=== PATIENT | female | born 1955 | race Caucasian/White ===

== ENCOUNTER 2017-03-17 16:31 | Inpatient (IN) | payer BC, OTHER ==
[~2017-03-17] VITALS: Ht 157.5 cm; Wt 162.4 kg
[~2017-03-17 16:31] MED LIST: ALPR0.5T6 PO; ASPI-482 PO; ATOR40TA59 PO; BACI28.34 TP; BUDE10.22 IH; BUPR150T11 PO; CARV3.12 PO; CEPH-264 PO; CITA40TA12 PO; GABA600T2 PO; HYDR12.53 PO; LISI-334 PO; MUPI15CR TP; NYST60PO TP; OXYC-328; PANT40TA3 PO; POTA20TA12 PO; PRAS10TA9 PO; PRED20TA PO; PROAIR HFA8.5 GM INH; TEMA30CA PO
[2017-03-17 18:35] VITALS: BP 132/59
[2017-03-17] MEDS ORDERED: hydrALAZINE 20 MG/ML VIAL. IVP PRN (19:15)
[2017-03-17] MEDS ORDERED: ONDANSETRON PF 4 MG/2 ML VIAL. IV PRN (19:15)
[2017-03-17] MEDS ORDERED: VANCOMYCIN PER PHARMACY MC PRN ×2 (19:15)
[2017-03-17] MEDS ORDERED: ALBUTEROL SULFATE 2.5 MG/3 ML NEBU. NEB PRN (19:15)
[2017-03-17] MEDS ORDERED: ACETAMINOPHEN 325 MG TABLET. PO PRN (19:15)
--- NOTE | 2017-03-17 19:15 | PDOC1 ---
History and Physical Date of Admission Date of Admission 03/17/2017 Identification/Chief Complaint Chief Complaint Chief complaint multiple wounds Problems: History of Present Illness History of Present Illness This 61-year-old female with prior history of chronic lower extremity wounds directly admitted to the hospital for a recurrent nonhealing ulcers. Today received call from from her wound care physician at [facility]. Requested made with the hospital for IV antibiotics and wound care. Patient disabled recently received [employer] however today on examination she has reading ulcers both sides and lower extremities extending from the heel to mid ankle. Old culture showed positive for gram-negative MRSA and Proteus. Patient says her pain is intractable nature when they're trying to change the wounds requiring IV narcotics. Past Medical History Past Medical History MEDICATIONS: Multiple meds listed. SOCIAL HISTORY: Nonsmoker, nondrinker, not physically active, unemployed. FAMILY HISTORY: Hypertension Cardiovascular: CHF, Other Pulmonary: COPD, Other CENTRAL NERVOUS SYSTEM: Periperal neuropathy, Other GI: No pertinent hx Heme/Onc: Anemia NOS Hepatobiliary: No pertinent hx Psych: Anxiety, Depression Rheumatologic: No pertinent hx Infectious disease: Other Renal/: Chronic renal insuff Endocrine: Hypothyroidism Past Surgical History Past Surgical History: Cholecystectomy, Tubal Ligation, Other Family History Family History: Heart Disease Social History ALCOHOL: none Drugs: None Current Medications Current Medications Current Medications Medications (Trade) Dose Ordered Sig/Demarco Start Time Stop Time Status Last Admin Dose Admin Acetaminophen (Tylenol) 325 mg PRN Q6HRS PRN 03/17/17 19:15 UNV Albuterol Sulfate (Ventolin Neb Soln) 2.5 mg PRN Q4HRS PRN 03/17/17 19:15 UNV Hydralazine HCl (Apresoline) 10 mg PRN Q4HRS PRN 03/17/17 19:15 UNV Ondansetron HCl (Zofran) 4 mg PRN Q8HRS PRN 03/17/17 19:15 UNV Vancomycin HCl (Vanco Per Pharmacy) 1 each PRN DAILY PRN 03/17/17 19:15 UNV Allergies Allergies Allergies Coded Allergies Type Severity Reaction Last Updated Verified codeine Allergy Intermediate 12/31/15 Yes levofloxacin Allergy Intermediate 04/01/16 Yes piperacillin Allergy Intermediate hives, rash 04/06/16 Yes propoxyphene Allergy Intermediate 12/31/15 Yes sulfamethoxazole Allergy Intermediate 12/31/15 Yes tazobactam Allergy Intermediate hives, rash 04/06/16 Yes I S O L A T I O N *CONTACT* Allergy Unknown 04/04/16 Yes ROS Review of System CONSTITUTIONAL: No fever or chills EYES: No recent changes SKIN: No rash or itching CARDIOVASCULAR: No chest pain, syncope, palpitations, or edema RESPIRATORY: No SOB or cough GASTROINTESTINAL: No nausea, vomiting or abdominal pain NEUROLOGICAL: No headaches or weakness ENDOCRINE: No cold or heat intolerance GENITOURINARY: No urgency or frequency of urination MUSCULOSKELETAL: No back pain or joint pain LYMPHATICS: No enlarged lymph nodes PSYCHIATRIC: No anxiety or depression Physical Exam Physical Exam GEN.: No apparent distress. Alert and oriented obese HEENT: Head is normocephalic, atraumatic NECK: Supple. LUNGS: Clear to auscultation. HEART: RRR, S1, S2 present. Peripheral pulses intact ABDOMEN: Soft, nontender. Positive bowel sounds. EXTREMITIES: Without any cyanosis. NEUROLOGIC: Normal speech, normal tone PSYCHIATRIC: Normal affect, normal mood. SKIN: Weeping ulcers present in the bilateral lower extremities with serous sanguinous discharge VTE Prophylaxis Ordered VTE Prophylaxis Devices: Yes VTE Pharmacological Prophylaxi: Yes Assessment/Plan Assessment/Plan Assessment and plan #1 bilateral nonhealing ulcers #2 wound cultures positive for MRSA/Proteus/gram- negative rods #3 obesity #4 hypertension #5 anemia of chronic disease #6 coronary artery disease. She has been placed on IV vancomycin, renal dosing is needed according to renal functions, along with a specific time, I'll consult infectious disease for further recommendations, consult wound care team, pain control with IV morphine 2 mg every 2 hours as needed, labs CBC BMP ordered. DVT prophylaxis with Lovenox. Case is discussed with the [facility] physician. Long-term prognosis guarded. Old records reviewed. ROYCE MCNAIR MD Mar 17, 2017 19:15
[2017-03-17] MEDS ORDERED: VANCOMYCIN 2 GM in IV NORMAL SALINE 500ML BAG 500 ML IV ONE (19:30)
[2017-03-17 20:05] LABS: BASO % 0 % (0-3); EOS % 2 % (0-3); HEMATOCRIT 25.9 % (36.0-47.0); HEMOGLOBIN 8.5 g/dL (12.0-15.5); LYMPH # 0.7 x10^3/uL (1.0-4.8); LYMPH % 10 % (24-48); MEAN CORPUSCULAR HEMOGLOBIN 28 pg (25-35); MEAN CORPUSCULAR HGB CONC 33 g/dL (31-37); MEAN CORPUSCULAR VOLUME 86 fL (79-100); MONO % 5 % (0-9); NEUT % 83 % (31-73); PLATELET COUNT 244 x10^3/uL (140-400); RED CELL DISTRIBUTION WIDTH 17.2 % (11.5-14.5); WHITE BLOOD COUNT 7.7 x10^3/uL (4.0-11.0)
[2017-03-17] MEDS: MORPHINE SULFATE 2 MG/ML DISP.SYRIN. IV PRN ×3 (20:17→23:41)
[2017-03-17 20:22] LABS: CALCIUM 8.4 mg/dL (8.5-10.1); CREATININE 1.8 mg/dL (0.6-1.0); GFR 28.5; POTASSIUM 4.5 mmol/L (3.5-5.1)
[2017-03-17] MEDS ORDERED: LIDOCAINE 2% TOPICAL JELLY 5GM TUBE. TP ONE (20:30)
[2017-03-17 23:00] VITALS: BP 105/42
[2017-03-17] MEDS ORDERED: LIDOCAINE 2% TOPICAL JELLY 30GM TUBE. TP ONE (23:00)
[2017-03-18 03:00] VITALS: BP 145/56
[2017-03-18] MEDS: MORPHINE SULFATE 2 MG/ML DISP.SYRIN. IV PRN ×3 (03:19→12:40)
[2017-03-18 05:00] LABS: BASO % 0 % (0-3); EOS % 2 % (0-3); HEMATOCRIT 29.3 % (36.0-47.0); HEMOGLOBIN 9.4 g/dL (12.0-15.5); LYMPH % 7 % (24-48); MEAN CORPUSCULAR HEMOGLOBIN 28 pg (25-35); MEAN CORPUSCULAR HGB CONC 32 g/dL (31-37); MEAN CORPUSCULAR VOLUME 87 fL (79-100); MONO % 4 % (0-9); NEUT % 88 % (31-73); PLATELET COUNT 476 x10^3/uL (140-400); RED BLOOD COUNT 3.38 x10^6/uL (3.50-5.40); RED CELL DISTRIBUTION WIDTH 17.8 % (11.5-14.5); WHITE BLOOD COUNT 14.8 x10^3/uL (4.0-11.0)
[2017-03-18 05:19] LABS: CALCIUM 8.7 mg/dL (8.5-10.1); CREATININE 1.6 mg/dL (0.6-1.0); GFR 32.7; POTASSIUM 4.4 mmol/L (3.5-5.1)
[2017-03-18] MEDS: MEROPENEM 1 GM in IV NORMAL SALINE 100ML 100 ML IV SCH ×2 (06:42→20:53)
[2017-03-18 07:00] VITALS: BP 147/68
--- NOTE | 2017-03-18 09:02 | PDOC2 ---
IM Consult Referring physician Dr Mondragon for leg wounds with infection Date of Admission DATE: 03/18/17 TIME: 08:56 Chief Complaint Chief Complaint This 61-year-old female with prior history of chronic lower extremity wounds directly admitted to the hospital for a recurrent nonhealing ulcers. Today received call from from her wound care physician at [facility]. Requested made with the hospital for IV antibiotics and wound care. Patient disabled recently received [employer] however today on examination she has reading ulcers both sides and lower extremities extending from the heel to mid ankle. Old culture showed positive for gram-negative MRSA and Proteus. Patient says her pain is intractable nature when they're trying to change the wounds requiring IV narcotics. Problems: Past Medical History Cardiovascular: CHF, Other Pulmonary: COPD, Other CENTRAL NERVOUS SYSTEM: Periperal neuropathy, Other GI: No pertinent hx Heme/Onc: Anemia NOS Hepatobiliary: No pertinent hx Psych: Anxiety, Depression Musculoskeletal: Osteoarthritis, Other Rheumatologic: No pertinent hx Infectious disease: Other Renal/: Chronic renal insuff Endocrine: Hypothyroidism Dermatology: Other (peripheral vascular disease, obesity, venous insufficiency ulcerations) Past Surgical History Past Surgical History: Cholecystectomy, Tubal Ligation, Other Past Family History Family History: Heart Disease Past Social History PSH denies smoking, etoh, or drugs Review of Symptoms Review of Symptoms General ROS: positive for - Psychological ROS: negative Ophthalmic ROS: negative ENT ROS: negative Allergy and Immunology ROS: negative Hematology and Lymphatic: negative Endocrine ROS: negative Respiratory ROS: no cold, cough, dyspnea. Cardiovascular ROS: no chest pain or dyspnea on exertion Gastrointestinal ROS: no abdominal pain, change in bowel habits, or black or bloody stools Genito-Urinary ROS: no dysuria, trouble voiding, or hematuria Musculoskeletal ROS: no pain Neurological ROS: negative Dermatological ROS: no rash Medications Current Medications Acetaminophen (Tylenol) 325 mg PRN Q6HRS PRN PO MILD PAIN / TEMP; Start at 19:15 Albuterol Sulfate (Ventolin Neb Soln) 2.5 mg PRN Q4HRS PRN NEB SHORTNESS OF BREATH; Start 03/17/17 at 19:15 Hydralazine HCl (Apresoline) 10 mg PRN Q4HRS PRN IVP ELEVATED BP, SEE COMMENTS ; Start 03/17/17 at 19:15 Lidocaine HCl (Xylocaine 2% Topical 30gm Tube) 1 stewart 1X ONCE TP Last administered on 03/17/17 23:41; Start 03/17/17 at 23:00; Stop 03/17/17 at 23:01; Status DC Lidocaine HCl (Xylocaine 2% Topical 5gm Tube) 1 stewart 1X ONCE TP Last administered on 03/17/17 20:30; Start 03/17/17 at 20:30; Stop 03/17/17 at 20:31; Status DC Meropenem 1 gm/ Sodium Chloride 100 ml @ 200 mls/hr Q12HR IV Last administered on 03/18/17 06:42; Start 03/18/17 at 07:00 Morphine Sulfate 2 mg PRN Q2HR PRN IV PAIN Last administered on 03/18/17 08:10 ; Start 03/17/17 at 20:00 Ondansetron HCl (Zofran) 4 mg PRN Q8HRS PRN IV NAUSEA/VOMITING; Start 03/17/17 at 19:15 Vancomycin HCl 1 each 1X ONCE MC ; Start 03/19/17 at 20:30; Stop 03/19/17 at 20: 31 Vancomycin HCl (Vanco Per Pharmacy) 1 each PRN DAILY PRN MC SEE COMMENTS Last administered on 03/18/17 03:07; Start 03/17/17 at 19:15 Vancomycin HCl (Vanco Per Pharmacy) 1 each PRN DAILY PRN MC SEE COMMENTS; Start 03/17/17 at 19:15; Status UNV Vancomycin HCl 2 gm/Sodium Chloride 500 ml @ 250 mls/hr ONCE ONCE IV Last administered on 03/17/17 21:17; Start 03/17/17 at 19:30; Stop 03/17/17 at 21:29; Status DC Vancomycin HCl 2 gm/Sodium Chloride 500 ml @ 250 mls/hr Q24H IV ; Start at 21:00 Allergy Allergies Coded Allergies Type Severity Reaction Last Updated Verified codeine Allergy Intermediate 12/31/15 Yes levofloxacin Allergy Intermediate 04/01/16 Yes piperacillin Allergy Intermediate hives, rash 04/06/16 Yes propoxyphene Allergy Intermediate 12/31/15 Yes sulfamethoxazole Allergy Intermediate 12/31/15 Yes tazobactam Allergy Intermediate hives, rash 04/06/16 Yes I S O L A T I O N *CONTACT* Allergy Unknown 04/04/16 Yes Physical Exam Physical Exam General appearance - alert,well appearing, and in no distress and oriented to person, place, and time Mental Status - alert, oriented to person, place, and time, affect appropriate to mood Head - normal Chest - clear to auscultation, no wheezes, rales or rhonchi, symmetric air entry Heart - S1 and S2 normal Abdomen - soft, nontender, nondistended, no masses or organomegaly Neurological - alert and oriented Musculoskeletal - no muscular tenderness noted Extremities - no pedal edema Skin - warm and dry,,, tony lower ext ulcerations, superficial, mild surrounding erythema Labs Laboratory Tests Test 03/17/17 19:40 03/18/17 04:45 White Blood Count 7.7 x10^3/uL (4.0-11.0) 14.8 x10^3/uL (4.0-11.0) Red Blood Count 3.00 x10^6/uL (3.50-5.40) 3.38 x10^6/uL (3.50-5.40) Hemoglobin 8.5 g/dL (12.0-15.5) 9.4 g/dL (12.0-15.5) Hematocrit 25.9 % (36.0-47.0) 29.3 % (36.0-47.0) Mean Corpuscular Volume 86 fL (79-100) 87 fL (79-100) Mean Corpuscular Hemoglobin 28 pg (25-35) 28 pg (25-35) Mean Corpuscular Hemoglobin Concent 33 g/dL (31-37) 32 g/dL (31-37) Red Cell Distribution Width 17.2 % (11.5-14.5) 17.8 % (11.5-14.5) Platelet Count 244 x10^3/uL (140-400) 476 x10^3/uL (140-400) Neutrophils (%) (Auto) 83 % (31-73) 88 % (31-73) Lymphocytes (%) (Auto) 10 % (24-48) 7 % (24-48) Monocytes (%) (Auto) 5 % (0-9) 4 % (0-9) Eosinophils (%) (Auto) 2 % (0-3) 2 % (0-3) Basophils (%) (Auto) 0 % (0-3) 0 % (0-3) Neutrophils # (Auto) 6.4 x10^3uL (1.8-7.7) 12.9 x10^3uL (1.8-7.7) Lymphocytes # (Auto) 0.7 x10^3/uL (1.0-4.8) 1.0 x10^3/uL (1.0-4.8) Monocytes # (Auto) 0.4 x10^3/uL (0.0-1.1) 0.6 x10^3/uL (0.0-1.1) Eosinophils # (Auto) 0.2 x10^3/uL (0.0-0.7) 0.3 x10^3/uL (0.0-0.7) Basophils # (Auto) 0.0 x10^3/uL (0.0-0.2) 0.0 x10^3/uL (0.0-0.2) Sodium Level 138 mmol/L (136-145) 138 mmol/L (136-145) Potassium Level 4.5 mmol/L (3.5-5.1) 4.4 mmol/L (3.5-5.1) Chloride Level 100 mmol/L (98-107) 99 mmol/L (98-107) Carbon Dioxide Level 34 mmol/L (21-32) 28 mmol/L (21-32) Anion Gap 4 (6-14) 11 (6-14) Blood Urea Nitrogen 29 mg/dL (7-20) 27 mg/dL (7-20) Creatinine 1.8 mg/dL (0.6-1.0) 1.6 mg/dL (0.6-1.0) Estimated GFR (Cockcroft-Gault) 28.5 32.7 Glucose Level 143 mg/dL (70-99) 135 mg/dL (70-99) Calcium Level 8.4 mg/dL (8.5-10.1) 8.7 mg/dL (8.5-10.1) Laboratory Tests Test 03/17/17 19:40 03/18/17 04:45 White Blood Count 7.7 x10^3/uL (4.0-11.0) 14.8 x10^3/uL (4.0-11.0) Red Blood Count 3.00 x10^6/uL (3.50-5.40) 3.38 x10^6/uL (3.50-5.40) Hemoglobin 8.5 g/dL (12.0-15.5) 9.4 g/dL (12.0-15.5) Hematocrit 25.9 % (36.0-47.0) 29.3 % (36.0-47.0) Mean Corpuscular Volume 86 fL (79-100) 87 fL (79-100) Mean Corpuscular Hemoglobin 28 pg (25-35) 28 pg (25-35) Mean Corpuscular Hemoglobin Concent 33 g/dL (31-37) 32 g/dL (31-37) Red Cell Distribution Width 17.2 % (11.5-14.5) 17.8 % (11.5-14.5) Platelet Count 244 x10^3/uL (140-400) 476 x10^3/uL (140-400) Neutrophils (%) (Auto) 83 % (31-73) 88 % (31-73) Lymphocytes (%) (Auto) 10 % (24-48) 7 % (24-48) Monocytes (%) (Auto) 5 % (0-9) 4 % (0-9) Eosinophils (%) (Auto) 2 % (0-3) 2 % (0-3) Basophils (%) (Auto) 0 % (0-3) 0 % (0-3) Neutrophils # (Auto) 6.4 x10^3uL (1.8-7.7) 12.9 x10^3uL (1.8-7.7) Lymphocytes # (Auto) 0.7 x10^3/uL (1.0-4.8) 1.0 x10^3/uL (1.0-4.8) Monocytes # (Auto) 0.4 x10^3/uL (0.0-1.1) 0.6 x10^3/uL (0.0-1.1) Eosinophils # (Auto) 0.2 x10^3/uL (0.0-0.7) 0.3 x10^3/uL (0.0-0.7) Basophils # (Auto) 0.0 x10^3/uL (0.0-0.2) 0.0 x10^3/uL (0.0-0.2) Sodium Level 138 mmol/L (136-145) 138 mmol/L (136-145) Potassium Level 4.5 mmol/L (3.5-5.1) 4.4 mmol/L (3.5-5.1) Chloride Level 100 mmol/L (98-107) 99 mmol/L (98-107) Carbon Dioxide Level 34 mmol/L (21-32) 28 mmol/L (21-32) Anion Gap 4 (6-14) 11 (6-14) Blood Urea Nitrogen 29 mg/dL (7-20) 27 mg/dL (7-20) Creatinine 1.8 mg/dL (0.6-1.0) 1.6 mg/dL (0.6-1.0) Estimated GFR (Cockcroft-Gault) 28.5 32.7 Glucose Level 143 mg/dL (70-99) 135 mg/dL (70-99) Calcium Level 8.4 mg/dL (8.5-10.1) 8.7 mg/dL (8.5-10.1) Vitals Vital Signs Date Time Temp Pulse Resp B/P (MAP) Pulse Ox O2 Delivery O2 Flow Rate FiO2 03/18/17 08:10 Nasal Cannula 2.5 03/18/17 07:00 99.1 104 16 147/68 (94) 98 99.1 Assessment Assessment Tony lower ext cellulitis Tony lower ext superficial ulcerations Tony lower ext venous insufficiency Tony lower ext chronic stasis dermatitis Obesity CHF Plan Plan cont meropenem, change vanc to zyvox leg elevation local care soon to d/c iv antibiotics in few days ( 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
[2017-03-18 10:09] LABS: PLT ESTIMATE INCREASED (ADEQUATE)
[2017-03-18] MEDS: LINEZOLID 600 MG TABLET PO SCH ×2 (10:28→20:54)
[2017-03-18 10:58] VITALS: BP 152/72
--- NOTE | 2017-03-18 11:38 | PDOC ---
PROGRESS NOTES Chief Complaint Chief Complaint 1. Bilateral nonhealing ulcers on lower extremities 2. Wound cultures positive for MRSA/Proteus/gram-negative rods 3. Obesity 4. Hypertension 5. Anemia of chronic disease 6. Coronary artery disease. History of Present Illness History of Present Illness pt is doing well this morning, she is resting comfortably in bed, nurse in is the room helping her with wound care Vitals Vitals Vital Signs Date Time Temp Pulse Resp B/P (MAP) Pulse Ox O2 Delivery O2 Flow Rate FiO2 03/18/17 10:58 98.4 98 16 152/72 (98) 98 98.4 03/18/17 09:46 Nasal Cannula 2.5 Physical Exam General: Alert, Oriented X3, Cooperative, No acute distress Heart: Regular rate, No murmurs Lungs: Clear Abdomen: Normal bowel sounds, Soft, No tenderness Extremities: No clubbing, No cyanosis, Other (nonhealing ulcers in both lower extremities with minimal drainage) Skin: No rashes, No breakdown Labs LABS Laboratory Tests Test 03/17/17 19:40 03/18/17 04:45 White Blood Count 7.7 x10^3/uL (4.0-11.0) 14.8 x10^3/uL (4.0-11.0) Red Blood Count 3.00 x10^6/uL (3.50-5.40) 3.38 x10^6/uL (3.50-5.40) Hemoglobin 8.5 g/dL (12.0-15.5) 9.4 g/dL (12.0-15.5) Hematocrit 25.9 % (36.0-47.0) 29.3 % (36.0-47.0) Mean Corpuscular Volume 86 fL (79-100) 87 fL (79-100) Mean Corpuscular Hemoglobin 28 pg (25-35) 28 pg (25-35) Mean Corpuscular Hemoglobin Concent 33 g/dL (31-37) 32 g/dL (31-37) Red Cell Distribution Width 17.2 % (11.5-14.5) 17.8 % (11.5-14.5) Platelet Count 244 x10^3/uL (140-400) 476 x10^3/uL (140-400) Neutrophils (%) (Auto) 83 % (31-73) 88 % (31-73) Lymphocytes (%) (Auto) 10 % (24-48) 7 % (24-48) Monocytes (%) (Auto) 5 % (0-9) 4 % (0-9) Eosinophils (%) (Auto) 2 % (0-3) 2 % (0-3) Basophils (%) (Auto) 0 % (0-3) 0 % (0-3) Neutrophils # (Auto) 6.4 x10^3uL (1.8-7.7) 12.9 x10^3uL (1.8-7.7) Lymphocytes # (Auto) 0.7 x10^3/uL (1.0-4.8) 1.0 x10^3/uL (1.0-4.8) Monocytes # (Auto) 0.4 x10^3/uL (0.0-1.1) 0.6 x10^3/uL (0.0-1.1) Eosinophils # (Auto) 0.2 x10^3/uL (0.0-0.7) 0.3 x10^3/uL (0.0-0.7) Basophils # (Auto) 0.0 x10^3/uL (0.0-0.2) 0.0 x10^3/uL (0.0-0.2) Sodium Level 138 mmol/L (136-145) 138 mmol/L (136-145) Potassium Level 4.5 mmol/L (3.5-5.1) 4.4 mmol/L (3.5-5.1) Chloride Level 100 mmol/L (98-107) 99 mmol/L (98-107) Carbon Dioxide Level 34 mmol/L (21-32) 28 mmol/L (21-32) Anion Gap 4 (6-14) 11 (6-14) Blood Urea Nitrogen 29 mg/dL (7-20) 27 mg/dL (7-20) Creatinine 1.8 mg/dL (0.6-1.0) 1.6 mg/dL (0.6-1.0) Estimated GFR (Cockcroft-Gault) 28.5 32.7 Glucose Level 143 mg/dL (70-99) 135 mg/dL (70-99) Calcium Level 8.4 mg/dL (8.5-10.1) 8.7 mg/dL (8.5-10.1) Segmented Neutrophils % 83 % (35-66) Band Neutrophils % 5 % (0-9) Lymphocytes % 8 % (24-48) Monocytes % 4 % (0-10) Platelet Estimate Increased (ADEQUATE) Review of Systems Review of Systems denies nausea, vomiting or DUMONT Assessment and Plan Assessmemt and Plan Assessment 1. Bilateral nonhealing ulcers on lower extremities 2. Wound cultures positive for MRSA/Proteus/gram-negative rods 3. Obesity 4. Hypertension 5. Anemia of chronic disease 6. Coronary artery disease Plan 1. Abx regiment: Meropenem, linezolid 2. Lovenox for DVT prophylaxis 3. Wound local care with leg elevation 4. Appreciate ID subspecialty input 5. Continue home meds 6. Discussed plan of care with nursing 7. PT/OT 8. Recheck CBC and BMP tomorrow 9. Pain management with morphine 10. Zofran prn for nausea Problems: Comment Review of Relevant I have reviewed the following items doug (where applicable) has been applied. Labs Laboratory Tests Test 03/17/17 19:40 03/18/17 04:45 White Blood Count 7.7 x10^3/uL (4.0-11.0) 14.8 x10^3/uL (4.0-11.0) Red Blood Count 3.00 x10^6/uL (3.50-5.40) 3.38 x10^6/uL (3.50-5.40) Hemoglobin 8.5 g/dL (12.0-15.5) 9.4 g/dL (12.0-15.5) Hematocrit 25.9 % (36.0-47.0) 29.3 % (36.0-47.0) Mean Corpuscular Volume 86 fL (79-100) 87 fL (79-100) Mean Corpuscular Hemoglobin 28 pg (25-35) 28 pg (25-35) Mean Corpuscular Hemoglobin Concent 33 g/dL (31-37) 32 g/dL (31-37) Red Cell Distribution Width 17.2 % (11.5-14.5) 17.8 % (11.5-14.5) Platelet Count 244 x10^3/uL (140-400) 476 x10^3/uL (140-400) Neutrophils (%) (Auto) 83 % (31-73) 88 % (31-73) Lymphocytes (%) (Auto) 10 % (24-48) 7 % (24-48) Monocytes (%) (Auto) 5 % (0-9) 4 % (0-9) Eosinophils (%) (Auto) 2 % (0-3) 2 % (0-3) Basophils (%) (Auto) 0 % (0-3) 0 % (0-3) Neutrophils # (Auto) 6.4 x10^3uL (1.8-7.7) 12.9 x10^3uL (1.8-7.7) Lymphocytes # (Auto) 0.7 x10^3/uL (1.0-4.8) 1.0 x10^3/uL (1.0-4.8) Monocytes # (Auto) 0.4 x10^3/uL (0.0-1.1) 0.6 x10^3/uL (0.0-1.1) Eosinophils # (Auto) 0.2 x10^3/uL (0.0-0.7) 0.3 x10^3/uL (0.0-0.7) Basophils # (Auto) 0.0 x10^3/uL (0.0-0.2) 0.0 x10^3/uL (0.0-0.2) Sodium Level 138 mmol/L (136-145) 138 mmol/L (136-145) Potassium Level 4.5 mmol/L (3.5-5.1) 4.4 mmol/L (3.5-5.1) Chloride Level 100 mmol/L (98-107) 99 mmol/L (98-107) Carbon Dioxide Level 34 mmol/L (21-32) 28 mmol/L (21-32) Anion Gap 4 (6-14) 11 (6-14) Blood Urea Nitrogen 29 mg/dL (7-20) 27 mg/dL (7-20) Creatinine 1.8 mg/dL (0.6-1.0) 1.6 mg/dL (0.6-1.0) Estimated GFR (Cockcroft-Gault) 28.5 32.7 Glucose Level 143 mg/dL (70-99) 135 mg/dL (70-99) Calcium Level 8.4 mg/dL (8.5-10.1) 8.7 mg/dL (8.5-10.1) Segmented Neutrophils % 83 % (35-66) Band Neutrophils % 5 % (0-9) Lymphocytes % 8 % (24-48) Monocytes % 4 % (0-10) Platelet Estimate Increased (ADEQUATE) Laboratory Tests Test 03/17/17 19:40 03/18/17 04:45 White Blood Count 7.7 x10^3/uL (4.0-11.0) 14.8 x10^3/uL (4.0-11.0) Red Blood Count 3.00 x10^6/uL (3.50-5.40) 3.38 x10^6/uL (3.50-5.40) Hemoglobin 8.5 g/dL (12.0-15.5) 9.4 g/dL (12.0-15.5) Hematocrit 25.9 % (36.0-47.0) 29.3 % (36.0-47.0) Mean Corpuscular Volume 86 fL (79-100) 87 fL (79-100) Mean Corpuscular Hemoglobin 28 pg (25-35) 28 pg (25-35) Mean Corpuscular Hemoglobin Concent 33 g/dL (31-37) 32 g/dL (31-37) Red Cell Distribution Width 17.2 % (11.5-14.5) 17.8 % (11.5-14.5) Platelet Count 244 x10^3/uL (140-400) 476 x10^3/uL (140-400) Neutrophils (%) (Auto) 83 % (31-73) 88 % (31-73) Lymphocytes (%) (Auto) 10 % (24-48) 7 % (24-48) Monocytes (%) (Auto) 5 % (0-9) 4 % (0-9) Eosinophils (%) (Auto) 2 % (0-3) 2 % (0-3) Basophils (%) (Auto) 0 % (0-3) 0 % (0-3) Neutrophils # (Auto) 6.4 x10^3uL (1.8-7.7) 12.9 x10^3uL (1.8-7.7) Lymphocytes # (Auto) 0.7 x10^3/uL (1.0-4.8) 1.0 x10^3/uL (1.0-4.8) Monocytes # (Auto) 0.4 x10^3/uL (0.0-1.1) 0.6 x10^3/uL (0.0-1.1) Eosinophils # (Auto) 0.2 x10^3/uL (0.0-0.7) 0.3 x10^3/uL (0.0-0.7) Basophils # (Auto) 0.0 x10^3/uL (0.0-0.2) 0.0 x10^3/uL (0.0-0.2) Sodium Level 138 mmol/L (136-145) 138 mmol/L (136-145) Potassium Level 4.5 mmol/L (3.5-5.1) 4.4 mmol/L (3.5-5.1) Chloride Level 100 mmol/L (98-107) 99 mmol/L (98-107) Carbon Dioxide Level 34 mmol/L (21-32) 28 mmol/L (21-32) Anion Gap 4 (6-14) 11 (6-14) Blood Urea Nitrogen 29 mg/dL (7-20) 27 mg/dL (7-20) Creatinine 1.8 mg/dL (0.6-1.0) 1.6 mg/dL (0.6-1.0) Estimated GFR (Cockcroft-Gault) 28.5 32.7 Glucose Level 143 mg/dL (70-99) 135 mg/dL (70-99) Calcium Level 8.4 mg/dL (8.5-10.1) 8.7 mg/dL (8.5-10.1) Segmented Neutrophils % 83 % (35-66) Band Neutrophils % 5 % (0-9) Lymphocytes % 8 % (24-48) Monocytes % 4 % (0-10) Platelet Estimate Increased (ADEQUATE) Medications Current Medications Acetaminophen (Tylenol) 325 mg PRN Q6HRS PRN PO MILD PAIN / TEMP; Start at 19:15 Hydralazine HCl (Apresoline) 10 mg PRN Q4HRS PRN IVP ELEVATED BP, SEE COMMENTS ; Start 03/17/17 at 19:15 Ondansetron HCl (Zofran) 4 mg PRN Q8HRS PRN IV NAUSEA/VOMITING; Start 03/17/17 at 19:15 Albuterol Sulfate (Ventolin Neb Soln) 2.5 mg PRN Q4HRS PRN NEB SHORTNESS OF BREATH; Start 03/17/17 at 19:15 Vancomycin HCl (Vanco Per Pharmacy) 1 each PRN DAILY PRN MC SEE COMMENTS; Start 03/17/17 at 19:15; Status UNV Vancomycin HCl (Vanco Per Pharmacy) 1 each PRN DAILY PRN MC SEE COMMENTS Last administered on 03/18/17 03:07; Start 03/17/17 at 19:15; Stop 03/18/17 at 09:04; Status DC Vancomycin HCl 2 gm/Sodium Chloride 500 ml @ 250 mls/hr ONCE ONCE IV Last administered on 03/17/17 21:17; Start 03/17/17 at 19:30; Stop 03/17/17 at 21:29; Status DC Morphine Sulfate 2 mg PRN Q2HR PRN IV PAIN Last administered on 03/18/17 08:10 ; Start 03/17/17 at 20:00 Lidocaine HCl (Xylocaine 2% Topical 5gm Tube) 1 stewart 1X ONCE TP Last administered on 03/17/17 20:30; Start 03/17/17 at 20:30; Stop 03/17/17 at 20:31; Status DC Lidocaine HCl (Xylocaine 2% Topical 30gm Tube) 1 stewart 1X ONCE TP Last administered on 03/17/17 23:41; Start 03/17/17 at 23:00; Stop 03/17/17 at 23:01; Status DC Vancomycin HCl 2 gm/Sodium Chloride 500 ml @ 250 mls/hr Q24H IV ; Start at 21:00; Stop 03/18/17 at 21:00; Status DC Vancomycin HCl 1 each 1X ONCE MC ; Start 03/19/17 at 20:30; Stop 03/19/17 at 20: 31; Status Cancel Meropenem 1 gm/ Sodium Chloride 100 ml @ 200 mls/hr Q12HR IV Last administered on 03/18/17 06:42; Start 03/18/17 at 07:00 Linezolid (Zyvox) 600 mg BID PO Last administered on 03/18/17t 10:28; Start 03/18 at 09:00 Active Scripts Active Reported Aspir 81 (Aspirin) 81 Mg Tablet.dr 1 Tab PO DAILY Effient (Prasugrel Hcl) 10 Mg Tablet 10 Mg PO DAILY Protonix (Pantoprazole Sodium) 40 Mg Tablet.dr 40 Mg PO DAILY Coreg (Carvedilol) 3.125 Mg Tablet 3.125 Mg PO BIDWMEALS Atorvastatin Calcium 40 Mg Tablet 40 Mg PO HS Symbicort 80-4.5 Mcg Inhaler (Budesonide/Formoterol Fumarate) 10.2 Gm Hfa.aer.ad 2 Puff IH BID Alprazolam 0.5 Mg Tablet 1 Tab PO TID Percocet 10-325 Mg Tablet (Oxycodone/Acetaminophen) 1 Each Tablet 2 Tab .ROUTE PRN Q6HRS PRN Bupropion Hcl Sr (Bupropion Hcl) 150 Mg Tablet.er 450 Mg PO DAILY Celexa (Citalopram Hydrobromide) 40 Mg Tablet 40 Mg PO DAILY Temazepam 30 Mg Capsule 30 Mg PO HS PRN Nystop (Nystatin) 60 Gm Powder 60 Gm TP BID apply under breasts Gabapentin 600 Mg Tablet 2 Tab PO TID Vitals/I & O Vital Sign - Last 24 Hours 03/17/17 03/17/17 03/17/17 03/17/17 18:35 20:00 20:17 21:16 Temp 97.9 97.9 Pulse 82 Resp 20 16 B/P (MAP) 132/59 (83) Pulse Ox 98 98 O2 Delivery Nasal Cannula Nasal Cannula Nasal Cannula O2 Flow Rate 2.5 2.0 2.0 2.0 03/17/17 03/17/17 03/17/17 03/18/17 21:29 23:00 23:41 00:11 Temp 97.7 97.7 Pulse 86 Resp 20 16 16 B/P (MAP) 105/42 (63) Pulse Ox 95 100 100 100 O2 Delivery Nasal Cannula Nasal Cannula Nasal Cannula O2 Flow Rate 3.0 2.5 2.0 03/18/17 03/18/17 03/18/17 03/18/17 03:00 03:19 07:00 08:00 Temp 99.0 99.1 99.0 99.1 Pulse 92 104 Resp 20 16 16 B/P (MAP) 145/56 (85) 147/68 (94) Pulse Ox 100 100 98 O2 Delivery Nasal Cannula Nasal Cannula Room Air Nasal Cannula O2 Flow Rate 2.5 2.5 2.5 03/18/17 03/18/17 03/18/17 08:10 09:46 10:58 Temp 98.4 98.4 Pulse 98 Resp 16 B/P (MAP) 152/72 (98) Pulse Ox 98 O2 Delivery Nasal Cannula Nasal Cannula O2 Flow Rate 2.5 2.5 Intake and Output 03/17/17 03/17/17 03/18/17 15:00 23:00 07:00 Intake Total 120 ml 600 ml Balance 120 ml 600 ml CAROL OLIVIER III DO Mar 18, 2017 11:38
[2017-03-18 14:59] VITALS: BP 136/50
[2017-03-18] MEDS: buPROPion XL 150 MG TAB.ER.24H. PO SCH (16:50)
[2017-03-18] MEDS: ASPIRIN ENTERIC COATED 81 MG TABLET.DR. PO SCH (16:50)
[2017-03-18] MEDS: CARVEDILOL 3.125 MG TABLET. PO SCH (16:50)
[2017-03-18] MEDS: ALPRAZolam 0.5 MG TABLET PO SCH ×2 (16:50→20:54)
[2017-03-18] MEDS: oxyCODONE/APAP 10/325 1 TAB TABLET PO PRN ×2 (16:54→23:39)
[2017-03-18] MEDS: ALBUTEROL SULFATE 2.5 MG/3 ML NEBU. NEB SCH ×2 (17:00→20:14)
[2017-03-18 19:15] VITALS: BP 126/68
[2017-03-18] MEDS: BUDESONIDE 0.5 MG/2 ML NEBU. NEB SCH (20:14)
[2017-03-18] MEDS: GABAPENTIN 300 MG CAPSULE. PO SCH (20:54)
[2017-03-18] MEDS: ATORVASTATIN CALCIUM 40 MG TABLET. PO SCH (20:54)
[2017-03-18] MEDS ORDERED: VANCOMYCIN 2 GM in IV NORMAL SALINE 500ML BAG 500 ML IV SCH (21:00)
[2017-03-18] MEDS ORDERED: NYSTATIN TOPICAL POWDER 15GM BOTTLE. TP SCH (21:00)
[2017-03-18] MEDS ORDERED: NON FORMULARY ITEM (Budesonide/Formoterol Fumarate (Symbicort 80-4.5 Mcg Inhaler) 2 PUFF) IH SCH (21:00)
[2017-03-18 23:31] VITALS: BP 152/61
[2017-03-18] MEDS: TEMAZEPAM 15 MG CAPSULE PO PRN (23:42)
[2017-03-19 03:17] VITALS: BP 102/38
[2017-03-19 05:57] LABS: CALCIUM 8.5 mg/dL (8.5-10.1); CREATININE 1.3 mg/dL (0.6-1.0); GFR 41.5
[2017-03-19] MEDS: PANTOPRAZOLE 40 MG TABLET.DR. PO SCH (06:37)
[2017-03-19] MEDS: oxyCODONE/APAP 10/325 1 TAB TABLET PO PRN ×4 (06:38→19:21)
[2017-03-19] MEDS: ALBUTEROL SULFATE 2.5 MG/3 ML NEBU. NEB SCH ×4 (06:57→19:55)
[2017-03-19] MEDS: BUDESONIDE 0.5 MG/2 ML NEBU. NEB SCH ×2 (06:57→19:55)
[2017-03-19 07:00] VITALS: BP 142/46
--- NOTE | 2017-03-19 08:17 | PDOC ---
Infectious Disease Note Subjective Subjective Able to eat today which is some better Legs very painful still ROS ROS GEN: Denies fevers, chills, sweats HEENT: Denies blurred vision, sore throat CV: Denies chest pain RESP: Denies shortness of air, cough GI: Denies n/v/d NEURO: Denies confusion, dizziness MSK: Denies weakness, joint pain/swelling Vital Sign Vital Signs Vital Signs Date Time Temp Pulse Resp B/P (MAP) Pulse Ox O2 Delivery O2 Flow Rate FiO2 03/19/17 07:40 Nasal Cannula 2.5 03/19/17 07:00 96.4 75 18 142/46 (78) 99 96.4 Physical Exam PHYSICAL EXAM GENERAL: NAD, Alert, just ate HEENT: PERRL, OC/OP -clear NECK: Supple, no JVD, no LN LUNGS: Clear HEART: S1S2, no gallop, no murmur ABD: Soft, NT, no organomegaly, no rebound, obese EXT: No edema, no cyanosis. 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[employer]: Alert, oriented x 3, no focal neurologic deficit SKIN: No rash IV: ok Labs Lab Laboratory Tests Test 03/19/17 05:00 White Blood Count 5.0 x10^3/uL (4.0-11.0) Red Blood Count 2.57 x10^6/uL (3.50-5.40) Hemoglobin 7.3 g/dL (12.0-15.5) Hematocrit 21.8 % (36.0-47.0) Mean Corpuscular Volume 85 fL (79-100) Mean Corpuscular Hemoglobin 29 pg (25-35) Mean Corpuscular Hemoglobin Concent 34 g/dL (31-37) Red Cell Distribution Width 17.4 % (11.5-14.5) Platelet Count 219 x10^3/uL (140-400) Neutrophils (%) (Auto) 69 % (31-73) Lymphocytes (%) (Auto) 22 % (24-48) Monocytes (%) (Auto) 5 % (0-9) Eosinophils (%) (Auto) 3 % (0-3) Basophils (%) (Auto) 1 % (0-3) Neutrophils # (Auto) 3.4 x10^3uL (1.8-7.7) Lymphocytes # (Auto) 1.1 x10^3/uL (1.0-4.8) Monocytes # (Auto) 0.3 x10^3/uL (0.0-1.1) Eosinophils # (Auto) 0.2 x10^3/uL (0.0-0.7) Basophils # (Auto) 0.0 x10^3/uL (0.0-0.2) Sodium Level 141 mmol/L (136-145) Potassium Level 4.0 mmol/L (3.5-5.1) Chloride Level 101 mmol/L (98-107) Carbon Dioxide Level 32 mmol/L (21-32) Anion Gap 8 (6-14) Blood Urea Nitrogen 23 mg/dL (7-20) Creatinine 1.3 mg/dL (0.6-1.0) Estimated GFR (Cockcroft-Gault) 41.5 Glucose Level 91 mg/dL (70-99) Calcium Level 8.5 mg/dL (8.5-10.1) Objective Assessment Tony lower ext cellulitis Leukocytosis - better Tony lower ext superficial ulcerations Tony lower ext venous insufficiency Tony lower ext chronic stasis dermatitis Obesity CHF Plan Plan of Care cont meropenem/ zyvox leg elevation local care soon to d/c iv antibiotics in few days ( no bed bug exterminator needed ) AFSANEH BOONE MD Mar 19, 2017 08:17
[2017-03-19] MEDS: MEROPENEM 1 GM in IV NORMAL SALINE 100ML 100 ML IV SCH ×2 (08:59→20:58)
[2017-03-19] MEDS: LINEZOLID 600 MG TABLET PO SCH ×2 (09:00→20:59)
[2017-03-19] MEDS: ALPRAZolam 0.5 MG TABLET PO SCH ×3 (09:00→21:00)
[2017-03-19] MEDS: CITALOPRAM 20 MG TABLET. PO SCH (09:00)
[2017-03-19] MEDS: CARVEDILOL 3.125 MG TABLET. PO SCH ×2 (09:01→17:05)
[2017-03-19] MEDS: GABAPENTIN 300 MG CAPSULE. PO SCH ×3 (09:01→20:59)
[2017-03-19] MEDS: buPROPion XL 150 MG TAB.ER.24H. PO SCH (09:01)
[2017-03-19] MEDS: ASPIRIN ENTERIC COATED 81 MG TABLET.DR. PO SCH (09:01)
[2017-03-19] MEDS: NYSTATIN TOPICAL POWDER 15GM BOTTLE. TP SCH ×2 (09:02→21:00)
[2017-03-19 10:16] LABS: % SAT IRON 17 % (15-34); IRON,SERUM 43 ug/dL (50-170)
[2017-03-19 10:53] VITALS: BP 148/68
--- NOTE | 2017-03-19 11:19 | PDOC ---
SUBJECTIVE Subjective pain controlled, feels ok, denies melena or hematochazia OBJECTIVE Vital Signs Vital Signs Date Time Temp Pulse Resp B/P (MAP) Pulse Ox O2 Delivery O2 Flow Rate FiO2 03/19/17 10:53 97.7 78 18 148/68 (94) 100 Room Air 97.7 03/19/17 09:01 75 142/46 03/19/17 07:40 Nasal Cannula 2.5 03/19/17 07:00 96.4 75 18 142/46 (78) 99 Room Air 96.4 03/19/17 06:58 100 Nasal Cannula 3.0 03/19/17 06:38 20 91 Nasal Cannula 2.5 03/19/17 03:17 97.9 72 18 102/38 (59) 91 Room Air 97.9 03/19/17 00:40 20 100 03/18/17 23:39 20 100 Nasal Cannula 2.5 03/18/17 23:31 97.7 75 16 152/61 (91) 100 Room Air 2.5 97.7 03/18/17 20:01 92 Nasal Cannula 3.0 03/18/17 20:00 Nasal Cannula 2.5 03/18/17 19:15 98.8 73 18 126/68 (87) 96 Nasal Cannula 2.5 98.8 03/18/17 16:54 Nasal Cannula 2.5 03/18/17 16:50 92 136/50 03/18/17 14:59 98.9 92 16 136/50 (78) 99 Room Air 98.9 03/18/17 12:56 Nasal Cannula 2.5 03/18/17 12:40 Nasal Cannula 2.5 I & O Intake and Output 03/19/17 07:00 Intake Total 1540 ml Output Total 900 ml Balance 640 ml Intake Oral 1540 ml Output Urine Total 900 ml PHYSICAL EXAM Physical Exam lungs clear heart RRR abd obese soft ext dressing in place chronic swelling ASSESSMENT/PLAN Assessment/Plan 1. Bilateral nonhealing ulcers on lower extremities 2. Wound cultures positive for MRSA/Proteus/gram-negative rods 3. Obesity 4. Hypertension 5. Anemia of chronic disease with acute worsening no evidence of bleed could be dilutional will check stool guaiac and anemia studies , monitor 6. Coronary artery disease. 7. acute on chronic renal insufficiency Problems: COMMENT Lab Laboratory Tests Test 7/9/17 05:00 White Blood Count 5.0 x10^3/uL (4.0-11.0) Red Blood Count 2.57 x10^6/uL (3.50-5.40) Hemoglobin 7.3 g/dL (12.0-15.5) Hematocrit 21.8 % (36.0-47.0) Mean Corpuscular Volume 85 fL (79-100) Mean Corpuscular Hemoglobin 29 pg (25-35) Mean Corpuscular Hemoglobin Concent 34 g/dL (31-37) Red Cell Distribution Width 17.4 % (11.5-14.5) Platelet Count 219 x10^3/uL (140-400) Neutrophils (%) (Auto) 69 % (31-73) Lymphocytes (%) (Auto) 22 % (24-48) Monocytes (%) (Auto) 5 % (0-9) Eosinophils (%) (Auto) 3 % (0-3) Basophils (%) (Auto) 1 % (0-3) Neutrophils # (Auto) 3.4 x10^3uL (1.8-7.7) Lymphocytes # (Auto) 1.1 x10^3/uL (1.0-4.8) Monocytes # (Auto) 0.3 x10^3/uL (0.0-1.1) Eosinophils # (Auto) 0.2 x10^3/uL (0.0-0.7) Basophils # (Auto) 0.0 x10^3/uL (0.0-0.2) Sodium Level 141 mmol/L (136-145) Potassium Level 4.0 mmol/L (3.5-5.1) Chloride Level 101 mmol/L (98-107) Carbon Dioxide Level 32 mmol/L (21-32) Anion Gap 8 (6-14) Blood Urea Nitrogen 23 mg/dL (7-20) Creatinine 1.3 mg/dL (0.6-1.0) Estimated GFR (Cockcroft-Gault) 41.5 Glucose Level 91 mg/dL (70-99) Calcium Level 8.5 mg/dL (8.5-10.1) Iron Level 43 ug/dL (50-170) Total Iron Binding Capacity 256 ug/dL (250-450) Iron Saturation 17 % (15-34) Ferritin 149 ng/mL (8-252) MAYRA COKER MD Mar 19, 2017 11:19
[2017-03-19] MEDS: MORPHINE SULFATE 2 MG/ML DISP.SYRIN. IV PRN (14:54)
[2017-03-19 14:59] VITALS: BP 127/51
[2017-03-19 15:37] LABS: NEG OBC FOB NEG; POS OBC FOB POS
[2017-03-19] MEDS ORDERED: LIDOCAINE 2% TOPICAL JELLY 30GM TUBE. TP ONE (16:00)
[2017-03-19 19:30] VITALS: BP 101/53
[2017-03-19] MEDS: ATORVASTATIN CALCIUM 40 MG TABLET. PO SCH (20:59)
[2017-03-19 23:22] VITALS: BP 115/36
[2017-03-19] MEDS: TEMAZEPAM 15 MG CAPSULE PO PRN (23:36)
[2017-03-20] VITALS (12 sets, daily range): BP systolic 101–151; BP diastolic 36–55
[2017-03-20] MEDS: oxyCODONE/APAP 10/325 1 TAB TABLET PO PRN ×4 (01:10→22:25)
[2017-03-20 04:48] LABS: BASO % 1 % (0-3); EOS % 3 % (0-3); HEMATOCRIT 22.2 % (36.0-47.0); HEMOGLOBIN 7.2 g/dL (12.0-15.5); LYMPH # 1.2 x10^3/uL (1.0-4.8); LYMPH % 22 % (24-48); MEAN CORPUSCULAR HEMOGLOBIN 29 pg (25-35); MEAN CORPUSCULAR HGB CONC 33 g/dL (31-37); MEAN CORPUSCULAR VOLUME 88 fL (79-100); MONO % 5 % (0-9); NEUT % 69 % (31-73); PLATELET COUNT 219 x10^3/uL (140-400); RED BLOOD COUNT 2.52 x10^6/uL (3.50-5.40); RED CELL DISTRIBUTION WIDTH 17.6 % (11.5-14.5); WHITE BLOOD COUNT 5.3 x10^3/uL (4.0-11.0)
[2017-03-20 05:10] LABS: CALCIUM 8.5 mg/dL (8.5-10.1); CREATININE 1.4 mg/dL (0.6-1.0); GFR 38.1; POTASSIUM 4.2 mmol/L (3.5-5.1)
[2017-03-20] MEDS: PANTOPRAZOLE 40 MG TABLET.DR. PO SCH (06:28)
[2017-03-20] MEDS: BUDESONIDE 0.5 MG/2 ML NEBU. NEB SCH ×2 (07:40→19:06)
[2017-03-20] MEDS: ALBUTEROL SULFATE 2.5 MG/3 ML NEBU. NEB SCH ×4 (07:40→19:06)
[2017-03-20 07:56] LABS: NEG OBC FOB NEG; POS OBC FOB POS
--- NOTE | 2017-03-20 08:30 | PDOC ---
Provider Note Provider Note stable, less pain, vss- hb lower 7.2 from wounds, will give 1 u prbc- rest same ALYSIA KIM MD Mar 20, 2017 08:30
[2017-03-20] MEDS: GABAPENTIN 300 MG CAPSULE. PO SCH ×3 (09:06→20:25)
[2017-03-20] MEDS: MEROPENEM 1 GM in IV NORMAL SALINE 100ML 100 ML IV SCH ×3 (09:06→22:26)
[2017-03-20] MEDS: ASPIRIN ENTERIC COATED 81 MG TABLET.DR. PO SCH (09:06)
[2017-03-20] MEDS: CITALOPRAM 20 MG TABLET. PO SCH (09:06)
[2017-03-20] MEDS: buPROPion XL 150 MG TAB.ER.24H. PO SCH (09:06)
[2017-03-20] MEDS: LINEZOLID 600 MG TABLET PO SCH ×2 (09:07→20:25)
[2017-03-20] MEDS: CARVEDILOL 3.125 MG TABLET. PO SCH ×2 (09:07→17:20)
[2017-03-20] MEDS: NYSTATIN TOPICAL POWDER 15GM BOTTLE. TP SCH ×2 (09:09→21:00)
[2017-03-20] MEDS: FERROUS SULFATE 325 MG TABLET. PO SCH ×2 (09:15→17:16)
[2017-03-20] MEDS: ALPRAZolam 0.5 MG TABLET PO SCH ×3 (09:16→20:25)
--- NOTE | 2017-03-20 12:13 | PDOC ---
Infectious Disease Note Subjective Subjective Not to great today Legs very painful still ROS ROS GEN: Denies fevers, chills, sweats HEENT: Denies blurred vision, sore throat CV: Denies chest pain RESP: Denies shortness of air, cough GI: Denies n/v/d NEURO: Denies confusion, dizziness MSK: Denies weakness, joint pain/swelling Vital Sign Vital Signs Vital Signs Date Time Temp Pulse Resp B/P (MAP) Pulse Ox O2 Delivery O2 Flow Rate FiO2 03/20/17 11:08 100 Nasal Cannula 2.5 03/20/17 09:07 73 151/50 03/20/17 07:00 97.5 22 97.5 Physical Exam PHYSICAL EXAM GENERAL: NAD, Alert, just ate HEENT: PERRL, OC/OP -clear NECK: Supple, no JVD, no LN LUNGS: Clear HEART: S1S2, no gallop, no murmur ABD: Soft, NT, no organomegaly, no rebound, obese EXT: No edema, no cyanosis. 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 ASSESSMENT COUNSELOR: Alert, oriented x 3, no focal neurologic deficit SKIN: No rash IV: ok Labs Lab Laboratory Tests Test 03/19/17 14:50 03/20/17 04:00 03/20/17 07:00 Stool Occult Blood Negative (NEG) Negative (NEG) White Blood Count 5.3 x10^3/uL (4.0-11.0) Red Blood Count 2.52 x10^6/uL (3.50-5.40) Hemoglobin 7.2 g/dL (12.0-15.5) Hematocrit 22.2 % (36.0-47.0) Mean Corpuscular Volume 88 fL (79-100) Mean Corpuscular Hemoglobin 29 pg (25-35) Mean Corpuscular Hemoglobin Concent 33 g/dL (31-37) Red Cell Distribution Width 17.6 % (11.5-14.5) Platelet Count 219 x10^3/uL (140-400) Neutrophils (%) (Auto) 69 % (31-73) Lymphocytes (%) (Auto) 22 % (24-48) Monocytes (%) (Auto) 5 % (0-9) Eosinophils (%) (Auto) 3 % (0-3) Basophils (%) (Auto) 1 % (0-3) Neutrophils # (Auto) 3.7 x10^3uL (1.8-7.7) Lymphocytes # (Auto) 1.2 x10^3/uL (1.0-4.8) Monocytes # (Auto) 0.3 x10^3/uL (0.0-1.1) Eosinophils # (Auto) 0.2 x10^3/uL (0.0-0.7) Basophils # (Auto) 0.0 x10^3/uL (0.0-0.2) Sodium Level 139 mmol/L (136-145) Potassium Level 4.2 mmol/L (3.5-5.1) Chloride Level 101 mmol/L (98-107) Carbon Dioxide Level 32 mmol/L (21-32) Anion Gap 6 (6-14) Blood Urea Nitrogen 23 mg/dL (7-20) Creatinine 1.4 mg/dL (0.6-1.0) Estimated GFR (Cockcroft-Gault) 38.1 Glucose Level 112 mg/dL (70-99) Calcium Level 8.5 mg/dL (8.5-10.1) Objective Assessment Tony lower ext cellulitis - pictures from last pm reviewed Leukocytosis - better Tony lower ext superficial ulcerations Tony lower ext venous insufficiency Tony lower ext chronic stasis dermatitis Obesity CHF Plan Plan of Care cont meropenem/ zyvox. PRBCs today leg elevation local care soon to d/c iv antibiotics in few days ( no fpc needed ) AFSANEH BOONE MD Mar 20, 2017 12:13
[2017-03-20 13:13] LABS: FOLATE 11.14 ng/ml (3.2-20.0)
[2017-03-20] MEDS: MORPHINE SULFATE 2 MG/ML DISP.SYRIN. IV PRN ×3 (13:25→20:25)
[2017-03-20] MEDS: ATORVASTATIN CALCIUM 40 MG TABLET. PO SCH (20:25)
[2017-03-21] VITALS (7 sets, daily range): BP systolic 106–161; BP diastolic 34–79
[2017-03-21] MEDS: TEMAZEPAM 15 MG CAPSULE PO PRN ×2 (00:05→23:36)
[2017-03-21] MEDS: MORPHINE SULFATE 2 MG/ML DISP.SYRIN. IV PRN ×5 (03:18→18:05)
[2017-03-21 04:26] LABS: BASO % 1 % (0-3); EOS % 3 % (0-3); HEMATOCRIT 23.2 % (36.0-47.0); HEMOGLOBIN 7.6 g/dL (12.0-15.5); LYMPH # 1.1 x10^3/uL (1.0-4.8); LYMPH % 22 % (24-48); MEAN CORPUSCULAR HEMOGLOBIN 29 pg (25-35); MEAN CORPUSCULAR HGB CONC 33 g/dL (31-37); MEAN CORPUSCULAR VOLUME 89 fL (79-100); MONO % 6 % (0-9); NEUT % 68 % (31-73); PLATELET COUNT 204 x10^3/uL (140-400); RED BLOOD COUNT 2.61 x10^6/uL (3.50-5.40); RED CELL DISTRIBUTION WIDTH 17.8 % (11.5-14.5); WHITE BLOOD COUNT 4.8 x10^3/uL (4.0-11.0)
[2017-03-21 04:51] LABS: CALCIUM 7.8 mg/dL (8.5-10.1); CREATININE 1.3 mg/dL (0.6-1.0); GFR 41.5; POTASSIUM 4.3 mmol/L (3.5-5.1)
[2017-03-21] MEDS: PANTOPRAZOLE 40 MG TABLET.DR. PO SCH (06:37)
[2017-03-21] MEDS: oxyCODONE/APAP 10/325 1 TAB TABLET PO PRN ×3 (06:37→21:52)
[2017-03-21] MEDS: MEROPENEM 1 GM in IV NORMAL SALINE 100ML 100 ML IV SCH (06:39)
[2017-03-21] MEDS: BUDESONIDE 0.5 MG/2 ML NEBU. NEB SCH ×2 (07:14→21:28)
[2017-03-21] MEDS: ALBUTEROL SULFATE 2.5 MG/3 ML NEBU. NEB SCH ×4 (07:14→21:28)
[2017-03-21] MEDS: ALPRAZolam 0.5 MG TABLET PO SCH ×3 (08:30→23:36)
[2017-03-21] MEDS: NYSTATIN TOPICAL POWDER 15GM BOTTLE. TP SCH ×2 (08:30→21:56)
--- NOTE | 2017-03-21 08:30 | PDOC ---
Provider Note Provider Note vss, feels same, hb up 7.6 after prbc- check ferritin, cont iron for now- reduce lovenox dose re bleeding ALYSIA KIM MD Mar 21, 2017 08:30
[2017-03-21] MEDS: LINEZOLID 600 MG TABLET PO SCH (08:32)
[2017-03-21] MEDS: CITALOPRAM 20 MG TABLET. PO SCH (08:32)
[2017-03-21] MEDS: ASPIRIN ENTERIC COATED 81 MG TABLET.DR. PO SCH (08:32)
[2017-03-21] MEDS: buPROPion XL 150 MG TAB.ER.24H. PO SCH (08:32)
[2017-03-21] MEDS: GABAPENTIN 300 MG CAPSULE. PO SCH ×3 (08:32→21:52)
[2017-03-21] MEDS: FERROUS SULFATE 325 MG TABLET. PO SCH ×2 (08:32→18:05)
[2017-03-21] MEDS: CARVEDILOL 3.125 MG TABLET. PO SCH ×2 (08:33→18:06)
--- NOTE | 2017-03-21 08:49 | PDOC ---
Infectious Disease Note Subjective Subjective Not to great today feels dizzy Legs painful still ROS ROS GEN: Denies fevers, chills, sweats HEENT: Denies blurred vision, sore throat CV: Denies chest pain RESP: Denies shortness of air, cough GI: Denies n/v/d NEURO: Denies confusion, dizziness MSK: Denies weakness, joint pain/swelling Vital Sign Vital Signs Vital Signs Date Time Temp Pulse Resp B/P (MAP) Pulse Ox O2 Delivery O2 Flow Rate FiO2 03/21/17 08:35 Nasal Cannula 03/21/17 08:33 77 140/58 03/21/17 07:19 100 3.0 03/21/17 07:00 97.7 18 97.7 Physical Exam PHYSICAL EXAM GENERAL: NAD, Alert, Eating and looks well HEENT: PERRL, OC/OP -clear NECK: Supple, no JVD, no LN LUNGS: Clear HEART: S1S2, no gallop, no murmur ABD: Soft, NT, no organomegaly, no rebound, obese EXT: No edema, no cyanosis. 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 PHOTOGRAPH EDITOR: Alert, oriented x 3, no focal neurologic deficit SKIN: No rash IV: ok Labs Lab Laboratory Tests Test 03/21/17 04:05 White Blood Count 4.8 x10^3/uL (4.0-11.0) Red Blood Count 2.61 x10^6/uL (3.50-5.40) Hemoglobin 7.6 g/dL (12.0-15.5) Hematocrit 23.2 % (36.0-47.0) Mean Corpuscular Volume 89 fL (79-100) Mean Corpuscular Hemoglobin 29 pg (25-35) Mean Corpuscular Hemoglobin Concent 33 g/dL (31-37) Red Cell Distribution Width 17.8 % (11.5-14.5) Platelet Count 204 x10^3/uL (140-400) Neutrophils (%) (Auto) 68 % (31-73) Lymphocytes (%) (Auto) 22 % (24-48) Monocytes (%) (Auto) 6 % (0-9) Eosinophils (%) (Auto) 3 % (0-3) Basophils (%) (Auto) 1 % (0-3) Neutrophils # (Auto) 3.3 x10^3uL (1.8-7.7) Lymphocytes # (Auto) 1.1 x10^3/uL (1.0-4.8) Monocytes # (Auto) 0.3 x10^3/uL (0.0-1.1) Eosinophils # (Auto) 0.2 x10^3/uL (0.0-0.7) Basophils # (Auto) 0.0 x10^3/uL (0.0-0.2) Sodium Level 142 mmol/L (136-145) Potassium Level 4.3 mmol/L (3.5-5.1) Chloride Level 104 mmol/L (98-107) Carbon Dioxide Level 35 mmol/L (21-32) Anion Gap 3 (6-14) Blood Urea Nitrogen 19 mg/dL (7-20) Creatinine 1.3 mg/dL (0.6-1.0) Estimated GFR (Cockcroft-Gault) 41.5 Glucose Level 103 mg/dL (70-99) Calcium Level 7.8 mg/dL (8.5-10.1) Objective Assessment Tony lower ext cellulitis - pictures from last pm reviewed Leukocytosis - better Anemia - typically too soon for Zyvox . ? etiology Tony lower ext superficial ulcerations Tony lower ext venous insufficiency Tony lower ext chronic stasis dermatitis Obesity CHF Plan Plan of Care Discont meropenem zyvox. Dose Teflaro - reviewed allergies with Mrs Overturf PRBCs today leg elevation local care soon to d/c iv antibiotics in few days ( no retirement needed ) AFSANEH BOONE MD Mar 21, 2017 08:49
[2017-03-21] MEDS: CEFTAROLINE FOSAMIL 600 MG in IV NORMAL SALINE 250ML 250 ML IV SCH ×2 (10:04→21:56)
[2017-03-21] MEDS: ATORVASTATIN CALCIUM 40 MG TABLET. PO SCH (21:52)
[2017-03-22] VITALS (12 sets, daily range): BP systolic 109–156; BP diastolic 32–72
[2017-03-22 04:55] LABS: NEG OBC FOB NEG; POS OBC FOB POS
[2017-03-22] MEDS: PANTOPRAZOLE 40 MG TABLET.DR. PO SCH (06:22)
[2017-03-22] MEDS: oxyCODONE/APAP 10/325 1 TAB TABLET PO PRN ×3 (06:23→21:24)
[2017-03-22 07:28] LABS: BASO % 1 % (0-3); EOS % 4 % (0-3); HEMATOCRIT 22.7 % (36.0-47.0); HEMOGLOBIN 7.3 g/dL (12.0-15.5); LYMPH # 0.7 x10^3/uL (1.0-4.8); LYMPH % 20 % (24-48); MEAN CORPUSCULAR HEMOGLOBIN 29 pg (25-35); MEAN CORPUSCULAR HGB CONC 32 g/dL (31-37); MEAN CORPUSCULAR VOLUME 90 fL (79-100); MONO % 5 % (0-9); NEUT % 71 % (31-73); PLATELET COUNT 177 x10^3/uL (140-400); RED BLOOD COUNT 2.51 x10^6/uL (3.50-5.40); RED CELL DISTRIBUTION WIDTH 17.6 % (11.5-14.5); WHITE BLOOD COUNT 3.7 x10^3/uL (4.0-11.0)
[2017-03-22 07:33] LABS: CALCIUM 7.9 mg/dL (8.5-10.1); CREATININE 1.2 mg/dL (0.6-1.0); GFR 45.5; POTASSIUM 4.6 mmol/L (3.5-5.1)
[2017-03-22] MEDS: BUDESONIDE 0.5 MG/2 ML NEBU. NEB SCH ×2 (07:51→19:55)
[2017-03-22] MEDS: ALBUTEROL SULFATE 2.5 MG/3 ML NEBU. NEB SCH ×4 (07:51→19:55)
[2017-03-22] MEDS ORDERED: ENOXAPARIN 40 MG/0.4 ML SYRINGE. SQ SCH (08:00)
--- NOTE | 2017-03-22 08:12 | PDOC ---
Provider Note Provider Note R leg wound bled at times during changes, less now- hb still low 7.3, gi neg for blood- will give 1 more prbc, dc lovenox as risk> benefit- follow daily- bmp ALYSIA Wade MD Mar 22, 2017 08:12
[2017-03-22] MEDS: NYSTATIN TOPICAL POWDER 15GM BOTTLE. TP SCH ×2 (09:00→21:00)
[2017-03-22] MEDS: ALPRAZolam 0.5 MG TABLET PO SCH (09:00)
--- NOTE | 2017-03-22 09:11 | PDOC ---
Infectious Disease Note Subjective Subjective Tolerating Teflaro Still a little weak Legs painful still. Had a lot of bleeding with dressing change last pm States her legs routinely bleed with dressing changes ROS ROS GEN: Denies fevers, chills, sweats but is weak HEENT: Denies blurred vision, sore throat CV: Denies chest pain RESP: Denies shortness of air, cough GI: Denies n/v/d NEURO: Denies confusion, dizziness MSK: Denies weakness, joint pain/swelling. Leg pain Vital Sign Vital Signs Vital Signs Date Time Temp Pulse Resp B/P (MAP) Pulse Ox O2 Delivery O2 Flow Rate FiO2 03/22/17 07:51 100 Nasal Cannula 3.0 03/22/17 07:00 97.0 60 18 114/37 (62) 97.0 Physical Exam PHYSICAL EXAM GENERAL: NAD, Alert, looks well HEENT: PERRL, OC/OP -clear NECK: Supple, no JVD, no LN LUNGS: Clear HEART: S1S2, no gallop, no murmur ABD: Soft, NT, no organomegaly, no rebound, obese EXT: No edema, no cyanosis. 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, oriented x 3, no focal neurologic deficit SKIN: No rash IV: ok Labs Lab Laboratory Tests Test 03/22/17 03:30 03/22/17 07:15 Stool Occult Blood Negative (NEG) White Blood Count 3.7 x10^3/uL (4.0-11.0) Red Blood Count 2.51 x10^6/uL (3.50-5.40) Hemoglobin 7.3 g/dL (12.0-15.5) Hematocrit 22.7 % (36.0-47.0) Mean Corpuscular Volume 90 fL (79-100) Mean Corpuscular Hemoglobin 29 pg (25-35) Mean Corpuscular Hemoglobin Concent 32 g/dL (31-37) Red Cell Distribution Width 17.6 % (11.5-14.5) Platelet Count 177 x10^3/uL (140-400) Neutrophils (%) (Auto) 71 % (31-73) Lymphocytes (%) (Auto) 20 % (24-48) Monocytes (%) (Auto) 5 % (0-9) Eosinophils (%) (Auto) 4 % (0-3) Basophils (%) (Auto) 1 % (0-3) Neutrophils # (Auto) 2.6 x10^3uL (1.8-7.7) Lymphocytes # (Auto) 0.7 x10^3/uL (1.0-4.8) Monocytes # (Auto) 0.2 x10^3/uL (0.0-1.1) Eosinophils # (Auto) 0.1 x10^3/uL (0.0-0.7) Basophils # (Auto) 0.0 x10^3/uL (0.0-0.2) Sodium Level 142 mmol/L (136-145) Potassium Level 4.6 mmol/L (3.5-5.1) Chloride Level 105 mmol/L (98-107) Carbon Dioxide Level 34 mmol/L (21-32) Anion Gap 3 (6-14) Blood Urea Nitrogen 19 mg/dL (7-20) Creatinine 1.2 mg/dL (0.6-1.0) Estimated GFR (Cockcroft-Gault) 45.5 Glucose Level 94 mg/dL (70-99) Calcium Level 7.9 mg/dL (8.5-10.1) Objective Assessment Tony lower ext cellulitis - pictures from last pm reviewed Leukocytosis - better -now leukopenic Anemia - typically too soon for Zyvox . ? etiology ? recurrent leg bleeding with changes Tony lower ext superficial ulcerations Tony lower ext venous insufficiency Tony lower ext chronic stasis dermatitis Obesity CHF Plan Plan of Care Cont Teflaro - PRBCs today - Has had previous w/u by Dr. Sharp including Bone marrow and she states no obvious cause F/u labs leg elevation local care soon to d/c iv antibiotics in few days ( no [place] [facility] facility needed ) AFSANEH BOONE MD Mar 22, 2017 09:11
[2017-03-22] MEDS: buPROPion XL 150 MG TAB.ER.24H. PO SCH (10:06)
[2017-03-22] MEDS: GABAPENTIN 300 MG CAPSULE. PO SCH ×3 (10:06→21:24)
[2017-03-22] MEDS: CITALOPRAM 20 MG TABLET. PO SCH (10:06)
[2017-03-22] MEDS: ASPIRIN ENTERIC COATED 81 MG TABLET.DR. PO SCH (10:06)
[2017-03-22] MEDS: FERROUS SULFATE 325 MG TABLET. PO SCH ×2 (10:06→16:56)
[2017-03-22] MEDS: CARVEDILOL 3.125 MG TABLET. PO SCH ×2 (10:07→16:57)
[2017-03-22] MEDS: CEFTAROLINE FOSAMIL 600 MG in IV NORMAL SALINE 250ML 250 ML IV SCH ×2 (10:08→21:23)
[2017-03-22] MEDS: MORPHINE SULFATE 2 MG/ML DISP.SYRIN. IV PRN ×2 (10:17→16:57)
--- NOTE | 2017-03-22 14:39 | PDOC2 ---
Chief Complaint: Chief Complaint: Open wounds of BLE Problems: (1) Leg wound, right (2) Lymphedema of both lower extremities Vital Signs: Vital Signs: Vital Signs Date Time Temp Pulse Resp B/P (MAP) Pulse Ox O2 Delivery O2 Flow Rate FiO2 03/21/17 07:00 97.7 77 18 140/58 (85) 100 Nasal Cannula 2.5 97.7 Vital Signs Date Time Temp Pulse Resp B/P (MAP) Pulse Ox O2 Delivery O2 Flow Rate FiO2 03/22/17 13:20 97.0 60 18 114/37 97.0 03/22/17 13:08 Nasal Cannula 2.5 03/22/17 11:00 97 Allergies: Allergies: Allergies Coded Allergies Type Severity Reaction Last Updated Verified codeine Allergy Intermediate 12/31/15 Yes levofloxacin Allergy Intermediate 04/01/16 Yes piperacillin Allergy Intermediate hives, rash 04/06/16 Yes propoxyphene Allergy Intermediate 12/31/15 Yes sulfamethoxazole Allergy Intermediate 12/31/15 Yes tazobactam Allergy Intermediate hives, rash 04/06/16 Yes I S O L A T I O N *CONTACT* Allergy Unknown 04/04/16 Yes Medications: Home Meds Reported Medications Aspirin (ASPIR 81) 81 Mg Tablet.dr, 1 TAB PO DAILY, #30 TAB 5 Refills 09/06/16 Pantoprazole Sodium (PROTONIX) 40 Mg Tablet.dr, 40 MG PO DAILY, TAB 04/13/16 Carvedilol (COREG) 3.125 Mg Tablet, 3.125 MG PO BIDWMEALS, #90 TAB 04/13/16 Atorvastatin Calcium (ATORVASTATIN CALCIUM) 40 Mg Tablet, 40 MG PO HS for FOR CHOLESTEROL, #30 TAB 0 Refills 04/13/16 Budesonide/Formoterol Fumarate (SYMBICORT 80-4.5 MCG INHALER) 10.2 Gm Hfa.aer.ad , 2 PUFF IH BID, #10.2 GM 5 Refills 02/28/16 Alprazolam (ALPRAZOLAM) 0.5 Mg Tablet, 1 TAB PO TID, #30 TAB 11/02/14 Oxycodone/Apap 10-325 (PERCOCET 10-325 MG TABLET) 1 Each Tablet, 2 TAB .ROUTE PRN Q6HRS Y for PAIN, #40 TAB 11/02/14 Bupropion Hcl (BUPROPION HCL SR) 150 Mg Tablet.er, 450 MG PO DAILY 11/02/14 Citalopram Hydrobromide (CELEXA) 40 Mg Tablet, 40 MG PO DAILY, TAB 11/02/14 Temazepam (TEMAZEPAM) 30 Mg Capsule, 30 MG PO HS Y for INSOMNIA, CAP 11/02/14 Nystatin (NYSTOP) 60 Gm Powder, 60 GM TP BID apply under breasts 11/02/14 Gabapentin (GABAPENTIN) 600 Mg Tablet, 2 TAB PO TID, #90 TAB 2 Refills 11/02/14 Discontinued Reported Medications Prasugrel Hcl (EFFIENT) 10 Mg Tablet, 10 MG PO DAILY 04/13/16 PCP: PCP: Caleb Miranda MD Pain: Pain Location: Leg (bilateral, associated with dressing changes) Date of Onset 15 year h/o BLE lymphedema PMH Cardiomegaly with CHF COPD Peripheral neuropathy Splenomegaly. 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 Surgical History Cholecystectomy, Tubal Ligation Physical Exam - Wound #1 Wound Exam Location of Modifier: Right Wound Location: Lower Body Site: Leg Drainage Amount: Moderate Drainage Description: Serosanguineous Odor: None/Absent Surrounding Tissue Appearance: edematous Wound Description: skin A/P Chronic severe bilateral lower extremity lymphedema. She was admitted with cellulitis which apparently has improved on antibiotics. She has scores of what appears to be open blisters. The bleeding has improved. Ms. Lucas will have a lifetime of chronic lymphedema. She states that she gets lymphedema wraps from her family members every other day. She also states that she elevates her legs frequently. If these measures are undertaken as well as reported than there is not much more we can offer. However I suspect that she would benefit from aggressive compression dressings. We will apply Profore today which should give us about 40 mmHg compression. We will follow up as an outpatient in our wound care clinic and probably refer her back to the lymphedema clinic as well. Problems: (1) Leg wound, right (2) Lymphedema of both lower extremities MAL BILL MD Mar 22, 2017 14:39
[2017-03-22] MEDS: ATORVASTATIN CALCIUM 40 MG TABLET. PO SCH (21:24)
[2017-03-23] MEDS ORDERED: oxyCODONE/APAP 10/325 1 TAB TABLET PO ONE
[2017-03-23] MEDS: ALPRAZolam 0.5 MG TABLET PO SCH ×2 (00:01→20:47)
[2017-03-23] MEDS: TEMAZEPAM 15 MG CAPSULE PO PRN ×2 (00:02→23:19)
[2017-03-23 03:00] VITALS: BP 131/51
[2017-03-23 05:18] LABS: BASO % 1 % (0-3); EOS % 4 % (0-3); HEMATOCRIT 23.8 % (36.0-47.0); HEMOGLOBIN 7.8 g/dL (12.0-15.5); LYMPH # 0.9 x10^3/uL (1.0-4.8); LYMPH % 25 % (24-48); MEAN CORPUSCULAR HEMOGLOBIN 29 pg (25-35); MEAN CORPUSCULAR HGB CONC 33 g/dL (31-37); MEAN CORPUSCULAR VOLUME 89 fL (79-100); MONO % 5 % (0-9); NEUT % 66 % (31-73); PLATELET COUNT 145 x10^3/uL (140-400); RED BLOOD COUNT 2.66 x10^6/uL (3.50-5.40); WHITE BLOOD COUNT 3.9 x10^3/uL (4.0-11.0)
[2017-03-23] MEDS: PANTOPRAZOLE 40 MG TABLET.DR. PO SCH (05:41)
[2017-03-23] MEDS: oxyCODONE/APAP 10/325 1 TAB TABLET PO PRN ×5 (05:41→23:20)
[2017-03-23 05:53] LABS: BASO % 1 % (0-3); EOS % 3 % (0-3); HEMATOCRIT 21.8 % (36.0-47.0); HEMOGLOBIN 7.3 g/dL (12.0-15.5); LYMPH # 1.1 x10^3/uL (1.0-4.8); LYMPH % 22 % (24-48); MEAN CORPUSCULAR HEMOGLOBIN 29 pg (25-35); MEAN CORPUSCULAR HGB CONC 34 g/dL (31-37); MEAN CORPUSCULAR VOLUME 85 fL (79-100); MONO % 5 % (0-9); NEUT % 69 % (31-73); PLATELET COUNT 219 x10^3/uL (140-400); RED BLOOD COUNT 2.57 x10^6/uL (3.50-5.40); RED CELL DISTRIBUTION WIDTH 17.4 % (11.5-14.5)
[2017-03-23 07:00] VITALS: BP 119/35
[2017-03-23] MEDS: ALBUTEROL SULFATE 2.5 MG/3 ML NEBU. NEB SCH ×3 (07:31→15:31)
--- NOTE | 2017-03-23 07:49 | PDOC ---
Infectious Disease Note Subjective Subjective Feeling a little better States her legs routinely bleed with dressing changes ROS ROS GEN: Denies fevers, chills, sweats HEENT: Denies blurred vision, sore throat CV: Denies chest pain RESP: Denies shortness of air, cough GI: Denies n/v/d NEURO: Denies confusion, dizziness MSK: Denies weakness, joint pain/swelling Vital Sign Vital Signs Vital Signs Date Time Temp Pulse Resp B/P (MAP) Pulse Ox O2 Delivery O2 Flow Rate FiO2 03/23/17 07:34 98 Nasal Cannula 3.0 03/23/17 06:41 16 03/23/17 03:00 96.3 66 131/51 (77) 96.3 Physical Exam PHYSICAL EXAM GENERAL: NAD, Alert, looks well HEENT: PERRL, OC/OP -clear NECK: Supple, no JVD, no LN LUNGS: Clear HEART: S1S2, no gallop, no murmur ABD: Soft, NT, no organomegaly, no rebound, obese EXT: No edema, no cyanosis. Heavily Dressed SAMPLES AND REPAIRS PREPARER: Alert, oriented x 3, no focal neurologic deficit SKIN: No rash IV: ok Labs Lab Laboratory Tests Test 03/23/17 04:50 White Blood Count 3.9 x10^3/uL (4.0-11.0) Red Blood Count 2.66 x10^6/uL (3.50-5.40) Hemoglobin 7.8 g/dL (12.0-15.5) Hematocrit 23.8 % (36.0-47.0) Mean Corpuscular Volume 89 fL (79-100) Mean Corpuscular Hemoglobin 29 pg (25-35) Mean Corpuscular Hemoglobin Concent 33 g/dL (31-37) Red Cell Distribution Width 17.0 % (11.5-14.5) Platelet Count 145 x10^3/uL (140-400) Neutrophils (%) (Auto) 66 % (31-73) Lymphocytes (%) (Auto) 25 % (24-48) Monocytes (%) (Auto) 5 % (0-9) Eosinophils (%) (Auto) 4 % (0-3) Basophils (%) (Auto) 1 % (0-3) Neutrophils # (Auto) 2.6 x10^3uL (1.8-7.7) Lymphocytes # (Auto) 0.9 x10^3/uL (1.0-4.8) Monocytes # (Auto) 0.2 x10^3/uL (0.0-1.1) Eosinophils # (Auto) 0.2 x10^3/uL (0.0-0.7) Basophils # (Auto) 0.0 x10^3/uL (0.0-0.2) Objective Assessment Tony lower ext cellulitis - pictures from last pm reviewed. Reviewed Dr. Washington' s note and has improved Leukocytosis - better -now leukopenic. Has h/o and has been evaluated by Dr. Sharp in the past Anemia - typically too soon for Zyvox . ? etiology ? recurrent leg bleeding with changes Tony lower ext superficial ulcerations Tony lower ext venous insufficiency Tony lower ext chronic stasis dermatitis Obesity CHF Plan Plan of Care Discont Teflaro - Begin Doxycycline leg elevation local care AFSANEH BOONE MD Mar 23, 2017 07:49
[2017-03-23] MEDS: BUDESONIDE 0.5 MG/2 ML NEBU. NEB SCH ×2 (08:00→20:16)
--- NOTE | 2017-03-23 08:44 | PDOC ---
Provider Note Provider Note no new sxs- hb 7.78 now, baseline 9- less wound bleeding now- ferritin normal so anemia is both chronic disease and acute loss, should recover w/ iron- home likely , i encouraged hourly walking ALYSIA KIM MD Mar 23, 2017 08:44
[2017-03-23] MEDS: NYSTATIN TOPICAL POWDER 15GM BOTTLE. TP SCH ×2 (09:00→20:48)
[2017-03-23] MEDS: FERROUS SULFATE 325 MG TABLET. PO SCH ×2 (09:11→18:06)
[2017-03-23] MEDS: GABAPENTIN 300 MG CAPSULE. PO SCH ×3 (09:11→20:47)
[2017-03-23] MEDS: buPROPion XL 150 MG TAB.ER.24H. PO SCH (09:11)
[2017-03-23] MEDS: ASPIRIN ENTERIC COATED 81 MG TABLET.DR. PO SCH (09:11)
[2017-03-23] MEDS: DOXYCYCLINE HYCLATE 100 MG TABLET PO SCH ×2 (09:11→20:47)
[2017-03-23] MEDS: CITALOPRAM 20 MG TABLET. PO SCH (09:11)
[2017-03-23] MEDS: CARVEDILOL 3.125 MG TABLET. PO SCH ×2 (09:12→18:07)
[2017-03-23 11:00] VITALS: BP 124/51
[2017-03-23 15:00] VITALS: BP 123/46
[2017-03-23 19:00] VITALS: BP 140/44
[2017-03-23] MEDS: ATORVASTATIN CALCIUM 40 MG TABLET. PO SCH (20:47)
[2017-03-23 23:00] VITALS: BP 143/52
[2017-03-24 03:00] VITALS: BP 148/53
[2017-03-24] MEDS: oxyCODONE/APAP 10/325 1 TAB TABLET PO PRN ×3 (04:05→13:41)
[2017-03-24 07:00] VITALS: BP_SYST 107; BP_SYST 108; BP_DIAS 34; BP_DIAS 42
[2017-03-24] MEDS: BUDESONIDE 0.5 MG/2 ML NEBU. NEB SCH (07:14)
[2017-03-24] MEDS: ALBUTEROL SULFATE 2.5 MG/3 ML NEBU. NEB SCH ×3 (07:15→16:00)
--- NOTE | 2017-03-24 08:07 | DISCH ---
DISCHARGE INSTRUCTIONS Condition on Discharge Condition on Discharge: Stable Activity After Discharge Activity Instructions for Disc: No restrictions Diet after Discharge Diet after Discharge: Low Sodium 4 gm Follow-Up Follow up with: ALYSIA Milton MD Mar 24, 2017 08:07
--- NOTE | 2017-03-24 08:10 | PDOC3 ---
Discharge Summary Visit Information Date of Discharge: Mar 24, 2017 Final Diagnosis leg cellulitis Brief Hospital Course Allergies Allergies Coded Allergies Type Severity Reaction Last Updated Verified codeine Allergy Intermediate 12/31/15 Yes levofloxacin Allergy Intermediate 04/01/16 Yes piperacillin Allergy Intermediate hives, rash 04/06/16 Yes propoxyphene Allergy Intermediate 12/31/15 Yes sulfamethoxazole Allergy Intermediate 12/31/15 Yes tazobactam Allergy Intermediate hives, rash 04/06/16 Yes I S O L A T I O N *CONTACT* Allergy Unknown 04/04/16 Yes Vital Signs Vital Signs Date Time Temp Pulse Resp B/P (MAP) Pulse Ox O2 Delivery O2 Flow Rate FiO2 03/24/17 07:16 100 Nasal Cannula 3.0 03/24/17 07:00 97.5 61 20 108/34 (58) 97.5 Lab Results Laboratory Tests Test 03/23/17 04:50 White Blood Count 3.9 x10^3/uL (4.0-11.0) Red Blood Count 2.66 x10^6/uL (3.50-5.40) Hemoglobin 7.8 g/dL (12.0-15.5) Hematocrit 23.8 % (36.0-47.0) Mean Corpuscular Volume 89 fL (79-100) Mean Corpuscular Hemoglobin 29 pg (25-35) Mean Corpuscular Hemoglobin Concent 33 g/dL (31-37) Red Cell Distribution Width 17.0 % (11.5-14.5) Platelet Count 145 x10^3/uL (140-400) Neutrophils (%) (Auto) 66 % (31-73) Lymphocytes (%) (Auto) 25 % (24-48) Monocytes (%) (Auto) 5 % (0-9) Eosinophils (%) (Auto) 4 % (0-3) Basophils (%) (Auto) 1 % (0-3) Neutrophils # (Auto) 2.6 x10^3uL (1.8-7.7) Lymphocytes # (Auto) 0.9 x10^3/uL (1.0-4.8) Monocytes # (Auto) 0.2 x10^3/uL (0.0-1.1) Eosinophils # (Auto) 0.2 x10^3/uL (0.0-0.7) Basophils # (Auto) 0.0 x10^3/uL (0.0-0.2) Brief Hospital Course Ms. Lucas is a 61 old [sex] who presented with [ ]sore infected legs, anemia from wound bleed- hb down to 7.2 from baseline 9- ferritin 135- given merrem, zyvox, then teflaro, then po doxy, got 2 u prbc and po iron- stable for dc- [facility] [place], meds same Discharge Information Condition at Discharge: Improved Disposition/Orders: D/C to Home Scheduled Alprazolam (Alprazolam), 1 TAB PO TID, (Reported) Aspirin (Aspir 81), 1 TAB PO DAILY, (Reported) Atorvastatin Calcium (Atorvastatin Calcium), 40 MG PO HS, (Reported) Budesonide/Formoterol Fumarate (Symbicort 80-4.5 Mcg Inhaler), 2 PUFF IH BID, ( Reported) Bupropion Hcl (Bupropion Hcl Sr), 450 MG PO DAILY, (Reported) Carvedilol (Coreg), 3.125 MG PO BIDWMEALS, (Reported) Citalopram Hydrobromide (Celexa), 40 MG PO DAILY, (Reported) Gabapentin (Gabapentin), 2 TAB PO TID, (Reported) Nystatin (Nystop), 60 GM TP BID, (Reported) Pantoprazole Sodium (Protonix), 40 MG PO DAILY, (Reported) Scheduled PRN Oxycodone/Apap 10-325 (Percocet 10-325 Mg Tablet), 2 TAB .ROUTE PRN Q6HRS PRN for PAIN, (Reported) Temazepam (Temazepam), 30 MG PO HS PRN for INSOMNIA, (Reported) Discontinued Medications Prasugrel Hcl (Effient), 10 MG PO DAILY, (Reported) ALYSIA KIM MD Mar 24, 2017 08:10
[2017-03-24] MEDS: CITALOPRAM 20 MG TABLET. PO SCH (08:26)
[2017-03-24] MEDS: PANTOPRAZOLE 40 MG TABLET.DR. PO SCH (08:26)
[2017-03-24] MEDS: FERROUS SULFATE 325 MG TABLET. PO SCH (08:26)
[2017-03-24] MEDS: GABAPENTIN 300 MG CAPSULE. PO SCH ×2 (08:26→13:40)
[2017-03-24] MEDS: CARVEDILOL 3.125 MG TABLET. PO SCH (08:26)
[2017-03-24] MEDS: DOXYCYCLINE HYCLATE 100 MG TABLET PO SCH (08:27)
[2017-03-24] MEDS: buPROPion XL 150 MG TAB.ER.24H. PO SCH (08:27)
[2017-03-24] MEDS: ASPIRIN ENTERIC COATED 81 MG TABLET.DR. PO SCH (08:27)
[2017-03-24] MEDS: NYSTATIN TOPICAL POWDER 15GM BOTTLE. TP SCH (08:29)
[2017-03-24 10:16] VITALS: BP 135/59
[2017-03-24 14:32] VITALS: BP 119/61
--- NOTE | 2017-03-24 16:25 | PDOC ---
Infectious Disease Note Subjective Subjective Feeling a little better States her legs are much better and she is ready to go home ROS ROS GEN: Denies fevers, chills, sweats HEENT: Denies blurred vision, sore throat CV: Denies chest pain RESP: Denies shortness of air, cough GI: Denies n/v/d NEURO: Denies confusion, dizziness MSK: Denies weakness, joint pain/swelling Vital Sign Vital Signs Vital Signs Date Time Temp Pulse Resp B/P (MAP) Pulse Ox O2 Delivery O2 Flow Rate FiO2 03/24/17 15:16 Nasal Cannula 2.0 03/24/17 14:32 97.7 69 20 119/61 (80) 98 97.7 Physical Exam PHYSICAL EXAM GENERAL: NAD, Alert, looks well HEENT: PERRL, OC/OP -clear NECK: Supple, no JVD, no LN LUNGS: Clear HEART: S1S2, no gallop, no murmur ABD: Soft, NT, no organomegaly, no rebound, obese EXT: No edema, no cyanosis. Heavily Dressed AIRLINE HOSTESS: Alert, oriented x 3, no focal neurologic deficit SKIN: No rash IV: ok Objective Assessment Tony lower ext cellulitis - pictures from last pm reviewed. Reviewed Dr. Washington' s note and has improved Leukocytosis - better -now leukopenic. Has h/o and has been evaluated by Dr. Sharp in the past Anemia - typically too soon for Zyvox . ? etiology ? recurrent leg bleeding with changes Tony lower ext superficial ulcerations Tony lower ext venous insufficiency Toyn lower ext chronic stasis dermatitis Obesity CHF Plan Plan of Care Discont Teflaro - Cont Doxycycline at home for 3 days ok to d/c home AFSANEH BOONE MD Mar 24, 2017 16:25
== END 2017-03-24 17:00 | disposition home or self-care (01) | DRG 603 ==
LOC: 4 NORTH 17:50
PROVIDERS: ADMIT Internal Medicine; ATTEND Internal Medicine
PROC: 30233N1 Transfusion of Nonautologous Red Blood Cells into Peripheral Vein, Percutaneous Approach (ICD-10-PCS; principal; 2017-03-20)
DX: L03.115 Cellulitis of right lower limb (principal); N17.9 Acute kidney failure, unspecified; Z68.44 Body mass index [BMI] 60.0-69.9, adult; R65.10 Systemic inflammatory response syndrome (SIRS) of non-infectious origin without acute organ dysfunction; I13.0 Hypertensive heart and chronic kidney disease with heart failure and stage 1 through stage 4 chronic kidney disease, or unspecified chronic kidney disease; L97.309 Non-pressure chronic ulcer of unspecified ankle with unspecified severity; L03.116 Cellulitis of left lower limb; D50.0 Iron deficiency anemia secondary to blood loss (chronic); D63.8 Anemia in other chronic diseases classified elsewhere; N18.3 Chronic kidney disease, stage 3 (moderate); D72.819 Decreased white blood cell count, unspecified; E03.9 Hypothyroidism, unspecified; E66.9 Obesity, unspecified; G47.00 Insomnia, unspecified; I25.10 Atherosclerotic heart disease of native coronary artery without angina pectoris; I50.9 Heart failure, unspecified; G62.9 Polyneuropathy, unspecified; M19.90 Unspecified osteoarthritis, unspecified site; I73.9 Peripheral vascular disease, unspecified; I87.2 Venous insufficiency (chronic) (peripheral); I89.0 Lymphedema, not elsewhere classified; J44.9 Chronic obstructive pulmonary disease, unspecified; S81.801A Unspecified open wound, right lower leg, initial encounter; Z79.51 Long term (current) use of inhaled steroids; Z79.82 Long term (current) use of aspirin; Z81.8 Family history of other mental and behavioral disorders; Z82.49 Family history of ischemic heart disease and other diseases of the circulatory system; Z82.5 Family history of asthma and other chronic lower respiratory diseases; Z90.49 Acquired absence of other specified parts of digestive tract; Z98.51 Tubal ligation status; Z88.8 Allergy status to other drugs, medicaments and biological substances; Z88.5 Allergy status to narcotic agent; Z79.899 Other long term (current) drug therapy
CPT/HCPCS: 36415; 80048; 82274; 82607; 82728; 82746; 83540; 83550; 85007; 85027; 86850; 86900; 86901; 86920; 87641; 94250; 94640; 94760; A6539; J0712; J1650; J2185; J2270; J3370; J7040; J7050; J7613; J7626; P9016; 97535; J7030

== ENCOUNTER → 2017-03-28 | Outpatient (CLI) | payer BC, OTHER ==
[2017-03-24 14:32] VITALS: BP 119/61
== END | disposition home or self-care (01) ==
LOC: PMGWOUND 13:23
PROVIDERS: ATTEND Emergency Medicine Undersea and Hyperbaric Medicine
DX: I87.313 Chronic venous hypertension (idiopathic) with ulcer of bilateral lower extremity (principal); L97.211 Non-pressure chronic ulcer of right calf limited to breakdown of skin; L97.221 Non-pressure chronic ulcer of left calf limited to breakdown of skin; I25.10 Atherosclerotic heart disease of native coronary artery without angina pectoris; E66.9 Obesity, unspecified; Z68.44 Body mass index [BMI] 60.0-69.9, adult; J44.9 Chronic obstructive pulmonary disease, unspecified; I13.0 Hypertensive heart and chronic kidney disease with heart failure and stage 1 through stage 4 chronic kidney disease, or unspecified chronic kidney disease; N18.3 Chronic kidney disease, stage 3 (moderate); I50.9 Heart failure, unspecified; E03.9 Hypothyroidism, unspecified; I73.9 Peripheral vascular disease, unspecified; M19.90 Unspecified osteoarthritis, unspecified site; Z87.891 Personal history of nicotine dependence
CPT/HCPCS: 29581

== ENCOUNTER → 2017-03-31 | Outpatient (CLI) | payer BC, OTHER ==
[2017-03-24 14:32] VITALS: BP 119/61
== END | disposition home or self-care (01) ==
LOC: PMGWOUND 11:03
PROVIDERS: ATTEND Emergency Medicine Undersea and Hyperbaric Medicine
DX: I87.313 Chronic venous hypertension (idiopathic) with ulcer of bilateral lower extremity (principal); L97.211 Non-pressure chronic ulcer of right calf limited to breakdown of skin; L97.221 Non-pressure chronic ulcer of left calf limited to breakdown of skin; I25.10 Atherosclerotic heart disease of native coronary artery without angina pectoris; J44.9 Chronic obstructive pulmonary disease, unspecified; E11.22 Type 2 diabetes mellitus with diabetic chronic kidney disease; I13.0 Hypertensive heart and chronic kidney disease with heart failure and stage 1 through stage 4 chronic kidney disease, or unspecified chronic kidney disease; N18.3 Chronic kidney disease, stage 3 (moderate); I50.9 Heart failure, unspecified; E03.9 Hypothyroidism, unspecified; E66.9 Obesity, unspecified; M19.90 Unspecified osteoarthritis, unspecified site; Z68.44 Body mass index [BMI] 60.0-69.9, adult; I73.9 Peripheral vascular disease, unspecified; Z87.891 Personal history of nicotine dependence; I89.0 Lymphedema, not elsewhere classified; Z88.8 Allergy status to other drugs, medicaments and biological substances; Z88.5 Allergy status to narcotic agent; G62.9 Polyneuropathy, unspecified
CPT/HCPCS: 29581

== ENCOUNTER → 2017-04-04 | Outpatient (CLI) | payer BC, OTHER ==
[2017-03-24 14:32] VITALS: BP 119/61
== END | disposition home or self-care (01) ==
LOC: PMGWOUND 10:43
PROVIDERS: ATTEND Preventive Medicine Undersea and Hyperbaric Medicine
DX: I87.313 Chronic venous hypertension (idiopathic) with ulcer of bilateral lower extremity (principal); L97.211 Non-pressure chronic ulcer of right calf limited to breakdown of skin; L97.221 Non-pressure chronic ulcer of left calf limited to breakdown of skin; I25.10 Atherosclerotic heart disease of native coronary artery without angina pectoris; J44.9 Chronic obstructive pulmonary disease, unspecified; E11.22 Type 2 diabetes mellitus with diabetic chronic kidney disease; I13.0 Hypertensive heart and chronic kidney disease with heart failure and stage 1 through stage 4 chronic kidney disease, or unspecified chronic kidney disease; N18.3 Chronic kidney disease, stage 3 (moderate); I50.9 Heart failure, unspecified; E11.51 Type 2 diabetes mellitus with diabetic peripheral angiopathy without gangrene; E03.9 Hypothyroidism, unspecified; I89.0 Lymphedema, not elsewhere classified; E66.9 Obesity, unspecified; E11.42 Type 2 diabetes mellitus with diabetic polyneuropathy; M19.90 Unspecified osteoarthritis, unspecified site; Z68.44 Body mass index [BMI] 60.0-69.9, adult; Z87.891 Personal history of nicotine dependence; Z88.8 Allergy status to other drugs, medicaments and biological substances; Z88.5 Allergy status to narcotic agent; Z90.49 Acquired absence of other specified parts of digestive tract
CPT/HCPCS: 29581

== ENCOUNTER → 2017-04-11 | Outpatient (CLI) | payer BC, OTHER ==
[2017-03-24 14:32] VITALS: BP 119/61
== END | disposition home or self-care (01) ==
LOC: PMGWOUND 09:58
PROVIDERS: ATTEND Emergency Medicine Undersea and Hyperbaric Medicine
DX: I87.313 Chronic venous hypertension (idiopathic) with ulcer of bilateral lower extremity (principal); L97.211 Non-pressure chronic ulcer of right calf limited to breakdown of skin; L97.221 Non-pressure chronic ulcer of left calf limited to breakdown of skin; J44.9 Chronic obstructive pulmonary disease, unspecified; I13.0 Hypertensive heart and chronic kidney disease with heart failure and stage 1 through stage 4 chronic kidney disease, or unspecified chronic kidney disease; N18.3 Chronic kidney disease, stage 3 (moderate); I50.9 Heart failure, unspecified; E03.9 Hypothyroidism, unspecified; I89.0 Lymphedema, not elsewhere classified; E66.9 Obesity, unspecified; E11.51 Type 2 diabetes mellitus with diabetic peripheral angiopathy without gangrene; M19.90 Unspecified osteoarthritis, unspecified site; Z68.44 Body mass index [BMI] 60.0-69.9, adult; Z88.5 Allergy status to narcotic agent; Z87.891 Personal history of nicotine dependence; E11.42 Type 2 diabetes mellitus with diabetic polyneuropathy; Z88.8 Allergy status to other drugs, medicaments and biological substances; Z90.49 Acquired absence of other specified parts of digestive tract
CPT/HCPCS: 29581

== ENCOUNTER → 2017-04-18 | Outpatient (CLI) | payer BC, OTHER ==
[2017-03-24 14:32] VITALS: BP 119/61
== END | disposition home or self-care (01) ==
LOC: PMGWOUND 11:17
PROVIDERS: ATTEND Emergency Medicine Undersea and Hyperbaric Medicine
DX: I87.311 Chronic venous hypertension (idiopathic) with ulcer of right lower extremity (principal); E11.622 Type 2 diabetes mellitus with other skin ulcer; L97.211 Non-pressure chronic ulcer of right calf limited to breakdown of skin; J44.9 Chronic obstructive pulmonary disease, unspecified; I89.0 Lymphedema, not elsewhere classified; I25.10 Atherosclerotic heart disease of native coronary artery without angina pectoris; E03.9 Hypothyroidism, unspecified; M19.90 Unspecified osteoarthritis, unspecified site; Z87.891 Personal history of nicotine dependence; E11.22 Type 2 diabetes mellitus with diabetic chronic kidney disease; I13.0 Hypertensive heart and chronic kidney disease with heart failure and stage 1 through stage 4 chronic kidney disease, or unspecified chronic kidney disease; N18.3 Chronic kidney disease, stage 3 (moderate); I50.9 Heart failure, unspecified; E11.42 Type 2 diabetes mellitus with diabetic polyneuropathy; E11.51 Type 2 diabetes mellitus with diabetic peripheral angiopathy without gangrene; E66.9 Obesity, unspecified; Z68.44 Body mass index [BMI] 60.0-69.9, adult
CPT/HCPCS: 29581

== ENCOUNTER → 2017-04-21 | Outpatient (CLI) | payer BC, OTHER ==
[2017-03-24 14:32] VITALS: BP 119/61
== END | disposition home or self-care (01) ==
LOC: PMGWOUND 11:26
PROVIDERS: ATTEND Preventive Medicine Undersea and Hyperbaric Medicine
DX: I87.313 Chronic venous hypertension (idiopathic) with ulcer of bilateral lower extremity (principal); L97.211 Non-pressure chronic ulcer of right calf limited to breakdown of skin; L97.221 Non-pressure chronic ulcer of left calf limited to breakdown of skin; E11.22 Type 2 diabetes mellitus with diabetic chronic kidney disease; I13.0 Hypertensive heart and chronic kidney disease with heart failure and stage 1 through stage 4 chronic kidney disease, or unspecified chronic kidney disease; N18.4 Chronic kidney disease, stage 4 (severe); I50.9 Heart failure, unspecified; J44.9 Chronic obstructive pulmonary disease, unspecified; I89.0 Lymphedema, not elsewhere classified; I25.10 Atherosclerotic heart disease of native coronary artery without angina pectoris; E03.9 Hypothyroidism, unspecified; E66.9 Obesity, unspecified; E11.51 Type 2 diabetes mellitus with diabetic peripheral angiopathy without gangrene; E11.42 Type 2 diabetes mellitus with diabetic polyneuropathy; M19.90 Unspecified osteoarthritis, unspecified site; Z68.44 Body mass index [BMI] 60.0-69.9, adult; Z87.891 Personal history of nicotine dependence
CPT/HCPCS: 29581

== ENCOUNTER → 2017-04-28 | Outpatient (CLI) | payer BC, OTHER | END | disposition home or self-care (01) | LOC: PMGWOUND 10:20 | PROVIDERS: ATTEND Preventive Medicine Undersea and Hyperbaric Medicine | DX: I87.313 Chronic venous hypertension (idiopathic) with ulcer of bilateral lower extremity (principal); E11.622 Type 2 diabetes mellitus with other skin ulcer; L97.211 Non-pressure chronic ulcer of right calf limited to breakdown of skin; L97.221 Non-pressure chronic ulcer of left calf limited to breakdown of skin; I89.0 Lymphedema, not elsewhere classified; I25.10 Atherosclerotic heart disease of native coronary artery without angina pectoris; J44.9 Chronic obstructive pulmonary disease, unspecified; E03.9 Hypothyroidism, unspecified; E11.51 Type 2 diabetes mellitus with diabetic peripheral angiopathy without gangrene; E11.22 Type 2 diabetes mellitus with diabetic chronic kidney disease; I13.0 Hypertensive heart and chronic kidney disease with heart failure and stage 1 through stage 4 chronic kidney disease, or unspecified chronic kidney disease; N18.4 Chronic kidney disease, stage 4 (severe); I50.9 Heart failure, unspecified; E66.9 Obesity, unspecified; E11.42 Type 2 diabetes mellitus with diabetic polyneuropathy; M19.90 Unspecified osteoarthritis, unspecified site; Z87.891 Personal history of nicotine dependence; Z90.49 Acquired absence of other specified parts of digestive tract; Z88.5 Allergy status to narcotic agent; Z88.8 Allergy status to other drugs, medicaments and biological substances; Z79.82 Long term (current) use of aspirin; Z68.44 Body mass index [BMI] 60.0-69.9, adult | CPT/HCPCS: 29581; 97597; 97598 ==

== ENCOUNTER → 2017-05-02 | Outpatient (CLI) | payer BC, OTHER | END | disposition home or self-care (01) | LOC: PMGWOUND 10:35 | PROVIDERS: ATTEND Emergency Medicine Undersea and Hyperbaric Medicine | DX: I87.313 Chronic venous hypertension (idiopathic) with ulcer of bilateral lower extremity (principal); E11.622 Type 2 diabetes mellitus with other skin ulcer; L97.211 Non-pressure chronic ulcer of right calf limited to breakdown of skin; L97.221 Non-pressure chronic ulcer of left calf limited to breakdown of skin; I89.0 Lymphedema, not elsewhere classified; J44.9 Chronic obstructive pulmonary disease, unspecified; I25.10 Atherosclerotic heart disease of native coronary artery without angina pectoris; E03.9 Hypothyroidism, unspecified; E11.51 Type 2 diabetes mellitus with diabetic peripheral angiopathy without gangrene; M19.90 Unspecified osteoarthritis, unspecified site; Z87.891 Personal history of nicotine dependence; E11.22 Type 2 diabetes mellitus with diabetic chronic kidney disease; I13.0 Hypertensive heart and chronic kidney disease with heart failure and stage 1 through stage 4 chronic kidney disease, or unspecified chronic kidney disease; N18.4 Chronic kidney disease, stage 4 (severe); I50.9 Heart failure, unspecified; E66.9 Obesity, unspecified; Z68.44 Body mass index [BMI] 60.0-69.9, adult; E11.42 Type 2 diabetes mellitus with diabetic polyneuropathy | CPT/HCPCS: 29581 ==

== ENCOUNTER → 2017-05-05 | Outpatient (CLI) | payer BC, OTHER | END | disposition home or self-care (01) | LOC: PMGWOUND 09:04 | PROVIDERS: ATTEND Preventive Medicine Undersea and Hyperbaric Medicine | DX: I87.313 Chronic venous hypertension (idiopathic) with ulcer of bilateral lower extremity (principal); E11.622 Type 2 diabetes mellitus with other skin ulcer; L97.211 Non-pressure chronic ulcer of right calf limited to breakdown of skin; L97.221 Non-pressure chronic ulcer of left calf limited to breakdown of skin; I89.0 Lymphedema, not elsewhere classified; I25.10 Atherosclerotic heart disease of native coronary artery without angina pectoris; J44.9 Chronic obstructive pulmonary disease, unspecified; E11.22 Type 2 diabetes mellitus with diabetic chronic kidney disease; I13.0 Hypertensive heart and chronic kidney disease with heart failure and stage 1 through stage 4 chronic kidney disease, or unspecified chronic kidney disease; N18.4 Chronic kidney disease, stage 4 (severe); I50.9 Heart failure, unspecified; E03.9 Hypothyroidism, unspecified; E66.9 Obesity, unspecified; Z68.44 Body mass index [BMI] 60.0-69.9, adult; E11.42 Type 2 diabetes mellitus with diabetic polyneuropathy; E11.51 Type 2 diabetes mellitus with diabetic peripheral angiopathy without gangrene; M19.90 Unspecified osteoarthritis, unspecified site; Z90.49 Acquired absence of other specified parts of digestive tract; Z87.891 Personal history of nicotine dependence; Z79.82 Long term (current) use of aspirin | CPT/HCPCS: 29581 ==

== ENCOUNTER → 2017-05-09 | Outpatient (CLI) | payer BC, OTHER | END | disposition home or self-care (01) | LOC: PMGWOUND 09:03 | PROVIDERS: ATTEND Emergency Medicine Undersea and Hyperbaric Medicine | DX: I87.313 Chronic venous hypertension (idiopathic) with ulcer of bilateral lower extremity (principal); E11.622 Type 2 diabetes mellitus with other skin ulcer; L97.211 Non-pressure chronic ulcer of right calf limited to breakdown of skin; L97.221 Non-pressure chronic ulcer of left calf limited to breakdown of skin; I89.0 Lymphedema, not elsewhere classified; I25.10 Atherosclerotic heart disease of native coronary artery without angina pectoris; E03.9 Hypothyroidism, unspecified; E11.51 Type 2 diabetes mellitus with diabetic peripheral angiopathy without gangrene; E11.42 Type 2 diabetes mellitus with diabetic polyneuropathy; E11.22 Type 2 diabetes mellitus with diabetic chronic kidney disease; I13.0 Hypertensive heart and chronic kidney disease with heart failure and stage 1 through stage 4 chronic kidney disease, or unspecified chronic kidney disease; N18.4 Chronic kidney disease, stage 4 (severe); I50.9 Heart failure, unspecified; M19.90 Unspecified osteoarthritis, unspecified site; E66.9 Obesity, unspecified; Z90.49 Acquired absence of other specified parts of digestive tract; Z87.891 Personal history of nicotine dependence; Z79.82 Long term (current) use of aspirin; Z68.44 Body mass index [BMI] 60.0-69.9, adult; Z99.2 Dependence on renal dialysis | CPT/HCPCS: 29581; 87071; 87075; 87205 ==

== ENCOUNTER → 2017-05-12 | Outpatient (CLI) | payer BC, OTHER ==
[~2017-05-12] MED LIST changes: +CHOL10003 PO; +CLOP75TA PO; +DOXY100C2 PO; +RIFA300C3 PO; +VENL75CA6 PO
--- NOTE | 2017-05-12 11:32 | HP ---
ADMIT DATE: 05/12/2017 DATE OF ADMISSION: 05/12/2017. CHIEF COMPLAINT: Swollen legs. HISTORY OF PRESENT ILLNESS: A 62-year-old white female with chronic lymphedema and venous stasis dermatitis of both lower extremities. She has been followed at wound care centers both at [facility] and [place] for the last several years. She recently started going to [place] and was seen 3 days ago. Cultures were done because of increasing pain in her left leg. Results are not available, but the pain has gotten worse despite oral rifampin and doxycycline, and she has been admitted for further evaluation. She denies fever, chills, vomiting, diarrhea or any other specific complaints at this time. PAST MEDICAL HISTORY: Last admission 6 weeks ago, she had anemia from wound bleed and received transfusions at that time. She says has had coronary stents placed in the past. MEDICATIONS: She takes aspirin and Plavix as a result. ALLERGIES: She has multiple drug allergies including ZOSYN, LEVAQUIN, AND SULFA. SOCIAL HISTORY: Nonsmoker. Lives at home and not employed, . FAMILY HISTORY: Unremarkable. REVIEW OF SYSTEMS: No other specific complaints. OBJECTIVE: ENT: All within normal limits. NECK: No masses, nodes or bruits. LUNGS: Clear. CARDIOVASCULAR: Regular rate. No irregular beat, murmur or tachycardia. NEUROLOGIC: Physiologic. PSYCHIATRIC: Nonfocal. ASSESSMENT: Chronic bilateral lower extremity edema and cellulitis with secondary progressive infection. PLAN: Admit. ALYSIA KIM MD DR: KARIN/lidia JOB#: [id number] / [id number]
== END | disposition home or self-care (01) ==
LOC: PMGWOUND 09:01
PROVIDERS: ATTEND Preventive Medicine Undersea and Hyperbaric Medicine
DX: I87.313 Chronic venous hypertension (idiopathic) with ulcer of bilateral lower extremity (principal); L97.211 Non-pressure chronic ulcer of right calf limited to breakdown of skin; L97.221 Non-pressure chronic ulcer of left calf limited to breakdown of skin; I89.0 Lymphedema, not elsewhere classified; E11.22 Type 2 diabetes mellitus with diabetic chronic kidney disease; I13.0 Hypertensive heart and chronic kidney disease with heart failure and stage 1 through stage 4 chronic kidney disease, or unspecified chronic kidney disease; N18.4 Chronic kidney disease, stage 4 (severe); I50.9 Heart failure, unspecified; E03.9 Hypothyroidism, unspecified; E66.9 Obesity, unspecified; E11.42 Type 2 diabetes mellitus with diabetic polyneuropathy; E11.51 Type 2 diabetes mellitus with diabetic peripheral angiopathy without gangrene; J44.9 Chronic obstructive pulmonary disease, unspecified; I25.10 Atherosclerotic heart disease of native coronary artery without angina pectoris; M19.90 Unspecified osteoarthritis, unspecified site; Z87.891 Personal history of nicotine dependence; Z99.2 Dependence on renal dialysis
CPT/HCPCS: 99214

== ENCOUNTER → 2017-05-22 | Outpatient (CLI) | payer BC, OTHER | END | disposition home or self-care (01) | LOC: PMGWOUND 11:27 | PROVIDERS: ATTEND Emergency Medicine Undersea and Hyperbaric Medicine | DX: I87.313 Chronic venous hypertension (idiopathic) with ulcer of bilateral lower extremity (principal); L97.211 Non-pressure chronic ulcer of right calf limited to breakdown of skin; L97.221 Non-pressure chronic ulcer of left calf limited to breakdown of skin; I89.0 Lymphedema, not elsewhere classified; I25.10 Atherosclerotic heart disease of native coronary artery without angina pectoris; J44.9 Chronic obstructive pulmonary disease, unspecified; E03.9 Hypothyroidism, unspecified; E66.9 Obesity, unspecified; E11.42 Type 2 diabetes mellitus with diabetic polyneuropathy; E11.51 Type 2 diabetes mellitus with diabetic peripheral angiopathy without gangrene; E11.22 Type 2 diabetes mellitus with diabetic chronic kidney disease; I13.0 Hypertensive heart and chronic kidney disease with heart failure and stage 1 through stage 4 chronic kidney disease, or unspecified chronic kidney disease; N18.4 Chronic kidney disease, stage 4 (severe); I50.9 Heart failure, unspecified; M19.90 Unspecified osteoarthritis, unspecified site; Z99.2 Dependence on renal dialysis; Z68.44 Body mass index [BMI] 60.0-69.9, adult; Z79.82 Long term (current) use of aspirin; Z87.891 Personal history of nicotine dependence | CPT/HCPCS: 29581 ==

== ENCOUNTER → 2017-05-26 | Outpatient (CLI) | payer BC, OTHER | END | disposition home or self-care (01) | LOC: PMGWOUND 08:54 | PROVIDERS: ATTEND Preventive Medicine Undersea and Hyperbaric Medicine | DX: I87.313 Chronic venous hypertension (idiopathic) with ulcer of bilateral lower extremity (principal); L97.211 Non-pressure chronic ulcer of right calf limited to breakdown of skin; L97.221 Non-pressure chronic ulcer of left calf limited to breakdown of skin; I89.0 Lymphedema, not elsewhere classified; I25.10 Atherosclerotic heart disease of native coronary artery without angina pectoris; E11.22 Type 2 diabetes mellitus with diabetic chronic kidney disease; I13.0 Hypertensive heart and chronic kidney disease with heart failure and stage 1 through stage 4 chronic kidney disease, or unspecified chronic kidney disease; N18.4 Chronic kidney disease, stage 4 (severe); I50.9 Heart failure, unspecified; E03.9 Hypothyroidism, unspecified; M19.90 Unspecified osteoarthritis, unspecified site; E11.51 Type 2 diabetes mellitus with diabetic peripheral angiopathy without gangrene; E66.9 Obesity, unspecified; Z87.891 Personal history of nicotine dependence; Z79.82 Long term (current) use of aspirin; Z79.4 Long term (current) use of insulin; Z68.44 Body mass index [BMI] 60.0-69.9, adult; Z99.2 Dependence on renal dialysis | CPT/HCPCS: 29581; 97597; 97598 ==

== ENCOUNTER → 2017-05-29 | Outpatient (CLI) | payer BC, OTHER | END | disposition home or self-care (01) | LOC: PMGWOUND 12:18 | PROVIDERS: ATTEND Emergency Medicine Undersea and Hyperbaric Medicine | DX: I87.313 Chronic venous hypertension (idiopathic) with ulcer of bilateral lower extremity (principal); E11.622 Type 2 diabetes mellitus with other skin ulcer; L97.211 Non-pressure chronic ulcer of right calf limited to breakdown of skin; L97.221 Non-pressure chronic ulcer of left calf limited to breakdown of skin; I89.0 Lymphedema, not elsewhere classified; I25.10 Atherosclerotic heart disease of native coronary artery without angina pectoris; E11.51 Type 2 diabetes mellitus with diabetic peripheral angiopathy without gangrene; E11.22 Type 2 diabetes mellitus with diabetic chronic kidney disease; I13.0 Hypertensive heart and chronic kidney disease with heart failure and stage 1 through stage 4 chronic kidney disease, or unspecified chronic kidney disease; N18.4 Chronic kidney disease, stage 4 (severe); I50.9 Heart failure, unspecified; M19.90 Unspecified osteoarthritis, unspecified site; E11.42 Type 2 diabetes mellitus with diabetic polyneuropathy; E66.9 Obesity, unspecified; E03.9 Hypothyroidism, unspecified; Z99.2 Dependence on renal dialysis; Z79.4 Long term (current) use of insulin; Z79.82 Long term (current) use of aspirin; Z68.44 Body mass index [BMI] 60.0-69.9, adult; Z87.891 Personal history of nicotine dependence | CPT/HCPCS: 29581 ==

== ENCOUNTER → 2017-06-02 | Outpatient (CLI) | payer BC, OTHER | END | disposition home or self-care (01) | LOC: PMGWOUND 10:53 | PROVIDERS: ATTEND Preventive Medicine Undersea and Hyperbaric Medicine | DX: I87.313 Chronic venous hypertension (idiopathic) with ulcer of bilateral lower extremity (principal); E11.622 Type 2 diabetes mellitus with other skin ulcer; L97.211 Non-pressure chronic ulcer of right calf limited to breakdown of skin; L97.221 Non-pressure chronic ulcer of left calf limited to breakdown of skin; I89.0 Lymphedema, not elsewhere classified; I25.10 Atherosclerotic heart disease of native coronary artery without angina pectoris; E11.22 Type 2 diabetes mellitus with diabetic chronic kidney disease; I13.0 Hypertensive heart and chronic kidney disease with heart failure and stage 1 through stage 4 chronic kidney disease, or unspecified chronic kidney disease; N18.4 Chronic kidney disease, stage 4 (severe); I50.9 Heart failure, unspecified; E03.9 Hypothyroidism, unspecified; E66.9 Obesity, unspecified; E11.42 Type 2 diabetes mellitus with diabetic polyneuropathy; E11.51 Type 2 diabetes mellitus with diabetic peripheral angiopathy without gangrene; M19.90 Unspecified osteoarthritis, unspecified site; J44.9 Chronic obstructive pulmonary disease, unspecified; Z68.44 Body mass index [BMI] 60.0-69.9, adult; Z79.4 Long term (current) use of insulin; Z79.82 Long term (current) use of aspirin; Z87.891 Personal history of nicotine dependence | CPT/HCPCS: 29581 ==

== ENCOUNTER → 2017-06-06 | Outpatient (CLI) | payer BC, OTHER | END | disposition home or self-care (01) | LOC: PMGWOUND 12:04 | PROVIDERS: ATTEND Emergency Medicine Undersea and Hyperbaric Medicine | DX: I87.313 Chronic venous hypertension (idiopathic) with ulcer of bilateral lower extremity (principal); L97.211 Non-pressure chronic ulcer of right calf limited to breakdown of skin; L97.221 Non-pressure chronic ulcer of left calf limited to breakdown of skin; I89.0 Lymphedema, not elsewhere classified; E11.22 Type 2 diabetes mellitus with diabetic chronic kidney disease; I13.0 Hypertensive heart and chronic kidney disease with heart failure and stage 1 through stage 4 chronic kidney disease, or unspecified chronic kidney disease; N18.4 Chronic kidney disease, stage 4 (severe); I50.9 Heart failure, unspecified; J44.9 Chronic obstructive pulmonary disease, unspecified; I25.10 Atherosclerotic heart disease of native coronary artery without angina pectoris; E03.9 Hypothyroidism, unspecified; E66.9 Obesity, unspecified; E11.51 Type 2 diabetes mellitus with diabetic peripheral angiopathy without gangrene; E11.42 Type 2 diabetes mellitus with diabetic polyneuropathy; M19.90 Unspecified osteoarthritis, unspecified site; Z68.44 Body mass index [BMI] 60.0-69.9, adult; Z79.4 Long term (current) use of insulin; Z79.82 Long term (current) use of aspirin; Z99.2 Dependence on renal dialysis; Z90.49 Acquired absence of other specified parts of digestive tract; Z87.891 Personal history of nicotine dependence | CPT/HCPCS: 29581 ==

== ENCOUNTER → 2017-06-09 | Outpatient (CLI) | payer BC, OTHER | END | disposition home or self-care (01) | LOC: PMGWOUND 10:33 | PROVIDERS: ATTEND Preventive Medicine Undersea and Hyperbaric Medicine | DX: I87.313 Chronic venous hypertension (idiopathic) with ulcer of bilateral lower extremity (principal); E11.622 Type 2 diabetes mellitus with other skin ulcer; L97.211 Non-pressure chronic ulcer of right calf limited to breakdown of skin; L97.221 Non-pressure chronic ulcer of left calf limited to breakdown of skin; I89.0 Lymphedema, not elsewhere classified; L08.9 Local infection of the skin and subcutaneous tissue, unspecified; E11.22 Type 2 diabetes mellitus with diabetic chronic kidney disease; I13.0 Hypertensive heart and chronic kidney disease with heart failure and stage 1 through stage 4 chronic kidney disease, or unspecified chronic kidney disease; N18.4 Chronic kidney disease, stage 4 (severe); I50.9 Heart failure, unspecified; Z99.2 Dependence on renal dialysis; J44.9 Chronic obstructive pulmonary disease, unspecified; E03.9 Hypothyroidism, unspecified; M19.90 Unspecified osteoarthritis, unspecified site; E11.42 Type 2 diabetes mellitus with diabetic polyneuropathy; E11.51 Type 2 diabetes mellitus with diabetic peripheral angiopathy without gangrene | CPT/HCPCS: 29581; 87071; 87075; 87205 ==

== ENCOUNTER → 2017-06-13 | Outpatient (CLI) | payer BC, OTHER | END | disposition home or self-care (01) | LOC: PMGWOUND 09:58 | PROVIDERS: ATTEND Emergency Medicine Undersea and Hyperbaric Medicine | DX: I87.313 Chronic venous hypertension (idiopathic) with ulcer of bilateral lower extremity (principal); E11.622 Type 2 diabetes mellitus with other skin ulcer; L97.211 Non-pressure chronic ulcer of right calf limited to breakdown of skin; L97.221 Non-pressure chronic ulcer of left calf limited to breakdown of skin; S90.821D Blister (nonthermal), right foot, subsequent encounter; I89.0 Lymphedema, not elsewhere classified; L08.9 Local infection of the skin and subcutaneous tissue, unspecified; J44.9 Chronic obstructive pulmonary disease, unspecified; E11.22 Type 2 diabetes mellitus with diabetic chronic kidney disease; I13.0 Hypertensive heart and chronic kidney disease with heart failure and stage 1 through stage 4 chronic kidney disease, or unspecified chronic kidney disease; N18.4 Chronic kidney disease, stage 4 (severe); I50.9 Heart failure, unspecified; E03.9 Hypothyroidism, unspecified; E11.42 Type 2 diabetes mellitus with diabetic polyneuropathy; E11.51 Type 2 diabetes mellitus with diabetic peripheral angiopathy without gangrene; M19.90 Unspecified osteoarthritis, unspecified site; I25.10 Atherosclerotic heart disease of native coronary artery without angina pectoris; E66.9 Obesity, unspecified; Z68.44 Body mass index [BMI] 60.0-69.9, adult; Z79.82 Long term (current) use of aspirin; Z87.891 Personal history of nicotine dependence; Z79.4 Long term (current) use of insulin; Z90.49 Acquired absence of other specified parts of digestive tract; X58.XXXD Exposure to other specified factors, subsequent encounter | CPT/HCPCS: 29581 ==

== ENCOUNTER → 2017-06-16 | Outpatient (CLI) | payer BC, OTHER | END | disposition home or self-care (01) | LOC: PMGWOUND 12:38 | PROVIDERS: ATTEND Preventive Medicine Undersea and Hyperbaric Medicine | DX: I87.313 Chronic venous hypertension (idiopathic) with ulcer of bilateral lower extremity (principal); E11.622 Type 2 diabetes mellitus with other skin ulcer; L97.211 Non-pressure chronic ulcer of right calf limited to breakdown of skin; L97.221 Non-pressure chronic ulcer of left calf limited to breakdown of skin; I89.0 Lymphedema, not elsewhere classified; L08.9 Local infection of the skin and subcutaneous tissue, unspecified; E11.22 Type 2 diabetes mellitus with diabetic chronic kidney disease; I13.0 Hypertensive heart and chronic kidney disease with heart failure and stage 1 through stage 4 chronic kidney disease, or unspecified chronic kidney disease; N18.3 Chronic kidney disease, stage 3 (moderate); I50.9 Heart failure, unspecified; J44.9 Chronic obstructive pulmonary disease, unspecified; I25.10 Atherosclerotic heart disease of native coronary artery without angina pectoris; E03.9 Hypothyroidism, unspecified; E66.9 Obesity, unspecified; E11.51 Type 2 diabetes mellitus with diabetic peripheral angiopathy without gangrene; M19.90 Unspecified osteoarthritis, unspecified site; Z87.891 Personal history of nicotine dependence | CPT/HCPCS: 29581 ==

== ENCOUNTER → 2017-06-20 | Outpatient (CLI) | payer BC, OTHER | END | disposition home or self-care (01) | LOC: PMGWOUND 10:29 | PROVIDERS: ATTEND Emergency Medicine Undersea and Hyperbaric Medicine | DX: I87.313 Chronic venous hypertension (idiopathic) with ulcer of bilateral lower extremity (principal); L97.211 Non-pressure chronic ulcer of right calf limited to breakdown of skin; L97.221 Non-pressure chronic ulcer of left calf limited to breakdown of skin; S90.821D Blister (nonthermal), right foot, subsequent encounter; I89.0 Lymphedema, not elsewhere classified; L08.9 Local infection of the skin and subcutaneous tissue, unspecified; I25.10 Atherosclerotic heart disease of native coronary artery without angina pectoris; J44.9 Chronic obstructive pulmonary disease, unspecified; E11.22 Type 2 diabetes mellitus with diabetic chronic kidney disease; I13.0 Hypertensive heart and chronic kidney disease with heart failure and stage 1 through stage 4 chronic kidney disease, or unspecified chronic kidney disease; N18.4 Chronic kidney disease, stage 4 (severe); I50.9 Heart failure, unspecified; E03.9 Hypothyroidism, unspecified; E66.9 Obesity, unspecified; E11.51 Type 2 diabetes mellitus with diabetic peripheral angiopathy without gangrene; M19.90 Unspecified osteoarthritis, unspecified site; E11.42 Type 2 diabetes mellitus with diabetic polyneuropathy; Z90.49 Acquired absence of other specified parts of digestive tract; Z68.44 Body mass index [BMI] 60.0-69.9, adult; Z87.891 Personal history of nicotine dependence; Z79.82 Long term (current) use of aspirin; Z99.2 Dependence on renal dialysis; Z79.4 Long term (current) use of insulin; X58.XXXD Exposure to other specified factors, subsequent encounter | CPT/HCPCS: 29581 ==

== ENCOUNTER → 2017-06-23 | Outpatient (CLI) | payer BC, OTHER | END | disposition home or self-care (01) | LOC: PMGWOUND 10:56 | PROVIDERS: ATTEND Preventive Medicine Undersea and Hyperbaric Medicine | DX: I87.313 Chronic venous hypertension (idiopathic) with ulcer of bilateral lower extremity (principal); E11.622 Type 2 diabetes mellitus with other skin ulcer; L97.211 Non-pressure chronic ulcer of right calf limited to breakdown of skin; L97.221 Non-pressure chronic ulcer of left calf limited to breakdown of skin; I89.0 Lymphedema, not elsewhere classified; L08.9 Local infection of the skin and subcutaneous tissue, unspecified; E11.22 Type 2 diabetes mellitus with diabetic chronic kidney disease; I13.0 Hypertensive heart and chronic kidney disease with heart failure and stage 1 through stage 4 chronic kidney disease, or unspecified chronic kidney disease; N18.3 Chronic kidney disease, stage 3 (moderate); I50.9 Heart failure, unspecified; I25.10 Atherosclerotic heart disease of native coronary artery without angina pectoris; E03.9 Hypothyroidism, unspecified; M19.90 Unspecified osteoarthritis, unspecified site; J44.9 Chronic obstructive pulmonary disease, unspecified; Z87.891 Personal history of nicotine dependence | CPT/HCPCS: 29581 ==

== ENCOUNTER → 2017-06-27 | Outpatient (CLI) | payer BC, OTHER | END | disposition home or self-care (01) | LOC: PMGWOUND 11:00 | PROVIDERS: ATTEND Emergency Medicine Undersea and Hyperbaric Medicine | DX: I87.313 Chronic venous hypertension (idiopathic) with ulcer of bilateral lower extremity (principal); E11.622 Type 2 diabetes mellitus with other skin ulcer; L97.211 Non-pressure chronic ulcer of right calf limited to breakdown of skin; L97.221 Non-pressure chronic ulcer of left calf limited to breakdown of skin; I89.0 Lymphedema, not elsewhere classified; I25.10 Atherosclerotic heart disease of native coronary artery without angina pectoris; J44.9 Chronic obstructive pulmonary disease, unspecified; E11.22 Type 2 diabetes mellitus with diabetic chronic kidney disease; I13.0 Hypertensive heart and chronic kidney disease with heart failure and stage 1 through stage 4 chronic kidney disease, or unspecified chronic kidney disease; N18.4 Chronic kidney disease, stage 4 (severe); I50.9 Heart failure, unspecified; E03.9 Hypothyroidism, unspecified; E66.9 Obesity, unspecified; M19.90 Unspecified osteoarthritis, unspecified site; E11.42 Type 2 diabetes mellitus with diabetic polyneuropathy; E11.51 Type 2 diabetes mellitus with diabetic peripheral angiopathy without gangrene; L08.9 Local infection of the skin and subcutaneous tissue, unspecified; Z87.891 Personal history of nicotine dependence; Z79.82 Long term (current) use of aspirin; Z79.4 Long term (current) use of insulin; Z90.710 Acquired absence of both cervix and uterus; Z68.44 Body mass index [BMI] 60.0-69.9, adult; Z99.2 Dependence on renal dialysis | CPT/HCPCS: 29581 ==

== ENCOUNTER → 2017-06-30 | Outpatient (CLI) | payer BC, OTHER | END | disposition home or self-care (01) | LOC: PMGWOUND 12:42 | PROVIDERS: ATTEND Emergency Medicine Undersea and Hyperbaric Medicine | DX: I87.313 Chronic venous hypertension (idiopathic) with ulcer of bilateral lower extremity (principal); L97.211 Non-pressure chronic ulcer of right calf limited to breakdown of skin; L97.221 Non-pressure chronic ulcer of left calf limited to breakdown of skin; I89.0 Lymphedema, not elsewhere classified; L08.9 Local infection of the skin and subcutaneous tissue, unspecified; I25.10 Atherosclerotic heart disease of native coronary artery without angina pectoris; J44.9 Chronic obstructive pulmonary disease, unspecified; E11.22 Type 2 diabetes mellitus with diabetic chronic kidney disease; I13.0 Hypertensive heart and chronic kidney disease with heart failure and stage 1 through stage 4 chronic kidney disease, or unspecified chronic kidney disease; N18.4 Chronic kidney disease, stage 4 (severe); I50.9 Heart failure, unspecified; E11.42 Type 2 diabetes mellitus with diabetic polyneuropathy; E11.51 Type 2 diabetes mellitus with diabetic peripheral angiopathy without gangrene; E03.9 Hypothyroidism, unspecified; E66.9 Obesity, unspecified; M19.90 Unspecified osteoarthritis, unspecified site; Z68.44 Body mass index [BMI] 60.0-69.9, adult; Z87.891 Personal history of nicotine dependence; Z90.710 Acquired absence of both cervix and uterus; Z79.4 Long term (current) use of insulin; Z99.2 Dependence on renal dialysis | CPT/HCPCS: 29581 ==

== ENCOUNTER → 2017-07-04 | Outpatient (CLI) | payer BC, OTHER | END | disposition home or self-care (01) | LOC: PMGWOUND 12:30 | PROVIDERS: ATTEND Emergency Medicine Undersea and Hyperbaric Medicine | DX: I87.313 Chronic venous hypertension (idiopathic) with ulcer of bilateral lower extremity (principal); E11.622 Type 2 diabetes mellitus with other skin ulcer; L97.211 Non-pressure chronic ulcer of right calf limited to breakdown of skin; L97.221 Non-pressure chronic ulcer of left calf limited to breakdown of skin; I89.0 Lymphedema, not elsewhere classified; L08.9 Local infection of the skin and subcutaneous tissue, unspecified; I25.10 Atherosclerotic heart disease of native coronary artery without angina pectoris; J44.9 Chronic obstructive pulmonary disease, unspecified; E11.22 Type 2 diabetes mellitus with diabetic chronic kidney disease; I13.0 Hypertensive heart and chronic kidney disease with heart failure and stage 1 through stage 4 chronic kidney disease, or unspecified chronic kidney disease; N18.4 Chronic kidney disease, stage 4 (severe); I50.9 Heart failure, unspecified; E66.9 Obesity, unspecified; M19.90 Unspecified osteoarthritis, unspecified site; E11.42 Type 2 diabetes mellitus with diabetic polyneuropathy; Z99.2 Dependence on renal dialysis; Z79.4 Long term (current) use of insulin; Z87.891 Personal history of nicotine dependence; Z68.44 Body mass index [BMI] 60.0-69.9, adult; Z90.710 Acquired absence of both cervix and uterus; Z90.49 Acquired absence of other specified parts of digestive tract | CPT/HCPCS: 29581 ==

== ENCOUNTER → 2017-07-07 | Outpatient (CLI) | payer BC, OTHER | END | disposition home or self-care (01) | LOC: PMGWOUND 11:52 | PROVIDERS: ATTEND Preventive Medicine Undersea and Hyperbaric Medicine | DX: I87.313 Chronic venous hypertension (idiopathic) with ulcer of bilateral lower extremity (principal); E11.622 Type 2 diabetes mellitus with other skin ulcer; L97.211 Non-pressure chronic ulcer of right calf limited to breakdown of skin; L97.221 Non-pressure chronic ulcer of left calf limited to breakdown of skin; I89.0 Lymphedema, not elsewhere classified; L08.9 Local infection of the skin and subcutaneous tissue, unspecified; I25.10 Atherosclerotic heart disease of native coronary artery without angina pectoris; J44.9 Chronic obstructive pulmonary disease, unspecified; E11.22 Type 2 diabetes mellitus with diabetic chronic kidney disease; I13.0 Hypertensive heart and chronic kidney disease with heart failure and stage 1 through stage 4 chronic kidney disease, or unspecified chronic kidney disease; N18.4 Chronic kidney disease, stage 4 (severe); I50.9 Heart failure, unspecified; E66.9 Obesity, unspecified; E03.9 Hypothyroidism, unspecified; E11.42 Type 2 diabetes mellitus with diabetic polyneuropathy; E11.51 Type 2 diabetes mellitus with diabetic peripheral angiopathy without gangrene; M19.90 Unspecified osteoarthritis, unspecified site; Z90.49 Acquired absence of other specified parts of digestive tract; Z90.710 Acquired absence of both cervix and uterus; Z68.44 Body mass index [BMI] 60.0-69.9, adult; Z87.891 Personal history of nicotine dependence; Z79.4 Long term (current) use of insulin; Z99.2 Dependence on renal dialysis | CPT/HCPCS: 29581 ==

== ENCOUNTER → 2017-07-11 | Outpatient (CLI) | payer BC, OTHER | END | disposition home or self-care (01) | LOC: PMGWOUND 12:58 | PROVIDERS: ATTEND Emergency Medicine Undersea and Hyperbaric Medicine | DX: I87.313 Chronic venous hypertension (idiopathic) with ulcer of bilateral lower extremity (principal); E11.622 Type 2 diabetes mellitus with other skin ulcer; L97.211 Non-pressure chronic ulcer of right calf limited to breakdown of skin; L97.221 Non-pressure chronic ulcer of left calf limited to breakdown of skin; I89.0 Lymphedema, not elsewhere classified; L08.9 Local infection of the skin and subcutaneous tissue, unspecified; E11.22 Type 2 diabetes mellitus with diabetic chronic kidney disease; I13.0 Hypertensive heart and chronic kidney disease with heart failure and stage 1 through stage 4 chronic kidney disease, or unspecified chronic kidney disease; N18.4 Chronic kidney disease, stage 4 (severe); I50.9 Heart failure, unspecified; Z99.2 Dependence on renal dialysis; J44.9 Chronic obstructive pulmonary disease, unspecified; M19.90 Unspecified osteoarthritis, unspecified site; Z87.891 Personal history of nicotine dependence; E66.9 Obesity, unspecified; Z68.44 Body mass index [BMI] 60.0-69.9, adult; E03.9 Hypothyroidism, unspecified | CPT/HCPCS: 29581 ==

== ENCOUNTER → 2017-07-28 | Outpatient (CLI) | payer BC, OTHER | END | disposition home or self-care (01) | LOC: PMGWOUND 10:33 | PROVIDERS: ATTEND Preventive Medicine Undersea and Hyperbaric Medicine | DX: I87.313 Chronic venous hypertension (idiopathic) with ulcer of bilateral lower extremity (principal); E11.622 Type 2 diabetes mellitus with other skin ulcer; L97.211 Non-pressure chronic ulcer of right calf limited to breakdown of skin; L97.221 Non-pressure chronic ulcer of left calf limited to breakdown of skin; I89.0 Lymphedema, not elsewhere classified; J44.9 Chronic obstructive pulmonary disease, unspecified; E11.22 Type 2 diabetes mellitus with diabetic chronic kidney disease; I13.0 Hypertensive heart and chronic kidney disease with heart failure and stage 1 through stage 4 chronic kidney disease, or unspecified chronic kidney disease; N18.4 Chronic kidney disease, stage 4 (severe); I50.9 Heart failure, unspecified; E03.9 Hypothyroidism, unspecified; E66.9 Obesity, unspecified; E11.42 Type 2 diabetes mellitus with diabetic polyneuropathy; E11.51 Type 2 diabetes mellitus with diabetic peripheral angiopathy without gangrene; M19.90 Unspecified osteoarthritis, unspecified site; Z87.891 Personal history of nicotine dependence; Z68.44 Body mass index [BMI] 60.0-69.9, adult; Z90.49 Acquired absence of other specified parts of digestive tract; Z90.710 Acquired absence of both cervix and uterus; Z99.2 Dependence on renal dialysis; Z79.4 Long term (current) use of insulin | CPT/HCPCS: 29581; 97597; 97598 ==

== ENCOUNTER → 2017-08-02 | Outpatient (CLI) | payer BC, OTHER | END | disposition home or self-care (01) | LOC: PMGWOUND 11:03 | PROVIDERS: ATTEND Preventive Medicine Undersea and Hyperbaric Medicine | DX: I87.313 Chronic venous hypertension (idiopathic) with ulcer of bilateral lower extremity (principal); E11.622 Type 2 diabetes mellitus with other skin ulcer; L97.211 Non-pressure chronic ulcer of right calf limited to breakdown of skin; L97.221 Non-pressure chronic ulcer of left calf limited to breakdown of skin; I89.0 Lymphedema, not elsewhere classified; J44.9 Chronic obstructive pulmonary disease, unspecified; E11.22 Type 2 diabetes mellitus with diabetic chronic kidney disease; I13.0 Hypertensive heart and chronic kidney disease with heart failure and stage 1 through stage 4 chronic kidney disease, or unspecified chronic kidney disease; N18.4 Chronic kidney disease, stage 4 (severe); I50.9 Heart failure, unspecified; E03.9 Hypothyroidism, unspecified; L08.9 Local infection of the skin and subcutaneous tissue, unspecified; E66.9 Obesity, unspecified; E11.42 Type 2 diabetes mellitus with diabetic polyneuropathy; E11.51 Type 2 diabetes mellitus with diabetic peripheral angiopathy without gangrene; M19.90 Unspecified osteoarthritis, unspecified site; I25.10 Atherosclerotic heart disease of native coronary artery without angina pectoris; Z90.49 Acquired absence of other specified parts of digestive tract; Z90.710 Acquired absence of both cervix and uterus; Z99.2 Dependence on renal dialysis; Z79.4 Long term (current) use of insulin; Z68.44 Body mass index [BMI] 60.0-69.9, adult; Z87.891 Personal history of nicotine dependence | CPT/HCPCS: 29581; 97597; 97598 ==

== ENCOUNTER → 2017-08-10 | Outpatient (CLI) | payer BC, OTHER | END | disposition home or self-care (01) | LOC: PMGWOUND 13:05 | PROVIDERS: ATTEND Emergency Medicine Undersea and Hyperbaric Medicine | DX: I87.313 Chronic venous hypertension (idiopathic) with ulcer of bilateral lower extremity (principal); E11.622 Type 2 diabetes mellitus with other skin ulcer; L97.211 Non-pressure chronic ulcer of right calf limited to breakdown of skin; I89.0 Lymphedema, not elsewhere classified; L08.9 Local infection of the skin and subcutaneous tissue, unspecified; L97.221 Non-pressure chronic ulcer of left calf limited to breakdown of skin; J44.9 Chronic obstructive pulmonary disease, unspecified; M19.90 Unspecified osteoarthritis, unspecified site; E03.9 Hypothyroidism, unspecified; I25.10 Atherosclerotic heart disease of native coronary artery without angina pectoris; E11.22 Type 2 diabetes mellitus with diabetic chronic kidney disease; I13.0 Hypertensive heart and chronic kidney disease with heart failure and stage 1 through stage 4 chronic kidney disease, or unspecified chronic kidney disease; N18.4 Chronic kidney disease, stage 4 (severe); I50.9 Heart failure, unspecified; E66.9 Obesity, unspecified; E11.42 Type 2 diabetes mellitus with diabetic polyneuropathy; E11.51 Type 2 diabetes mellitus with diabetic peripheral angiopathy without gangrene; Z99.2 Dependence on renal dialysis; Z79.4 Long term (current) use of insulin; Z68.44 Body mass index [BMI] 60.0-69.9, adult; Z87.891 Personal history of nicotine dependence; Z90.710 Acquired absence of both cervix and uterus | CPT/HCPCS: 29581 ==

== ENCOUNTER → 2017-08-17 | Outpatient (CLI) | payer BC, OTHER | END | disposition home or self-care (01) | LOC: PMGWOUND 13:05 | PROVIDERS: ATTEND Emergency Medicine Undersea and Hyperbaric Medicine | DX: I87.313 Chronic venous hypertension (idiopathic) with ulcer of bilateral lower extremity (principal); E11.622 Type 2 diabetes mellitus with other skin ulcer; L97.211 Non-pressure chronic ulcer of right calf limited to breakdown of skin; L97.221 Non-pressure chronic ulcer of left calf limited to breakdown of skin; I89.0 Lymphedema, not elsewhere classified; L08.9 Local infection of the skin and subcutaneous tissue, unspecified; I25.10 Atherosclerotic heart disease of native coronary artery without angina pectoris; J44.9 Chronic obstructive pulmonary disease, unspecified; E03.9 Hypothyroidism, unspecified; E66.9 Obesity, unspecified; E11.42 Type 2 diabetes mellitus with diabetic polyneuropathy; E11.51 Type 2 diabetes mellitus with diabetic peripheral angiopathy without gangrene; M19.90 Unspecified osteoarthritis, unspecified site; E11.22 Type 2 diabetes mellitus with diabetic chronic kidney disease; I13.0 Hypertensive heart and chronic kidney disease with heart failure and stage 1 through stage 4 chronic kidney disease, or unspecified chronic kidney disease; N18.4 Chronic kidney disease, stage 4 (severe); I50.9 Heart failure, unspecified; Z87.891 Personal history of nicotine dependence; Z99.2 Dependence on renal dialysis; Z90.710 Acquired absence of both cervix and uterus; Z68.44 Body mass index [BMI] 60.0-69.9, adult; Z79.4 Long term (current) use of insulin; Z90.49 Acquired absence of other specified parts of digestive tract | CPT/HCPCS: 29581 ==

== ENCOUNTER → 2017-08-24 | Outpatient (CLI) | payer BC, OTHER | END | disposition home or self-care (01) | LOC: PMGWOUND 10:26 | PROVIDERS: ATTEND Emergency Medicine Undersea and Hyperbaric Medicine | DX: I87.313 Chronic venous hypertension (idiopathic) with ulcer of bilateral lower extremity (principal); E11.622 Type 2 diabetes mellitus with other skin ulcer; L97.211 Non-pressure chronic ulcer of right calf limited to breakdown of skin; L97.221 Non-pressure chronic ulcer of left calf limited to breakdown of skin; L08.9 Local infection of the skin and subcutaneous tissue, unspecified; I89.0 Lymphedema, not elsewhere classified; E11.42 Type 2 diabetes mellitus with diabetic polyneuropathy; E11.51 Type 2 diabetes mellitus with diabetic peripheral angiopathy without gangrene; E11.22 Type 2 diabetes mellitus with diabetic chronic kidney disease; I13.0 Hypertensive heart and chronic kidney disease with heart failure and stage 1 through stage 4 chronic kidney disease, or unspecified chronic kidney disease; N18.4 Chronic kidney disease, stage 4 (severe); I50.9 Heart failure, unspecified; J44.9 Chronic obstructive pulmonary disease, unspecified; I25.10 Atherosclerotic heart disease of native coronary artery without angina pectoris; E03.9 Hypothyroidism, unspecified; E66.9 Obesity, unspecified; M19.90 Unspecified osteoarthritis, unspecified site; Z87.891 Personal history of nicotine dependence; Z79.4 Long term (current) use of insulin; Z90.49 Acquired absence of other specified parts of digestive tract; Z68.44 Body mass index [BMI] 60.0-69.9, adult; Z90.710 Acquired absence of both cervix and uterus; Z99.2 Dependence on renal dialysis | CPT/HCPCS: 29581 ==

== ENCOUNTER → 2017-08-31 | Outpatient (CLI) | payer BC, OTHER | END | disposition home or self-care (01) | LOC: PMGWOUND 11:51 | PROVIDERS: ATTEND Emergency Medicine Undersea and Hyperbaric Medicine | DX: I87.313 Chronic venous hypertension (idiopathic) with ulcer of bilateral lower extremity (principal); E11.622 Type 2 diabetes mellitus with other skin ulcer; L97.211 Non-pressure chronic ulcer of right calf limited to breakdown of skin; L97.221 Non-pressure chronic ulcer of left calf limited to breakdown of skin; L08.9 Local infection of the skin and subcutaneous tissue, unspecified; I89.0 Lymphedema, not elsewhere classified; E11.42 Type 2 diabetes mellitus with diabetic polyneuropathy; E11.51 Type 2 diabetes mellitus with diabetic peripheral angiopathy without gangrene; E11.22 Type 2 diabetes mellitus with diabetic chronic kidney disease; I13.0 Hypertensive heart and chronic kidney disease with heart failure and stage 1 through stage 4 chronic kidney disease, or unspecified chronic kidney disease; N18.4 Chronic kidney disease, stage 4 (severe); I50.9 Heart failure, unspecified; J44.9 Chronic obstructive pulmonary disease, unspecified; I25.10 Atherosclerotic heart disease of native coronary artery without angina pectoris; E03.9 Hypothyroidism, unspecified; E66.9 Obesity, unspecified; M19.90 Unspecified osteoarthritis, unspecified site; Z87.891 Personal history of nicotine dependence; Z79.4 Long term (current) use of insulin; Z90.49 Acquired absence of other specified parts of digestive tract; Z68.44 Body mass index [BMI] 60.0-69.9, adult; Z90.710 Acquired absence of both cervix and uterus; Z99.2 Dependence on renal dialysis | CPT/HCPCS: 29581 ==

== ENCOUNTER → 2017-09-05 | Outpatient (CLI) | payer BC, OTHER | END | disposition home or self-care (01) | LOC: PMGWOUND 13:41 | PROVIDERS: ATTEND Emergency Medicine Undersea and Hyperbaric Medicine | DX: I87.313 Chronic venous hypertension (idiopathic) with ulcer of bilateral lower extremity (principal); E11.622 Type 2 diabetes mellitus with other skin ulcer; L97.212 Non-pressure chronic ulcer of right calf with fat layer exposed; L97.222 Non-pressure chronic ulcer of left calf with fat layer exposed; I89.0 Lymphedema, not elsewhere classified; L08.9 Local infection of the skin and subcutaneous tissue, unspecified; E11.42 Type 2 diabetes mellitus with diabetic polyneuropathy; E11.51 Type 2 diabetes mellitus with diabetic peripheral angiopathy without gangrene; E11.22 Type 2 diabetes mellitus with diabetic chronic kidney disease; I13.0 Hypertensive heart and chronic kidney disease with heart failure and stage 1 through stage 4 chronic kidney disease, or unspecified chronic kidney disease; N18.4 Chronic kidney disease, stage 4 (severe); I50.9 Heart failure, unspecified; J44.9 Chronic obstructive pulmonary disease, unspecified; I25.10 Atherosclerotic heart disease of native coronary artery without angina pectoris; E03.9 Hypothyroidism, unspecified; E66.9 Obesity, unspecified; M19.90 Unspecified osteoarthritis, unspecified site; Z87.891 Personal history of nicotine dependence; Z79.4 Long term (current) use of insulin; Z90.49 Acquired absence of other specified parts of digestive tract; Z68.44 Body mass index [BMI] 60.0-69.9, adult; Z90.710 Acquired absence of both cervix and uterus; Z99.2 Dependence on renal dialysis | CPT/HCPCS: 29581 ==

== ENCOUNTER → 2017-09-08 | Outpatient (CLI) | payer BC, OTHER | END | disposition home or self-care (01) | LOC: PMGWOUND 11:35 | DX: I87.313 Chronic venous hypertension (idiopathic) with ulcer of bilateral lower extremity (principal); E11.622 Type 2 diabetes mellitus with other skin ulcer; L97.222 Non-pressure chronic ulcer of left calf with fat layer exposed; L97.212 Non-pressure chronic ulcer of right calf with fat layer exposed; I89.0 Lymphedema, not elsewhere classified; L08.9 Local infection of the skin and subcutaneous tissue, unspecified; E11.42 Type 2 diabetes mellitus with diabetic polyneuropathy; E11.51 Type 2 diabetes mellitus with diabetic peripheral angiopathy without gangrene; E11.22 Type 2 diabetes mellitus with diabetic chronic kidney disease; I13.0 Hypertensive heart and chronic kidney disease with heart failure and stage 1 through stage 4 chronic kidney disease, or unspecified chronic kidney disease; N18.4 Chronic kidney disease, stage 4 (severe); I50.9 Heart failure, unspecified; J44.9 Chronic obstructive pulmonary disease, unspecified; I25.10 Atherosclerotic heart disease of native coronary artery without angina pectoris; E03.9 Hypothyroidism, unspecified; E66.9 Obesity, unspecified; M19.90 Unspecified osteoarthritis, unspecified site; Z87.891 Personal history of nicotine dependence; Z79.4 Long term (current) use of insulin; Z90.49 Acquired absence of other specified parts of digestive tract; Z68.44 Body mass index [BMI] 60.0-69.9, adult; Z90.710 Acquired absence of both cervix and uterus; Z99.2 Dependence on renal dialysis | CPT/HCPCS: 29581 ==

== ENCOUNTER → 2017-09-12 | Outpatient (CLI) | payer BC, OTHER | END | disposition home or self-care (01) | LOC: PMGWOUND 11:30 | DX: I87.313 Chronic venous hypertension (idiopathic) with ulcer of bilateral lower extremity (principal); E11.622 Type 2 diabetes mellitus with other skin ulcer; L97.212 Non-pressure chronic ulcer of right calf with fat layer exposed; L97.222 Non-pressure chronic ulcer of left calf with fat layer exposed; I89.0 Lymphedema, not elsewhere classified; L08.9 Local infection of the skin and subcutaneous tissue, unspecified; J44.9 Chronic obstructive pulmonary disease, unspecified; I25.10 Atherosclerotic heart disease of native coronary artery without angina pectoris; E11.51 Type 2 diabetes mellitus with diabetic peripheral angiopathy without gangrene; M19.90 Unspecified osteoarthritis, unspecified site; E11.42 Type 2 diabetes mellitus with diabetic polyneuropathy; Z87.891 Personal history of nicotine dependence; E11.69 Type 2 diabetes mellitus with other specified complication; Z68.44 Body mass index [BMI] 60.0-69.9, adult; E11.22 Type 2 diabetes mellitus with diabetic chronic kidney disease; I13.0 Hypertensive heart and chronic kidney disease with heart failure and stage 1 through stage 4 chronic kidney disease, or unspecified chronic kidney disease; N18.4 Chronic kidney disease, stage 4 (severe); I50.9 Heart failure, unspecified; Z99.2 Dependence on renal dialysis; E03.9 Hypothyroidism, unspecified; E11.52 Type 2 diabetes mellitus with diabetic peripheral angiopathy with gangrene | CPT/HCPCS: 29581 ==

== ENCOUNTER → 2017-09-15 | Outpatient (CLI) | payer BC, OTHER | END | disposition home or self-care (01) | LOC: PMGWOUND 11:43 | DX: I87.313 Chronic venous hypertension (idiopathic) with ulcer of bilateral lower extremity (principal); E11.622 Type 2 diabetes mellitus with other skin ulcer; L97.212 Non-pressure chronic ulcer of right calf with fat layer exposed; L97.222 Non-pressure chronic ulcer of left calf with fat layer exposed; I89.0 Lymphedema, not elsewhere classified; L08.9 Local infection of the skin and subcutaneous tissue, unspecified; E11.42 Type 2 diabetes mellitus with diabetic polyneuropathy; E11.69 Type 2 diabetes mellitus with other specified complication; E11.52 Type 2 diabetes mellitus with diabetic peripheral angiopathy with gangrene; E11.22 Type 2 diabetes mellitus with diabetic chronic kidney disease; I13.0 Hypertensive heart and chronic kidney disease with heart failure and stage 1 through stage 4 chronic kidney disease, or unspecified chronic kidney disease; N18.4 Chronic kidney disease, stage 4 (severe); I50.9 Heart failure, unspecified; J44.9 Chronic obstructive pulmonary disease, unspecified; E03.9 Hypothyroidism, unspecified; I25.10 Atherosclerotic heart disease of native coronary artery without angina pectoris; M19.90 Unspecified osteoarthritis, unspecified site; Z68.44 Body mass index [BMI] 60.0-69.9, adult; Z99.2 Dependence on renal dialysis; Z87.891 Personal history of nicotine dependence; Z79.4 Long term (current) use of insulin | CPT/HCPCS: 29581; 99211 ==

== ENCOUNTER → 2017-09-19 | Outpatient (CLI) | payer BC, OTHER | END | disposition home or self-care (01) | LOC: PMGWOUND 11:24 | DX: I87.313 Chronic venous hypertension (idiopathic) with ulcer of bilateral lower extremity (principal); L97.212 Non-pressure chronic ulcer of right calf with fat layer exposed; L97.222 Non-pressure chronic ulcer of left calf with fat layer exposed; I89.0 Lymphedema, not elsewhere classified; E11.622 Type 2 diabetes mellitus with other skin ulcer; L08.9 Local infection of the skin and subcutaneous tissue, unspecified; E11.42 Type 2 diabetes mellitus with diabetic polyneuropathy; E11.69 Type 2 diabetes mellitus with other specified complication; E11.52 Type 2 diabetes mellitus with diabetic peripheral angiopathy with gangrene; E11.22 Type 2 diabetes mellitus with diabetic chronic kidney disease; I13.0 Hypertensive heart and chronic kidney disease with heart failure and stage 1 through stage 4 chronic kidney disease, or unspecified chronic kidney disease; N18.4 Chronic kidney disease, stage 4 (severe); I50.9 Heart failure, unspecified; J44.9 Chronic obstructive pulmonary disease, unspecified; E03.9 Hypothyroidism, unspecified; I25.10 Atherosclerotic heart disease of native coronary artery without angina pectoris; M19.90 Unspecified osteoarthritis, unspecified site; Z68.44 Body mass index [BMI] 60.0-69.9, adult; Z99.2 Dependence on renal dialysis; Z87.891 Personal history of nicotine dependence; Z79.4 Long term (current) use of insulin | CPT/HCPCS: 29581 ==

== ENCOUNTER → 2017-09-22 | Outpatient (CLI) | payer BC, OTHER | END | disposition home or self-care (01) | LOC: PMGWOUND 11:07 | DX: I87.313 Chronic venous hypertension (idiopathic) with ulcer of bilateral lower extremity (principal); L97.212 Non-pressure chronic ulcer of right calf with fat layer exposed; L97.222 Non-pressure chronic ulcer of left calf with fat layer exposed; I89.0 Lymphedema, not elsewhere classified; E11.622 Type 2 diabetes mellitus with other skin ulcer; L08.9 Local infection of the skin and subcutaneous tissue, unspecified; E11.42 Type 2 diabetes mellitus with diabetic polyneuropathy; E11.69 Type 2 diabetes mellitus with other specified complication; E11.52 Type 2 diabetes mellitus with diabetic peripheral angiopathy with gangrene; E11.22 Type 2 diabetes mellitus with diabetic chronic kidney disease; I13.0 Hypertensive heart and chronic kidney disease with heart failure and stage 1 through stage 4 chronic kidney disease, or unspecified chronic kidney disease; N18.4 Chronic kidney disease, stage 4 (severe); I50.9 Heart failure, unspecified; J44.9 Chronic obstructive pulmonary disease, unspecified; E03.9 Hypothyroidism, unspecified; I25.10 Atherosclerotic heart disease of native coronary artery without angina pectoris; M19.90 Unspecified osteoarthritis, unspecified site; Z68.44 Body mass index [BMI] 60.0-69.9, adult; Z99.2 Dependence on renal dialysis; Z87.891 Personal history of nicotine dependence; Z79.4 Long term (current) use of insulin | CPT/HCPCS: 29581 ==

== ENCOUNTER → 2017-09-26 | Outpatient (CLI) | payer BC, OTHER | END | disposition home or self-care (01) | LOC: PMGWOUND 11:34 | DX: I87.313 Chronic venous hypertension (idiopathic) with ulcer of bilateral lower extremity (principal); E11.622 Type 2 diabetes mellitus with other skin ulcer; L97.212 Non-pressure chronic ulcer of right calf with fat layer exposed; L97.222 Non-pressure chronic ulcer of left calf with fat layer exposed; I89.0 Lymphedema, not elsewhere classified; L08.9 Local infection of the skin and subcutaneous tissue, unspecified; I25.10 Atherosclerotic heart disease of native coronary artery without angina pectoris; J44.9 Chronic obstructive pulmonary disease, unspecified; E03.9 Hypothyroidism, unspecified; E11.22 Type 2 diabetes mellitus with diabetic chronic kidney disease; I13.0 Hypertensive heart and chronic kidney disease with heart failure and stage 1 through stage 4 chronic kidney disease, or unspecified chronic kidney disease; N18.4 Chronic kidney disease, stage 4 (severe); I50.9 Heart failure, unspecified; E11.42 Type 2 diabetes mellitus with diabetic polyneuropathy; E11.52 Type 2 diabetes mellitus with diabetic peripheral angiopathy with gangrene; M19.90 Unspecified osteoarthritis, unspecified site; E66.9 Obesity, unspecified; Z87.891 Personal history of nicotine dependence; Z90.710 Acquired absence of both cervix and uterus; Z90.49 Acquired absence of other specified parts of digestive tract; Z99.2 Dependence on renal dialysis; Z79.4 Long term (current) use of insulin; Z68.44 Body mass index [BMI] 60.0-69.9, adult | CPT/HCPCS: 29581 ==

== ENCOUNTER → 2017-09-29 | Outpatient (CLI) | payer BC, OTHER | END | disposition home or self-care (01) | LOC: PMGWOUND 11:22 | DX: I87.313 Chronic venous hypertension (idiopathic) with ulcer of bilateral lower extremity (principal); E11.622 Type 2 diabetes mellitus with other skin ulcer; L97.212 Non-pressure chronic ulcer of right calf with fat layer exposed; L97.222 Non-pressure chronic ulcer of left calf with fat layer exposed; I89.0 Lymphedema, not elsewhere classified; I25.10 Atherosclerotic heart disease of native coronary artery without angina pectoris; J44.9 Chronic obstructive pulmonary disease, unspecified; E03.9 Hypothyroidism, unspecified; E11.22 Type 2 diabetes mellitus with diabetic chronic kidney disease; I13.0 Hypertensive heart and chronic kidney disease with heart failure and stage 1 through stage 4 chronic kidney disease, or unspecified chronic kidney disease; N18.4 Chronic kidney disease, stage 4 (severe); I50.9 Heart failure, unspecified; E11.42 Type 2 diabetes mellitus with diabetic polyneuropathy; E11.52 Type 2 diabetes mellitus with diabetic peripheral angiopathy with gangrene; M19.90 Unspecified osteoarthritis, unspecified site; E66.9 Obesity, unspecified; Z87.891 Personal history of nicotine dependence; Z90.710 Acquired absence of both cervix and uterus; Z90.49 Acquired absence of other specified parts of digestive tract; Z99.2 Dependence on renal dialysis; Z79.4 Long term (current) use of insulin; Z68.44 Body mass index [BMI] 60.0-69.9, adult | CPT/HCPCS: 29581 ==

== ENCOUNTER → 2017-10-03 | Outpatient (CLI) | payer BC, OTHER | END | disposition home or self-care (01) | LOC: PMGWOUND 13:30 | DX: I87.313 Chronic venous hypertension (idiopathic) with ulcer of bilateral lower extremity (principal); E11.622 Type 2 diabetes mellitus with other skin ulcer; L97.212 Non-pressure chronic ulcer of right calf with fat layer exposed; L97.222 Non-pressure chronic ulcer of left calf with fat layer exposed; I89.0 Lymphedema, not elsewhere classified; I25.10 Atherosclerotic heart disease of native coronary artery without angina pectoris; J44.9 Chronic obstructive pulmonary disease, unspecified; E03.9 Hypothyroidism, unspecified; E11.22 Type 2 diabetes mellitus with diabetic chronic kidney disease; I13.0 Hypertensive heart and chronic kidney disease with heart failure and stage 1 through stage 4 chronic kidney disease, or unspecified chronic kidney disease; N18.4 Chronic kidney disease, stage 4 (severe); I50.9 Heart failure, unspecified; E11.42 Type 2 diabetes mellitus with diabetic polyneuropathy; E11.52 Type 2 diabetes mellitus with diabetic peripheral angiopathy with gangrene; M19.90 Unspecified osteoarthritis, unspecified site; E66.9 Obesity, unspecified; Z87.891 Personal history of nicotine dependence; Z90.710 Acquired absence of both cervix and uterus; Z90.49 Acquired absence of other specified parts of digestive tract; Z99.2 Dependence on renal dialysis; Z79.4 Long term (current) use of insulin; Z68.44 Body mass index [BMI] 60.0-69.9, adult | CPT/HCPCS: 29581 ==

== ENCOUNTER → 2017-10-06 | Outpatient (CLI) | payer BC, OTHER | END | disposition home or self-care (01) | LOC: PMGWOUND 11:05 | DX: I87.313 Chronic venous hypertension (idiopathic) with ulcer of bilateral lower extremity (principal); E11.622 Type 2 diabetes mellitus with other skin ulcer; L97.212 Non-pressure chronic ulcer of right calf with fat layer exposed; L97.222 Non-pressure chronic ulcer of left calf with fat layer exposed; I89.0 Lymphedema, not elsewhere classified; L08.9 Local infection of the skin and subcutaneous tissue, unspecified; I25.10 Atherosclerotic heart disease of native coronary artery without angina pectoris; J44.9 Chronic obstructive pulmonary disease, unspecified; E03.9 Hypothyroidism, unspecified; E11.22 Type 2 diabetes mellitus with diabetic chronic kidney disease; I13.0 Hypertensive heart and chronic kidney disease with heart failure and stage 1 through stage 4 chronic kidney disease, or unspecified chronic kidney disease; N18.4 Chronic kidney disease, stage 4 (severe); I50.9 Heart failure, unspecified; E11.42 Type 2 diabetes mellitus with diabetic polyneuropathy; E11.52 Type 2 diabetes mellitus with diabetic peripheral angiopathy with gangrene; M19.90 Unspecified osteoarthritis, unspecified site; E66.9 Obesity, unspecified; Z87.891 Personal history of nicotine dependence; Z90.710 Acquired absence of both cervix and uterus; Z90.49 Acquired absence of other specified parts of digestive tract; Z99.2 Dependence on renal dialysis; Z79.4 Long term (current) use of insulin; Z68.44 Body mass index [BMI] 60.0-69.9, adult | CPT/HCPCS: 29581 ==

== ENCOUNTER → 2017-10-10 | Outpatient (CLI) | payer BC, OTHER | END | disposition home or self-care (01) | LOC: PMGWOUND 11:11 | DX: I87.313 Chronic venous hypertension (idiopathic) with ulcer of bilateral lower extremity (principal); E11.622 Type 2 diabetes mellitus with other skin ulcer; L97.212 Non-pressure chronic ulcer of right calf with fat layer exposed; I89.0 Lymphedema, not elsewhere classified; L97.222 Non-pressure chronic ulcer of left calf with fat layer exposed; L08.9 Local infection of the skin and subcutaneous tissue, unspecified; I25.10 Atherosclerotic heart disease of native coronary artery without angina pectoris; J44.9 Chronic obstructive pulmonary disease, unspecified; E03.9 Hypothyroidism, unspecified; E11.22 Type 2 diabetes mellitus with diabetic chronic kidney disease; I13.0 Hypertensive heart and chronic kidney disease with heart failure and stage 1 through stage 4 chronic kidney disease, or unspecified chronic kidney disease; N18.4 Chronic kidney disease, stage 4 (severe); I50.9 Heart failure, unspecified; E11.42 Type 2 diabetes mellitus with diabetic polyneuropathy; E11.52 Type 2 diabetes mellitus with diabetic peripheral angiopathy with gangrene; M19.90 Unspecified osteoarthritis, unspecified site; E66.9 Obesity, unspecified; Z87.891 Personal history of nicotine dependence; Z90.710 Acquired absence of both cervix and uterus; Z90.49 Acquired absence of other specified parts of digestive tract; Z99.2 Dependence on renal dialysis; Z79.4 Long term (current) use of insulin; Z68.44 Body mass index [BMI] 60.0-69.9, adult | CPT/HCPCS: 29581 ==

== ENCOUNTER → 2017-10-13 | Outpatient (CLI) | payer BC, OTHER | END | disposition home or self-care (01) | LOC: PMGWOUND 11:27 | DX: I87.313 Chronic venous hypertension (idiopathic) with ulcer of bilateral lower extremity (principal); E11.622 Type 2 diabetes mellitus with other skin ulcer; L97.212 Non-pressure chronic ulcer of right calf with fat layer exposed; L97.222 Non-pressure chronic ulcer of left calf with fat layer exposed; I89.0 Lymphedema, not elsewhere classified; L08.9 Local infection of the skin and subcutaneous tissue, unspecified; I25.10 Atherosclerotic heart disease of native coronary artery without angina pectoris; J44.9 Chronic obstructive pulmonary disease, unspecified; E03.9 Hypothyroidism, unspecified; E11.22 Type 2 diabetes mellitus with diabetic chronic kidney disease; I13.0 Hypertensive heart and chronic kidney disease with heart failure and stage 1 through stage 4 chronic kidney disease, or unspecified chronic kidney disease; N18.4 Chronic kidney disease, stage 4 (severe); I50.9 Heart failure, unspecified; E11.42 Type 2 diabetes mellitus with diabetic polyneuropathy; E11.52 Type 2 diabetes mellitus with diabetic peripheral angiopathy with gangrene; M19.90 Unspecified osteoarthritis, unspecified site; E66.9 Obesity, unspecified; Z87.891 Personal history of nicotine dependence; Z90.710 Acquired absence of both cervix and uterus; Z90.49 Acquired absence of other specified parts of digestive tract; Z99.2 Dependence on renal dialysis; Z79.4 Long term (current) use of insulin; Z68.44 Body mass index [BMI] 60.0-69.9, adult | CPT/HCPCS: 29581 ==

== ENCOUNTER → 2017-10-17 | Outpatient (CLI) | payer BC, OTHER | END | disposition home or self-care (01) | LOC: PMGWOUND 13:30 | DX: I87.313 Chronic venous hypertension (idiopathic) with ulcer of bilateral lower extremity (principal); E11.622 Type 2 diabetes mellitus with other skin ulcer; L97.212 Non-pressure chronic ulcer of right calf with fat layer exposed; L97.222 Non-pressure chronic ulcer of left calf with fat layer exposed; I89.0 Lymphedema, not elsewhere classified; L08.9 Local infection of the skin and subcutaneous tissue, unspecified; I25.10 Atherosclerotic heart disease of native coronary artery without angina pectoris; J44.9 Chronic obstructive pulmonary disease, unspecified; E03.9 Hypothyroidism, unspecified; E11.22 Type 2 diabetes mellitus with diabetic chronic kidney disease; I13.0 Hypertensive heart and chronic kidney disease with heart failure and stage 1 through stage 4 chronic kidney disease, or unspecified chronic kidney disease; N18.4 Chronic kidney disease, stage 4 (severe); I50.9 Heart failure, unspecified; E11.42 Type 2 diabetes mellitus with diabetic polyneuropathy; E11.52 Type 2 diabetes mellitus with diabetic peripheral angiopathy with gangrene; M19.90 Unspecified osteoarthritis, unspecified site; E66.9 Obesity, unspecified; Z87.891 Personal history of nicotine dependence; Z90.710 Acquired absence of both cervix and uterus; Z90.49 Acquired absence of other specified parts of digestive tract; Z99.2 Dependence on renal dialysis; Z79.4 Long term (current) use of insulin; Z68.44 Body mass index [BMI] 60.0-69.9, adult | CPT/HCPCS: 29581 ==

== ENCOUNTER → 2017-10-20 | Outpatient (CLI) | payer BC, OTHER | END | disposition home or self-care (01) | LOC: PMGWOUND 11:30 | DX: I87.313 Chronic venous hypertension (idiopathic) with ulcer of bilateral lower extremity (principal); E11.622 Type 2 diabetes mellitus with other skin ulcer; L97.212 Non-pressure chronic ulcer of right calf with fat layer exposed; L97.821 Non-pressure chronic ulcer of other part of left lower leg limited to breakdown of skin; I89.0 Lymphedema, not elsewhere classified; I25.10 Atherosclerotic heart disease of native coronary artery without angina pectoris; J44.9 Chronic obstructive pulmonary disease, unspecified; E03.9 Hypothyroidism, unspecified; E11.22 Type 2 diabetes mellitus with diabetic chronic kidney disease; I13.0 Hypertensive heart and chronic kidney disease with heart failure and stage 1 through stage 4 chronic kidney disease, or unspecified chronic kidney disease; N18.4 Chronic kidney disease, stage 4 (severe); I50.9 Heart failure, unspecified; E11.42 Type 2 diabetes mellitus with diabetic polyneuropathy; E11.52 Type 2 diabetes mellitus with diabetic peripheral angiopathy with gangrene; M19.90 Unspecified osteoarthritis, unspecified site; E66.9 Obesity, unspecified; Z87.891 Personal history of nicotine dependence; Z90.710 Acquired absence of both cervix and uterus; Z90.49 Acquired absence of other specified parts of digestive tract; Z99.2 Dependence on renal dialysis; Z79.4 Long term (current) use of insulin; Z68.44 Body mass index [BMI] 60.0-69.9, adult | CPT/HCPCS: 29581 ==

== ENCOUNTER → 2017-10-24 | Outpatient (CLI) | payer BC, OTHER | END | disposition home or self-care (01) | LOC: PMGWOUND 12:51 | DX: I87.313 Chronic venous hypertension (idiopathic) with ulcer of bilateral lower extremity (principal); E11.622 Type 2 diabetes mellitus with other skin ulcer; L97.212 Non-pressure chronic ulcer of right calf with fat layer exposed; L97.821 Non-pressure chronic ulcer of other part of left lower leg limited to breakdown of skin; I89.0 Lymphedema, not elsewhere classified; I25.10 Atherosclerotic heart disease of native coronary artery without angina pectoris; J44.9 Chronic obstructive pulmonary disease, unspecified; E03.9 Hypothyroidism, unspecified; E11.22 Type 2 diabetes mellitus with diabetic chronic kidney disease; I13.0 Hypertensive heart and chronic kidney disease with heart failure and stage 1 through stage 4 chronic kidney disease, or unspecified chronic kidney disease; N18.4 Chronic kidney disease, stage 4 (severe); I50.9 Heart failure, unspecified; E11.42 Type 2 diabetes mellitus with diabetic polyneuropathy; E11.52 Type 2 diabetes mellitus with diabetic peripheral angiopathy with gangrene; M19.90 Unspecified osteoarthritis, unspecified site; E66.9 Obesity, unspecified; Z87.891 Personal history of nicotine dependence; Z90.710 Acquired absence of both cervix and uterus; Z90.49 Acquired absence of other specified parts of digestive tract; Z99.2 Dependence on renal dialysis; Z79.4 Long term (current) use of insulin; Z68.44 Body mass index [BMI] 60.0-69.9, adult | CPT/HCPCS: 29581 ==

== ENCOUNTER → 2017-10-27 | Outpatient (CLI) | payer BC, OTHER | END | disposition home or self-care (01) | LOC: PMGWOUND 11:25 | DX: I87.313 Chronic venous hypertension (idiopathic) with ulcer of bilateral lower extremity (principal); E11.622 Type 2 diabetes mellitus with other skin ulcer; L97.212 Non-pressure chronic ulcer of right calf with fat layer exposed; L97.821 Non-pressure chronic ulcer of other part of left lower leg limited to breakdown of skin; I89.0 Lymphedema, not elsewhere classified; I25.10 Atherosclerotic heart disease of native coronary artery without angina pectoris; J44.9 Chronic obstructive pulmonary disease, unspecified; E03.9 Hypothyroidism, unspecified; E11.22 Type 2 diabetes mellitus with diabetic chronic kidney disease; I13.0 Hypertensive heart and chronic kidney disease with heart failure and stage 1 through stage 4 chronic kidney disease, or unspecified chronic kidney disease; N18.4 Chronic kidney disease, stage 4 (severe); I50.9 Heart failure, unspecified; E11.42 Type 2 diabetes mellitus with diabetic polyneuropathy; E11.52 Type 2 diabetes mellitus with diabetic peripheral angiopathy with gangrene; M19.90 Unspecified osteoarthritis, unspecified site; E66.9 Obesity, unspecified; Z87.891 Personal history of nicotine dependence; Z90.710 Acquired absence of both cervix and uterus; Z90.49 Acquired absence of other specified parts of digestive tract; Z99.2 Dependence on renal dialysis; Z79.4 Long term (current) use of insulin; Z68.44 Body mass index [BMI] 60.0-69.9, adult | CPT/HCPCS: 29581 ==

== ENCOUNTER → 2017-12-12 | Outpatient (CLI) | payer BC, OTHER | END | disposition home or self-care (01) | LOC: PMGWOUND 13:31 | DX: I87.313 Chronic venous hypertension (idiopathic) with ulcer of bilateral lower extremity (principal); E11.622 Type 2 diabetes mellitus with other skin ulcer; L97.212 Non-pressure chronic ulcer of right calf with fat layer exposed; L97.821 Non-pressure chronic ulcer of other part of left lower leg limited to breakdown of skin; I89.0 Lymphedema, not elsewhere classified; I25.10 Atherosclerotic heart disease of native coronary artery without angina pectoris; J44.9 Chronic obstructive pulmonary disease, unspecified; E03.9 Hypothyroidism, unspecified; E11.22 Type 2 diabetes mellitus with diabetic chronic kidney disease; I13.0 Hypertensive heart and chronic kidney disease with heart failure and stage 1 through stage 4 chronic kidney disease, or unspecified chronic kidney disease; N18.4 Chronic kidney disease, stage 4 (severe); I50.9 Heart failure, unspecified; E11.42 Type 2 diabetes mellitus with diabetic polyneuropathy; E11.52 Type 2 diabetes mellitus with diabetic peripheral angiopathy with gangrene; M19.90 Unspecified osteoarthritis, unspecified site; E66.9 Obesity, unspecified; Z87.891 Personal history of nicotine dependence; Z90.710 Acquired absence of both cervix and uterus; Z90.49 Acquired absence of other specified parts of digestive tract; Z99.2 Dependence on renal dialysis; Z79.4 Long term (current) use of insulin; Z68.44 Body mass index [BMI] 60.0-69.9, adult | CPT/HCPCS: 29581 ==

== ENCOUNTER → 2017-12-15 | Outpatient (CLI) | payer BC, OTHER | END | disposition home or self-care (01) | LOC: PMGWOUND 12:17 | DX: I87.313 Chronic venous hypertension (idiopathic) with ulcer of bilateral lower extremity (principal); E11.622 Type 2 diabetes mellitus with other skin ulcer; L97.212 Non-pressure chronic ulcer of right calf with fat layer exposed; L97.221 Non-pressure chronic ulcer of left calf limited to breakdown of skin; I89.0 Lymphedema, not elsewhere classified; J44.9 Chronic obstructive pulmonary disease, unspecified; E03.9 Hypothyroidism, unspecified; E11.51 Type 2 diabetes mellitus with diabetic peripheral angiopathy without gangrene; M19.90 Unspecified osteoarthritis, unspecified site; I25.10 Atherosclerotic heart disease of native coronary artery without angina pectoris; E11.22 Type 2 diabetes mellitus with diabetic chronic kidney disease; N18.4 Chronic kidney disease, stage 4 (severe); Z99.2 Dependence on renal dialysis; E66.9 Obesity, unspecified; Z68.44 Body mass index [BMI] 60.0-69.9, adult; E11.42 Type 2 diabetes mellitus with diabetic polyneuropathy; E11.52 Type 2 diabetes mellitus with diabetic peripheral angiopathy with gangrene; Z79.4 Long term (current) use of insulin | CPT/HCPCS: 29581 ==

== ENCOUNTER → 2017-12-19 | Outpatient (CLI) | payer BC, OTHER | END | disposition home or self-care (01) | LOC: PMGWOUND 12:59 | DX: I87.313 Chronic venous hypertension (idiopathic) with ulcer of bilateral lower extremity (principal); E11.622 Type 2 diabetes mellitus with other skin ulcer; L97.212 Non-pressure chronic ulcer of right calf with fat layer exposed; L97.221 Non-pressure chronic ulcer of left calf limited to breakdown of skin; I89.0 Lymphedema, not elsewhere classified; I25.10 Atherosclerotic heart disease of native coronary artery without angina pectoris; J44.9 Chronic obstructive pulmonary disease, unspecified; E03.9 Hypothyroidism, unspecified; E11.22 Type 2 diabetes mellitus with diabetic chronic kidney disease; I13.0 Hypertensive heart and chronic kidney disease with heart failure and stage 1 through stage 4 chronic kidney disease, or unspecified chronic kidney disease; N18.4 Chronic kidney disease, stage 4 (severe); I50.9 Heart failure, unspecified; E11.42 Type 2 diabetes mellitus with diabetic polyneuropathy; E11.52 Type 2 diabetes mellitus with diabetic peripheral angiopathy with gangrene; M19.90 Unspecified osteoarthritis, unspecified site; E66.9 Obesity, unspecified; Z87.891 Personal history of nicotine dependence; Z90.710 Acquired absence of both cervix and uterus; Z90.49 Acquired absence of other specified parts of digestive tract; Z99.2 Dependence on renal dialysis; Z79.4 Long term (current) use of insulin; Z68.44 Body mass index [BMI] 60.0-69.9, adult | CPT/HCPCS: 29581 ==

== ENCOUNTER → 2017-12-22 | Outpatient (CLI) | payer BC, OTHER | END | disposition home or self-care (01) | LOC: PMGWOUND 11:38 | DX: I87.313 Chronic venous hypertension (idiopathic) with ulcer of bilateral lower extremity (principal); E11.622 Type 2 diabetes mellitus with other skin ulcer; L97.212 Non-pressure chronic ulcer of right calf with fat layer exposed; L97.221 Non-pressure chronic ulcer of left calf limited to breakdown of skin; I89.0 Lymphedema, not elsewhere classified; I25.10 Atherosclerotic heart disease of native coronary artery without angina pectoris; J44.9 Chronic obstructive pulmonary disease, unspecified; E03.9 Hypothyroidism, unspecified; E11.22 Type 2 diabetes mellitus with diabetic chronic kidney disease; I13.0 Hypertensive heart and chronic kidney disease with heart failure and stage 1 through stage 4 chronic kidney disease, or unspecified chronic kidney disease; N18.4 Chronic kidney disease, stage 4 (severe); I50.9 Heart failure, unspecified; E11.42 Type 2 diabetes mellitus with diabetic polyneuropathy; E11.52 Type 2 diabetes mellitus with diabetic peripheral angiopathy with gangrene; M19.90 Unspecified osteoarthritis, unspecified site; E66.9 Obesity, unspecified; Z87.891 Personal history of nicotine dependence; Z90.710 Acquired absence of both cervix and uterus; Z90.49 Acquired absence of other specified parts of digestive tract; Z99.2 Dependence on renal dialysis; Z79.4 Long term (current) use of insulin; Z68.44 Body mass index [BMI] 60.0-69.9, adult | CPT/HCPCS: 29581 ==

== ENCOUNTER → 2017-12-26 | Outpatient (CLI) | payer BC, OTHER | END | disposition home or self-care (01) | LOC: PMGWOUND 13:07 | DX: I87.313 Chronic venous hypertension (idiopathic) with ulcer of bilateral lower extremity (principal); E11.622 Type 2 diabetes mellitus with other skin ulcer; L97.212 Non-pressure chronic ulcer of right calf with fat layer exposed; L97.221 Non-pressure chronic ulcer of left calf limited to breakdown of skin; I89.0 Lymphedema, not elsewhere classified; I25.10 Atherosclerotic heart disease of native coronary artery without angina pectoris; J44.9 Chronic obstructive pulmonary disease, unspecified; E03.9 Hypothyroidism, unspecified; E11.22 Type 2 diabetes mellitus with diabetic chronic kidney disease; I13.0 Hypertensive heart and chronic kidney disease with heart failure and stage 1 through stage 4 chronic kidney disease, or unspecified chronic kidney disease; N18.4 Chronic kidney disease, stage 4 (severe); I50.9 Heart failure, unspecified; E11.42 Type 2 diabetes mellitus with diabetic polyneuropathy; E11.52 Type 2 diabetes mellitus with diabetic peripheral angiopathy with gangrene; M19.90 Unspecified osteoarthritis, unspecified site; E66.9 Obesity, unspecified; Z87.891 Personal history of nicotine dependence; Z90.710 Acquired absence of both cervix and uterus; Z90.49 Acquired absence of other specified parts of digestive tract; Z99.2 Dependence on renal dialysis; Z79.4 Long term (current) use of insulin; Z68.44 Body mass index [BMI] 60.0-69.9, adult | CPT/HCPCS: 29581 ==

== ENCOUNTER → 2017-12-29 | Outpatient (CLI) | payer BC, OTHER | END | disposition home or self-care (01) | LOC: PMGWOUND 11:39 | DX: I87.313 Chronic venous hypertension (idiopathic) with ulcer of bilateral lower extremity (principal); E11.622 Type 2 diabetes mellitus with other skin ulcer; L97.212 Non-pressure chronic ulcer of right calf with fat layer exposed; L97.221 Non-pressure chronic ulcer of left calf limited to breakdown of skin; I89.0 Lymphedema, not elsewhere classified; I25.10 Atherosclerotic heart disease of native coronary artery without angina pectoris; J44.9 Chronic obstructive pulmonary disease, unspecified; E03.9 Hypothyroidism, unspecified; E11.22 Type 2 diabetes mellitus with diabetic chronic kidney disease; I13.0 Hypertensive heart and chronic kidney disease with heart failure and stage 1 through stage 4 chronic kidney disease, or unspecified chronic kidney disease; N18.4 Chronic kidney disease, stage 4 (severe); I50.9 Heart failure, unspecified; E11.42 Type 2 diabetes mellitus with diabetic polyneuropathy; E11.52 Type 2 diabetes mellitus with diabetic peripheral angiopathy with gangrene; M19.90 Unspecified osteoarthritis, unspecified site; E66.9 Obesity, unspecified; Z87.891 Personal history of nicotine dependence; Z90.710 Acquired absence of both cervix and uterus; Z90.49 Acquired absence of other specified parts of digestive tract; Z99.2 Dependence on renal dialysis; Z79.4 Long term (current) use of insulin; Z68.44 Body mass index [BMI] 60.0-69.9, adult | CPT/HCPCS: 29581 ==

== ENCOUNTER → 2018-01-02 | Outpatient (CLI) | payer BC, OTHER | END | disposition home or self-care (01) | LOC: PMGWOUND 13:28 | DX: I87.313 Chronic venous hypertension (idiopathic) with ulcer of bilateral lower extremity (principal); E11.622 Type 2 diabetes mellitus with other skin ulcer; L97.212 Non-pressure chronic ulcer of right calf with fat layer exposed; L97.221 Non-pressure chronic ulcer of left calf limited to breakdown of skin; I89.0 Lymphedema, not elsewhere classified; I25.10 Atherosclerotic heart disease of native coronary artery without angina pectoris; J44.9 Chronic obstructive pulmonary disease, unspecified; E11.22 Type 2 diabetes mellitus with diabetic chronic kidney disease; I13.0 Hypertensive heart and chronic kidney disease with heart failure and stage 1 through stage 4 chronic kidney disease, or unspecified chronic kidney disease; N18.4 Chronic kidney disease, stage 4 (severe); I50.9 Heart failure, unspecified; E66.9 Obesity, unspecified; E11.42 Type 2 diabetes mellitus with diabetic polyneuropathy; E11.52 Type 2 diabetes mellitus with diabetic peripheral angiopathy with gangrene; I96 Gangrene, not elsewhere classified; M19.90 Unspecified osteoarthritis, unspecified site; Z87.891 Personal history of nicotine dependence; Z90.710 Acquired absence of both cervix and uterus; Z90.49 Acquired absence of other specified parts of digestive tract; Z79.4 Long term (current) use of insulin; Z99.2 Dependence on renal dialysis; Z68.44 Body mass index [BMI] 60.0-69.9, adult | CPT/HCPCS: 29581 ==

== ENCOUNTER → 2018-01-05 | Outpatient (CLI) | payer BC, OTHER | END | disposition home or self-care (01) | LOC: PMGWOUND 11:30 | DX: I87.313 Chronic venous hypertension (idiopathic) with ulcer of bilateral lower extremity (principal); E11.622 Type 2 diabetes mellitus with other skin ulcer; L97.212 Non-pressure chronic ulcer of right calf with fat layer exposed; L97.221 Non-pressure chronic ulcer of left calf limited to breakdown of skin; I89.0 Lymphedema, not elsewhere classified; I25.10 Atherosclerotic heart disease of native coronary artery without angina pectoris; E11.22 Type 2 diabetes mellitus with diabetic chronic kidney disease; I13.0 Hypertensive heart and chronic kidney disease with heart failure and stage 1 through stage 4 chronic kidney disease, or unspecified chronic kidney disease; N18.4 Chronic kidney disease, stage 4 (severe); I50.9 Heart failure, unspecified; E03.9 Hypothyroidism, unspecified; E66.9 Obesity, unspecified; E11.42 Type 2 diabetes mellitus with diabetic polyneuropathy; E11.52 Type 2 diabetes mellitus with diabetic peripheral angiopathy with gangrene; I96 Gangrene, not elsewhere classified; Z87.891 Personal history of nicotine dependence; Z90.49 Acquired absence of other specified parts of digestive tract; Z90.710 Acquired absence of both cervix and uterus; Z68.44 Body mass index [BMI] 60.0-69.9, adult; Z99.2 Dependence on renal dialysis; Z79.4 Long term (current) use of insulin | CPT/HCPCS: 29581 ==

== ENCOUNTER → 2018-01-09 | Outpatient (CLI) | payer BC, OTHER | END | disposition home or self-care (01) | LOC: PMGWOUND 13:01 | DX: I87.313 Chronic venous hypertension (idiopathic) with ulcer of bilateral lower extremity (principal); E11.622 Type 2 diabetes mellitus with other skin ulcer; L97.212 Non-pressure chronic ulcer of right calf with fat layer exposed; L97.221 Non-pressure chronic ulcer of left calf limited to breakdown of skin; I89.0 Lymphedema, not elsewhere classified; I25.10 Atherosclerotic heart disease of native coronary artery without angina pectoris; E11.22 Type 2 diabetes mellitus with diabetic chronic kidney disease; I13.0 Hypertensive heart and chronic kidney disease with heart failure and stage 1 through stage 4 chronic kidney disease, or unspecified chronic kidney disease; N18.4 Chronic kidney disease, stage 4 (severe); I50.9 Heart failure, unspecified; E11.52 Type 2 diabetes mellitus with diabetic peripheral angiopathy with gangrene; I96 Gangrene, not elsewhere classified; E66.9 Obesity, unspecified; E11.42 Type 2 diabetes mellitus with diabetic polyneuropathy; M19.90 Unspecified osteoarthritis, unspecified site; E03.9 Hypothyroidism, unspecified; Z90.710 Acquired absence of both cervix and uterus; Z90.49 Acquired absence of other specified parts of digestive tract; Z87.891 Personal history of nicotine dependence; Z99.2 Dependence on renal dialysis; Z79.4 Long term (current) use of insulin | CPT/HCPCS: 29581 ==

== ENCOUNTER → 2018-01-12 | Outpatient (CLI) | payer BC, OTHER | END | disposition home or self-care (01) | LOC: PMGWOUND 11:35 | DX: I87.313 Chronic venous hypertension (idiopathic) with ulcer of bilateral lower extremity (principal); E11.622 Type 2 diabetes mellitus with other skin ulcer; L97.212 Non-pressure chronic ulcer of right calf with fat layer exposed; L97.221 Non-pressure chronic ulcer of left calf limited to breakdown of skin; I89.0 Lymphedema, not elsewhere classified; J44.9 Chronic obstructive pulmonary disease, unspecified; I25.10 Atherosclerotic heart disease of native coronary artery without angina pectoris; E03.9 Hypothyroidism, unspecified; E66.9 Obesity, unspecified; E11.51 Type 2 diabetes mellitus with diabetic peripheral angiopathy without gangrene; E11.52 Type 2 diabetes mellitus with diabetic peripheral angiopathy with gangrene; I96 Gangrene, not elsewhere classified; E11.22 Type 2 diabetes mellitus with diabetic chronic kidney disease; I13.0 Hypertensive heart and chronic kidney disease with heart failure and stage 1 through stage 4 chronic kidney disease, or unspecified chronic kidney disease; N18.4 Chronic kidney disease, stage 4 (severe); I50.9 Heart failure, unspecified; E11.42 Type 2 diabetes mellitus with diabetic polyneuropathy; Z87.891 Personal history of nicotine dependence; Z90.710 Acquired absence of both cervix and uterus; Z90.49 Acquired absence of other specified parts of digestive tract; Z68.44 Body mass index [BMI] 60.0-69.9, adult; Z99.2 Dependence on renal dialysis; Z79.4 Long term (current) use of insulin | CPT/HCPCS: 29581 ==

== ENCOUNTER → 2018-01-16 | Outpatient (CLI) | payer BC, OTHER | END | disposition home or self-care (01) | LOC: PMGWOUND 13:27 | DX: I87.313 Chronic venous hypertension (idiopathic) with ulcer of bilateral lower extremity (principal); E11.622 Type 2 diabetes mellitus with other skin ulcer; L97.212 Non-pressure chronic ulcer of right calf with fat layer exposed; L97.221 Non-pressure chronic ulcer of left calf limited to breakdown of skin; I89.0 Lymphedema, not elsewhere classified; I25.10 Atherosclerotic heart disease of native coronary artery without angina pectoris; J44.9 Chronic obstructive pulmonary disease, unspecified; E11.22 Type 2 diabetes mellitus with diabetic chronic kidney disease; I13.0 Hypertensive heart and chronic kidney disease with heart failure and stage 1 through stage 4 chronic kidney disease, or unspecified chronic kidney disease; N18.4 Chronic kidney disease, stage 4 (severe); I50.9 Heart failure, unspecified; E11.52 Type 2 diabetes mellitus with diabetic peripheral angiopathy with gangrene; I96 Gangrene, not elsewhere classified; E03.9 Hypothyroidism, unspecified; E66.9 Obesity, unspecified; M19.90 Unspecified osteoarthritis, unspecified site; E11.42 Type 2 diabetes mellitus with diabetic polyneuropathy; Z87.891 Personal history of nicotine dependence; Z90.49 Acquired absence of other specified parts of digestive tract; Z90.710 Acquired absence of both cervix and uterus; Z99.2 Dependence on renal dialysis; Z79.4 Long term (current) use of insulin | CPT/HCPCS: 29581 ==

== ENCOUNTER → 2018-01-19 | Outpatient (CLI) | payer BC, OTHER | END | disposition home or self-care (01) | LOC: PMGWOUND 11:31 | DX: I87.313 Chronic venous hypertension (idiopathic) with ulcer of bilateral lower extremity (principal); E11.622 Type 2 diabetes mellitus with other skin ulcer; L97.212 Non-pressure chronic ulcer of right calf with fat layer exposed; L97.221 Non-pressure chronic ulcer of left calf limited to breakdown of skin; I89.0 Lymphedema, not elsewhere classified; I25.10 Atherosclerotic heart disease of native coronary artery without angina pectoris; J44.9 Chronic obstructive pulmonary disease, unspecified; E11.22 Type 2 diabetes mellitus with diabetic chronic kidney disease; I13.0 Hypertensive heart and chronic kidney disease with heart failure and stage 1 through stage 4 chronic kidney disease, or unspecified chronic kidney disease; N18.4 Chronic kidney disease, stage 4 (severe); I50.9 Heart failure, unspecified; E11.52 Type 2 diabetes mellitus with diabetic peripheral angiopathy with gangrene; I96 Gangrene, not elsewhere classified; E03.9 Hypothyroidism, unspecified; E66.9 Obesity, unspecified; E11.42 Type 2 diabetes mellitus with diabetic polyneuropathy; M19.90 Unspecified osteoarthritis, unspecified site; Z90.49 Acquired absence of other specified parts of digestive tract; Z90.710 Acquired absence of both cervix and uterus; Z87.891 Personal history of nicotine dependence; Z68.44 Body mass index [BMI] 60.0-69.9, adult; Z99.2 Dependence on renal dialysis; Z79.4 Long term (current) use of insulin | CPT/HCPCS: 29581 ==

== ENCOUNTER → 2018-01-23 | Outpatient (CLI) | payer BC, OTHER | END | disposition home or self-care (01) | LOC: PMGWOUND 13:32 | DX: I87.313 Chronic venous hypertension (idiopathic) with ulcer of bilateral lower extremity (principal); E11.622 Type 2 diabetes mellitus with other skin ulcer; L97.212 Non-pressure chronic ulcer of right calf with fat layer exposed; I89.0 Lymphedema, not elsewhere classified; I25.10 Atherosclerotic heart disease of native coronary artery without angina pectoris; J44.9 Chronic obstructive pulmonary disease, unspecified; E11.22 Type 2 diabetes mellitus with diabetic chronic kidney disease; I13.0 Hypertensive heart and chronic kidney disease with heart failure and stage 1 through stage 4 chronic kidney disease, or unspecified chronic kidney disease; N18.4 Chronic kidney disease, stage 4 (severe); I50.9 Heart failure, unspecified; E11.52 Type 2 diabetes mellitus with diabetic peripheral angiopathy with gangrene; I96 Gangrene, not elsewhere classified; E03.9 Hypothyroidism, unspecified; E66.9 Obesity, unspecified; E11.42 Type 2 diabetes mellitus with diabetic polyneuropathy; M19.90 Unspecified osteoarthritis, unspecified site; Z90.49 Acquired absence of other specified parts of digestive tract; Z90.710 Acquired absence of both cervix and uterus; Z87.891 Personal history of nicotine dependence; Z68.44 Body mass index [BMI] 60.0-69.9, adult; Z99.2 Dependence on renal dialysis; Z79.4 Long term (current) use of insulin | CPT/HCPCS: 29581 ==

== ENCOUNTER → 2018-01-26 | Outpatient (CLI) | payer BC, OTHER | END | disposition home or self-care (01) | LOC: PMGWOUND 11:43 | DX: I87.313 Chronic venous hypertension (idiopathic) with ulcer of bilateral lower extremity (principal); E11.622 Type 2 diabetes mellitus with other skin ulcer; L97.212 Non-pressure chronic ulcer of right calf with fat layer exposed; L97.221 Non-pressure chronic ulcer of left calf limited to breakdown of skin; I89.0 Lymphedema, not elsewhere classified; I25.10 Atherosclerotic heart disease of native coronary artery without angina pectoris; J44.9 Chronic obstructive pulmonary disease, unspecified; E11.22 Type 2 diabetes mellitus with diabetic chronic kidney disease; I13.0 Hypertensive heart and chronic kidney disease with heart failure and stage 1 through stage 4 chronic kidney disease, or unspecified chronic kidney disease; N18.4 Chronic kidney disease, stage 4 (severe); I50.9 Heart failure, unspecified; E11.52 Type 2 diabetes mellitus with diabetic peripheral angiopathy with gangrene; I96 Gangrene, not elsewhere classified; E03.9 Hypothyroidism, unspecified; E66.9 Obesity, unspecified; E11.42 Type 2 diabetes mellitus with diabetic polyneuropathy; M19.90 Unspecified osteoarthritis, unspecified site; Z90.49 Acquired absence of other specified parts of digestive tract; Z90.710 Acquired absence of both cervix and uterus; Z87.891 Personal history of nicotine dependence; Z68.44 Body mass index [BMI] 60.0-69.9, adult; Z99.2 Dependence on renal dialysis; Z79.4 Long term (current) use of insulin | CPT/HCPCS: 29581 ==

== ENCOUNTER → 2018-01-30 | Outpatient (CLI) | payer BC, OTHER | END | disposition home or self-care (01) | LOC: PMGWOUND 13:27 | DX: I87.313 Chronic venous hypertension (idiopathic) with ulcer of bilateral lower extremity (principal); E11.622 Type 2 diabetes mellitus with other skin ulcer; L97.212 Non-pressure chronic ulcer of right calf with fat layer exposed; L97.221 Non-pressure chronic ulcer of left calf limited to breakdown of skin; I89.0 Lymphedema, not elsewhere classified; I25.10 Atherosclerotic heart disease of native coronary artery without angina pectoris; J44.9 Chronic obstructive pulmonary disease, unspecified; E11.22 Type 2 diabetes mellitus with diabetic chronic kidney disease; I13.0 Hypertensive heart and chronic kidney disease with heart failure and stage 1 through stage 4 chronic kidney disease, or unspecified chronic kidney disease; N18.4 Chronic kidney disease, stage 4 (severe); I50.9 Heart failure, unspecified; E11.52 Type 2 diabetes mellitus with diabetic peripheral angiopathy with gangrene; I96 Gangrene, not elsewhere classified; E03.9 Hypothyroidism, unspecified; E66.01 Morbid (severe) obesity due to excess calories; E11.42 Type 2 diabetes mellitus with diabetic polyneuropathy; M19.90 Unspecified osteoarthritis, unspecified site; Z90.49 Acquired absence of other specified parts of digestive tract; Z90.710 Acquired absence of both cervix and uterus; Z87.891 Personal history of nicotine dependence; Z68.44 Body mass index [BMI] 60.0-69.9, adult; Z99.2 Dependence on renal dialysis; Z79.4 Long term (current) use of insulin | CPT/HCPCS: 29581 ==

== ENCOUNTER → 2018-02-02 | Outpatient (CLI) | payer BC, OTHER | END | disposition home or self-care (01) | LOC: PMGWOUND 11:34 | DX: I87.313 Chronic venous hypertension (idiopathic) with ulcer of bilateral lower extremity (principal); E11.622 Type 2 diabetes mellitus with other skin ulcer; L97.212 Non-pressure chronic ulcer of right calf with fat layer exposed; L97.221 Non-pressure chronic ulcer of left calf limited to breakdown of skin; I89.0 Lymphedema, not elsewhere classified; I25.10 Atherosclerotic heart disease of native coronary artery without angina pectoris; J44.9 Chronic obstructive pulmonary disease, unspecified; E11.22 Type 2 diabetes mellitus with diabetic chronic kidney disease; I13.0 Hypertensive heart and chronic kidney disease with heart failure and stage 1 through stage 4 chronic kidney disease, or unspecified chronic kidney disease; N18.4 Chronic kidney disease, stage 4 (severe); I50.9 Heart failure, unspecified; E11.52 Type 2 diabetes mellitus with diabetic peripheral angiopathy with gangrene; I96 Gangrene, not elsewhere classified; E03.9 Hypothyroidism, unspecified; E11.42 Type 2 diabetes mellitus with diabetic polyneuropathy; M19.90 Unspecified osteoarthritis, unspecified site; E66.9 Obesity, unspecified; Z87.891 Personal history of nicotine dependence; Z90.49 Acquired absence of other specified parts of digestive tract; Z90.710 Acquired absence of both cervix and uterus; Z68.44 Body mass index [BMI] 60.0-69.9, adult; Z99.2 Dependence on renal dialysis; Z79.4 Long term (current) use of insulin | CPT/HCPCS: 29581 ==

== ENCOUNTER → 2018-02-06 | Outpatient (CLI) | payer BC, OTHER | END | disposition home or self-care (01) | LOC: PMGWOUND 11:30 | DX: I87.313 Chronic venous hypertension (idiopathic) with ulcer of bilateral lower extremity (principal); E11.622 Type 2 diabetes mellitus with other skin ulcer; L97.212 Non-pressure chronic ulcer of right calf with fat layer exposed; L97.221 Non-pressure chronic ulcer of left calf limited to breakdown of skin; I89.0 Lymphedema, not elsewhere classified; I25.10 Atherosclerotic heart disease of native coronary artery without angina pectoris; J44.9 Chronic obstructive pulmonary disease, unspecified; E11.22 Type 2 diabetes mellitus with diabetic chronic kidney disease; I13.0 Hypertensive heart and chronic kidney disease with heart failure and stage 1 through stage 4 chronic kidney disease, or unspecified chronic kidney disease; N18.4 Chronic kidney disease, stage 4 (severe); I50.9 Heart failure, unspecified; E11.52 Type 2 diabetes mellitus with diabetic peripheral angiopathy with gangrene; I96 Gangrene, not elsewhere classified; E03.9 Hypothyroidism, unspecified; E11.42 Type 2 diabetes mellitus with diabetic polyneuropathy; M19.90 Unspecified osteoarthritis, unspecified site; E66.9 Obesity, unspecified; Z87.891 Personal history of nicotine dependence; Z90.49 Acquired absence of other specified parts of digestive tract; Z90.710 Acquired absence of both cervix and uterus; Z68.44 Body mass index [BMI] 60.0-69.9, adult; Z99.2 Dependence on renal dialysis; Z79.4 Long term (current) use of insulin | CPT/HCPCS: 29581 ==

== ENCOUNTER → 2018-02-09 | Outpatient (CLI) | payer BC, OTHER | END | disposition home or self-care (01) | LOC: PMGWOUND 11:43 | DX: I87.313 Chronic venous hypertension (idiopathic) with ulcer of bilateral lower extremity (principal); E11.622 Type 2 diabetes mellitus with other skin ulcer; L97.212 Non-pressure chronic ulcer of right calf with fat layer exposed; L97.221 Non-pressure chronic ulcer of left calf limited to breakdown of skin; I89.0 Lymphedema, not elsewhere classified; I25.10 Atherosclerotic heart disease of native coronary artery without angina pectoris; J44.9 Chronic obstructive pulmonary disease, unspecified; E11.22 Type 2 diabetes mellitus with diabetic chronic kidney disease; I13.0 Hypertensive heart and chronic kidney disease with heart failure and stage 1 through stage 4 chronic kidney disease, or unspecified chronic kidney disease; N18.4 Chronic kidney disease, stage 4 (severe); I50.9 Heart failure, unspecified; E11.52 Type 2 diabetes mellitus with diabetic peripheral angiopathy with gangrene; I96 Gangrene, not elsewhere classified; E03.9 Hypothyroidism, unspecified; E11.42 Type 2 diabetes mellitus with diabetic polyneuropathy; M19.90 Unspecified osteoarthritis, unspecified site; E66.9 Obesity, unspecified; Z87.891 Personal history of nicotine dependence; Z90.49 Acquired absence of other specified parts of digestive tract; Z90.710 Acquired absence of both cervix and uterus; Z68.44 Body mass index [BMI] 60.0-69.9, adult; Z99.2 Dependence on renal dialysis; Z79.4 Long term (current) use of insulin | CPT/HCPCS: 29581 ==

== ENCOUNTER → 2018-02-13 | Outpatient (CLI) | payer BC, OTHER | END | disposition home or self-care (01) | LOC: PMGWOUND 13:24 | DX: I87.313 Chronic venous hypertension (idiopathic) with ulcer of bilateral lower extremity (principal); E11.622 Type 2 diabetes mellitus with other skin ulcer; L97.212 Non-pressure chronic ulcer of right calf with fat layer exposed; L97.221 Non-pressure chronic ulcer of left calf limited to breakdown of skin; I89.0 Lymphedema, not elsewhere classified; I25.10 Atherosclerotic heart disease of native coronary artery without angina pectoris; J44.9 Chronic obstructive pulmonary disease, unspecified; E11.22 Type 2 diabetes mellitus with diabetic chronic kidney disease; I13.0 Hypertensive heart and chronic kidney disease with heart failure and stage 1 through stage 4 chronic kidney disease, or unspecified chronic kidney disease; N18.4 Chronic kidney disease, stage 4 (severe); I50.9 Heart failure, unspecified; E11.52 Type 2 diabetes mellitus with diabetic peripheral angiopathy with gangrene; I96 Gangrene, not elsewhere classified; E03.9 Hypothyroidism, unspecified; E11.42 Type 2 diabetes mellitus with diabetic polyneuropathy; M19.90 Unspecified osteoarthritis, unspecified site; E66.9 Obesity, unspecified; Z87.891 Personal history of nicotine dependence; Z90.49 Acquired absence of other specified parts of digestive tract; Z90.710 Acquired absence of both cervix and uterus; Z68.44 Body mass index [BMI] 60.0-69.9, adult; Z99.2 Dependence on renal dialysis; Z79.4 Long term (current) use of insulin | CPT/HCPCS: 29581 ==

== ENCOUNTER → 2018-02-16 | Outpatient (CLI) | payer BC, OTHER | END | disposition home or self-care (01) | LOC: PMGWOUND 11:06 | DX: I87.313 Chronic venous hypertension (idiopathic) with ulcer of bilateral lower extremity (principal); E11.622 Type 2 diabetes mellitus with other skin ulcer; L97.212 Non-pressure chronic ulcer of right calf with fat layer exposed; L97.221 Non-pressure chronic ulcer of left calf limited to breakdown of skin; I89.0 Lymphedema, not elsewhere classified; J44.9 Chronic obstructive pulmonary disease, unspecified; I25.10 Atherosclerotic heart disease of native coronary artery without angina pectoris; E03.9 Hypothyroidism, unspecified; M19.90 Unspecified osteoarthritis, unspecified site; E11.42 Type 2 diabetes mellitus with diabetic polyneuropathy; E11.22 Type 2 diabetes mellitus with diabetic chronic kidney disease; I13.0 Hypertensive heart and chronic kidney disease with heart failure and stage 1 through stage 4 chronic kidney disease, or unspecified chronic kidney disease; N18.3 Chronic kidney disease, stage 3 (moderate); I50.9 Heart failure, unspecified; E11.52 Type 2 diabetes mellitus with diabetic peripheral angiopathy with gangrene; I96 Gangrene, not elsewhere classified; E66.01 Morbid (severe) obesity due to excess calories; Z87.891 Personal history of nicotine dependence; Z90.710 Acquired absence of both cervix and uterus; Z90.49 Acquired absence of other specified parts of digestive tract; Z68.44 Body mass index [BMI] 60.0-69.9, adult; Z79.4 Long term (current) use of insulin; Z99.2 Dependence on renal dialysis | CPT/HCPCS: 29581 ==

== ENCOUNTER → 2018-02-20 | Outpatient (CLI) | payer BC, OTHER | END | disposition home or self-care (01) | LOC: PMGWOUND 13:08 | DX: I87.313 Chronic venous hypertension (idiopathic) with ulcer of bilateral lower extremity (principal); E11.622 Type 2 diabetes mellitus with other skin ulcer; L97.212 Non-pressure chronic ulcer of right calf with fat layer exposed; L97.221 Non-pressure chronic ulcer of left calf limited to breakdown of skin; I89.0 Lymphedema, not elsewhere classified; I25.10 Atherosclerotic heart disease of native coronary artery without angina pectoris; J44.9 Chronic obstructive pulmonary disease, unspecified; E11.22 Type 2 diabetes mellitus with diabetic chronic kidney disease; I13.0 Hypertensive heart and chronic kidney disease with heart failure and stage 1 through stage 4 chronic kidney disease, or unspecified chronic kidney disease; N18.4 Chronic kidney disease, stage 4 (severe); I50.9 Heart failure, unspecified; E11.52 Type 2 diabetes mellitus with diabetic peripheral angiopathy with gangrene; I96 Gangrene, not elsewhere classified; E03.9 Hypothyroidism, unspecified; E11.42 Type 2 diabetes mellitus with diabetic polyneuropathy; M19.90 Unspecified osteoarthritis, unspecified site; E66.9 Obesity, unspecified; Z87.891 Personal history of nicotine dependence; Z90.49 Acquired absence of other specified parts of digestive tract; Z90.710 Acquired absence of both cervix and uterus; Z68.44 Body mass index [BMI] 60.0-69.9, adult; Z99.2 Dependence on renal dialysis; Z79.4 Long term (current) use of insulin | CPT/HCPCS: 29581 ==

== ENCOUNTER → 2018-02-23 | Outpatient (CLI) | payer BC, OTHER | END | disposition home or self-care (01) | LOC: PMGWOUND 11:30 | DX: I87.313 Chronic venous hypertension (idiopathic) with ulcer of bilateral lower extremity (principal); E11.622 Type 2 diabetes mellitus with other skin ulcer; L97.212 Non-pressure chronic ulcer of right calf with fat layer exposed; L97.221 Non-pressure chronic ulcer of left calf limited to breakdown of skin; I89.0 Lymphedema, not elsewhere classified; I25.10 Atherosclerotic heart disease of native coronary artery without angina pectoris; J44.9 Chronic obstructive pulmonary disease, unspecified; E11.22 Type 2 diabetes mellitus with diabetic chronic kidney disease; I13.0 Hypertensive heart and chronic kidney disease with heart failure and stage 1 through stage 4 chronic kidney disease, or unspecified chronic kidney disease; N18.4 Chronic kidney disease, stage 4 (severe); I50.9 Heart failure, unspecified; E11.52 Type 2 diabetes mellitus with diabetic peripheral angiopathy with gangrene; I96 Gangrene, not elsewhere classified; E03.9 Hypothyroidism, unspecified; E11.42 Type 2 diabetes mellitus with diabetic polyneuropathy; M19.90 Unspecified osteoarthritis, unspecified site; E66.9 Obesity, unspecified; Z87.891 Personal history of nicotine dependence; Z90.49 Acquired absence of other specified parts of digestive tract; Z90.710 Acquired absence of both cervix and uterus; Z68.44 Body mass index [BMI] 60.0-69.9, adult; Z99.2 Dependence on renal dialysis; Z79.4 Long term (current) use of insulin | CPT/HCPCS: 29581 ==

== ENCOUNTER → 2018-02-27 | Outpatient (CLI) | payer BC, OTHER | END | disposition home or self-care (01) | LOC: PMGWOUND 13:29 | DX: I87.313 Chronic venous hypertension (idiopathic) with ulcer of bilateral lower extremity (principal); E11.622 Type 2 diabetes mellitus with other skin ulcer; L97.212 Non-pressure chronic ulcer of right calf with fat layer exposed; L97.221 Non-pressure chronic ulcer of left calf limited to breakdown of skin; I89.0 Lymphedema, not elsewhere classified; I25.10 Atherosclerotic heart disease of native coronary artery without angina pectoris; J44.9 Chronic obstructive pulmonary disease, unspecified; E11.22 Type 2 diabetes mellitus with diabetic chronic kidney disease; I13.0 Hypertensive heart and chronic kidney disease with heart failure and stage 1 through stage 4 chronic kidney disease, or unspecified chronic kidney disease; N18.4 Chronic kidney disease, stage 4 (severe); I50.9 Heart failure, unspecified; E11.52 Type 2 diabetes mellitus with diabetic peripheral angiopathy with gangrene; I96 Gangrene, not elsewhere classified; E03.9 Hypothyroidism, unspecified; E11.42 Type 2 diabetes mellitus with diabetic polyneuropathy; M19.90 Unspecified osteoarthritis, unspecified site; E66.9 Obesity, unspecified; Z87.891 Personal history of nicotine dependence; Z90.49 Acquired absence of other specified parts of digestive tract; Z90.710 Acquired absence of both cervix and uterus; Z68.44 Body mass index [BMI] 60.0-69.9, adult; Z99.2 Dependence on renal dialysis; Z79.4 Long term (current) use of insulin | CPT/HCPCS: 29581 ==

== ENCOUNTER → 2018-03-02 | Outpatient (CLI) | payer BC, OTHER | END | disposition home or self-care (01) | LOC: PMGWOUND 11:41 | DX: I87.313 Chronic venous hypertension (idiopathic) with ulcer of bilateral lower extremity (principal); E11.622 Type 2 diabetes mellitus with other skin ulcer; L97.212 Non-pressure chronic ulcer of right calf with fat layer exposed; L97.221 Non-pressure chronic ulcer of left calf limited to breakdown of skin; I89.0 Lymphedema, not elsewhere classified; I25.10 Atherosclerotic heart disease of native coronary artery without angina pectoris; J44.9 Chronic obstructive pulmonary disease, unspecified; E11.22 Type 2 diabetes mellitus with diabetic chronic kidney disease; I13.0 Hypertensive heart and chronic kidney disease with heart failure and stage 1 through stage 4 chronic kidney disease, or unspecified chronic kidney disease; I50.9 Heart failure, unspecified; E11.52 Type 2 diabetes mellitus with diabetic peripheral angiopathy with gangrene; I96 Gangrene, not elsewhere classified; E03.9 Hypothyroidism, unspecified; E11.42 Type 2 diabetes mellitus with diabetic polyneuropathy; M19.90 Unspecified osteoarthritis, unspecified site; E66.9 Obesity, unspecified; Z87.891 Personal history of nicotine dependence; Z90.49 Acquired absence of other specified parts of digestive tract; Z90.710 Acquired absence of both cervix and uterus; Z68.44 Body mass index [BMI] 60.0-69.9, adult; Z99.2 Dependence on renal dialysis; Z79.4 Long term (current) use of insulin | CPT/HCPCS: 29581 ==

== ENCOUNTER → 2018-03-06 | Outpatient (CLI) | payer BC, OTHER | END | disposition home or self-care (01) | LOC: PMGWOUND 13:01 | DX: I87.313 Chronic venous hypertension (idiopathic) with ulcer of bilateral lower extremity (principal); E11.622 Type 2 diabetes mellitus with other skin ulcer; L97.212 Non-pressure chronic ulcer of right calf with fat layer exposed; L97.221 Non-pressure chronic ulcer of left calf limited to breakdown of skin; I89.0 Lymphedema, not elsewhere classified; I25.10 Atherosclerotic heart disease of native coronary artery without angina pectoris; J44.9 Chronic obstructive pulmonary disease, unspecified; E11.22 Type 2 diabetes mellitus with diabetic chronic kidney disease; I13.0 Hypertensive heart and chronic kidney disease with heart failure and stage 1 through stage 4 chronic kidney disease, or unspecified chronic kidney disease; N18.4 Chronic kidney disease, stage 4 (severe); I50.9 Heart failure, unspecified; E11.52 Type 2 diabetes mellitus with diabetic peripheral angiopathy with gangrene; I96 Gangrene, not elsewhere classified; E03.9 Hypothyroidism, unspecified; E11.42 Type 2 diabetes mellitus with diabetic polyneuropathy; M19.90 Unspecified osteoarthritis, unspecified site; E66.9 Obesity, unspecified; Z87.891 Personal history of nicotine dependence; Z90.49 Acquired absence of other specified parts of digestive tract; Z90.710 Acquired absence of both cervix and uterus; Z68.44 Body mass index [BMI] 60.0-69.9, adult; Z99.2 Dependence on renal dialysis; Z79.4 Long term (current) use of insulin | CPT/HCPCS: 29581 ==

== ENCOUNTER → 2018-03-09 | Outpatient (CLI) | payer BC, OTHER | END | disposition home or self-care (01) | LOC: PMGWOUND 11:15 | DX: I87.313 Chronic venous hypertension (idiopathic) with ulcer of bilateral lower extremity (principal); E11.622 Type 2 diabetes mellitus with other skin ulcer; L97.212 Non-pressure chronic ulcer of right calf with fat layer exposed; L97.221 Non-pressure chronic ulcer of left calf limited to breakdown of skin; I89.0 Lymphedema, not elsewhere classified; I25.10 Atherosclerotic heart disease of native coronary artery without angina pectoris; J44.9 Chronic obstructive pulmonary disease, unspecified; E11.52 Type 2 diabetes mellitus with diabetic peripheral angiopathy with gangrene; I96 Gangrene, not elsewhere classified; E11.22 Type 2 diabetes mellitus with diabetic chronic kidney disease; I13.0 Hypertensive heart and chronic kidney disease with heart failure and stage 1 through stage 4 chronic kidney disease, or unspecified chronic kidney disease; N18.4 Chronic kidney disease, stage 4 (severe); I50.9 Heart failure, unspecified; E03.9 Hypothyroidism, unspecified; E11.42 Type 2 diabetes mellitus with diabetic polyneuropathy; M19.90 Unspecified osteoarthritis, unspecified site; E66.01 Morbid (severe) obesity due to excess calories; Z87.891 Personal history of nicotine dependence; Z90.710 Acquired absence of both cervix and uterus; Z90.49 Acquired absence of other specified parts of digestive tract; Z68.44 Body mass index [BMI] 60.0-69.9, adult; Z99.2 Dependence on renal dialysis; Z79.4 Long term (current) use of insulin | CPT/HCPCS: 29581 ==

== ENCOUNTER → 2018-03-13 | Outpatient (CLI) | payer BC, OTHER | END | disposition home or self-care (01) | LOC: PMGWOUND 12:48 | DX: I87.313 Chronic venous hypertension (idiopathic) with ulcer of bilateral lower extremity (principal); E11.622 Type 2 diabetes mellitus with other skin ulcer; L97.212 Non-pressure chronic ulcer of right calf with fat layer exposed; L97.221 Non-pressure chronic ulcer of left calf limited to breakdown of skin; I89.0 Lymphedema, not elsewhere classified; I25.10 Atherosclerotic heart disease of native coronary artery without angina pectoris; J44.9 Chronic obstructive pulmonary disease, unspecified; E11.52 Type 2 diabetes mellitus with diabetic peripheral angiopathy with gangrene; I96 Gangrene, not elsewhere classified; E11.22 Type 2 diabetes mellitus with diabetic chronic kidney disease; I13.0 Hypertensive heart and chronic kidney disease with heart failure and stage 1 through stage 4 chronic kidney disease, or unspecified chronic kidney disease; N18.4 Chronic kidney disease, stage 4 (severe); I50.9 Heart failure, unspecified; E03.9 Hypothyroidism, unspecified; E11.42 Type 2 diabetes mellitus with diabetic polyneuropathy; M19.90 Unspecified osteoarthritis, unspecified site; E66.01 Morbid (severe) obesity due to excess calories; Z87.891 Personal history of nicotine dependence; Z90.710 Acquired absence of both cervix and uterus; Z90.49 Acquired absence of other specified parts of digestive tract; Z68.44 Body mass index [BMI] 60.0-69.9, adult; Z99.2 Dependence on renal dialysis; Z79.4 Long term (current) use of insulin | CPT/HCPCS: 29581 ==

== ENCOUNTER → 2018-03-16 | Outpatient (CLI) | payer BC, OTHER | END | disposition home or self-care (01) | LOC: PMGWOUND 12:18 | DX: I87.313 Chronic venous hypertension (idiopathic) with ulcer of bilateral lower extremity (principal); E11.622 Type 2 diabetes mellitus with other skin ulcer; L97.212 Non-pressure chronic ulcer of right calf with fat layer exposed; L97.221 Non-pressure chronic ulcer of left calf limited to breakdown of skin; I89.0 Lymphedema, not elsewhere classified; I25.10 Atherosclerotic heart disease of native coronary artery without angina pectoris; J44.9 Chronic obstructive pulmonary disease, unspecified; E11.52 Type 2 diabetes mellitus with diabetic peripheral angiopathy with gangrene; I96 Gangrene, not elsewhere classified; E11.22 Type 2 diabetes mellitus with diabetic chronic kidney disease; I13.0 Hypertensive heart and chronic kidney disease with heart failure and stage 1 through stage 4 chronic kidney disease, or unspecified chronic kidney disease; N18.4 Chronic kidney disease, stage 4 (severe); I50.9 Heart failure, unspecified; E03.9 Hypothyroidism, unspecified; E11.42 Type 2 diabetes mellitus with diabetic polyneuropathy; M19.90 Unspecified osteoarthritis, unspecified site; E66.01 Morbid (severe) obesity due to excess calories; Z87.891 Personal history of nicotine dependence; Z90.710 Acquired absence of both cervix and uterus; Z90.49 Acquired absence of other specified parts of digestive tract; Z68.44 Body mass index [BMI] 60.0-69.9, adult; Z99.2 Dependence on renal dialysis; Z79.4 Long term (current) use of insulin | CPT/HCPCS: 29581 ==

== ENCOUNTER → 2018-03-20 | Outpatient (CLI) | payer BC, OTHER | END | disposition home or self-care (01) | LOC: PMGWOUND 13:33 | DX: I87.313 Chronic venous hypertension (idiopathic) with ulcer of bilateral lower extremity (principal); E11.622 Type 2 diabetes mellitus with other skin ulcer; L97.212 Non-pressure chronic ulcer of right calf with fat layer exposed; L97.221 Non-pressure chronic ulcer of left calf limited to breakdown of skin; I89.0 Lymphedema, not elsewhere classified; I25.10 Atherosclerotic heart disease of native coronary artery without angina pectoris; J44.9 Chronic obstructive pulmonary disease, unspecified; E11.52 Type 2 diabetes mellitus with diabetic peripheral angiopathy with gangrene; I96 Gangrene, not elsewhere classified; E11.22 Type 2 diabetes mellitus with diabetic chronic kidney disease; I13.0 Hypertensive heart and chronic kidney disease with heart failure and stage 1 through stage 4 chronic kidney disease, or unspecified chronic kidney disease; N18.4 Chronic kidney disease, stage 4 (severe); I50.9 Heart failure, unspecified; E03.9 Hypothyroidism, unspecified; E11.42 Type 2 diabetes mellitus with diabetic polyneuropathy; M19.90 Unspecified osteoarthritis, unspecified site; E66.01 Morbid (severe) obesity due to excess calories; Z87.891 Personal history of nicotine dependence; Z90.710 Acquired absence of both cervix and uterus; Z90.49 Acquired absence of other specified parts of digestive tract; Z79.4 Long term (current) use of insulin; Z68.44 Body mass index [BMI] 60.0-69.9, adult | CPT/HCPCS: 29581 ==

== ENCOUNTER → 2018-03-23 | Outpatient (CLI) | payer BC, OTHER | END | disposition home or self-care (01) | LOC: PMGWOUND 11:30 | DX: I87.313 Chronic venous hypertension (idiopathic) with ulcer of bilateral lower extremity (principal); E11.622 Type 2 diabetes mellitus with other skin ulcer; L97.212 Non-pressure chronic ulcer of right calf with fat layer exposed; L97.221 Non-pressure chronic ulcer of left calf limited to breakdown of skin; I89.0 Lymphedema, not elsewhere classified; I25.10 Atherosclerotic heart disease of native coronary artery without angina pectoris; J44.9 Chronic obstructive pulmonary disease, unspecified; E11.22 Type 2 diabetes mellitus with diabetic chronic kidney disease; I13.0 Hypertensive heart and chronic kidney disease with heart failure and stage 1 through stage 4 chronic kidney disease, or unspecified chronic kidney disease; N18.4 Chronic kidney disease, stage 4 (severe); I50.9 Heart failure, unspecified; E11.52 Type 2 diabetes mellitus with diabetic peripheral angiopathy with gangrene; I96 Gangrene, not elsewhere classified; E03.9 Hypothyroidism, unspecified; E66.01 Morbid (severe) obesity due to excess calories; E11.42 Type 2 diabetes mellitus with diabetic polyneuropathy; M19.90 Unspecified osteoarthritis, unspecified site; Z90.49 Acquired absence of other specified parts of digestive tract; Z90.710 Acquired absence of both cervix and uterus; Z87.891 Personal history of nicotine dependence; Z68.44 Body mass index [BMI] 60.0-69.9, adult; Z79.4 Long term (current) use of insulin; Z99.2 Dependence on renal dialysis | CPT/HCPCS: 29581 ==

== ENCOUNTER → 2018-03-27 | Outpatient (CLI) | payer BC, OTHER | END | disposition home or self-care (01) | LOC: PMGWOUND 13:30 | DX: I87.313 Chronic venous hypertension (idiopathic) with ulcer of bilateral lower extremity (principal); E11.622 Type 2 diabetes mellitus with other skin ulcer; L97.212 Non-pressure chronic ulcer of right calf with fat layer exposed; L97.221 Non-pressure chronic ulcer of left calf limited to breakdown of skin; I89.0 Lymphedema, not elsewhere classified; I25.10 Atherosclerotic heart disease of native coronary artery without angina pectoris; J44.9 Chronic obstructive pulmonary disease, unspecified; E11.52 Type 2 diabetes mellitus with diabetic peripheral angiopathy with gangrene; I96 Gangrene, not elsewhere classified; E11.22 Type 2 diabetes mellitus with diabetic chronic kidney disease; I13.0 Hypertensive heart and chronic kidney disease with heart failure and stage 1 through stage 4 chronic kidney disease, or unspecified chronic kidney disease; N18.4 Chronic kidney disease, stage 4 (severe); I50.9 Heart failure, unspecified; E03.9 Hypothyroidism, unspecified; E66.01 Morbid (severe) obesity due to excess calories; E11.42 Type 2 diabetes mellitus with diabetic polyneuropathy; M19.90 Unspecified osteoarthritis, unspecified site; Z90.49 Acquired absence of other specified parts of digestive tract; Z90.710 Acquired absence of both cervix and uterus; Z87.891 Personal history of nicotine dependence; Z79.4 Long term (current) use of insulin; Z68.44 Body mass index [BMI] 60.0-69.9, adult; Z99.2 Dependence on renal dialysis | CPT/HCPCS: 29581 ==

== ENCOUNTER → 2018-04-02 | Outpatient (CLI) | payer BC, OTHER | END | disposition home or self-care (01) | LOC: PMGWOUND 13:02 | DX: I87.313 Chronic venous hypertension (idiopathic) with ulcer of bilateral lower extremity (principal); E11.622 Type 2 diabetes mellitus with other skin ulcer; L97.212 Non-pressure chronic ulcer of right calf with fat layer exposed; L97.221 Non-pressure chronic ulcer of left calf limited to breakdown of skin; I89.0 Lymphedema, not elsewhere classified; I25.10 Atherosclerotic heart disease of native coronary artery without angina pectoris; J44.9 Chronic obstructive pulmonary disease, unspecified; E11.22 Type 2 diabetes mellitus with diabetic chronic kidney disease; I13.0 Hypertensive heart and chronic kidney disease with heart failure and stage 1 through stage 4 chronic kidney disease, or unspecified chronic kidney disease; N18.4 Chronic kidney disease, stage 4 (severe); I50.9 Heart failure, unspecified; E11.52 Type 2 diabetes mellitus with diabetic peripheral angiopathy with gangrene; I96 Gangrene, not elsewhere classified; E03.9 Hypothyroidism, unspecified; E66.01 Morbid (severe) obesity due to excess calories; E11.42 Type 2 diabetes mellitus with diabetic polyneuropathy; M19.90 Unspecified osteoarthritis, unspecified site; Z90.49 Acquired absence of other specified parts of digestive tract; Z90.710 Acquired absence of both cervix and uterus; Z87.891 Personal history of nicotine dependence; Z68.44 Body mass index [BMI] 60.0-69.9, adult; Z99.2 Dependence on renal dialysis; Z79.4 Long term (current) use of insulin | CPT/HCPCS: 29581 ==

== ENCOUNTER → 2018-04-09 | Outpatient (CLI) | payer BC, OTHER | END | disposition home or self-care (01) | LOC: PMGWOUND 13:35 | DX: I87.313 Chronic venous hypertension (idiopathic) with ulcer of bilateral lower extremity (principal); E11.622 Type 2 diabetes mellitus with other skin ulcer; L97.212 Non-pressure chronic ulcer of right calf with fat layer exposed; L97.221 Non-pressure chronic ulcer of left calf limited to breakdown of skin; I89.0 Lymphedema, not elsewhere classified; I25.10 Atherosclerotic heart disease of native coronary artery without angina pectoris; J44.9 Chronic obstructive pulmonary disease, unspecified; E11.22 Type 2 diabetes mellitus with diabetic chronic kidney disease; I13.0 Hypertensive heart and chronic kidney disease with heart failure and stage 1 through stage 4 chronic kidney disease, or unspecified chronic kidney disease; N18.4 Chronic kidney disease, stage 4 (severe); I50.9 Heart failure, unspecified; E11.52 Type 2 diabetes mellitus with diabetic peripheral angiopathy with gangrene; I96 Gangrene, not elsewhere classified; E03.9 Hypothyroidism, unspecified; E66.01 Morbid (severe) obesity due to excess calories; E11.42 Type 2 diabetes mellitus with diabetic polyneuropathy; M19.90 Unspecified osteoarthritis, unspecified site; Z90.49 Acquired absence of other specified parts of digestive tract; Z90.710 Acquired absence of both cervix and uterus; Z87.891 Personal history of nicotine dependence; Z68.44 Body mass index [BMI] 60.0-69.9, adult; Z99.2 Dependence on renal dialysis; Z79.4 Long term (current) use of insulin | CPT/HCPCS: 29581 ==

== ENCOUNTER 2018-04-20 14:01 | Inpatient (IN) | payer BC, OTHER ==
[~2018-04-20] VITALS: Ht 162.6 cm; Wt 178.5 kg
--- NOTE | 2018-04-20 14:24 | PHYS DOC ---
Past Medical History Past Medical History: Anxiety, Arthritis, COPD, Depression, Hypertension, Other Additional Past Medical Histor: lymphedema, neuropathy,morbid obesity, chronic pain, stasis ulcer, insomnia Past Surgical History: Cholecystectomy, Tonsillectomy, Tubal ligation Additional Past Surgical Histo: brain aneurysm, unknown anal sx Alcohol Use: None Drug Use: None Adult General Chief Complaint Chief Complaint: WOUND CHECK [facility] HPI Patient is a 63 year old female with a history of lower leg cellulitis and lymphedema presents to the ED complaining of right lower leg injury x 3 days ago. States that she fell on Monday in the parking lot leaving a store. States she suffered a gash to her right lower leg. Describes the pain as sharp. Rate the pain as 5/10. States she was told to come here by her wound and lymphedema nurses because it could be infected. Associated symptoms include subjective fever. Denies nausea/vomiting or abdominal pain, chest pain, shortness of breath , back pain, weakness or paresthesias. Review of Systems Review of Systems Constitutional: Denies fever or chills [] Eyes: Denies change in visual acuity, redness, or eye pain [] HENT: Denies nasal congestion or sore throat [] Respiratory: Denies cough or shortness of breath [] Cardiovascular: No additional information not addressed in HPI [] GI: Denies abdominal pain, nausea, vomiting, bloody stools or diarrhea [] : Denies dysuria or hematuria [] Musculoskeletal: Complains of right lower leg injury. Denies back pain. Integument: Denies rash or skin lesions [] Neurologic: Denies headache, focal weakness or sensory changes [] All other systems were reviewed and found to be within normal limits, except as documented in this note. Current Medications Current Medications Current Medications Medications (Trade) Dose Ordered Sig/Demarco Start Time Stop Time Status Last Admin Dose Admin Diphtheria/ Tetanus/Acell Pertussis (Boostrix) 0.5 ml ONCE ONCE 04/20/18 14:30 04/20/18 14:31 DC 04/20/18 14:36 0.5 ML Allergies Allergies Allergies Coded Allergies Type Severity Reaction Last Updated Verified codeine Allergy Intermediate 12/31/15 Yes levofloxacin Allergy Intermediate 04/01/16 Yes piperacillin Allergy Intermediate hives, rash 04/06/16 Yes propoxyphene Allergy Intermediate 12/31/15 Yes sulfamethoxazole Allergy Intermediate 12/31/15 Yes tazobactam Allergy Intermediate hives, rash 04/06/16 Yes I S O L A T I O N *CONTACT* Allergy Unknown 04/04/16 Yes Physical Exam Physical Exam Constitutional: Well developed, well nourished, no acute distress, non-toxic appearance. [] HENT: Normocephalic, atraumatic Cardiovascular:Heart rate regular rhythm, no murmur [] Lungs & Thorax: Bilateral breath sounds clear to auscultation [] Abdomen: Bowel sounds normal, soft, no tenderness, no masses, no pulsatile masses. [] Skin: Warm, dry, no erythema, no rash. [] Back: No tenderness, no CVA tenderness. [] Extremities: Bilateral lower leg lymphedema. 0.5 cm wound to right anterior lateral lower leg. no cyanosis, no clubbing, NV intact. Neurologic: Alert and oriented X 3, normal motor function, normal sensory function, no focal deficits noted. [] Psychologic: Affect normal, judgement normal, mood normal. [] Current Patient Data Vital Signs Vital Signs Date Time Temp Pulse Resp B/P (MAP) Pulse Ox O2 Delivery O2 Flow Rate FiO2 04/20/18 14:08 98.2 82 22 170/74 (106) 99 Nasal Cannula 2.0 98.2 Lab Values Laboratory Tests Test 04/20/18 14:33 White Blood Count 4.2 x10^3/uL (4.0-11.0) Red Blood Count 3.03 x10^6/uL (3.50-5.40) L Hemoglobin 9.9 g/dL (12.0-15.5) L Hematocrit 29.6 % (36.0-47.0) L Mean Corpuscular Volume 98 fL (79-100) Mean Corpuscular Hemoglobin 33 pg (25-35) Mean Corpuscular Hemoglobin Concent 34 g/dL (31-37) Red Cell Distribution Width 14.7 % (11.5-14.5) H Platelet Count 148 x10^3/uL (140-400) Neutrophils (%) (Auto) 74 % (31-73) H Lymphocytes (%) (Auto) 17 % (24-48) L Monocytes (%) (Auto) 5 % (0-9) Eosinophils (%) (Auto) 3 % (0-3) Basophils (%) (Auto) 1 % (0-3) Neutrophils # (Auto) 3.1 x10^3uL (1.8-7.7) Lymphocytes # (Auto) 0.7 x10^3/uL (1.0-4.8) L Monocytes # (Auto) 0.2 x10^3/uL (0.0-1.1) Eosinophils # (Auto) 0.1 x10^3/uL (0.0-0.7) Basophils # (Auto) 0.0 x10^3/uL (0.0-0.2) Sodium Level 139 mmol/L (136-145) Potassium Level 5.2 mmol/L (3.5-5.1) H Chloride Level 102 mmol/L (98-107) Carbon Dioxide Level 33 mmol/L (21-32) H Anion Gap 4 (6-14) L Blood Urea Nitrogen 21 mg/dL (7-20) H Creatinine 1.3 mg/dL (0.6-1.0) H Estimated GFR (Cockcroft-Gault) 41.2 BUN/Creatinine Ratio 16 (6-20) Glucose Level 107 mg/dL (70-99) H Lactic Acid Level 2.1 mmol/L (0.4-2.0) H Calcium Level 9.3 mg/dL (8.5-10.1) Total Bilirubin 0.5 mg/dL (0.2-1.0) Aspartate Amino Transferase (AST) 35 U/L (15-37) Alanine Aminotransferase (ALT) 38 U/L (14-59) Alkaline Phosphatase 97 U/L (46-116) Total Protein 8.0 g/dL (6.4-8.2) Albumin 3.5 g/dL (3.4-5.0) Albumin/Globulin Ratio 0.8 (1.0-1.7) L Laboratory Tests 04/20/18 14:33 Laboratory Tests 04/20/18 14:33 EKG EKG [] Radiology/Procedures Radiology/Procedures [] Course & Med Decision Making Course & Med Decision Making Pertinent Labs and Imaging studies reviewed. (See chart for details) Tetanus updated. meropenem and vanco given in the ED. Discussed case with hospitalist, Dr. Lazaro. Agrees to admission and further management patient. Patient stable for admission. Requests MRI w/o contrast order placed. Dragon Disclaimer Dragon Disclaimer This electronic medical record was generated, in whole or in part, using a voice recognition dictation system. Departure Departure Impression: Primary Impression: Cellulitis Additional Impression: Lymphedema of both lower extremities Disposition: ADMITTED INPATIENT Admitting Physician: Caleb Miranda Condition: STABLE Referrals: CALEB MIRANDA MD (PCP) Problem Qualifiers STARLA SCOTT Apr 20, 2018 14:24
[2018-04-20] MEDS ORDERED: DIPHTH,PERTUSS(ACELL),TET TOX 0.5 ML DISP.SYRIN. VAX IM ONE (14:30)
--- NOTE | 2018-04-20 14:42 | RAD ---
History: 7 from wound care, cellulitis and redness. Fall 3 days ago. Comparison: None. Findings: AP and lateral views of the right tibia and fibula. On the frontal view, most proximal aspect of the tibial and was not included. No acute fracture or acute malalignment is identified. Multiple soft tissue calcifications are seen. Diffuse soft tissue swelling/thickening is noted. Mid tibial fibular shafts demonstrate mild wavy periosteal reaction, may represent changes of chronic venous stasis. Impression: 1. No acute osseous abnormality identified. 2. Mild wavy periosteal reaction involving the mid tibia and fibula, may represent changes of chronic venous stasis. 3. Soft tissue swelling/thickening. Soft tissue calcifications. Electronically signed by: Maurice Levy MD (04/20/2018 2:38 PM) [facility]
[2018-04-20 14:44] LABS: BASO % 1 % (0-3); EOS # 0.1 x10^3/uL (0.0-0.7); EOS % 3 % (0-3); HEMATOCRIT 29.6 % (36.0-47.0); HEMOGLOBIN 9.9 g/dL (12.0-15.5); LYMPH # 0.7 x10^3/uL (1.0-4.8); LYMPH % 17 % (24-48); MEAN CORPUSCULAR HEMOGLOBIN 33 pg (25-35); MEAN CORPUSCULAR HGB CONC 34 g/dL (31-37); MEAN CORPUSCULAR VOLUME 98 fL (79-100); MONO # 0.2 x10^3/uL (0.0-1.1); MONO % 5 % (0-9); NEUT # 3.1 x10^3uL (1.8-7.7); NEUT % 74 % (31-73); PLATELET COUNT 148 x10^3/uL (140-400); RED BLOOD COUNT 3.03 x10^6/uL (3.50-5.40); RED CELL DISTRIBUTION WIDTH 14.7 % (11.5-14.5); WHITE BLOOD COUNT 4.2 x10^3/uL (4.0-11.0)
[2018-04-20 14:52] LABS: CALCIUM 9.3 mg/dL (8.5-10.1); CREATININE 1.3 mg/dL (0.6-1.0); GFR 41.2; POTASSIUM 5.2 mmol/L (3.5-5.1)
[2018-04-20 14:58] LABS: ALBUMIN 3.5 g/dL (3.4-5.0); ALBUMIN/GLOBULIN RATIO 0.8 (1.0-1.7); TOTAL BILIRUBIN 0.5 mg/dL (0.2-1.0)
[2018-04-20] MEDS ORDERED: ACETAMINOPHEN 325 MG TABLET. PO PRN (15:15)
[2018-04-20] MEDS ORDERED: PIPERACILLIN/TAZOBACTAM 4.5 GM in IV NORMAL SALINE 100ML 100 ML IV ONE (15:15)
[2018-04-20] MEDS ORDERED: ONDANSETRON PF 4 MG/2 ML VIAL. IV PRN (15:15)
[2018-04-20] MEDS ORDERED: VANCOMYCIN 1GM IVPB FOR OMNI 250 ML IV ONE (15:15)
[2018-04-20] MEDS ORDERED: VANCOMYCIN 2 GM in IV NORMAL SALINE 500ML BAG 500 ML IV ONE (15:45)
[2018-04-20 17:00] VITALS: BP 143/56
--- NOTE | 2018-04-20 17:03 | RAD ---
Examination: MRI right lower extremity HISTORY: History of pain in the right tibia and fibula, redness, swelling COMPARISON: None available TECHNIQUE: Multiplanar, multisequence MR imaging of the right mid and distal tibia and fibula was performed FINDINGS: The alignment of the tibia and fibula grossly appears unremarkable. There is mild increased T2 signal identified in the subcutaneous region of the mid and lower leg likely edema. There is faint T2 signal identified within the bone marrow of the midportion of the tibia likely due to bone marrow conversion. No evidence of cortical disruption identified. There is mild T2 signal identified anterior to the distal tibia abutting the skin probably due to injury. Mild fatty infiltration of the muscles of the lower leg. IMPRESSION: 1. No evidence of osteomyelitis. 2. Mild subcutaneous edema identified in the lower leg, nonspecific edema or cellulitis. Correlate clinically. Electronically signed by: Renato Xiao MD (04/20/2018 5:00 PM) [facility]
[2018-04-20] MEDS: fentaNYL PF VIAL 100 MCG/2 ML VIAL IV PRN ×3 (17:22→20:48)
[2018-04-20] MEDS: MEROPENEM 1 GM in IV NORMAL SALINE 100ML 100 ML IV SCH (17:49)
[2018-04-20] MEDS ORDERED: MEROPENEM 1 GM in IV NORMAL SALINE 100ML 100 ML IV SCH (18:00)
[2018-04-20 19:00] VITALS: BP 142/76
[2018-04-20] MEDS ORDERED: NON FORMULARY ITEM (Budesonide/Formoterol Fumarate (Symbicort 80-4.5 Mcg Inhaler) 2 PUFF) IH SCH (21:00)
[2018-04-20] MEDS: ATORVASTATIN CALCIUM 40 MG TABLET. PO SCH (22:28)
[2018-04-20] MEDS: ALPRAZolam 0.5 MG TABLET PO SCH (22:28)
[2018-04-20] MEDS: oxyCODONE/APAP 10/325 1 TAB TABLET PO PRN (22:29)
[2018-04-20] MEDS: GABAPENTIN 400 MG CAPSULE. PO SCH (22:29)
[2018-04-20 23:00] VITALS: BP 134/54
[2018-04-20] MEDS: TEMAZEPAM 15 MG CAPSULE PO PRN (23:48)
[2018-04-21] MEDS: ALBUTEROL SULFATE 2.5 MG/3 ML NEBU. NEB SCH ×4 (00:17→21:04)
[2018-04-21 03:00] VITALS: BP 138/51
[2018-04-21] MEDS: MEROPENEM 1 GM in IV NORMAL SALINE 100ML 100 ML IV SCH ×3 (05:51→21:58)
[2018-04-21 05:55] LABS: ALBUMIN/GLOBULIN RATIO 0.8 (1.0-1.7); CALCIUM 8.6 mg/dL (8.5-10.1); CREATININE 1.3 mg/dL (0.6-1.0); GFR 41.2; POTASSIUM 4.9 mmol/L (3.5-5.1); TOTAL BILIRUBIN 0.5 mg/dL (0.2-1.0); TOTAL PROTEIN 6.7 g/dL (6.4-8.2)
[2018-04-21] MEDS: fentaNYL PF VIAL 100 MCG/2 ML VIAL IV PRN ×3 (05:57→11:16)
[2018-04-21 06:25] LABS: BASO % 1 % (0-3); EOS # 0.1 x10^3/uL (0.0-0.7); EOS % 3 % (0-3); HEMATOCRIT 25.1 % (36.0-47.0); HEMOGLOBIN 8.4 g/dL (12.0-15.5); LYMPH # 0.6 x10^3/uL (1.0-4.8); LYMPH % 17 % (24-48); MEAN CORPUSCULAR HEMOGLOBIN 33 pg (25-35); MEAN CORPUSCULAR HGB CONC 34 g/dL (31-37); MEAN CORPUSCULAR VOLUME 98 fL (79-100); MONO # 0.2 x10^3/uL (0.0-1.1); MONO % 6 % (0-9); NEUT # 2.5 x10^3uL (1.8-7.7); NEUT % 73 % (31-73); PLATELET COUNT 124 x10^3/uL (140-400); RED BLOOD COUNT 2.57 x10^6/uL (3.50-5.40); RED CELL DISTRIBUTION WIDTH 14.2 % (11.5-14.5); WHITE BLOOD COUNT 3.4 x10^3/uL (4.0-11.0)
[2018-04-21 07:00] VITALS: BP 114/42
[2018-04-21] MEDS: PANTOPRAZOLE 40 MG TABLET.DR. PO SCH (08:05)
[2018-04-21] MEDS: oxyCODONE/APAP 10/325 1 TAB TABLET PO PRN ×3 (08:08→22:19)
--- NOTE | 2018-04-21 08:56 | PDOC1 ---
H & P H&P HISTORY OF PRESENT ILLNESS: A 63-year-old female with chronic lymphedema and venous stasis dermatitis of both lower extremities. She has been followed at wound care centers both at [facility] for the last several years. She presented yesterday to wound clinic out of concern for right lower leg wound that occurred after a fall 3 days ago. She was brought to the emergency room out of concern that it may be infected. She was admitted for further evaluation and management. She denies fever, chills, vomiting, diarrhea or any other specific complaints at this time. Labs the emergency room where virtually unremarkable. An x-ray of the right lower extremity showed some periosteal reaction, an MRI was unremarkable for osteomyelitis. PAST MEDICAL HISTORY: Last admission 05/2017 for same, hypertension, chronic kidney disease stage III, COPD, chronic pain, coronary artery disease with history of stent placement, chronic lymphedema, anxiety, DANIEL on CPAP, opioid dependence, hyperlipidemia. MEDICATIONS: Reviewed and reconciled. ALLERGIES: She has multiple drug allergies including ZOSYN, LEVAQUIN, SULFA, rifampin, codeine and UNASYN SOCIAL HISTORY: Former smoker. Lives at home and not employed, . FAMILY HISTORY: Unremarkable. SURGICAL HISTORY: Tonsillectomy, right knee arthroscopy, tubal ligation, cholecystectomy, coronary artery stent placement REVIEW OF SYSTEMS: No other specific complaints. OBJECTIVE: ENT: All within normal limits. NECK: No masses, nodes or bruits. LUNGS: Clear. CARDIOVASCULAR: Regular rate. No irregular beat, murmur or tachycardia. NEUROLOGIC: Physiologic. EXTREMITIES: B/l LE wrapped with bandages, viewed photos of wounds in chart PSYCHIATRIC: Nonfocal. ASSESSMENT/PLAN: Chronic bilateral lower extremity edema with RLE wound/cellulitis Hypertension Chronic kidney disease stage III COPD Chronic pain with opioid dependence Prior artery disease with history of stent placement Anxiety Depression DANIEL on CPAP Hyperlipidemia Morbid obesity History of nicotine dependence Meropenem Wound care Await cultures RAVINDRA,VALERIANO Wright MD Apr 21, 2018 08:56
[2018-04-21] MEDS: ASPIRIN ENTERIC COATED 81 MG TABLET.DR. PO SCH (09:31)
[2018-04-21] MEDS: buPROPion XL 150 MG TAB.ER.24H. PO SCH (09:32)
[2018-04-21] MEDS: CARVEDILOL 3.125 MG TABLET. PO SCH ×2 (09:32→17:17)
[2018-04-21] MEDS: CHOLECALCIFEROL (VITAMIN D3) 1,000 UNIT TABLET PO SCH (09:33)
[2018-04-21] MEDS: ALPRAZolam 0.5 MG TABLET PO SCH ×3 (09:33→21:58)
[2018-04-21] MEDS: GABAPENTIN 400 MG CAPSULE. PO SCH ×3 (09:33→21:58)
[2018-04-21] MEDS: VENLAFAXINE XR 37.5 MG CAP.ER.24H. PO SCH (09:33)
[2018-04-21] MEDS: hydroCHLOROthiazide 12.5 MG CAPSULE PO SCH (09:33)
[2018-04-21] MEDS: CLOPIDOGREL BISULFATE 75 MG TABLET PO SCH (09:39)
[2018-04-21 11:21] VITALS: BP 131/53
[2018-04-21] MEDS: VANCOMYCIN PER PHARMACY MC PRN (12:16)
[2018-04-21] MEDS: VANCOMYCIN 2 GM in IV NORMAL SALINE 500ML BAG 500 ML IV SCH (12:21)
[2018-04-21 15:00] VITALS: BP 121/47
[2018-04-21 19:00] VITALS: BP 152/52
[2018-04-21] MEDS: BUDESONIDE 0.5 MG/2 ML NEBU. NEB SCH (21:30)
[2018-04-21] MEDS: LACTOBACILLUS RHAMNOSUS GG 1 CAPSULE. PO SCH (21:58)
[2018-04-21] MEDS: ATORVASTATIN CALCIUM 40 MG TABLET. PO SCH (21:58)
[2018-04-21 22:46] VITALS: BP 146/56
[2018-04-22] MEDS: VANCOMYCIN 2 GM in IV NORMAL SALINE 500ML BAG 500 ML IV SCH ×3 (00:11→23:54)
[2018-04-22] MEDS: ALBUTEROL SULFATE 2.5 MG/3 ML NEBU. NEB SCH ×4 (00:27→15:26)
[2018-04-22 03:00] VITALS: BP 133/53
[2018-04-22] MEDS: MEROPENEM 1 GM in IV NORMAL SALINE 100ML 100 ML IV SCH ×3 (05:16→22:02)
[2018-04-22 05:52] LABS: BASO % 1 % (0-3); EOS # 0.1 x10^3/uL (0.0-0.7); EOS % 4 % (0-3); HEMATOCRIT 25.8 % (36.0-47.0); HEMOGLOBIN 8.7 g/dL (12.0-15.5); LYMPH # 0.7 x10^3/uL (1.0-4.8); LYMPH % 22 % (24-48); MEAN CORPUSCULAR HEMOGLOBIN 33 pg (25-35); MEAN CORPUSCULAR HGB CONC 34 g/dL (31-37); MEAN CORPUSCULAR VOLUME 97 fL (79-100); MONO # 0.2 x10^3/uL (0.0-1.1); MONO % 6 % (0-9); NEUT # 2.2 x10^3uL (1.8-7.7); NEUT % 67 % (31-73); PLATELET COUNT 124 x10^3/uL (140-400); RED BLOOD COUNT 2.65 x10^6/uL (3.50-5.40); RED CELL DISTRIBUTION WIDTH 14.2 % (11.5-14.5); WHITE BLOOD COUNT 3.3 x10^3/uL (4.0-11.0)
[2018-04-22 06:16] LABS: ALBUMIN 3.1 g/dL (3.4-5.0); ALBUMIN/GLOBULIN RATIO 0.8 (1.0-1.7); CALCIUM 8.6 mg/dL (8.5-10.1); CREATININE 1.4 mg/dL (0.6-1.0); GFR 37.9; POTASSIUM 4.7 mmol/L (3.5-5.1); TOTAL BILIRUBIN 0.6 mg/dL (0.2-1.0); TOTAL PROTEIN 7.1 g/dL (6.4-8.2)
[2018-04-22 07:00] VITALS: BP 123/40
[2018-04-22] MEDS: PANTOPRAZOLE 40 MG TABLET.DR. PO SCH (07:40)
[2018-04-22] MEDS: oxyCODONE/APAP 10/325 1 TAB TABLET PO PRN ×3 (07:40→20:18)
[2018-04-22] MEDS: BUDESONIDE 0.5 MG/2 ML NEBU. NEB SCH (08:00)
[2018-04-22] MEDS: buPROPion XL 150 MG TAB.ER.24H. PO SCH (08:56)
[2018-04-22] MEDS: ALPRAZolam 0.5 MG TABLET PO SCH ×3 (08:57→22:02)
[2018-04-22] MEDS: hydroCHLOROthiazide 12.5 MG CAPSULE PO SCH (08:57)
[2018-04-22] MEDS: CLOPIDOGREL BISULFATE 75 MG TABLET PO SCH (08:57)
[2018-04-22] MEDS: VENLAFAXINE XR 37.5 MG CAP.ER.24H. PO SCH (08:57)
[2018-04-22] MEDS: GABAPENTIN 400 MG CAPSULE. PO SCH ×3 (08:57→22:02)
[2018-04-22] MEDS: ASPIRIN ENTERIC COATED 81 MG TABLET.DR. PO SCH (08:57)
[2018-04-22] MEDS: CHOLECALCIFEROL (VITAMIN D3) 1,000 UNIT TABLET PO SCH (08:57)
[2018-04-22] MEDS: CARVEDILOL 3.125 MG TABLET. PO SCH ×2 (08:58→17:00)
[2018-04-22] MEDS: LACTOBACILLUS RHAMNOSUS GG 1 CAPSULE. PO SCH ×2 (09:00→22:02)
--- NOTE | 2018-04-22 09:20 | PDOC ---
SUBJECTIVE Subjective Nursing reported BRBPR and pt states she has had intermittent vaginal bleeding for sometime, menopause many years ago. Also notes significant pain in knee, tailbone, back. OBJECTIVE Objective Reviewed. Vital Signs Vital Signs Date Time Temp Pulse Resp B/P (MAP) Pulse Ox O2 Delivery O2 Flow Rate FiO2 04/22/18 08:58 78 133/53 04/22/18 08:40 16 100 Nasal Cannula 3.0 04/22/18 07:40 16 Nasal Cannula 04/22/18 03:00 98.5 78 18 133/53 (79) 100 Nasal Cannula 3.0 98.5 04/22/18 00:27 Nasal Cannula 3.0 04/21/18 22:46 76 18 146/56 (86) 100 Nasal Cannula 3.0 04/21/18 22:19 Nasal Cannula 3.0 04/21/18 21:05 Nasal Cannula 3.0 04/21/18 19:00 98.6 118 19 152/52 (85) 97 Nasal Cannula 3.0 98.6 04/21/18 17:17 68 121/47 04/21/18 15:49 16 Nasal Cannula 04/21/18 15:00 98.4 68 20 121/47 (71) 100 Nasal Cannula 3.0 98.4 04/21/18 11:46 16 100 Nasal Cannula 3.0 04/21/18 11:33 Nasal Cannula 3.0 04/21/18 11:21 98.1 79 20 131/53 (79) 100 Nasal Cannula 3.0 98.1 04/21/18 11:16 16 100 Nasal Cannula 3.5 04/21/18 09:32 82 138/51 I & O Intake and Output 04/22/18 07:00 Intake Total 2580 ml Balance 2580 ml Intake Oral 1880 ml IV Total 700 ml # Voids 4 PHYSICAL EXAM Physical Exam ENT: All within normal limits. NECK: No masses, nodes or bruits. LUNGS: Clear. CARDIOVASCULAR: Regular rate. No irregular beat, murmur or tachycardia. NEUROLOGIC: Physiologic. EXTREMITIES: B/l LE wrapped with bandages, viewed photos of wounds in chart Neuro: Nonfocal. ASSESSMENT/PLAN Assessment/Plan ASSESSMENT/PLAN: Chronic bilateral lower extremity edema with RLE wound/cellulitis Hypertension Chronic kidney disease stage III COPD Chronic pain with opioid dependence Prior artery disease with history of stent placement Anxiety Depression DANIEL on CPAP Hyperlipidemia Morbid obesity History of nicotine dependence Meropenem, Vanc Wound care Bld cultures NTD FOBT OB-MASTER NAVAL PARACHUTIST consulted for postmenopausal bleeding, will need further workup, likely as outpatient. COMMENT Lab Laboratory Tests Test 04/22/18 05:35 White Blood Count 3.3 x10^3/uL (4.0-11.0) Red Blood Count 2.65 x10^6/uL (3.50-5.40) Hemoglobin 8.7 g/dL (12.0-15.5) Hematocrit 25.8 % (36.0-47.0) Mean Corpuscular Volume 97 fL (79-100) Mean Corpuscular Hemoglobin 33 pg (25-35) Mean Corpuscular Hemoglobin Concent 34 g/dL (31-37) Red Cell Distribution Width 14.2 % (11.5-14.5) Platelet Count 124 x10^3/uL (140-400) Neutrophils (%) (Auto) 67 % (31-73) Lymphocytes (%) (Auto) 22 % (24-48) Monocytes (%) (Auto) 6 % (0-9) Eosinophils (%) (Auto) 4 % (0-3) Basophils (%) (Auto) 1 % (0-3) Neutrophils # (Auto) 2.2 x10^3uL (1.8-7.7) Lymphocytes # (Auto) 0.7 x10^3/uL (1.0-4.8) Monocytes # (Auto) 0.2 x10^3/uL (0.0-1.1) Eosinophils # (Auto) 0.1 x10^3/uL (0.0-0.7) Basophils # (Auto) 0.0 x10^3/uL (0.0-0.2) Sodium Level 138 mmol/L (136-145) Potassium Level 4.7 mmol/L (3.5-5.1) Chloride Level 103 mmol/L (98-107) Carbon Dioxide Level 32 mmol/L (21-32) Anion Gap 3 (6-14) Blood Urea Nitrogen 20 mg/dL (7-20) Creatinine 1.4 mg/dL (0.6-1.0) Estimated GFR (Cockcroft-Gault) 37.9 BUN/Creatinine Ratio 14 (6-20) Glucose Level 87 mg/dL (70-99) Lactic Acid Level 0.7 mmol/L (0.4-2.0) Calcium Level 8.6 mg/dL (8.5-10.1) Total Bilirubin 0.6 mg/dL (0.2-1.0) Aspartate Amino Transf (AST/SGOT) 28 U/L (15-37) Alanine Aminotransferase (ALT/SGPT) 34 U/L (14-59) Alkaline Phosphatase 86 U/L (46-116) Total Protein 7.1 g/dL (6.4-8.2) Albumin 3.1 g/dL (3.4-5.0) Albumin/Globulin Ratio 0.8 (1.0-1.7) VALERIANO WAITE MD Apr 22, 2018 09:20
[2018-04-22] MEDS: VANCOMYCIN PER PHARMACY MC PRN (10:15)
[2018-04-22 11:00] VITALS: BP 123/40
[2018-04-22 15:00] VITALS: BP 150/46
[2018-04-22 19:00] VITALS: BP 148/61
[2018-04-22] MEDS: ATORVASTATIN CALCIUM 40 MG TABLET. PO SCH (22:02)
[2018-04-22 23:00] VITALS: BP 136/37
[2018-04-22 23:46] LABS: VANC TR 31.7 mcg/mL (10.0-20.0)
[2018-04-23] MEDS: ALBUTEROL SULFATE 2.5 MG/3 ML NEBU. NEB SCH ×5 (00:28→23:58)
[2018-04-23] MEDS: BUDESONIDE 0.5 MG/2 ML NEBU. NEB SCH ×3 (00:28→20:27)
[2018-04-23] MEDS: VANCOMYCIN PER PHARMACY MC PRN (01:27)
[2018-04-23] MEDS: oxyCODONE/APAP 10/325 1 TAB TABLET PO PRN ×4 (02:50→21:51)
[2018-04-23 03:00] VITALS: BP 118/32
[2018-04-23] MEDS: MEROPENEM 1 GM in IV NORMAL SALINE 100ML 100 ML IV SCH ×3 (05:52→21:51)
[2018-04-23 07:00] VITALS: BP 138/50
[2018-04-23] MEDS: PANTOPRAZOLE 40 MG TABLET.DR. PO SCH (08:28)
[2018-04-23] MEDS: VENLAFAXINE XR 37.5 MG CAP.ER.24H. PO SCH (08:29)
[2018-04-23] MEDS: LACTOBACILLUS RHAMNOSUS GG 1 CAPSULE. PO SCH ×2 (08:29→21:51)
[2018-04-23] MEDS: ASPIRIN ENTERIC COATED 81 MG TABLET.DR. PO SCH (08:29)
[2018-04-23] MEDS: CARVEDILOL 3.125 MG TABLET. PO SCH ×2 (08:29→17:00)
[2018-04-23] MEDS: CHOLECALCIFEROL (VITAMIN D3) 1,000 UNIT TABLET PO SCH (08:30)
[2018-04-23] MEDS: CLOPIDOGREL BISULFATE 75 MG TABLET PO SCH (08:30)
[2018-04-23] MEDS: ALPRAZolam 0.5 MG TABLET PO SCH ×3 (08:30→21:51)
[2018-04-23] MEDS: buPROPion XL 150 MG TAB.ER.24H. PO SCH (08:30)
[2018-04-23] MEDS: GABAPENTIN 400 MG CAPSULE. PO SCH ×3 (08:30→21:50)
[2018-04-23] MEDS: hydroCHLOROthiazide 12.5 MG CAPSULE PO SCH (08:30)
--- NOTE | 2018-04-23 08:32 | PDOC ---
Provider Note Provider Note [id number] ALYSIA KIM MD Apr 23, 2018 08:32
[2018-04-23 08:38] LABS: BASO % 1 % (0-3); EOS # 0.1 x10^3/uL (0.0-0.7); EOS % 3 % (0-3); HEMATOCRIT 26.8 % (36.0-47.0); LYMPH # 0.8 x10^3/uL (1.0-4.8); LYMPH % 18 % (24-48); MEAN CORPUSCULAR HEMOGLOBIN 33 pg (25-35); MEAN CORPUSCULAR HGB CONC 34 g/dL (31-37); MEAN CORPUSCULAR VOLUME 97 fL (79-100); MONO # 0.2 x10^3/uL (0.0-1.1); MONO % 6 % (0-9); NEUT # 3.1 x10^3uL (1.8-7.7); NEUT % 72 % (31-73); PLATELET COUNT 149 x10^3/uL (140-400); RED BLOOD COUNT 2.76 x10^6/uL (3.50-5.40); RED CELL DISTRIBUTION WIDTH 14.2 % (11.5-14.5); WHITE BLOOD COUNT 4.2 x10^3/uL (4.0-11.0)
[2018-04-23 08:42] LABS: CALCIUM 8.4 mg/dL (8.5-10.1); CREATININE 1.2 mg/dL (0.6-1.0); GFR 45.2; POTASSIUM 5.1 mmol/L (3.5-5.1)
[2018-04-23] MEDS: FERROUS SULFATE 325 MG TABLET. PO SCH (08:57)
[2018-04-23] MEDS: POLYETHYLENE GLYCOL 3350 17 GM PACKET. PO SCH (08:58)
[2018-04-23 11:00] VITALS: BP 109/56
--- NOTE | 2018-04-23 12:41 | PN ---
DATE: 04/23/2018 SUMMARY: The patient remained stable with ongoing right knee pain. Wound cultures have no specific organisms yet, so we will continue vancomycin and Merrem pending results. Vancomycin trough level was high, so we will increase the interval from 12 to 18 hours after a 12-hour hold. She continues to have what appears to be vaginal bleeding, postmenopausal in nature; so we will get a pelvic sonogram and check her serum ferritin, start oral iron and MiraLax in advance of POSTAL SERVICE WINDOW CLERK consult, which almost certainly will require hysteroscopy. Stool occult blood test is pending as she has been constipated, but it sounds more like this is vaginal rather than rectal bleeding. Continued IV antibiotics and hemodynamic instability in the face of having to take aspirin and Plavix with unknown source of bleeding requires her to be an inpatient ongoing. ALYSIA KIM MD DR: KARIN/nts JOB#: [id number] / [id number]
[2018-04-23] MEDS: VANCOMYCIN 2 GM in IV NORMAL SALINE 500ML BAG 500 ML IV SCH (12:45)
[2018-04-23 15:00] VITALS: BP 112/25
--- NOTE | 2018-04-23 17:21 | RAD ---
Pelvic ultrasound Clinical Indication: Vaginal bleeding. Postmenopausal.. . TRANSABDOMINAL SCAN Uterus and ovaries are not visualized, due to overlying bowel gas and obesity. TRANSVAGINAL SCAN The uterus and ovaries not visualized. No free fluid is identified. IMPRESSION: Limited study due to overlying bowel gas and body habitus. Uterus and ovaries are not visualized. Electronically signed by: Maurice Woo MD (04/23/2018 5:17 PM) [facility]
[2018-04-23 19:00] VITALS: BP 115/53
[2018-04-23] MEDS: ATORVASTATIN CALCIUM 40 MG TABLET. PO SCH (21:51)
[2018-04-23 23:00] VITALS: BP 100/40
[2018-04-24 03:00] VITALS: BP 130/49
[2018-04-24] MEDS: oxyCODONE/APAP 10/325 1 TAB TABLET PO PRN ×4 (03:56→22:36)
[2018-04-24] MEDS: MEROPENEM 1 GM in IV NORMAL SALINE 100ML 100 ML IV SCH ×3 (05:50→22:30)
[2018-04-24] MEDS: VANCOMYCIN 2 GM in IV NORMAL SALINE 500ML BAG 500 ML IV SCH (06:30)
[2018-04-24 07:00] VITALS: BP 107/37
[2018-04-24] MEDS: CARVEDILOL 3.125 MG TABLET. PO SCH ×2 (08:00→17:00)
--- NOTE | 2018-04-24 08:12 | PDOC ---
Provider Note Provider Note [id number] ALYSIA KIM MD Apr 24, 2018 08:11
[2018-04-24] MEDS: ALBUTEROL SULFATE 2.5 MG/3 ML NEBU. NEB SCH ×4 (08:20→23:34)
[2018-04-24] MEDS: BUDESONIDE 0.5 MG/2 ML NEBU. NEB SCH ×2 (08:20→19:51)
[2018-04-24] MEDS: VENLAFAXINE XR 37.5 MG CAP.ER.24H. PO SCH (08:45)
[2018-04-24] MEDS: ALPRAZolam 0.5 MG TABLET PO SCH ×3 (08:45→21:17)
[2018-04-24] MEDS: CLOPIDOGREL BISULFATE 75 MG TABLET PO SCH (08:45)
[2018-04-24] MEDS: buPROPion XL 150 MG TAB.ER.24H. PO SCH (08:45)
[2018-04-24] MEDS: POLYETHYLENE GLYCOL 3350 17 GM PACKET. PO SCH (08:45)
[2018-04-24] MEDS: FERROUS SULFATE 325 MG TABLET. PO SCH (08:45)
[2018-04-24] MEDS: ASPIRIN ENTERIC COATED 81 MG TABLET.DR. PO SCH (08:46)
[2018-04-24] MEDS: GABAPENTIN 400 MG CAPSULE. PO SCH ×3 (08:46→21:17)
[2018-04-24] MEDS: PANTOPRAZOLE 40 MG TABLET.DR. PO SCH (08:46)
[2018-04-24] MEDS: CHOLECALCIFEROL (VITAMIN D3) 1,000 UNIT TABLET PO SCH (08:46)
[2018-04-24] MEDS: LACTOBACILLUS RHAMNOSUS GG 1 CAPSULE. PO SCH ×2 (08:46→21:17)
--- NOTE | 2018-04-24 10:38 | PDOC ---
Infectious Disease Note Vital Sign Vital Signs Vital Signs Date Time Temp Pulse Resp B/P (MAP) Pulse Ox O2 Delivery O2 Flow Rate FiO2 04/24/18 10:11 Nasal Cannula 04/24/18 08:00 2.0 04/24/18 07:00 97.7 70 18 107/37 (60) 98 97.7 Labs Micro Microbiology 04/20/18 Blood Culture - Preliminary, Resulted NO GROWTH AFTER 3 DAYS 04/21/18 Anaerobic/Aerobic Culture - Preliminary, Resulted 04/21/18 Anaerobic Culture Result 1 (AZEB) - Preliminary, Resulted 04/21/18 Aerobic Culture - Preliminary, Resulted 04/21/18 Aerobic Culture Result 1 (AZEB) - Preliminary, Resulted 04/21/18 Aerobic Culture Result 2 (AZEB) - Preliminary, Resulted 04/21/18 Gram Stain - Final, Resulted 04/21/18 Gram Stain Result 1 (AZEB) - Final, Resulted 04/21/18 Gram Stain Result 2 (AZEB) - Final, Resulted 04/21/18 Gram Stain Result 3 (AZEB) - Final, Resulted Objective Assessment Leg cellulitis Leg chronic stasis dermatitis Venous insufficiency Morbid obesity Plan Plan of Care change vanc to doxy leg elevation profor wrap wt loss JOSHUA MOSELEY MD Apr 24, 2018 10:38
[2018-04-24 11:00] VITALS: BP 146/44
[2018-04-24] MEDS: hydroCHLOROthiazide 12.5 MG CAPSULE PO SCH (11:31)
[2018-04-24] MEDS: DOXYCYCLINE HYCLATE 100 MG TABLET PO SCH ×2 (11:31→21:17)
[2018-04-24] MEDS ORDERED: MAGNESIUM HYDROXIDE 2,400 MG/30 ML ORAL.SUSP. PO ONE (13:30)
[2018-04-24] MEDS: SIMETHICONE 80 MG TAB.CHEW PO SCH ×2 (14:16→16:32)
[2018-04-24 15:00] VITALS: BP 115/39
[2018-04-24 19:00] VITALS: BP 138/55
[2018-04-24] MEDS: ATORVASTATIN CALCIUM 40 MG TABLET. PO SCH (21:17)
[2018-04-24 23:00] VITALS: BP 94/44
--- NOTE | 2018-04-25 02:15 | PN ---
DATE: 04/24/2018 SUMMARY OF PROGRESS: The patient remains clinically stable with stable vital signs and no new symptoms. She still had ongoing perineal bleeding, which she thinks is more likely vaginal and rectal. Pelvic sonogram was unrevealing, but her obesity did not allow any visualization of her uterus or ovaries. [employer] PROGRAMMER REMOTE consult was placed to consider hysteroscopy with D and C to rule out a source of post-menopausal vaginal bleeding and certainly at high risk for endometrial hyperplasia or even endometrial carcinoma. Continue vancomycin and meropenem pending cultures, which are still pending definitively and ID consultation to guide further drug therapy, particularly transitioned to oral therapy when culture results available. BMP is stable as is the CBC. ALYSIA KIM MD DR: KARIN/nts JOB#: [id number] / [id number]
[2018-04-25 03:00] VITALS: BP 114/51
--- NOTE | 2018-04-25 05:02 | CONS ---
DATE OF CONSULTATION: 04/24/2018 REQUESTING PHYSICIAN: Caleb Miranda MD REASON FOR CONSULTATION: Leg cellulitis. HISTORY OF PRESENT ILLNESS: This is a 63-year-old female with morbid obesity, she had fallen. The patient was noted to have some cellulitis of the leg. The patient has been following with the wound care and she does have a Profore wraps. The patient says she had some nausea and vomiting. She had some fever and chills at home. The patient has been put on vancomycin. The patient has not noted to have any fever here and the white count has been normal. The patient says she is feeling much better and the legs are looking better. PAST MEDICAL HISTORY: Positive for morbid obesity, hypertension, renal insufficiency, venous insufficiency, stasis dermatitis, chronic lymphedema, obstructive sleep apnea, hyperlipidemia, coronary artery disease. SOCIAL HISTORY: Negative for smoking, alcohol use or drug use. ALLERGIES: SHE IS LISTED ALLERGIC TO LEVOFLOXACIN, ZOSYN, PROPOXYPHENE, SULFA. It is unclear what happened, she does not remember. CURRENT MEDICATIONS: Reviewed. The patient is on vancomycin. REVIEW OF SYSTEMS: As per HPI. All other systems reviewed are negative. PHYSICAL EXAMINATION: GENERAL: Alert, oriented female, not in any distress. VITAL SIGNS: Stable, sitting in chair. HEENT: NAD. NECK: Supple, no JVP, no lymphadenopathy. LUNGS: Clear. HEART: S1, S2 regular. ABDOMEN: Benign. EXTREMITIES: Bilateral lower extremity has a Profore wrap in place. The pictures taken before the Profore wrap reviewed. The patient does have minor skin breakdowns and what appears to be that all chronic changes with chronic venous insufficiency and stasis dermatitis and she may have had some redness that she says she had, but she says it improved. NEUROLOGIC: The patient is, otherwise, neurologically intact. LABORATORY DATA: White count is 4.2, hemoglobin 9.0, platelets are normal. BUN and creatinine are 21 and 1.2. Her vancomycin trough is 31.7. Her culture from the wound, which appears to be a surface culture, which is showing Staph aureus, susceptibilities are pending and gram-negative cody. IMPRESSION: 1. Cellulitis of the legs. 2. Chronic venous insufficiency. 3. Stasis dermatitis. 4. Morbid obesity. 5. Coronary artery disease. 6. Hypertension. RECOMMENDATIONS: 1. Would discontinue vancomycin. The level is too high and the pharmacy has adjusted, still giving the vancomycin, inviting trouble for renal insufficiency. I am going to discontinue. 2. The patient needs leg elevation, which she is not doing as she is always sitting in chair. 3. Weight reduction, which unfortunately she is not able to achieve. Continue Profore wraps and encourage her to leg elevation and weight reduction. Supportive care and we will continue to follow. Depending upon the culture results, I may add another agent for Gram-negative, but infection is not that much of a problem. Thank you very much, Dr. Miranda, for giving me the opportunity to participate in this patient's care. JOSHUA MOSELEY MD DR: JAYY/nts JOB#: [id number] / [id number]
[2018-04-25] MEDS: oxyCODONE/APAP 10/325 1 TAB TABLET PO PRN ×3 (05:24→21:22)
[2018-04-25] MEDS: MEROPENEM 1 GM in IV NORMAL SALINE 100ML 100 ML IV SCH (05:39)
[2018-04-25 06:28] LABS: BASO % 1 % (0-3); EOS # 0.1 x10^3/uL (0.0-0.7); EOS % 3 % (0-3); HEMATOCRIT 24.4 % (36.0-47.0); HEMOGLOBIN 8.2 g/dL (12.0-15.5); LYMPH # 0.9 x10^3/uL (1.0-4.8); LYMPH % 22 % (24-48); MEAN CORPUSCULAR HEMOGLOBIN 33 pg (25-35); MEAN CORPUSCULAR HGB CONC 34 g/dL (31-37); MEAN CORPUSCULAR VOLUME 98 fL (79-100); MONO # 0.3 x10^3/uL (0.0-1.1); MONO % 6 % (0-9); NEUT # 2.7 x10^3uL (1.8-7.7); NEUT % 68 % (31-73); PLATELET COUNT 137 x10^3/uL (140-400); RED BLOOD COUNT 2.49 x10^6/uL (3.50-5.40); RED CELL DISTRIBUTION WIDTH 14.7 % (11.5-14.5)
[2018-04-25] MEDS: ALBUTEROL SULFATE 2.5 MG/3 ML NEBU. NEB SCH ×4 (07:24→23:34)
[2018-04-25] MEDS: BUDESONIDE 0.5 MG/2 ML NEBU. NEB SCH ×2 (07:24→19:39)
[2018-04-25 08:00] VITALS: BP 106/31
[2018-04-25] MEDS: CARVEDILOL 3.125 MG TABLET. PO SCH ×2 (08:00→17:00)
--- NOTE | 2018-04-25 08:56 | PDOC ---
Provider Note Provider Note [id number] ALYSIA KIM MD Apr 25, 2018 08:56
[2018-04-25] MEDS: POLYETHYLENE GLYCOL 3350 17 GM PACKET. PO SCH (10:00)
[2018-04-25] MEDS: DOXYCYCLINE HYCLATE 100 MG TABLET PO SCH ×2 (10:01→21:13)
[2018-04-25] MEDS: ASPIRIN ENTERIC COATED 81 MG TABLET.DR. PO SCH (10:01)
[2018-04-25] MEDS: buPROPion XL 150 MG TAB.ER.24H. PO SCH (10:01)
[2018-04-25] MEDS: hydroCHLOROthiazide 12.5 MG CAPSULE PO SCH (10:01)
[2018-04-25] MEDS: PANTOPRAZOLE 40 MG TABLET.DR. PO SCH (10:01)
[2018-04-25] MEDS: CHOLECALCIFEROL (VITAMIN D3) 1,000 UNIT TABLET PO SCH (10:02)
[2018-04-25] MEDS: VENLAFAXINE XR 37.5 MG CAP.ER.24H. PO SCH (10:02)
[2018-04-25] MEDS: SIMETHICONE 80 MG TAB.CHEW PO SCH ×3 (10:02→17:30)
[2018-04-25] MEDS: FERROUS SULFATE 325 MG TABLET. PO SCH (10:02)
[2018-04-25] MEDS: LACTOBACILLUS RHAMNOSUS GG 1 CAPSULE. PO SCH ×2 (10:02→21:13)
[2018-04-25] MEDS: CLOPIDOGREL BISULFATE 75 MG TABLET PO SCH (10:02)
[2018-04-25] MEDS: ALPRAZolam 0.5 MG TABLET PO SCH ×3 (10:02→21:13)
--- NOTE | 2018-04-25 10:39 | PDOC ---
Infectious Disease Note Subjective Subjective feeling better ROS ROS no n/v/d/sob Vital Sign Vital Signs Vital Signs Date Time Temp Pulse Resp B/P (MAP) Pulse Ox O2 Delivery O2 Flow Rate FiO2 04/25/18 08:00 97.7 79 16 106/31 (56) 98 Nasal Cannula 3.0 97.7 Physical Exam PHYSICAL EXAM GENERAL: Alert, oriented female, not in any distress. VITAL SIGNS: Stable, sitting in chair. HEENT: NAD. NECK: Supple, no JVP, no lymphadenopathy. LUNGS: Clear. HEART: S1, S2 regular. ABDOMEN: Benign. EXTREMITIES: Bilateral lower extremity has a Profore wrap in place. The pictures taken before the Profore wrap reviewed. The patient does have minor skin breakdowns and what appears to be that all chronic changes with chronic venous insufficiency and stasis dermatitis and she may have had some redness that she says she had, but she says it improved. NEUROLOGIC: The patient is, otherwise, neurologically intact. Labs Lab Laboratory Tests Test 04/25/18 06:00 White Blood Count 4.0 x10^3/uL (4.0-11.0) Red Blood Count 2.49 x10^6/uL (3.50-5.40) Hemoglobin 8.2 g/dL (12.0-15.5) Hematocrit 24.4 % (36.0-47.0) Mean Corpuscular Volume 98 fL (79-100) Mean Corpuscular Hemoglobin 33 pg (25-35) Mean Corpuscular Hemoglobin Concent 34 g/dL (31-37) Red Cell Distribution Width 14.7 % (11.5-14.5) Platelet Count 137 x10^3/uL (140-400) Neutrophils (%) (Auto) 68 % (31-73) Lymphocytes (%) (Auto) 22 % (24-48) Monocytes (%) (Auto) 6 % (0-9) Eosinophils (%) (Auto) 3 % (0-3) Basophils (%) (Auto) 1 % (0-3) Neutrophils # (Auto) 2.7 x10^3uL (1.8-7.7) Lymphocytes # (Auto) 0.9 x10^3/uL (1.0-4.8) Monocytes # (Auto) 0.3 x10^3/uL (0.0-1.1) Eosinophils # (Auto) 0.1 x10^3/uL (0.0-0.7) Basophils # (Auto) 0.0 x10^3/uL (0.0-0.2) Micro ANAEROBIC RES 1 Preliminary Comment Holding for possible anaerobes. AEROBIC CULT Final Final report AEROBIC RES 1 Final Comment Methicillin - resistant Staphylococcus aureus 4+ Based on resistance to oxacillin this isolate would be resistant to all currently available beta-lactam antimicrobial agents, with the exception of the newer cephalosporins with anti-MRSA activity, such as Ceftaroline AEROBIC RES 2 Final Klebsiella pneumoniae 4+ ANTIMICROBIAL SUSCEPTIBILITY Final Comment S = Susceptible; I = Intermediate; R = Resistant P = Positive; N = Negative MICS are expressed in micrograms per mL Antibiotic RSLT#1 RSLT#2 RSLT#3 RSLT#4 Amoxicillin/Clavulanic Acid S<=2 Ampicillin R>=32 Cefepime S<=0.12 Ceftriaxone S<=0.25 Cefuroxime S<=1 Ciprofloxacin R>=8 S<=0.25 CONTINUED ON NEXT PAGE RUN DATE: 04/24/18 PAGE 2 RUN TIME: 1620 [facility] [address] [place] [address] Leopoldo Clark M.D., Optician Apprentice SPEC: [id number] PATIENT: KELL KENDALL [id number] ( Continued) Procedure Result ANTIMICROBIAL SUSCEPTIBILITY Final (continued) Clindamycin R>=8 Ertapenem S<=0.12 Erythromycin R>=8 Gentamicin S<=0.5 S<=1 Imipenem S<=0.25 Levofloxacin I =4 S<=0.12 Linezolid S =2 Meropenem S<=0.25 Oxacillin R>=4 Penicillin R>=0.5 Piperacillin/Tazobactam S<=4 Rifampin S<=0.5 Tetracycline S<=1 S<=1 Tobramycin S<=1 Trimethoprim/Sulfa S<=10 S<=20 Vancomycin S =1 GRAM STAIN Final Final report GRAM STAIN RES 1 Final Comment No white blood cells seen. GRAM STAIN RES 2 Final Comment Few gram positive cocci in pairs, chains, and clusters GRAM STAIN RES 3 Final Objective Assessment Leg cellulitis Leg chronic stasis dermatitis Venous insufficiency Morbid obesity Plan Plan of Care doxy leg elevation profor wrap wt loss d/c on doxy for 2 wks JOSHUA MOSELEY MD Apr 25, 2018 10:39
[2018-04-25 11:00] VITALS: BP 131/44
[2018-04-25] MEDS: AMOXICILLIN/K CLAV 875/125MG TABLET. PO SCH ×2 (13:48→21:13)
[2018-04-25] MEDS: GABAPENTIN 400 MG CAPSULE. PO SCH ×3 (13:48→21:13)
[2018-04-25 15:00] VITALS: BP 117/33
--- NOTE | 2018-04-25 16:02 | RAD ---
MR of the right knee Indication: Chronic right knee pain, worse after recent fall. Technique: The standard multiplanar sequences are obtained. Findings: Artifact: Image degradation due to body habitus and mild motion. Note that T1-weighted images in the sagittal and coronal plane were inadvertently obtained, rather than sagittal proton density weighted images, which compromises evaluation of the menisci. However, there is evidence of a medial meniscal tear. No definite lateral meniscal tear but difficult to exclude. Anterior cruciate ligament is poorly seen, may be due to the artifact. Posterior cruciate ligament intact. Medial collateral ligament demonstrates no acute tear. No acute tear of the iliotibial band or fibular collateral ligament. Extensor mechanism is intact. Small joint effusion. Primary osteoarthritis at all compartments with chondromalacia and marginal spurring, greatest at the medial joint. No aggressive bone destruction or acute fracture. IMPRESSION: 1. Exam limited by body habitus as well as motion. 2. Medial meniscal tear. 3. Primary osteoarthritis. Electronically signed by: Maurice Woo MD (04/25/2018 3:58 PM) [facility]
--- NOTE | 2018-04-25 17:31 | RAD ---
Pelvic ultrasound Clinical Indication: Vaginal bleeding. . TRANSABDOMINAL SCAN Uterus and ovaries not seen due to bowel gas and body habitus. TRANSVAGINAL SCAN Uterus and ovaries are not seen. No free fluid is identified. IMPRESSION: Uterus and ovaries are not visualized due to body habitus and bowel gas. No evidence of free fluid. Electronically signed by: Maurice Woo MD (04/25/2018 5:28 PM) [facility]
--- NOTE | 2018-04-25 18:23 | PDOC2 ---
CONSULT Date of Consult Date of Consult DATE: 04/25/18 TIME: 18:17 Reason for Consult Reason for Consult: vaginal bleeding Referring Physician Referring Physician: Dr. Miranda Identification/Chief Complaint Chief Complaint leg cellulitis and vaginal bleeding Source Source: Chart review, Patient History of Present Illness Reason for Visit: 63 y/o had a fall and was admitted to hospital. She has leg cellulitis and venous stasis ulcerations. She reports vaginal bleeding for 5 days 1 month ago. The bleeding was similar to menstrual cycle requiring 3-4 pads each day with passage of blood clots. She has h/o BTL. Menopause was 20 years ago. Pelvic sono attempted twice with no results. [place] [facility] [place] to evaluate PMB. Past Medical History Cardiovascular: CHF, Other Pulmonary: COPD, Other CENTRAL NERVOUS SYSTEM: Periperal neuropathy, Other GI: No pertinent hx Heme/Onc: Anemia NOS Hepatobiliary: No pertinent hx Psych: Anxiety, Depression Musculoskeletal: Osteoarthritis, Other Rheumatologic: No pertinent hx Infectious disease: Other Renal/: Chronic renal insuff Endocrine: Hypothyroidism Past Surgical History Past Surgical History: Appendectomy, Cholecystectomy, Tubal Ligation, Other Family History Family History: Heart Disease Social History ALCOHOL: none Drugs: None Current Problem List Problem List Problems Medical Problems: (1) Cellulitis Status: Acute Current Medications Current Medications Current Medications Diphtheria/ Tetanus/Acell Pertussis (Boostrix) 0.5 ml ONCE ONCE VAX IM Last administered on 04/20/18at 14:36; Start 04/20/18 at 14:30; Stop 04/20/18 at 14:31 ; Status DC Piperacillin Sod/ Tazobactam Sod 4.5 gm/Sodium Chloride 100 ml @ 200 mls/hr 1X ONCE IV ; Start 04/20/18 at 15:15; Stop 04/20/18 at 15:44; Status Cancel Vancomycin HCl 250 ml @ 250 mls/hr 1X ONCE IV ; Start 04/20/18 at 15:15; Stop 04/20/18 at 16:14; Status UNV Vancomycin HCl 2 gm/Sodium Chloride 500 ml @ 250 mls/hr ONCE ONCE IV Last administered on 04/20/18at 20:18; Start 04/20/18 at 15:45; Stop 04/20/18 at 17:44 ; Status DC Ondansetron HCl (Zofran) 4 mg PRN Q8HRS PRN IV NAUSEA/VOMITING; Start 04/20/18 at 15:15; Stop 04/21/18 at 15:14; Status DC Fentanyl Citrate (Fentanyl 2ml Vial) 50 mcg PRN Q1HR PRN IV PAIN Last administered on 04/21/18at 11:16; Start 04/20/18 at 15:15; Stop 04/21/18 at 15:14 ; Status DC Acetaminophen (Tylenol) 650 mg PRN Q4HRS PRN PO FEVER; Start 04/20/18 at 15:15 ; Stop 04/21/18 at 15:14; Status DC Meropenem 1 gm/ Sodium Chloride 100 ml @ 200 mls/hr Q8HRS IV ; Start 04/20/18 at 18:00; Stop 04/20/18 at 18:00; Status DC Meropenem 1 gm/ Sodium Chloride 100 ml @ 200 mls/hr Q8HRS IV Last administered on 04/25/18at 05:39; Start 04/20/18 at 18:00; Stop 04/25/18 at 08:54 ; Status DC Alprazolam (Xanax) 0.5 mg TID PO Last administered on 04/25/18at 13:48; Start at 21:00 Aspirin (Ecotrin) 81 mg DAILY PO Last administered on 04/25/18at 10:01; Start at 09:00 Atorvastatin Calcium (Lipitor) 40 mg HS PO Last administered on 04/24/18at 21:17 ; Start 04/20/18 at 21:00 Bupropion HCl (Wellbutrin Xl) 450 mg DAILY PO Last administered on 04/25/18at 10 :01; Start 04/21/18 at 09:00 Carvedilol (Coreg) 3.125 mg BIDWMEALS PO Last administered on 04/23/18at 08:29; Start 04/21/18 at 08:00 Vitamin D (Vitamin D3) 1,000 unit DAILY PO Last administered on 04/25/18at 10:02 ; Start 04/21/18 at 09:00 Clopidogrel Bisulfate (Plavix) 75 mg DAILY PO Last administered on 04/25/18at 10 :02; Start 04/21/18 at 09:00 Oxycodone/ Acetaminophen (Percocet 10/325) 2 tab PRN Q6HRS PRN PO MODERATE TO SEVERE PAIN Last administered on 04/25/18 13:47; Start 04/20/18 at 21:00 Pantoprazole Sodium (Protonix) 40 mg DAILYAC PO Last administered on 04/25/18 10:01; Start 04/21/18 at 07:30 Temazepam (Restoril) 30 mg PRN QHS PRN PO INSOMNIA Last administered on 23:48; Start 04/20/18 at 21:00 Non-Formulary Medication (Budesonide/ Formoterol Fumarate (Symbicort 80-4.5 Mcg Inhaler)) 2 puff BID IH ; Start 04/20/18 at 21:00; Status UNV Gabapentin (Neurontin) 1,200 mg TID PO Last administered on 04/25/18 13:48; Start 04/20/18 at 21:15 Hydrochlorothiazide (Microzide) 12.5 mg DAILY PO Last administered on 10:01; Start 04/21/18 at 09:00 Venlafaxine HCl (Effexor Xr) 75 mg DAILY PO Last administered on 04/25/18 10: 02; Start 04/21/18 at 09:00 Albuterol Sulfate (Ventolin Neb Soln) 2.5 mg Q6HRS NEB Last administered on 13:19; Start 04/21/18 at 00:00 Budesonide (Pulmicort) 0.5 mg RTBID NEB Last administered on 04/25/18at 07:24; Start 04/21/18 at 21:30 Lactobacillus Rhamnosus (Culturelle) 1 cap BID PO Last administered on at 10:02; Start 04/21/18 at 21:00 Vancomycin HCl (Vanco Per Pharmacy) 1 each PRN DAILY PRN MC SEE COMMENTS Last administered on 04/23/18 01:27; Start 04/21/18 at 11:30; Stop 04/24/18 at 10:41 ; Status DC Vancomycin HCl 2 gm/Sodium Chloride 500 ml @ 250 mls/hr Q12H IV Last administered on 04/22/18 13:46; Start 04/21/18 at 12:00; Stop 04/23/18 at 01:07 ; Status DC Vancomycin HCl (Vancomycin Trough Level) 1 each 1X ONCE MC Last administered on 04/22/18at 23:30; Start 04/22/18 at 23:30; Stop 04/22/18 at 23:31; Status DC Vancomycin HCl 2 gm/Sodium Chloride 500 ml @ 250 mls/hr Q18H IV Last administered on 04/24/18at 06:30; Start 04/23/18 at 12:00; Stop 04/24/18 at 10:32 ; Status DC Vancomycin HCl (Vancomycin Trough Level) 1 each 1X ONCE MC ; Start 04/26/18 at 11:30; Stop 04/26/18 at 11:30; Status DC Polyethylene Glycol (miraLAX PACKET) 34 gm DAILY PO Last administered on at 10:00; Start 04/23/18 at 09:00 Ferrous Sulfate (Feosol) 325 mg DAILYWBKFT PO Last administered on 04/25/18at 10 :02; Start 04/23/18 at 09:00 Doxycycline Hyclate (Vibra-Tab) 200 mg BID PO Last administered on 04/25/18at 10 :01; Start 04/24/18 at 11:30 Simethicone (Gas-X) 80 mg TIDPC PO Last administered on 04/25/18at 13:49; Start 04/24/18 at 13:30 Magnesium Hydroxide (Milk Of Magnesia) 2,400 mg 1X ONCE PO Last administered on 04/24/18at 14:17; Start 04/24/18 at 13:30; Stop 04/24/18 at 13:31; Status DC Amoxicillin/ Clavulanate Potassium (Augmentin 875/ 125mg) 1 tab BID PO Last administered on 04/25/18at 13:48; Start 04/25/18 at 09:00 Active Scripts Active Reported Vitamin D3 (Cholecalciferol (Vitamin D3)) 1,000 Unit Tablet 1 Tab PO DAILY Hydrochlorothiazide Capsule (Hydrochlorothiazide) 12.5 Mg Capsule 1 Cap PO DAILY Venlafaxine Hcl Er (Venlafaxine Hcl) 75 Mg Cap.er.24h 1 Cap PO DAILY Clopidogrel (Clopidogrel Bisulfate) 75 Mg Tablet 1 Tab PO DAILY Aspir 81 (Aspirin) 81 Mg Tablet.dr 1 Tab PO DAILY Protonix (Pantoprazole Sodium) 40 Mg Tablet.dr 40 Mg PO DAILY Coreg (Carvedilol) 3.125 Mg Tablet 3.125 Mg PO BIDWMEALS Atorvastatin Calcium 40 Mg Tablet 40 Mg PO HS Symbicort 80-4.5 Mcg Inhaler (Budesonide/Formoterol Fumarate) 10.2 Gm Hfa.aer.ad 2 Puff IH BID Alprazolam 0.5 Mg Tablet 1 Tab PO TID Percocet 10-325 Mg Tablet (Oxycodone/Acetaminophen) 1 Each Tablet 2 Tab .ROUTE PRN Q6HRS PRN Bupropion Hcl Sr (Bupropion Hcl) 150 Mg Tablet.er 450 Mg PO DAILY Temazepam 30 Mg Capsule 30 Mg PO HS PRN Gabapentin 600 Mg Tablet 2 Tab PO TID Allergies Allergies: Coded Allergies: codeine (Verified Allergy, Intermediate, 12/31/15) levofloxacin (Verified Allergy, Intermediate, 04/01/16) piperacillin (Verified Allergy, Intermediate, hives, rash, 04/25/18) TOLERATES MERREM, HAS TOLERATED UNASYN, AMOXICILLIN propoxyphene (Verified Allergy, Intermediate, 12/31/15) sulfamethoxazole (Verified Allergy, Intermediate, 12/31/15) tazobactam (Verified Allergy, Intermediate, hives, rash, 04/06/16) I S O L A T I O N *CONTACT* (Verified Allergy, Unknown, 04/23/18) (R) PSA, MRSA ROS General: YES: Fatigue, Malaise PSYCHOLOGICAL ROS: YES: Anxiety; No: Behavioral Disorder, Concentration difficultie, Decreased libido, Depression, Disorientation, Hallucinations, Hostility, Irritablity, Memory difficulties, Mood Swings, Obsessive thoughts, Physical abuse, Sexual abuse, Sleep disturbances, Suicidal ideation, Other Eyes: Yes Uses glasses; No Blurry vision, No Decreased vision, No Double vision, No Dry eyes, No Excessive tearing, No Eye Pain, No Itchy Eyes, No Loss of vision, No Photophobia , No Scotomata, No Uses contacts, No Other HEENT: No: Heacaches, Visual Changes, Hearing change, Nasal congestion, Nasal discharge, Oral lesions, Sinus pain, Sore Throat, Epistaxis, Sneezing, Snoring, Tinnitus, Vertigo, Vocal changes, Other ALLERGY AND IMMUNOLOGY: No: Hives, Insect Bite Sensitivity, Itchy/Watery Eyes, Nasal Congestion, Post Nasal Drip, Seasonal Allergies, Other Hematological and Lymphatic: No: Bleeding Problems, Blood Clots, Blood Transfusions, Brusing, Night Sweats, Pallor, Swollen Lymph Nodes, Other ENDOCRINE: No: Breast Changes, Galactorrhea, Hair Pattern Changes, Hot Flashes , Malaise/lethargy, Mood Swings, Palpitations, Polydipsia/polyuria, Skin Changes , Temperature Intolerance, Unexpected Weight Changes, Other Breast: No New/Changing Breast Lumps, No Nipple changes, No Nipple discharge, No Other Respiratory: YES: SOB with excertion Cardiovascular: No Chest Pain, No Palpitations, No Orthopnea, No Paroxysmal Noc. Dyspnea, No Edema, No Lt Headedness, No Other Gastrointestinal: No Nausea, No Vomiting, No Abdominal Pain, No Diarrhea, No Constipation, No Melena, No Hematochezia, No Other Genitourinary: YES Other (only spotting since admission.) Skin: Yes Skin Lesion Changes Physical Exam General: Alert, Oriented X3, Cooperative Psych/Mental Status: Mental status NL MUSCULOSKELETAL: Abnormal exam of both Vitals VITALS Vital Signs Date Time Temp Pulse Resp B/P (MAP) Pulse Ox O2 Delivery O2 Flow Rate FiO2 04/25/18 15:00 97.5 78 18 117/33 (61) 100 Nasal Cannula 3.0 97.5 Labs Labs Laboratory Tests Test 04/25/18 06:00 White Blood Count 4.0 x10^3/uL (4.0-11.0) Red Blood Count 2.49 x10^6/uL (3.50-5.40) Hemoglobin 8.2 g/dL (12.0-15.5) Hematocrit 24.4 % (36.0-47.0) Mean Corpuscular Volume 98 fL (79-100) Mean Corpuscular Hemoglobin 33 pg (25-35) Mean Corpuscular Hemoglobin Concent 34 g/dL (31-37) Red Cell Distribution Width 14.7 % (11.5-14.5) Platelet Count 137 x10^3/uL (140-400) Neutrophils (%) (Auto) 68 % (31-73) Lymphocytes (%) (Auto) 22 % (24-48) Monocytes (%) (Auto) 6 % (0-9) Eosinophils (%) (Auto) 3 % (0-3) Basophils (%) (Auto) 1 % (0-3) Neutrophils # (Auto) 2.7 x10^3uL (1.8-7.7) Lymphocytes # (Auto) 0.9 x10^3/uL (1.0-4.8) Monocytes # (Auto) 0.3 x10^3/uL (0.0-1.1) Eosinophils # (Auto) 0.1 x10^3/uL (0.0-0.7) Basophils # (Auto) 0.0 x10^3/uL (0.0-0.2) Laboratory Tests Test 04/25/18 06:00 White Blood Count 4.0 x10^3/uL (4.0-11.0) Red Blood Count 2.49 x10^6/uL (3.50-5.40) Hemoglobin 8.2 g/dL (12.0-15.5) Hematocrit 24.4 % (36.0-47.0) Mean Corpuscular Volume 98 fL (79-100) Mean Corpuscular Hemoglobin 33 pg (25-35) Mean Corpuscular Hemoglobin Concent 34 g/dL (31-37) Red Cell Distribution Width 14.7 % (11.5-14.5) Platelet Count 137 x10^3/uL (140-400) Neutrophils (%) (Auto) 68 % (31-73) Lymphocytes (%) (Auto) 22 % (24-48) Monocytes (%) (Auto) 6 % (0-9) Eosinophils (%) (Auto) 3 % (0-3) Basophils (%) (Auto) 1 % (0-3) Neutrophils # (Auto) 2.7 x10^3uL (1.8-7.7) Lymphocytes # (Auto) 0.9 x10^3/uL (1.0-4.8) Monocytes # (Auto) 0.3 x10^3/uL (0.0-1.1) Eosinophils # (Auto) 0.1 x10^3/uL (0.0-0.7) Basophils # (Auto) 0.0 x10^3/uL (0.0-0.2) Assessment/Plan Assessment/Plan A: PMB P: PLan for OP [facility] on Monday afternoon to evaluate PMB. Thank you for consult. ANNIE MELO Jr, MD Apr 25, 2018 18:23
[2018-04-25 19:00] VITALS: BP 97/24
--- NOTE | 2018-04-25 21:11 | PN ---
DATE: 04/25/2018 Still feels the right knee is very unstable and weak and she can barely bear weight on it. Note, that the MRI was done of the lower extremity, does not really discuss the anatomy, but more of the tib-fib, so we will order a right knee MRI specifically to rule out any ligament or cartilage injury that precludes her full weightbearing. Hemoglobin was down to 8.2, will now switch to oral Augmentin in place of meropenem as the culture shows Klebsiella sensitive to Augmentin and is already on doxycycline in place of vancomycin for the MRSA and culture as well. DRY SAND MOLDER consultation is pending regarding postmenopausal vaginal bleeding ongoing and the patient is at risk for more severe blood loss given her dual antiplatelet drugs that are needed and a plan in place before dismissal would be imperative. ALYSIA KIM MD DR: KARIN/lidia JOB#: [id number] / [id number]
[2018-04-25] MEDS: ATORVASTATIN CALCIUM 40 MG TABLET. PO SCH (21:13)
[2018-04-25 23:00] VITALS: BP 117/23
[2018-04-26 03:00] VITALS: BP 120/36
[2018-04-26] MEDS: oxyCODONE/APAP 10/325 1 TAB TABLET PO PRN ×3 (04:25→17:26)
[2018-04-26 06:41] LABS: HEMATOCRIT 24.9 % (36.0-47.0); HEMOGLOBIN 8.3 g/dL (12.0-15.5); RED BLOOD COUNT 2.53 x10^6/uL (3.50-5.40); RED CELL DISTRIBUTION WIDTH 14.7 % (11.5-14.5); WHITE BLOOD COUNT 3.8 x10^3/uL (4.0-11.0)
[2018-04-26 07:00] VITALS: BP 97/31
[2018-04-26] MEDS: ALBUTEROL SULFATE 2.5 MG/3 ML NEBU. NEB SCH ×3 (07:39→20:01)
[2018-04-26] MEDS: BUDESONIDE 0.5 MG/2 ML NEBU. NEB SCH ×2 (07:39→20:01)
--- NOTE | 2018-04-26 08:33 | PDOC ---
Provider Note Provider Note [id number] ALYSIA KIM MD Apr 26, 2018 08:33
--- NOTE | 2018-04-26 08:35 | DISCH ---
DISCHARGE INSTRUCTIONS Condition on Discharge Condition on Discharge: Stable Activity After Discharge Activity Instructions for Disc: Activity as tolerated Bathing Instructions: No Tub Bath until see Lifting Instructions after Dis: No heavy lifting, No pulling or pushing, Do not lift >10 pounds Weight Bearing Status after Di: As tolerated Diet after Discharge Diet after Discharge: Low Sodium 4 gm Diet Texture: Regular Liquid Texture: Thin Liquid Swallowing Supervision: None needed Wound Incision Care Wound/Incision Care: Keep wound/cast CDI, Do not change dressing Wound Care Equipment: Dressings Checks after Discharge Checks after discharge: Check blood press - daily Follow-Up Follow up with: dr green 1 w Treatment/Equipment after DC Adaptive Equipment Issued: None Discharge Respiratory Equipmen: Oxygen ALYSIA KIM MD Apr 26, 2018 08:35
[2018-04-26] MEDS: buPROPion XL 150 MG TAB.ER.24H. PO SCH (08:44)
[2018-04-26] MEDS: GABAPENTIN 400 MG CAPSULE. PO SCH ×3 (08:44→21:19)
[2018-04-26] MEDS: DOXYCYCLINE HYCLATE 100 MG TABLET PO SCH ×2 (08:45→21:19)
[2018-04-26] MEDS: VENLAFAXINE XR 37.5 MG CAP.ER.24H. PO SCH (08:45)
[2018-04-26] MEDS: LACTOBACILLUS RHAMNOSUS GG 1 CAPSULE. PO SCH ×2 (08:45→21:19)
[2018-04-26] MEDS: ASPIRIN ENTERIC COATED 81 MG TABLET.DR. PO SCH (08:45)
[2018-04-26] MEDS: AMOXICILLIN/K CLAV 875/125MG TABLET. PO SCH (08:45)
[2018-04-26] MEDS: ALPRAZolam 0.5 MG TABLET PO SCH ×3 (08:45→21:19)
[2018-04-26] MEDS: SIMETHICONE 80 MG TAB.CHEW PO SCH ×3 (08:46→17:25)
[2018-04-26] MEDS: POLYETHYLENE GLYCOL 3350 17 GM PACKET. PO SCH (08:46)
[2018-04-26] MEDS: FERROUS SULFATE 325 MG TABLET. PO SCH (08:46)
[2018-04-26] MEDS: PANTOPRAZOLE 40 MG TABLET.DR. PO SCH (08:46)
[2018-04-26] MEDS: CHOLECALCIFEROL (VITAMIN D3) 1,000 UNIT TABLET PO SCH (08:46)
[2018-04-26] MEDS: CLOPIDOGREL BISULFATE 75 MG TABLET PO SCH (08:47)
[2018-04-26 11:00] VITALS: BP 122/55
--- NOTE | 2018-04-26 11:18 | PDOC ---
Infectious Disease Note Subjective Subjective feeling better ROS ROS cont to have vaginal bleed Vital Sign Vital Signs Vital Signs Date Time Temp Pulse Resp B/P (MAP) Pulse Ox O2 Delivery O2 Flow Rate FiO2 04/26/18 07:44 100 Nasal Cannula 3.0 04/26/18 07:00 98.1 76 18 97/31 (53) 98.1 Physical Exam PHYSICAL EXAM GENERAL: Alert, oriented female, not in any distress. VITAL SIGNS: Stable, sitting in chair. HEENT: NAD. NECK: Supple, no JVP, no lymphadenopathy. LUNGS: Clear. HEART: S1, S2 regular. ABDOMEN: Benign. EXTREMITIES: Bilateral lower extremity has a Profore wrap in place. The pictures taken before the Profore wrap reviewed. The patient does have minor skin breakdowns and what appears to be that all chronic changes with chronic venous insufficiency and stasis dermatitis and she may have had some redness that she says she had, but she says it improved. NEUROLOGIC: The patient is, otherwise, neurologically intact. Labs Lab Laboratory Tests Test 04/26/18 05:42 White Blood Count 3.8 x10^3/uL (4.0-11.0) Red Blood Count 2.53 x10^6/uL (3.50-5.40) Hemoglobin 8.3 g/dL (12.0-15.5) Hematocrit 24.9 % (36.0-47.0) Mean Corpuscular Volume 99 fL (79-100) Mean Corpuscular Hemoglobin 33 pg (25-35) Mean Corpuscular Hemoglobin Concent 33 g/dL (31-37) Red Cell Distribution Width 14.7 % (11.5-14.5) Platelet Count 137 x10^3/uL (140-400) Micro ANAEROBIC-AEROBIC CULTURE Final Final report ANAEROBIC RES 1 Final Comment Prevotella melaninogenica Scant growth Beta lactamase positive. AEROBIC CULT Final Final report AEROBIC RES 1 Final Comment Methicillin - resistant Staphylococcus aureus 4+ Based on resistance to oxacillin this isolate would be resistant to all currently available beta-lactam antimicrobial agents, with the exception of the newer cephalosporins with anti-MRSA activity, such as Ceftaroline AEROBIC RES 2 Final Klebsiella pneumoniae 4+ ANTIMICROBIAL SUSCEPTIBILITY Final Comment S = Susceptible; I = Intermediate; R = Resistant P = Positive; N = Negative MICS are expressed in micrograms per mL Antibiotic RSLT#1 RSLT#2 RSLT#3 RSLT#4 Amoxicillin/Clavulanic Acid S<=2 Ampicillin R>=32 Cefepime S<=0.12 Ceftriaxone S<=0.25 CONTINUED ON NEXT PAGE RUN DATE: 04/25/18 PAGE 2 RUN TIME: 1917 [facility] [address] [place] [address] Leopoldo Clark M.D., Print Binding And Finishing Worker SPEC: [id number] PATIENT: KELL KENDALL [id number] ( Continued) Procedure Result ANTIMICROBIAL SUSCEPTIBILITY Final (continued) Cefuroxime S<=1 Ciprofloxacin R>=8 S<=0.25 Clindamycin R>=8 Ertapenem S<=0.12 Erythromycin R>=8 Gentamicin S<=0.5 S<=1 Imipenem S<=0.25 Levofloxacin I =4 S<=0.12 Linezolid S =2 Meropenem S<=0.25 Oxacillin R>=4 Penicillin R>=0.5 Piperacillin/Tazobactam S<=4 Rifampin S<=0.5 Tetracycline S<=1 S<=1 Tobramycin S<=1 Trimethoprim/Sulfa S<=10 S<=20 Vancomycin S =1 GRAM STAIN Final Final report GRAM STAIN RES 1 Final Comment No white blood cells seen. GRAM STAIN RES 2 Final Comment Few gram positive cocci in pairs, chains, and clusters GRAM STAIN RES 3 Final Comment Few gram negative rods. Performed at: DA - [facility] [address], [place], [place] [id number] Jira Developer: ISAK Dowd MD, Phone: [phone] END OF REPORT Objective Assessment Leg cellulitis Leg chronic stasis dermatitis Venous insufficiency Morbid obesity Plan Plan of Care doxy leg elevation profor miguelap wt loss d/c on doxy for 2 wks uterine biopsy pending JOSHUA MOSELEY MD Apr 26, 2018 11:18
--- NOTE | 2018-04-26 12:07 | DS ---
DATE OF DISCHARGE: 04/26/2018 HOSPITAL SUMMARY: A 63-year-old white female who came in with increasing weeping, swelling and pain in the wounds on her right leg. She had been off oral antibiotics for a month or two from the wound care center when this recurred. Cultures grew out MRSA and Klebsiella with sensitivities to doxycycline for the MRSA as well as vancomycin and Augmentin for the Klebsiella. Hemoglobin was low, but stable around 8.3-9, white count normal around 4000, platelets were normal. Imaging studies showed a normal tibia and fibula, but the MRI of the knee showed evidence of a medial meniscus tear, which is likely new as she has had some recent knee pain. Plain films of the knee were unremarkable. She was given IV vancomycin and meropenem throughout the hospital stay, switched to oral doxycycline and Augmentin prior to discharge and is doing better. Pelvic sonogram was attempted because of postmenopausal bleeding, but was unrevealing because of her size. Dr. Killian plans to take her to hysteroscopy and D and C as an outpatient and she is stable to be discharged at this point. FINAL DIAGNOSES: 1. Chronic cellulitis of the right lower extremity secondary to venous stasis edema and lymphedema secondary to fissuring. 2. Postmenopausal bleeding, etiology undetermined. 3. Iron deficiency anemia, multifactorial. 4. Medial meniscus tear, right knee. OPERATIONS, PROCEDURES, COMPLICATIONS: None. CONSULTATIONS: Dr. Shane Nash, Dr. Killian. DISPOSITION: She will go back on doxycycline 100 mg twice a day and Augmentin 875 mg twice a day with followup in my office in 1 week and [facility] to consider chronic antibiotic therapy resumption as they had done before. We will consider intra-articular injection of the right knee for pain when she comes to the office. She will continue iron tablets twice a day for bleeding support as she takes aspirin and Plavix for coronary artery disease and stents. She will have her hysteroscopy done tomorrow as an outpatient and her prognosis is guarded. ALYSIA KIM MD DR: KARIN/lidia JOB#: [id number] / [id number]
[2018-04-26] MEDS: CARVEDILOL 3.125 MG TABLET. PO SCH ×2 (12:27→17:25)
[2018-04-26] MEDS: hydroCHLOROthiazide 12.5 MG CAPSULE PO SCH (12:27)
[2018-04-26 15:00] VITALS: BP 120/55
[2018-04-26 19:00] VITALS: BP_SYST 106; BP_SYST 145; BP_DIAS 34; BP_DIAS 56
[2018-04-26 19:27] LABS: FECAL OB PT NEGATIVE (NEG)
[2018-04-26] MEDS: ATORVASTATIN CALCIUM 40 MG TABLET. PO SCH (21:19)
[2018-04-26 23:00] VITALS: BP 137/48
[2018-04-27] VITALS (9 sets, daily range): BP systolic 98–145; BP diastolic 36–55
[2018-04-27] MEDS: ALBUTEROL SULFATE 2.5 MG/3 ML NEBU. NEB SCH ×4 (01:13→20:53)
[2018-04-27] MEDS: oxyCODONE/APAP 10/325 1 TAB TABLET PO PRN ×3 (02:21→19:56)
[2018-04-27 05:39] LABS: HEMATOCRIT 24.1 % (36.0-47.0); HEMOGLOBIN 8.1 g/dL (12.0-15.5); RED BLOOD COUNT 2.47 x10^6/uL (3.50-5.40); RED CELL DISTRIBUTION WIDTH 14.6 % (11.5-14.5); WHITE BLOOD COUNT 3.3 x10^3/uL (4.0-11.0)
[2018-04-27] MEDS ORDERED: IV RINGERS,LACTATED 1000ML 1,000 ML IV SCH (07:00)
[2018-04-27] MEDS ORDERED: ONDANSETRON PF 4 MG/2 ML VIAL. IV PRN (07:00)
[2018-04-27] MEDS ORDERED: PROCHLORPERAZINE 10 MG/2 ML VIAL. IV PRN (07:00)
[2018-04-27] MEDS ORDERED: fentaNYL PF VIAL 100 MCG/2 ML VIAL IV PRN (07:00)
[2018-04-27] MEDS ORDERED: LIDOCAINE 1% PF 2 ML VIAL. ID PRN (07:00)
[2018-04-27] MEDS ORDERED: MORPHINE SULFATE 2 MG/ML VIAL. IV PRN (07:00)
[2018-04-27] MEDS: BUDESONIDE 0.5 MG/2 ML NEBU. NEB SCH ×2 (07:37→20:53)
[2018-04-27] MEDS: PANTOPRAZOLE 40 MG TABLET.DR. PO SCH (07:55)
[2018-04-27] MEDS: CARVEDILOL 3.125 MG TABLET. PO SCH ×2 (07:58→17:00)
[2018-04-27] MEDS: FERROUS SULFATE 325 MG TABLET. PO SCH (07:59)
[2018-04-27] MEDS: SIMETHICONE 80 MG TAB.CHEW PO SCH ×3 (07:59→17:30)
[2018-04-27] MEDS: LACTOBACILLUS RHAMNOSUS GG 1 CAPSULE. PO SCH ×2 (07:59→21:42)
[2018-04-27] MEDS: ASPIRIN ENTERIC COATED 81 MG TABLET.DR. PO SCH (07:59)
[2018-04-27] MEDS: POLYETHYLENE GLYCOL 3350 17 GM PACKET. PO SCH (08:00)
[2018-04-27] MEDS: VENLAFAXINE XR 37.5 MG CAP.ER.24H. PO SCH (08:00)
[2018-04-27] MEDS: hydroCHLOROthiazide 12.5 MG CAPSULE PO SCH (08:00)
[2018-04-27] MEDS: DOXYCYCLINE HYCLATE 100 MG TABLET PO SCH ×2 (08:01→21:42)
[2018-04-27] MEDS: CLOPIDOGREL BISULFATE 75 MG TABLET PO SCH (08:01)
[2018-04-27] MEDS: GABAPENTIN 400 MG CAPSULE. PO SCH ×3 (08:01→21:42)
[2018-04-27] MEDS: CHOLECALCIFEROL (VITAMIN D3) 1,000 UNIT TABLET PO SCH (08:02)
[2018-04-27] MEDS: ALPRAZolam 0.5 MG TABLET PO SCH ×3 (08:02→21:42)
[2018-04-27] MEDS: buPROPion XL 150 MG TAB.ER.24H. PO SCH (08:02)
[2018-04-27] MEDS ORDERED: PROPOFOL 20 ML IV ONE (12:59)
[2018-04-27] MEDS ORDERED: LIDOCAINE 2% PF Vial for OR 5 ML VIAL. ONE (12:59)
[2018-04-27] MEDS ORDERED: fentaNYL PF VIAL 100 MCG/2 ML VIAL ONE ×2 (12:59→13:49)
[2018-04-27] MEDS ORDERED: MIDAZOLAM HCL/PF 2 MG/2 ML VIAL. ONE (13:00)
[2018-04-27] MEDS: fentaNYL PF VIAL 100 MCG/2 ML VIAL IV PRN ×2 (13:55→14:20)
[2018-04-27] MEDS ORDERED: ceFAZolin SODIUM 3 GM in IV DEXTROSE 5% 100ML 100 ML IV ONE (15:15)
[2018-04-27] MEDS ORDERED: SEVOFLURANE 61 TO 120 MINUTES. IH ONE (16:05)
[2018-04-27] MEDS ORDERED: DEXAMETHASONE SOD PHOS 20 MG/5 ML VIAL. ONE (16:05)
[2018-04-27] MEDS ORDERED: ONDANSETRON PF 4 MG/2 ML VIAL. ONE (16:05)
[2018-04-27] MEDS ORDERED: SEVOFLURANE 31 TO 60 MINUTES. IH ONE (16:15)
--- NOTE | 2018-04-27 16:24 | PDOC ---
BRIEF OPERATIVE NOTE Date: Apr 27, 2018 Pre-Op Diagnosis PMB Post-Op Diagnosis Same Procedure Performed Op [facility] [place] Surgeon Dr. Killian Anesthesia Type: General Blood Loss 10 ml Specimens Obtained endometrial biopsy Findings enlarged uterus with abnml clear cellular tissue and heterogenous endometrial lining. Complications none Operative Note see dictation ANNIE KILLIAN Jr, MD Apr 27, 2018 16:24
--- NOTE | 2018-04-27 17:07 | OP ---
DATE OF SURGERY: PREOPERATIVE DIAGNOSIS: Postmenopausal bleeding. POSTOPERATIVE DIAGNOSIS: Postmenopausal bleeding. PROCEDURE: Operative hysteroscopy. SURGEON: Michael Killian MD ANESTHESIA: GETA. ESTIMATED BLOOD LOSS: 10 mL. COMPLICATIONS: None. FINDINGS: Enlarged uterus with abnormal clear cellular tissue and heterogeneous endometrial lining. COMPLICATIONS: None. SUMMARY: A 63-year-old female with postmenopausal bleeding for up to 1 month. The patient was admitted to the hospital mainly due to lymphedema complications. She was counseled on the risks, benefits and expectations of having operative hysteroscopy for evaluation of her postmenopausal bleeding and voiced a clear understanding to proceed. DESCRIPTION OF PROCEDURE: The patient was taken to the surgery suite and placed in the dorsal lithotomy position where she was prepped with Betadine solution and draped in a sterile fashion. After adequate anesthesia, weighted speculum and curved [place] placed vaginally. The anterior lip of the cervix was grasped with a single tooth tenaculum. Cervix was dilated with Hegar dilators up to size 6. The TruClear hysteroscope was positioned. There was clear cellular type of tissue that was intrauterine and that was removed with a TruClear device. The fallopian tube ostia were visualized and appeared normal. The remainder areas of the endometrial canal were heterogeneous in which the TruClear device was utilized for additional biopsying. The hysteroscope was then removed. The single tooth tenaculum and weighted speculum were removed. Cervix was hemostatic. The patient tolerated the procedure well and was taken to the recovery room in stable condition. Sponge count correct x 3. MICHAEL KILLIAN MD DR: VIET/lidia JOB#: [id number] / [id number]
[2018-04-27] MEDS: ATORVASTATIN CALCIUM 40 MG TABLET. PO SCH (21:43)
[2018-04-28] MEDS: oxyCODONE/APAP 10/325 1 TAB TABLET PO PRN ×4 (02:57→23:04)
[2018-04-28 03:13] VITALS: BP 140/58
[2018-04-28 07:00] VITALS: BP 115/34
[2018-04-28] MEDS: BUDESONIDE 0.5 MG/2 ML NEBU. NEB SCH ×2 (07:24→20:15)
[2018-04-28] MEDS: ALBUTEROL SULFATE 2.5 MG/3 ML NEBU. NEB SCH ×4 (07:24→20:15)
[2018-04-28] MEDS: POLYETHYLENE GLYCOL 3350 17 GM PACKET. PO SCH (08:41)
[2018-04-28] MEDS: LACTOBACILLUS RHAMNOSUS GG 1 CAPSULE. PO SCH ×2 (08:41→20:42)
[2018-04-28] MEDS: DOXYCYCLINE HYCLATE 100 MG TABLET PO SCH ×2 (08:41→20:42)
[2018-04-28] MEDS: PANTOPRAZOLE 40 MG TABLET.DR. PO SCH (08:42)
[2018-04-28] MEDS: VENLAFAXINE XR 37.5 MG CAP.ER.24H. PO SCH (08:42)
[2018-04-28] MEDS: GABAPENTIN 400 MG CAPSULE. PO SCH ×3 (08:42→20:48)
[2018-04-28] MEDS: FERROUS SULFATE 325 MG TABLET. PO SCH (08:43)
[2018-04-28] MEDS: ALPRAZolam 0.5 MG TABLET PO SCH ×3 (08:43→20:42)
[2018-04-28] MEDS: CHOLECALCIFEROL (VITAMIN D3) 1,000 UNIT TABLET PO SCH (08:43)
[2018-04-28] MEDS: SIMETHICONE 80 MG TAB.CHEW PO SCH ×3 (08:44→16:56)
[2018-04-28] MEDS: hydroCHLOROthiazide 12.5 MG CAPSULE PO SCH (08:44)
[2018-04-28] MEDS: CARVEDILOL 3.125 MG TABLET. PO SCH ×2 (08:44→16:56)
[2018-04-28] MEDS: CLOPIDOGREL BISULFATE 75 MG TABLET PO SCH (08:45)
[2018-04-28] MEDS: buPROPion XL 150 MG TAB.ER.24H. PO SCH (08:45)
[2018-04-28] MEDS: ASPIRIN ENTERIC COATED 81 MG TABLET.DR. PO SCH (08:45)
[2018-04-28 11:00] VITALS: BP 143/45
[2018-04-28 15:00] VITALS: BP 120/42
[2018-04-28 19:52] VITALS: BP 107/43
[2018-04-28] MEDS: ATORVASTATIN CALCIUM 40 MG TABLET. PO SCH (20:42)
--- NOTE | 2018-04-28 21:27 | PN ---
DATE: 04/28/2018 LOCATION: She is in room 576. SUBJECTIVE: The patient is awake, alert, getting ready to eat breakfast, still feels like it is very difficult to walk around, particularly with the right knee pain. OBJECTIVE: VITAL SIGNS: Stable. She is afebrile. She is on O2 at 3 liters per nasal cannula. CHEST: Clear. HEART: Regular. ABDOMEN: Obese and benign. EXTREMITIES: Wrapped. LABORATORY DATA: White blood count yesterday was 3300, hemoglobin was 8.1, platelet 121,000. She has grown MRSA and Klebsiella out of her leg cultures. ID suggestion of 2 weeks of doxycycline are noted from her note yesterday. She did have an endometrial aspiration yesterday with pathology pending. MRI of her right knee does show a medial meniscal tear. IMPRESSION: 1. Right knee pain with difficulties walking and refusing most therapy. 2. Postmenopausal bleeding with endometrial aspiration done yesterday. 3. Methicillin-resistant Staphylococcus aureus and Klebsiella cellulitis of lower extremities, on appropriate antibiotics for the same. 4. Anemia. 5. Leukopenia. PLAN: Continue present antibiotics. Encouraged her to be up and around and to do therapy prior to consideration for discharge home. Endometrial aspiration results will probably not be available till next week. DORON GARCIA MD DR: YURIDIA/lidia JOB#: [id number] / [id number]
[2018-04-28] MEDS: TEMAZEPAM 15 MG CAPSULE PO PRN (23:03)
[2018-04-28 23:18] VITALS: BP 114/43
[2018-04-29] MEDS: ALBUTEROL SULFATE 2.5 MG/3 ML NEBU. NEB SCH ×4 (00:26→20:11)
[2018-04-29 02:55] VITALS: BP 118/38
[2018-04-29] MEDS: oxyCODONE/APAP 10/325 1 TAB TABLET PO PRN ×3 (06:11→18:39)
[2018-04-29 07:00] VITALS: BP 113/41
[2018-04-29] MEDS: BUDESONIDE 0.5 MG/2 ML NEBU. NEB SCH ×2 (07:21→20:11)
[2018-04-29] MEDS: POLYETHYLENE GLYCOL 3350 17 GM PACKET. PO SCH (08:21)
[2018-04-29] MEDS: VENLAFAXINE XR 37.5 MG CAP.ER.24H. PO SCH (08:23)
[2018-04-29] MEDS: buPROPion XL 150 MG TAB.ER.24H. PO SCH (08:23)
[2018-04-29] MEDS: LACTOBACILLUS RHAMNOSUS GG 1 CAPSULE. PO SCH ×2 (08:24→21:31)
[2018-04-29] MEDS: DOXYCYCLINE HYCLATE 100 MG TABLET PO SCH ×2 (08:24→21:31)
[2018-04-29] MEDS: hydroCHLOROthiazide 12.5 MG CAPSULE PO SCH (08:24)
[2018-04-29] MEDS: ASPIRIN ENTERIC COATED 81 MG TABLET.DR. PO SCH (08:24)
[2018-04-29] MEDS: CHOLECALCIFEROL (VITAMIN D3) 1,000 UNIT TABLET PO SCH (08:28)
[2018-04-29] MEDS: CARVEDILOL 3.125 MG TABLET. PO SCH ×2 (08:28→16:44)
[2018-04-29] MEDS: PANTOPRAZOLE 40 MG TABLET.DR. PO SCH (08:28)
[2018-04-29] MEDS: CLOPIDOGREL BISULFATE 75 MG TABLET PO SCH (08:29)
[2018-04-29] MEDS: FERROUS SULFATE 325 MG TABLET. PO SCH (08:29)
[2018-04-29] MEDS: SIMETHICONE 80 MG TAB.CHEW PO SCH ×3 (08:29→16:44)
[2018-04-29] MEDS: ALPRAZolam 0.5 MG TABLET PO SCH ×3 (08:30→21:31)
[2018-04-29] MEDS: GABAPENTIN 400 MG CAPSULE. PO SCH ×3 (08:34→21:31)
[2018-04-29 11:00] VITALS: BP 120/52
[2018-04-29 15:00] VITALS: BP 119/55
[2018-04-29 19:00] VITALS: BP 143/60
[2018-04-29] MEDS: ATORVASTATIN CALCIUM 40 MG TABLET. PO SCH (21:31)
[2018-04-29 23:00] VITALS: BP 123/47
--- NOTE | 2018-04-29 23:48 | PN ---
DATE: 04/29/2018 LOCATION: She is in room 576. SUBJECTIVE: The patient is awake, alert, sitting in chair. I woke her from a nap. She feels like with the right knee, she is getting around somewhat better and will be ready to by tomorrow, but is not ready to go today because of the inability to walk around well enough to handle things at home. OBJECTIVE: VITAL SIGNS: Stable. She is afebrile. She remains on O2 at 3 liters per nasal cannula. CHEST: Clear. HEART: Regular. ABDOMEN: Obese and benign. EXTREMITIES: Remain wrapped. Results of endometrial aspiration are still pending. IMPRESSION: 1. Right knee pain with difficulties walking and a medial meniscal tear. 2. Postmenopausal bleeding with endometrial aspiration, with results pending. 3. Methicillin-resistant Staphylococcus aureus and Klebsiella cellulitis of the lower extremities, on appropriate antibiotics. 4. Anemia. 5. Leukopenia. PLAN: Continue present antibiotics. Encouraged her once again to be up and around. She is refusing senior living at this point in time and likely will be discharged tomorrow. DORON GARCIA MD DR: YURIDIA/lidia JOB#: [id number] / [id number]
[2018-04-30] MEDS: ALBUTEROL SULFATE 2.5 MG/3 ML NEBU. NEB SCH ×3 (00:08→12:10)
[2018-04-30 03:00] VITALS: BP 144/67
[2018-04-30 07:00] VITALS: BP 156/69
--- NOTE | 2018-04-30 08:37 | PDOC3 ---
Discharge Summary Date of Admission: Apr 21, 2018 Date of Discharge: Apr 30, 2018 Admitting Diagnosis comment: Cellulitis Chronic lymphedema of bilateral lower extremities FINAL DIAGNOSIS 1. Chronic cellulitis of the right lower extremity secondary to venous stasis edema and lymphedema secondary to fissuring. 2. Postmenopausal bleeding, etiology undetermined. Biopsy pending. 3. Iron deficiency anemia, multifactorial. 4. Medial meniscus tear, right knee. Brief Hospital Course Ms. Lucas is a 63 old white female who came in with increasing weeping, swelling and pain in the wounds on her right leg. She had been off oral antibiotics for a month or two from the wound care center when this recurred. Cultures grew out MRSA and Klebsiella with sensitivities to doxycycline for the MRSA as well as vancomycin and Augmentin for the Klebsiella. Hemoglobin was low , but stable around 8.3-9, white count normal around 4000, platelets were normal. Imaging studies showed a normal tibia and fibula, but the MRI of the knee showed evidence of a medial meniscus tear, which is likely new as she has had some recent knee pain. Pt declined Ortho consult and would be a poor surgical candidate. Plain films of the knee were unremarkable. She was given IV vancomycin and meropenem throughout the hospital stay, switched to oral doxycycline and Augmentin prior to discharge and is doing better. Pelvic sonogram was attempted because of postmenopausal bleeding, but was unrevealing because of her size. Dr. Killian performed a hysteroscopy and endometrial biopsy on 04/27, results are still pending. She will follow up with Dr. Killian as outpatient based on the results. She is stable to be discharged at this point. She will complete a course of doxycycline 100 mg twice a day and Augmentin 875 mg twice a day with followup in my office in 1 week and Wound Care Center to consider chronic antibiotic therapy resumption as they had done before. We will consider intra-articular injection of the right knee for pain when she comes to the office. She will continue iron tablets twice a day for bleeding support as she takes aspirin and Plavix for coronary artery disease and stents. CONDITION AT DISCHARGE: Improved, Stable Discharge Medications Active Reported Vitamin D3 (Cholecalciferol (Vitamin D3)) 1,000 Unit Tablet 1 Tab PO DAILY Hydrochlorothiazide Capsule (Hydrochlorothiazide) 12.5 Mg Capsule 1 Cap PO DAILY Venlafaxine Hcl Er (Venlafaxine Hcl) 75 Mg Cap.er.24h 1 Cap PO DAILY Clopidogrel (Clopidogrel Bisulfate) 75 Mg Tablet 1 Tab PO DAILY Aspir 81 (Aspirin) 81 Mg Tablet.dr 1 Tab PO DAILY Protonix (Pantoprazole Sodium) 40 Mg Tablet.dr 40 Mg PO DAILY Coreg (Carvedilol) 3.125 Mg Tablet 3.125 Mg PO BIDWMEALS Atorvastatin Calcium 40 Mg Tablet 40 Mg PO HS Symbicort 80-4.5 Mcg Inhaler (Budesonide/Formoterol Fumarate) 10.2 Gm Hfa.aer.ad 2 Puff IH BID Alprazolam 0.5 Mg Tablet 1 Tab PO TID Percocet 10-325 Mg Tablet (Oxycodone/Acetaminophen) 1 Each Tablet 2 Tab .ROUTE PRN Q6HRS PRN Bupropion Hcl Sr (Bupropion Hcl) 150 Mg Tablet.er 450 Mg PO DAILY Temazepam 30 Mg Capsule 30 Mg PO HS PRN Gabapentin 600 Mg Tablet 2 Tab PO TID Doxycycline Augmentin Vital Signs Vital Signs Date Time Temp Pulse Resp B/P (MAP) Pulse Ox O2 Delivery O2 Flow Rate FiO2 04/30/18 07:00 97.9 68 20 156/69 (98) 100 Nasal Cannula 3.0 97.9 Allergies Allergies Coded Allergies Type Severity Reaction Last Updated Verified codeine Allergy Intermediate 04/27/18 Yes levofloxacin Allergy Intermediate 04/27/18 Yes piperacillin Allergy Intermediate hives, rash 04/27/18 Yes propoxyphene Allergy Intermediate 04/27/18 Yes sulfamethoxazole Allergy Intermediate 04/27/18 Yes tazobactam Allergy Intermediate hives, rash 04/27/18 Yes I S O L A T I O N *CONTACT* Allergy Unknown 04/27/18 Yes Disposition/Orders: D/C to Home w/ HH VALERIANO WAITE MD Apr 30, 2018 08:37
[2018-04-30] MEDS: BUDESONIDE 0.5 MG/2 ML NEBU. NEB SCH (08:55)
[2018-04-30] MEDS: POLYETHYLENE GLYCOL 3350 17 GM PACKET. PO SCH (09:00)
[2018-04-30] MEDS: DOXYCYCLINE HYCLATE 100 MG TABLET PO SCH (09:01)
[2018-04-30] MEDS: ALPRAZolam 0.5 MG TABLET PO SCH ×2 (09:01→15:16)
[2018-04-30] MEDS: VENLAFAXINE XR 37.5 MG CAP.ER.24H. PO SCH (09:01)
[2018-04-30] MEDS: hydroCHLOROthiazide 12.5 MG CAPSULE PO SCH (09:01)
[2018-04-30] MEDS: GABAPENTIN 400 MG CAPSULE. PO SCH ×2 (09:01→15:16)
[2018-04-30] MEDS: buPROPion XL 150 MG TAB.ER.24H. PO SCH (09:01)
[2018-04-30] MEDS: LACTOBACILLUS RHAMNOSUS GG 1 CAPSULE. PO SCH (09:01)
[2018-04-30] MEDS: CARVEDILOL 3.125 MG TABLET. PO SCH (09:02)
[2018-04-30] MEDS: PANTOPRAZOLE 40 MG TABLET.DR. PO SCH (09:02)
[2018-04-30] MEDS: oxyCODONE/APAP 10/325 1 TAB TABLET PO PRN ×2 (09:02→15:17)
[2018-04-30] MEDS: ASPIRIN ENTERIC COATED 81 MG TABLET.DR. PO SCH (09:02)
[2018-04-30] MEDS: CHOLECALCIFEROL (VITAMIN D3) 1,000 UNIT TABLET PO SCH (09:03)
[2018-04-30] MEDS: FERROUS SULFATE 325 MG TABLET. PO SCH (09:03)
[2018-04-30] MEDS: CLOPIDOGREL BISULFATE 75 MG TABLET PO SCH (09:03)
[2018-04-30] MEDS: SIMETHICONE 80 MG TAB.CHEW PO SCH ×2 (09:03→13:02)
[2018-04-30 11:00] VITALS: BP 107/38
--- NOTE | 2018-05-02 10:04 | PATHOLOGY ---
[facility] Accession Number: [id number] . 01 Material submitted: . ENDOMETRIAL BIOPSY . 01 Clinical history: . Postmenopausal bleeding . 02 Diagnosis: Endometrial biopsy: - Endometrial polyps with focal cystic atrophy. LBQ/05/01/2018 . 02 Comment: There is no evidence of hyperplasia or malignancy. (JPM/db; 05/01/18) . 02 Electronically signed: . Leopoldo Clark MD, Pathologist NPI- [id number] . 01 Gross description: . Received in formalin labeled "Overturf, Monserrat, endometrial biopsy," is blood-tinged mucoid material admixed with small fragments of dark ortiz membranous tissue measuring 2.6 x 0.5 x 0.2 cm in aggregate dimensions. The specimen is filtered and entirely submitted in cassette A1. (TSD; 04/30/2018) TOB/TOB . 02 Pathologist provided ICD-10: N84.0 . 02 CPT . 303432 Performed at: 01 [facility] [address], [place] [id number] MD Heriberto Moreau MD Phone: [phone] Performed at: 02 [facility] [address] [place], [place] [id number] MD Leopoldo Clark MD Phone: [phone]
== END 2018-04-30 16:57 | disposition home or self-care (01) | DRG 854 ==
LOC: ER 14:01 → 5 SOUTH 15:05
PROVIDERS: ADMIT Family Medicine; ATTEND Family Medicine
PROC: 0UDB8ZX Extraction of Endometrium, Via Natural or Artificial Opening Endoscopic, Diagnostic (ICD-10-PCS; principal; 2018-04-27 14:00)
DX: A41.9 Sepsis, unspecified organism (principal); L03.115 Cellulitis of right lower limb; F11.20 Opioid dependence, uncomplicated; I13.0 Hypertensive heart and chronic kidney disease with heart failure and stage 1 through stage 4 chronic kidney disease, or unspecified chronic kidney disease; L03.116 Cellulitis of left lower limb; Z68.44 Body mass index [BMI] 60.0-69.9, adult; E66.01 Morbid (severe) obesity due to excess calories; G62.9 Polyneuropathy, unspecified; I50.9 Heart failure, unspecified; N95.0 Postmenopausal bleeding; B96.1 Klebsiella pneumoniae [K. pneumoniae] as the cause of diseases classified elsewhere; D50.9 Iron deficiency anemia, unspecified; E03.9 Hypothyroidism, unspecified; E78.5 Hyperlipidemia, unspecified; F32.9 Major depressive disorder, single episode, unspecified; F41.9 Anxiety disorder, unspecified; G47.33 Obstructive sleep apnea (adult) (pediatric); G89.29 Other chronic pain; I25.10 Atherosclerotic heart disease of native coronary artery without angina pectoris; M19.90 Unspecified osteoarthritis, unspecified site; I87.2 Venous insufficiency (chronic) (peripheral); I89.0 Lymphedema, not elsewhere classified; J44.9 Chronic obstructive pulmonary disease, unspecified; N18.3 Chronic kidney disease, stage 3 (moderate); N85.2 Hypertrophy of uterus; B95.62 Methicillin resistant Staphylococcus aureus infection as the cause of diseases classified elsewhere; S83.241A Other tear of medial meniscus, current injury, right knee, initial encounter; W18.30XA Fall on same level, unspecified, initial encounter; Y93.89 Activity, other specified; Y92.481 Parking lot as the place of occurrence of the external cause; Y99.8 Other external cause status; Z79.82 Long term (current) use of aspirin; Z87.891 Personal history of nicotine dependence; Z95.5 Presence of coronary angioplasty implant and graft; Z90.49 Acquired absence of other specified parts of digestive tract; Z90.89 Acquired absence of other organs; Z98.51 Tubal ligation status; Z88.6 Allergy status to analgesic agent; Z88.1 Allergy status to other antibiotic agents; Z88.8 Allergy status to other drugs, medicaments and biological substances; Z88.2 Allergy status to sulfonamides; Z82.49 Family history of ischemic heart disease and other diseases of the circulatory system
CPT/HCPCS: 36415; 73590; 73718; 73721; 76830; 76856; 80048; 80053; 80202; 82274; 82728; 83605; 85025; 85027; 87040; 87071; 87075; 87186; 90471; 90715; 94640; 94660; 94760; J0690; J1100; J2001; J2185; J2250; J2405; J2704; J3010; J3370; J7040; J7120; J7613; J7626; 99285-25

== ENCOUNTER → 2018-05-25 | Outpatient (CLI) | payer BC, OTHER ==
[2018-04-30 11:00] VITALS: BP 107/38
== END | disposition home or self-care (01) ==
LOC: PMGWOUND 10:38
PROVIDERS: ATTEND Nurse Practitioner Family
DX: E11.622 Type 2 diabetes mellitus with other skin ulcer (principal); I87.313 Chronic venous hypertension (idiopathic) with ulcer of bilateral lower extremity; L97.212 Non-pressure chronic ulcer of right calf with fat layer exposed; L97.221 Non-pressure chronic ulcer of left calf limited to breakdown of skin; I13.0 Hypertensive heart and chronic kidney disease with heart failure and stage 1 through stage 4 chronic kidney disease, or unspecified chronic kidney disease; E11.22 Type 2 diabetes mellitus with diabetic chronic kidney disease; N18.4 Chronic kidney disease, stage 4 (severe); I50.9 Heart failure, unspecified; I89.0 Lymphedema, not elsewhere classified; E11.52 Type 2 diabetes mellitus with diabetic peripheral angiopathy with gangrene; I96 Gangrene, not elsewhere classified; E11.42 Type 2 diabetes mellitus with diabetic polyneuropathy; F41.9 Anxiety disorder, unspecified; F32.9 Major depressive disorder, single episode, unspecified; J44.9 Chronic obstructive pulmonary disease, unspecified; E78.5 Hyperlipidemia, unspecified; E03.9 Hypothyroidism, unspecified; G89.29 Other chronic pain; E61.1 Iron deficiency; G47.33 Obstructive sleep apnea (adult) (pediatric); M19.90 Unspecified osteoarthritis, unspecified site; I25.10 Atherosclerotic heart disease of native coronary artery without angina pectoris; Z99.2 Dependence on renal dialysis; Z79.4 Long term (current) use of insulin; Z79.82 Long term (current) use of aspirin; Z90.710 Acquired absence of both cervix and uterus; E66.01 Morbid (severe) obesity due to excess calories; Z68.44 Body mass index [BMI] 60.0-69.9, adult; Z90.49 Acquired absence of other specified parts of digestive tract; Z87.891 Personal history of nicotine dependence; Z88.8 Allergy status to other drugs, medicaments and biological substances; Z88.2 Allergy status to sulfonamides; Z88.1 Allergy status to other antibiotic agents; Z88.6 Allergy status to analgesic agent; Z90.89 Acquired absence of other organs
CPT/HCPCS: 29581

== ENCOUNTER → 2018-05-28 | Outpatient (CLI) | payer BC, OTHER ==
[2018-04-30 11:00] VITALS: BP 107/38
== END | disposition home or self-care (01) ==
LOC: PMGWOUND 12:30
PROVIDERS: ATTEND Emergency Medicine Undersea and Hyperbaric Medicine
DX: E11.622 Type 2 diabetes mellitus with other skin ulcer (principal); I87.313 Chronic venous hypertension (idiopathic) with ulcer of bilateral lower extremity; L97.212 Non-pressure chronic ulcer of right calf with fat layer exposed; L97.221 Non-pressure chronic ulcer of left calf limited to breakdown of skin; I13.0 Hypertensive heart and chronic kidney disease with heart failure and stage 1 through stage 4 chronic kidney disease, or unspecified chronic kidney disease; E11.22 Type 2 diabetes mellitus with diabetic chronic kidney disease; N18.4 Chronic kidney disease, stage 4 (severe); I50.9 Heart failure, unspecified; E11.52 Type 2 diabetes mellitus with diabetic peripheral angiopathy with gangrene; I96 Gangrene, not elsewhere classified; E11.42 Type 2 diabetes mellitus with diabetic polyneuropathy; F41.9 Anxiety disorder, unspecified; F32.9 Major depressive disorder, single episode, unspecified; J44.9 Chronic obstructive pulmonary disease, unspecified; E78.5 Hyperlipidemia, unspecified; E03.9 Hypothyroidism, unspecified; G89.29 Other chronic pain; I89.0 Lymphedema, not elsewhere classified; E61.1 Iron deficiency; G47.33 Obstructive sleep apnea (adult) (pediatric); M19.90 Unspecified osteoarthritis, unspecified site; I25.10 Atherosclerotic heart disease of native coronary artery without angina pectoris; Z99.2 Dependence on renal dialysis; Z79.4 Long term (current) use of insulin; Z79.82 Long term (current) use of aspirin; Z90.710 Acquired absence of both cervix and uterus; E66.01 Morbid (severe) obesity due to excess calories; Z68.44 Body mass index [BMI] 60.0-69.9, adult; Z90.49 Acquired absence of other specified parts of digestive tract; Z87.891 Personal history of nicotine dependence; Z88.8 Allergy status to other drugs, medicaments and biological substances; Z88.2 Allergy status to sulfonamides; Z88.1 Allergy status to other antibiotic agents; Z88.6 Allergy status to analgesic agent; Z90.89 Acquired absence of other organs
CPT/HCPCS: 29581

== ENCOUNTER → 2018-06-01 | Outpatient (CLI) | payer BC, OTHER | END | disposition home or self-care (01) | LOC: PMGWOUND 11:31 | PROVIDERS: ATTEND Preventive Medicine Undersea and Hyperbaric Medicine | DX: E11.622 Type 2 diabetes mellitus with other skin ulcer (principal); I87.313 Chronic venous hypertension (idiopathic) with ulcer of bilateral lower extremity; L97.212 Non-pressure chronic ulcer of right calf with fat layer exposed; L97.221 Non-pressure chronic ulcer of left calf limited to breakdown of skin; I13.0 Hypertensive heart and chronic kidney disease with heart failure and stage 1 through stage 4 chronic kidney disease, or unspecified chronic kidney disease; E11.22 Type 2 diabetes mellitus with diabetic chronic kidney disease; I50.9 Heart failure, unspecified; N18.4 Chronic kidney disease, stage 4 (severe); E11.42 Type 2 diabetes mellitus with diabetic polyneuropathy; E11.52 Type 2 diabetes mellitus with diabetic peripheral angiopathy with gangrene; I96 Gangrene, not elsewhere classified; F32.9 Major depressive disorder, single episode, unspecified; F41.9 Anxiety disorder, unspecified; I89.0 Lymphedema, not elsewhere classified; E78.5 Hyperlipidemia, unspecified; E03.9 Hypothyroidism, unspecified; J44.9 Chronic obstructive pulmonary disease, unspecified; I25.10 Atherosclerotic heart disease of native coronary artery without angina pectoris; G47.33 Obstructive sleep apnea (adult) (pediatric); G89.29 Other chronic pain; M19.90 Unspecified osteoarthritis, unspecified site; E66.01 Morbid (severe) obesity due to excess calories; Z68.44 Body mass index [BMI] 60.0-69.9, adult; Z99.2 Dependence on renal dialysis; Z79.4 Long term (current) use of insulin; Z79.82 Long term (current) use of aspirin; Z90.49 Acquired absence of other specified parts of digestive tract; Z90.710 Acquired absence of both cervix and uterus; Z87.891 Personal history of nicotine dependence; Z88.2 Allergy status to sulfonamides; Z88.1 Allergy status to other antibiotic agents; Z88.6 Allergy status to analgesic agent; Z90.89 Acquired absence of other organs | CPT/HCPCS: 29581 ==

== ENCOUNTER → 2018-06-05 | Outpatient (CLI) | payer BC, OTHER | END | disposition home or self-care (01) | LOC: PMGWOUND 11:27 | PROVIDERS: ATTEND Emergency Medicine Undersea and Hyperbaric Medicine | DX: E11.622 Type 2 diabetes mellitus with other skin ulcer (principal); I87.313 Chronic venous hypertension (idiopathic) with ulcer of bilateral lower extremity; L97.212 Non-pressure chronic ulcer of right calf with fat layer exposed; L97.221 Non-pressure chronic ulcer of left calf limited to breakdown of skin; I13.0 Hypertensive heart and chronic kidney disease with heart failure and stage 1 through stage 4 chronic kidney disease, or unspecified chronic kidney disease; E11.22 Type 2 diabetes mellitus with diabetic chronic kidney disease; N18.4 Chronic kidney disease, stage 4 (severe); I50.9 Heart failure, unspecified; E11.42 Type 2 diabetes mellitus with diabetic polyneuropathy; E11.52 Type 2 diabetes mellitus with diabetic peripheral angiopathy with gangrene; I96 Gangrene, not elsewhere classified; F32.9 Major depressive disorder, single episode, unspecified; F41.9 Anxiety disorder, unspecified; I89.0 Lymphedema, not elsewhere classified; G89.29 Other chronic pain; I25.10 Atherosclerotic heart disease of native coronary artery without angina pectoris; J44.9 Chronic obstructive pulmonary disease, unspecified; E78.5 Hyperlipidemia, unspecified; E03.9 Hypothyroidism, unspecified; G47.33 Obstructive sleep apnea (adult) (pediatric); M19.90 Unspecified osteoarthritis, unspecified site; E66.01 Morbid (severe) obesity due to excess calories; Z68.44 Body mass index [BMI] 60.0-69.9, adult; Z99.2 Dependence on renal dialysis; Z79.4 Long term (current) use of insulin; Z79.82 Long term (current) use of aspirin; Z90.710 Acquired absence of both cervix and uterus; Z90.49 Acquired absence of other specified parts of digestive tract; Z87.891 Personal history of nicotine dependence; Z88.8 Allergy status to other drugs, medicaments and biological substances; Z88.2 Allergy status to sulfonamides; Z88.1 Allergy status to other antibiotic agents; Z88.6 Allergy status to analgesic agent; Z90.89 Acquired absence of other organs | CPT/HCPCS: 29581 ==

== ENCOUNTER → 2018-06-08 | Outpatient (CLI) | payer BC, OTHER | END | disposition home or self-care (01) | LOC: PMGWOUND 11:30 | PROVIDERS: ATTEND Preventive Medicine Undersea and Hyperbaric Medicine | DX: E11.622 Type 2 diabetes mellitus with other skin ulcer (principal); I87.313 Chronic venous hypertension (idiopathic) with ulcer of bilateral lower extremity; L97.212 Non-pressure chronic ulcer of right calf with fat layer exposed; L97.221 Non-pressure chronic ulcer of left calf limited to breakdown of skin; I13.0 Hypertensive heart and chronic kidney disease with heart failure and stage 1 through stage 4 chronic kidney disease, or unspecified chronic kidney disease; E11.22 Type 2 diabetes mellitus with diabetic chronic kidney disease; N18.4 Chronic kidney disease, stage 4 (severe); I50.9 Heart failure, unspecified; E11.42 Type 2 diabetes mellitus with diabetic polyneuropathy; E11.52 Type 2 diabetes mellitus with diabetic peripheral angiopathy with gangrene; I96 Gangrene, not elsewhere classified; F32.9 Major depressive disorder, single episode, unspecified; F41.9 Anxiety disorder, unspecified; I89.0 Lymphedema, not elsewhere classified; G89.29 Other chronic pain; J44.9 Chronic obstructive pulmonary disease, unspecified; I25.10 Atherosclerotic heart disease of native coronary artery without angina pectoris; E78.5 Hyperlipidemia, unspecified; E03.9 Hypothyroidism, unspecified; M19.90 Unspecified osteoarthritis, unspecified site; G47.33 Obstructive sleep apnea (adult) (pediatric); E66.01 Morbid (severe) obesity due to excess calories; Z68.44 Body mass index [BMI] 60.0-69.9, adult; Z99.2 Dependence on renal dialysis; Z79.4 Long term (current) use of insulin; Z79.82 Long term (current) use of aspirin; Z90.710 Acquired absence of both cervix and uterus; Z90.49 Acquired absence of other specified parts of digestive tract; Z87.891 Personal history of nicotine dependence; Z88.8 Allergy status to other drugs, medicaments and biological substances; Z88.2 Allergy status to sulfonamides; Z88.1 Allergy status to other antibiotic agents; Z88.6 Allergy status to analgesic agent; Z90.89 Acquired absence of other organs | CPT/HCPCS: 29581 ==

== ENCOUNTER → 2018-06-12 | Outpatient (CLI) | payer BC, OTHER | END | disposition home or self-care (01) | LOC: PMGWOUND 12:57 | PROVIDERS: ATTEND Emergency Medicine Undersea and Hyperbaric Medicine | DX: E11.622 Type 2 diabetes mellitus with other skin ulcer (principal); I87.313 Chronic venous hypertension (idiopathic) with ulcer of bilateral lower extremity; L97.212 Non-pressure chronic ulcer of right calf with fat layer exposed; L97.221 Non-pressure chronic ulcer of left calf limited to breakdown of skin; I89.0 Lymphedema, not elsewhere classified; E11.42 Type 2 diabetes mellitus with diabetic polyneuropathy; E11.52 Type 2 diabetes mellitus with diabetic peripheral angiopathy with gangrene; I96 Gangrene, not elsewhere classified; I13.0 Hypertensive heart and chronic kidney disease with heart failure and stage 1 through stage 4 chronic kidney disease, or unspecified chronic kidney disease; E11.22 Type 2 diabetes mellitus with diabetic chronic kidney disease; N18.4 Chronic kidney disease, stage 4 (severe); I50.9 Heart failure, unspecified; F41.9 Anxiety disorder, unspecified; F32.9 Major depressive disorder, single episode, unspecified; J44.9 Chronic obstructive pulmonary disease, unspecified; G89.29 Other chronic pain; E03.9 Hypothyroidism, unspecified; E78.5 Hyperlipidemia, unspecified; G47.33 Obstructive sleep apnea (adult) (pediatric); I25.10 Atherosclerotic heart disease of native coronary artery without angina pectoris; M19.90 Unspecified osteoarthritis, unspecified site; E66.01 Morbid (severe) obesity due to excess calories; Z68.44 Body mass index [BMI] 60.0-69.9, adult; Z79.4 Long term (current) use of insulin; Z79.82 Long term (current) use of aspirin; Z90.49 Acquired absence of other specified parts of digestive tract; Z87.891 Personal history of nicotine dependence; Z90.710 Acquired absence of both cervix and uterus; Z88.6 Allergy status to analgesic agent; Z88.1 Allergy status to other antibiotic agents; Z88.2 Allergy status to sulfonamides; Z90.89 Acquired absence of other organs; Z88.8 Allergy status to other drugs, medicaments and biological substances | CPT/HCPCS: 29581 ==

== ENCOUNTER → 2018-06-15 | Outpatient (CLI) | payer BC, OTHER | END | disposition home or self-care (01) | LOC: PMGWOUND 11:38 | PROVIDERS: ATTEND Preventive Medicine Undersea and Hyperbaric Medicine | DX: E11.622 Type 2 diabetes mellitus with other skin ulcer (principal); I87.313 Chronic venous hypertension (idiopathic) with ulcer of bilateral lower extremity; L97.212 Non-pressure chronic ulcer of right calf with fat layer exposed; L97.221 Non-pressure chronic ulcer of left calf limited to breakdown of skin; I89.0 Lymphedema, not elsewhere classified; E11.42 Type 2 diabetes mellitus with diabetic polyneuropathy; E11.52 Type 2 diabetes mellitus with diabetic peripheral angiopathy with gangrene; I96 Gangrene, not elsewhere classified; E11.22 Type 2 diabetes mellitus with diabetic chronic kidney disease; I13.0 Hypertensive heart and chronic kidney disease with heart failure and stage 1 through stage 4 chronic kidney disease, or unspecified chronic kidney disease; N18.4 Chronic kidney disease, stage 4 (severe); I50.9 Heart failure, unspecified; F41.9 Anxiety disorder, unspecified; F32.9 Major depressive disorder, single episode, unspecified; J44.9 Chronic obstructive pulmonary disease, unspecified; G89.29 Other chronic pain; E03.9 Hypothyroidism, unspecified; E78.5 Hyperlipidemia, unspecified; G47.33 Obstructive sleep apnea (adult) (pediatric); I25.10 Atherosclerotic heart disease of native coronary artery without angina pectoris; M19.90 Unspecified osteoarthritis, unspecified site; E66.01 Morbid (severe) obesity due to excess calories; Z68.44 Body mass index [BMI] 60.0-69.9, adult; Z99.2 Dependence on renal dialysis; Z79.4 Long term (current) use of insulin; Z79.82 Long term (current) use of aspirin; Z87.891 Personal history of nicotine dependence; Z90.49 Acquired absence of other specified parts of digestive tract; Z90.710 Acquired absence of both cervix and uterus; Z88.6 Allergy status to analgesic agent; Z88.1 Allergy status to other antibiotic agents; Z88.2 Allergy status to sulfonamides; Z88.8 Allergy status to other drugs, medicaments and biological substances; Z90.89 Acquired absence of other organs | CPT/HCPCS: 29581 ==

== ENCOUNTER → 2018-06-19 | Outpatient (CLI) | payer BC, OTHER | END | disposition home or self-care (01) | LOC: PMGWOUND 11:28 | PROVIDERS: ATTEND Emergency Medicine Undersea and Hyperbaric Medicine | DX: E11.622 Type 2 diabetes mellitus with other skin ulcer (principal); I87.313 Chronic venous hypertension (idiopathic) with ulcer of bilateral lower extremity; L97.212 Non-pressure chronic ulcer of right calf with fat layer exposed; E11.42 Type 2 diabetes mellitus with diabetic polyneuropathy; E11.52 Type 2 diabetes mellitus with diabetic peripheral angiopathy with gangrene; I96 Gangrene, not elsewhere classified; I13.0 Hypertensive heart and chronic kidney disease with heart failure and stage 1 through stage 4 chronic kidney disease, or unspecified chronic kidney disease; E11.22 Type 2 diabetes mellitus with diabetic chronic kidney disease; N18.4 Chronic kidney disease, stage 4 (severe); I50.9 Heart failure, unspecified; I89.0 Lymphedema, not elsewhere classified; F41.9 Anxiety disorder, unspecified; F32.9 Major depressive disorder, single episode, unspecified; J44.9 Chronic obstructive pulmonary disease, unspecified; G47.33 Obstructive sleep apnea (adult) (pediatric); G89.29 Other chronic pain; E78.5 Hyperlipidemia, unspecified; E03.9 Hypothyroidism, unspecified; M19.90 Unspecified osteoarthritis, unspecified site; I25.10 Atherosclerotic heart disease of native coronary artery without angina pectoris; E66.01 Morbid (severe) obesity due to excess calories; Z68.44 Body mass index [BMI] 60.0-69.9, adult; Z99.2 Dependence on renal dialysis; Z79.4 Long term (current) use of insulin; Z79.82 Long term (current) use of aspirin; Z87.891 Personal history of nicotine dependence; Z90.89 Acquired absence of other organs; Z90.710 Acquired absence of both cervix and uterus; Z90.49 Acquired absence of other specified parts of digestive tract; Z88.6 Allergy status to analgesic agent; Z88.1 Allergy status to other antibiotic agents; Z88.2 Allergy status to sulfonamides; Z88.8 Allergy status to other drugs, medicaments and biological substances | CPT/HCPCS: 29581 ==

== ENCOUNTER → 2018-06-22 | Outpatient (CLI) | payer BC, OTHER | END | disposition home or self-care (01) | LOC: PMGWOUND 09:24 | PROVIDERS: ATTEND Preventive Medicine Undersea and Hyperbaric Medicine | DX: E11.622 Type 2 diabetes mellitus with other skin ulcer (principal); L97.212 Non-pressure chronic ulcer of right calf with fat layer exposed; I87.313 Chronic venous hypertension (idiopathic) with ulcer of bilateral lower extremity; I89.0 Lymphedema, not elsewhere classified; E11.42 Type 2 diabetes mellitus with diabetic polyneuropathy; E11.52 Type 2 diabetes mellitus with diabetic peripheral angiopathy with gangrene; I96 Gangrene, not elsewhere classified; I13.0 Hypertensive heart and chronic kidney disease with heart failure and stage 1 through stage 4 chronic kidney disease, or unspecified chronic kidney disease; E11.22 Type 2 diabetes mellitus with diabetic chronic kidney disease; N18.4 Chronic kidney disease, stage 4 (severe); I50.9 Heart failure, unspecified; F41.9 Anxiety disorder, unspecified; F32.9 Major depressive disorder, single episode, unspecified; J44.9 Chronic obstructive pulmonary disease, unspecified; G47.33 Obstructive sleep apnea (adult) (pediatric); E78.5 Hyperlipidemia, unspecified; E03.9 Hypothyroidism, unspecified; M19.90 Unspecified osteoarthritis, unspecified site; I25.10 Atherosclerotic heart disease of native coronary artery without angina pectoris; D50.9 Iron deficiency anemia, unspecified; E66.01 Morbid (severe) obesity due to excess calories; Z68.44 Body mass index [BMI] 60.0-69.9, adult; Z99.2 Dependence on renal dialysis; Z79.4 Long term (current) use of insulin; Z79.82 Long term (current) use of aspirin; Z90.89 Acquired absence of other organs; Z87.891 Personal history of nicotine dependence; Z90.710 Acquired absence of both cervix and uterus; Z90.49 Acquired absence of other specified parts of digestive tract; Z88.6 Allergy status to analgesic agent; Z88.1 Allergy status to other antibiotic agents; Z88.2 Allergy status to sulfonamides; Z88.8 Allergy status to other drugs, medicaments and biological substances | CPT/HCPCS: 29581 ==

== ENCOUNTER → 2018-06-26 | Outpatient (CLI) | payer BC, OTHER | END | disposition home or self-care (01) | LOC: PMGWOUND 12:53 | PROVIDERS: ATTEND Emergency Medicine Undersea and Hyperbaric Medicine | DX: E11.622 Type 2 diabetes mellitus with other skin ulcer (principal); I87.311 Chronic venous hypertension (idiopathic) with ulcer of right lower extremity; L97.212 Non-pressure chronic ulcer of right calf with fat layer exposed; I89.0 Lymphedema, not elsewhere classified; E11.52 Type 2 diabetes mellitus with diabetic peripheral angiopathy with gangrene; I96 Gangrene, not elsewhere classified; E11.42 Type 2 diabetes mellitus with diabetic polyneuropathy; I13.0 Hypertensive heart and chronic kidney disease with heart failure and stage 1 through stage 4 chronic kidney disease, or unspecified chronic kidney disease; E11.22 Type 2 diabetes mellitus with diabetic chronic kidney disease; N18.4 Chronic kidney disease, stage 4 (severe); I50.9 Heart failure, unspecified; F32.9 Major depressive disorder, single episode, unspecified; F41.9 Anxiety disorder, unspecified; J44.9 Chronic obstructive pulmonary disease, unspecified; G89.29 Other chronic pain; G47.33 Obstructive sleep apnea (adult) (pediatric); E78.5 Hyperlipidemia, unspecified; E03.9 Hypothyroidism, unspecified; I25.10 Atherosclerotic heart disease of native coronary artery without angina pectoris; E66.01 Morbid (severe) obesity due to excess calories; Z68.44 Body mass index [BMI] 60.0-69.9, adult; Z99.2 Dependence on renal dialysis; Z79.4 Long term (current) use of insulin; Z87.891 Personal history of nicotine dependence; Z90.710 Acquired absence of both cervix and uterus; Z90.49 Acquired absence of other specified parts of digestive tract; M19.90 Unspecified osteoarthritis, unspecified site | CPT/HCPCS: 29581 ==

== ENCOUNTER → 2018-07-03 | Outpatient (CLI) | payer BC, OTHER | END | disposition home or self-care (01) | LOC: PMGWOUND 11:29 | PROVIDERS: ATTEND Emergency Medicine Undersea and Hyperbaric Medicine | DX: E11.622 Type 2 diabetes mellitus with other skin ulcer (principal); I87.313 Chronic venous hypertension (idiopathic) with ulcer of bilateral lower extremity; L97.212 Non-pressure chronic ulcer of right calf with fat layer exposed; L97.221 Non-pressure chronic ulcer of left calf limited to breakdown of skin; E11.42 Type 2 diabetes mellitus with diabetic polyneuropathy; E11.52 Type 2 diabetes mellitus with diabetic peripheral angiopathy with gangrene; I96 Gangrene, not elsewhere classified; I13.0 Hypertensive heart and chronic kidney disease with heart failure and stage 1 through stage 4 chronic kidney disease, or unspecified chronic kidney disease; E11.22 Type 2 diabetes mellitus with diabetic chronic kidney disease; N18.4 Chronic kidney disease, stage 4 (severe); I50.9 Heart failure, unspecified; F32.9 Major depressive disorder, single episode, unspecified; G47.33 Obstructive sleep apnea (adult) (pediatric); G89.29 Other chronic pain; F41.9 Anxiety disorder, unspecified; I89.0 Lymphedema, not elsewhere classified; J44.9 Chronic obstructive pulmonary disease, unspecified; E03.9 Hypothyroidism, unspecified; E78.5 Hyperlipidemia, unspecified; M19.90 Unspecified osteoarthritis, unspecified site; I25.10 Atherosclerotic heart disease of native coronary artery without angina pectoris; E66.01 Morbid (severe) obesity due to excess calories; Z68.44 Body mass index [BMI] 60.0-69.9, adult; Z79.4 Long term (current) use of insulin; Z87.891 Personal history of nicotine dependence; Z90.710 Acquired absence of both cervix and uterus; Z90.49 Acquired absence of other specified parts of digestive tract | CPT/HCPCS: 29581 ==

== ENCOUNTER → 2018-07-06 | Outpatient (CLI) | payer BC, OTHER ==
[~2018-07-06] MED LIST changes: -HYDR12.53 PO; +HYDR12.575 PO; -OXYC-328; +OXYC1TAB22
== END | disposition home or self-care (01) ==
LOC: PMGWOUND 12:20
PROVIDERS: ATTEND Preventive Medicine Undersea and Hyperbaric Medicine
DX: E11.622 Type 2 diabetes mellitus with other skin ulcer (principal); I87.313 Chronic venous hypertension (idiopathic) with ulcer of bilateral lower extremity; L97.212 Non-pressure chronic ulcer of right calf with fat layer exposed; L97.221 Non-pressure chronic ulcer of left calf limited to breakdown of skin; E11.52 Type 2 diabetes mellitus with diabetic peripheral angiopathy with gangrene; I96 Gangrene, not elsewhere classified; E11.42 Type 2 diabetes mellitus with diabetic polyneuropathy; I13.0 Hypertensive heart and chronic kidney disease with heart failure and stage 1 through stage 4 chronic kidney disease, or unspecified chronic kidney disease; E11.22 Type 2 diabetes mellitus with diabetic chronic kidney disease; N18.4 Chronic kidney disease, stage 4 (severe); I50.9 Heart failure, unspecified; F41.9 Anxiety disorder, unspecified; G89.29 Other chronic pain; J44.9 Chronic obstructive pulmonary disease, unspecified; E78.5 Hyperlipidemia, unspecified; E03.9 Hypothyroidism, unspecified; F32.9 Major depressive disorder, single episode, unspecified; G47.33 Obstructive sleep apnea (adult) (pediatric); I89.0 Lymphedema, not elsewhere classified; M19.90 Unspecified osteoarthritis, unspecified site; I25.10 Atherosclerotic heart disease of native coronary artery without angina pectoris; Z79.4 Long term (current) use of insulin; Z99.2 Dependence on renal dialysis; E66.01 Morbid (severe) obesity due to excess calories; Z68.44 Body mass index [BMI] 60.0-69.9, adult; Z87.891 Personal history of nicotine dependence; Z90.710 Acquired absence of both cervix and uterus; Z90.49 Acquired absence of other specified parts of digestive tract
CPT/HCPCS: 29581

== ENCOUNTER → 2018-07-10 | Outpatient (CLI) | payer BC, OTHER ==
[~2018-07-10] MED LIST changes: +HYDR12.53 PO; -HYDR12.575 PO; +OXYC-328; -OXYC1TAB22
== END | disposition home or self-care (01) ==
LOC: PMGWOUND 13:03
PROVIDERS: ATTEND Emergency Medicine Undersea and Hyperbaric Medicine
DX: E11.622 Type 2 diabetes mellitus with other skin ulcer (principal); I87.313 Chronic venous hypertension (idiopathic) with ulcer of bilateral lower extremity; L97.212 Non-pressure chronic ulcer of right calf with fat layer exposed; L97.221 Non-pressure chronic ulcer of left calf limited to breakdown of skin; E11.42 Type 2 diabetes mellitus with diabetic polyneuropathy; E11.52 Type 2 diabetes mellitus with diabetic peripheral angiopathy with gangrene; I96 Gangrene, not elsewhere classified; I13.0 Hypertensive heart and chronic kidney disease with heart failure and stage 1 through stage 4 chronic kidney disease, or unspecified chronic kidney disease; E11.22 Type 2 diabetes mellitus with diabetic chronic kidney disease; N18.4 Chronic kidney disease, stage 4 (severe); I50.9 Heart failure, unspecified; F41.9 Anxiety disorder, unspecified; F32.9 Major depressive disorder, single episode, unspecified; G89.29 Other chronic pain; G47.33 Obstructive sleep apnea (adult) (pediatric); I89.0 Lymphedema, not elsewhere classified; J44.9 Chronic obstructive pulmonary disease, unspecified; I25.10 Atherosclerotic heart disease of native coronary artery without angina pectoris; E03.9 Hypothyroidism, unspecified; M19.90 Unspecified osteoarthritis, unspecified site; E78.5 Hyperlipidemia, unspecified; E66.01 Morbid (severe) obesity due to excess calories; Z68.44 Body mass index [BMI] 60.0-69.9, adult; Z99.2 Dependence on renal dialysis; Z79.4 Long term (current) use of insulin; Z87.891 Personal history of nicotine dependence; Z90.710 Acquired absence of both cervix and uterus; Z90.49 Acquired absence of other specified parts of digestive tract
CPT/HCPCS: 29581

== ENCOUNTER → 2018-07-13 | Outpatient (CLI) | payer BC, OTHER | END | disposition home or self-care (01) | LOC: PMGWOUND 11:36 | PROVIDERS: ATTEND Preventive Medicine Undersea and Hyperbaric Medicine | DX: E11.622 Type 2 diabetes mellitus with other skin ulcer (principal); I87.313 Chronic venous hypertension (idiopathic) with ulcer of bilateral lower extremity; L97.212 Non-pressure chronic ulcer of right calf with fat layer exposed; L97.221 Non-pressure chronic ulcer of left calf limited to breakdown of skin; E11.52 Type 2 diabetes mellitus with diabetic peripheral angiopathy with gangrene; I96 Gangrene, not elsewhere classified; E11.51 Type 2 diabetes mellitus with diabetic peripheral angiopathy without gangrene; E11.42 Type 2 diabetes mellitus with diabetic polyneuropathy; I13.0 Hypertensive heart and chronic kidney disease with heart failure and stage 1 through stage 4 chronic kidney disease, or unspecified chronic kidney disease; E11.22 Type 2 diabetes mellitus with diabetic chronic kidney disease; N18.4 Chronic kidney disease, stage 4 (severe); I50.9 Heart failure, unspecified; J44.9 Chronic obstructive pulmonary disease, unspecified; F41.9 Anxiety disorder, unspecified; E03.9 Hypothyroidism, unspecified; G47.33 Obstructive sleep apnea (adult) (pediatric); F32.9 Major depressive disorder, single episode, unspecified; G89.29 Other chronic pain; I89.0 Lymphedema, not elsewhere classified; I25.10 Atherosclerotic heart disease of native coronary artery without angina pectoris; M19.90 Unspecified osteoarthritis, unspecified site; E78.5 Hyperlipidemia, unspecified; E66.01 Morbid (severe) obesity due to excess calories; Z68.44 Body mass index [BMI] 60.0-69.9, adult; Z99.2 Dependence on renal dialysis; Z79.4 Long term (current) use of insulin; Z87.891 Personal history of nicotine dependence; Z90.710 Acquired absence of both cervix and uterus; Z90.49 Acquired absence of other specified parts of digestive tract | CPT/HCPCS: 29581 ==

== ENCOUNTER → 2018-07-17 | Outpatient (CLI) | payer BC, OTHER ==
[~2018-07-17] MED LIST changes: -HYDR12.53 PO; +HYDR12.575 PO; -OXYC-328; +OXYC1TAB22
== END | disposition home or self-care (01) ==
LOC: PMGWOUND 13:40
PROVIDERS: ATTEND Emergency Medicine Undersea and Hyperbaric Medicine
DX: E11.622 Type 2 diabetes mellitus with other skin ulcer (principal); I87.313 Chronic venous hypertension (idiopathic) with ulcer of bilateral lower extremity; L97.212 Non-pressure chronic ulcer of right calf with fat layer exposed; L97.221 Non-pressure chronic ulcer of left calf limited to breakdown of skin; B35.3 Tinea pedis; E11.42 Type 2 diabetes mellitus with diabetic polyneuropathy; E11.52 Type 2 diabetes mellitus with diabetic peripheral angiopathy with gangrene; I96 Gangrene, not elsewhere classified; I13.0 Hypertensive heart and chronic kidney disease with heart failure and stage 1 through stage 4 chronic kidney disease, or unspecified chronic kidney disease; E11.22 Type 2 diabetes mellitus with diabetic chronic kidney disease; N18.4 Chronic kidney disease, stage 4 (severe); I50.9 Heart failure, unspecified; F41.9 Anxiety disorder, unspecified; E03.9 Hypothyroidism, unspecified; E78.5 Hyperlipidemia, unspecified; F32.9 Major depressive disorder, single episode, unspecified; G47.33 Obstructive sleep apnea (adult) (pediatric); G89.29 Other chronic pain; I25.10 Atherosclerotic heart disease of native coronary artery without angina pectoris; M19.90 Unspecified osteoarthritis, unspecified site; E66.01 Morbid (severe) obesity due to excess calories; Z68.44 Body mass index [BMI] 60.0-69.9, adult; Z99.2 Dependence on renal dialysis; Z79.4 Long term (current) use of insulin; Z87.891 Personal history of nicotine dependence; Z90.710 Acquired absence of both cervix and uterus; Z90.49 Acquired absence of other specified parts of digestive tract
CPT/HCPCS: 29581; 87071; 87075; 87186

== ENCOUNTER → 2018-07-20 | Outpatient (CLI) | payer BC, OTHER | END | disposition home or self-care (01) | LOC: PMGWOUND 11:37 | PROVIDERS: ATTEND Preventive Medicine Undersea and Hyperbaric Medicine | DX: E11.621 Type 2 diabetes mellitus with foot ulcer (principal); I87.313 Chronic venous hypertension (idiopathic) with ulcer of bilateral lower extremity; L97.511 Non-pressure chronic ulcer of other part of right foot limited to breakdown of skin; E11.622 Type 2 diabetes mellitus with other skin ulcer; L97.212 Non-pressure chronic ulcer of right calf with fat layer exposed; L97.221 Non-pressure chronic ulcer of left calf limited to breakdown of skin; B35.3 Tinea pedis; E11.52 Type 2 diabetes mellitus with diabetic peripheral angiopathy with gangrene; I96 Gangrene, not elsewhere classified; I13.0 Hypertensive heart and chronic kidney disease with heart failure and stage 1 through stage 4 chronic kidney disease, or unspecified chronic kidney disease; E11.42 Type 2 diabetes mellitus with diabetic polyneuropathy; N18.4 Chronic kidney disease, stage 4 (severe); E11.22 Type 2 diabetes mellitus with diabetic chronic kidney disease; I50.9 Heart failure, unspecified; F41.9 Anxiety disorder, unspecified; J44.9 Chronic obstructive pulmonary disease, unspecified; F32.9 Major depressive disorder, single episode, unspecified; G89.29 Other chronic pain; G47.33 Obstructive sleep apnea (adult) (pediatric); E78.5 Hyperlipidemia, unspecified; I89.0 Lymphedema, not elsewhere classified; E03.9 Hypothyroidism, unspecified; M19.90 Unspecified osteoarthritis, unspecified site; I25.10 Atherosclerotic heart disease of native coronary artery without angina pectoris; E66.01 Morbid (severe) obesity due to excess calories; Z68.44 Body mass index [BMI] 60.0-69.9, adult; Z99.2 Dependence on renal dialysis; Z79.4 Long term (current) use of insulin; Z87.891 Personal history of nicotine dependence; Z90.710 Acquired absence of both cervix and uterus; Z90.49 Acquired absence of other specified parts of digestive tract | CPT/HCPCS: 29581 ==

== ENCOUNTER → 2018-07-24 | Outpatient (CLI) | payer BC, OTHER | END | disposition home or self-care (01) | LOC: PMGWOUND 11:37 | PROVIDERS: ATTEND Emergency Medicine Undersea and Hyperbaric Medicine | DX: E11.622 Type 2 diabetes mellitus with other skin ulcer (principal); I87.313 Chronic venous hypertension (idiopathic) with ulcer of bilateral lower extremity; L97.212 Non-pressure chronic ulcer of right calf with fat layer exposed; L97.221 Non-pressure chronic ulcer of left calf limited to breakdown of skin; E11.42 Type 2 diabetes mellitus with diabetic polyneuropathy; E11.52 Type 2 diabetes mellitus with diabetic peripheral angiopathy with gangrene; I96 Gangrene, not elsewhere classified; F41.9 Anxiety disorder, unspecified; J44.9 Chronic obstructive pulmonary disease, unspecified; F32.9 Major depressive disorder, single episode, unspecified; I89.0 Lymphedema, not elsewhere classified; B35.3 Tinea pedis; E78.5 Hyperlipidemia, unspecified; E03.9 Hypothyroidism, unspecified; G47.33 Obstructive sleep apnea (adult) (pediatric); G89.29 Other chronic pain; M19.90 Unspecified osteoarthritis, unspecified site; I25.10 Atherosclerotic heart disease of native coronary artery without angina pectoris; Z79.4 Long term (current) use of insulin; E66.01 Morbid (severe) obesity due to excess calories; Z68.44 Body mass index [BMI] 60.0-69.9, adult; Z87.891 Personal history of nicotine dependence; Z90.710 Acquired absence of both cervix and uterus; Z90.49 Acquired absence of other specified parts of digestive tract | CPT/HCPCS: 29581 ==

== ENCOUNTER → 2018-07-27 | Outpatient (CLI) | payer BC, OTHER | END | disposition home or self-care (01) | LOC: PMGWOUND 11:53 | PROVIDERS: ATTEND Preventive Medicine Undersea and Hyperbaric Medicine | DX: E11.622 Type 2 diabetes mellitus with other skin ulcer (principal); I87.313 Chronic venous hypertension (idiopathic) with ulcer of bilateral lower extremity; L97.212 Non-pressure chronic ulcer of right calf with fat layer exposed; L97.221 Non-pressure chronic ulcer of left calf limited to breakdown of skin; B35.3 Tinea pedis; E11.42 Type 2 diabetes mellitus with diabetic polyneuropathy; E11.52 Type 2 diabetes mellitus with diabetic peripheral angiopathy with gangrene; I96 Gangrene, not elsewhere classified; I13.0 Hypertensive heart and chronic kidney disease with heart failure and stage 1 through stage 4 chronic kidney disease, or unspecified chronic kidney disease; E11.22 Type 2 diabetes mellitus with diabetic chronic kidney disease; N18.4 Chronic kidney disease, stage 4 (severe); I50.9 Heart failure, unspecified; F41.9 Anxiety disorder, unspecified; I89.0 Lymphedema, not elsewhere classified; G89.29 Other chronic pain; F32.9 Major depressive disorder, single episode, unspecified; J44.9 Chronic obstructive pulmonary disease, unspecified; E03.9 Hypothyroidism, unspecified; E78.5 Hyperlipidemia, unspecified; G47.33 Obstructive sleep apnea (adult) (pediatric); I25.10 Atherosclerotic heart disease of native coronary artery without angina pectoris; E66.01 Morbid (severe) obesity due to excess calories; Z68.44 Body mass index [BMI] 60.0-69.9, adult; Z99.2 Dependence on renal dialysis; Z79.4 Long term (current) use of insulin; Z87.891 Personal history of nicotine dependence; Z90.710 Acquired absence of both cervix and uterus; Z90.49 Acquired absence of other specified parts of digestive tract | CPT/HCPCS: 29581 ==

== ENCOUNTER → 2018-08-01 | Outpatient (CLI) | payer BC, OTHER | END | disposition home or self-care (01) | LOC: PMGWOUND 12:39 | PROVIDERS: ATTEND Preventive Medicine Undersea and Hyperbaric Medicine | DX: E11.622 Type 2 diabetes mellitus with other skin ulcer (principal); I87.313 Chronic venous hypertension (idiopathic) with ulcer of bilateral lower extremity; L97.212 Non-pressure chronic ulcer of right calf with fat layer exposed; L97.221 Non-pressure chronic ulcer of left calf limited to breakdown of skin; E11.52 Type 2 diabetes mellitus with diabetic peripheral angiopathy with gangrene; I96 Gangrene, not elsewhere classified; E11.42 Type 2 diabetes mellitus with diabetic polyneuropathy; I13.0 Hypertensive heart and chronic kidney disease with heart failure and stage 1 through stage 4 chronic kidney disease, or unspecified chronic kidney disease; E11.22 Type 2 diabetes mellitus with diabetic chronic kidney disease; N18.4 Chronic kidney disease, stage 4 (severe); I50.9 Heart failure, unspecified; F41.9 Anxiety disorder, unspecified; J44.9 Chronic obstructive pulmonary disease, unspecified; I89.0 Lymphedema, not elsewhere classified; B35.3 Tinea pedis; M19.90 Unspecified osteoarthritis, unspecified site; E03.9 Hypothyroidism, unspecified; G47.33 Obstructive sleep apnea (adult) (pediatric); G89.29 Other chronic pain; E78.5 Hyperlipidemia, unspecified; F32.9 Major depressive disorder, single episode, unspecified; I25.10 Atherosclerotic heart disease of native coronary artery without angina pectoris; E66.01 Morbid (severe) obesity due to excess calories; Z68.44 Body mass index [BMI] 60.0-69.9, adult; Z99.2 Dependence on renal dialysis; Z79.4 Long term (current) use of insulin; Z90.710 Acquired absence of both cervix and uterus; Z90.49 Acquired absence of other specified parts of digestive tract; Z87.891 Personal history of nicotine dependence | CPT/HCPCS: 29581 ==

== ENCOUNTER → 2018-08-07 | Outpatient (CLI) | payer BC, OTHER | END | disposition home or self-care (01) | LOC: PMGWOUND 12:42 | PROVIDERS: ATTEND Emergency Medicine Undersea and Hyperbaric Medicine | DX: E11.622 Type 2 diabetes mellitus with other skin ulcer (principal); I87.313 Chronic venous hypertension (idiopathic) with ulcer of bilateral lower extremity; L97.212 Non-pressure chronic ulcer of right calf with fat layer exposed; L97.221 Non-pressure chronic ulcer of left calf limited to breakdown of skin; B35.3 Tinea pedis; E11.52 Type 2 diabetes mellitus with diabetic peripheral angiopathy with gangrene; I96 Gangrene, not elsewhere classified; E11.42 Type 2 diabetes mellitus with diabetic polyneuropathy; I13.0 Hypertensive heart and chronic kidney disease with heart failure and stage 1 through stage 4 chronic kidney disease, or unspecified chronic kidney disease; E11.22 Type 2 diabetes mellitus with diabetic chronic kidney disease; N18.4 Chronic kidney disease, stage 4 (severe); I50.9 Heart failure, unspecified; F32.9 Major depressive disorder, single episode, unspecified; G89.29 Other chronic pain; I89.0 Lymphedema, not elsewhere classified; F41.9 Anxiety disorder, unspecified; J44.9 Chronic obstructive pulmonary disease, unspecified; E78.5 Hyperlipidemia, unspecified; E03.9 Hypothyroidism, unspecified; G47.33 Obstructive sleep apnea (adult) (pediatric); I25.10 Atherosclerotic heart disease of native coronary artery without angina pectoris; M19.90 Unspecified osteoarthritis, unspecified site; E66.01 Morbid (severe) obesity due to excess calories; Z68.44 Body mass index [BMI] 60.0-69.9, adult; Z90.710 Acquired absence of both cervix and uterus; Z90.49 Acquired absence of other specified parts of digestive tract; Z99.2 Dependence on renal dialysis; Z79.4 Long term (current) use of insulin; Z87.891 Personal history of nicotine dependence | CPT/HCPCS: 29581 ==

== ENCOUNTER → 2018-08-10 | Outpatient (CLI) | payer BC, OTHER | END | disposition home or self-care (01) | LOC: PMGWOUND 11:31 | PROVIDERS: ATTEND Preventive Medicine Undersea and Hyperbaric Medicine | DX: E11.622 Type 2 diabetes mellitus with other skin ulcer (principal); I87.313 Chronic venous hypertension (idiopathic) with ulcer of bilateral lower extremity; L97.212 Non-pressure chronic ulcer of right calf with fat layer exposed; L97.221 Non-pressure chronic ulcer of left calf limited to breakdown of skin; E11.42 Type 2 diabetes mellitus with diabetic polyneuropathy; E11.52 Type 2 diabetes mellitus with diabetic peripheral angiopathy with gangrene; I96 Gangrene, not elsewhere classified; I13.0 Hypertensive heart and chronic kidney disease with heart failure and stage 1 through stage 4 chronic kidney disease, or unspecified chronic kidney disease; E11.22 Type 2 diabetes mellitus with diabetic chronic kidney disease; N18.4 Chronic kidney disease, stage 4 (severe); I50.9 Heart failure, unspecified; B35.3 Tinea pedis; G89.29 Other chronic pain; F41.9 Anxiety disorder, unspecified; E78.5 Hyperlipidemia, unspecified; G47.33 Obstructive sleep apnea (adult) (pediatric); I89.0 Lymphedema, not elsewhere classified; F32.9 Major depressive disorder, single episode, unspecified; J44.9 Chronic obstructive pulmonary disease, unspecified; E03.9 Hypothyroidism, unspecified; M19.90 Unspecified osteoarthritis, unspecified site; I25.10 Atherosclerotic heart disease of native coronary artery without angina pectoris; E66.01 Morbid (severe) obesity due to excess calories; Z68.44 Body mass index [BMI] 60.0-69.9, adult; Z99.2 Dependence on renal dialysis; Z79.4 Long term (current) use of insulin; Z87.891 Personal history of nicotine dependence; Z90.710 Acquired absence of both cervix and uterus; Z90.49 Acquired absence of other specified parts of digestive tract | CPT/HCPCS: 99215 ==

== ENCOUNTER → 2018-08-14 | Outpatient (CLI) | payer BC, OTHER | END | disposition home or self-care (01) | LOC: PMGWOUND 11:20 | PROVIDERS: ATTEND Emergency Medicine Undersea and Hyperbaric Medicine | DX: E11.622 Type 2 diabetes mellitus with other skin ulcer (principal); I87.313 Chronic venous hypertension (idiopathic) with ulcer of bilateral lower extremity; L97.212 Non-pressure chronic ulcer of right calf with fat layer exposed; L97.221 Non-pressure chronic ulcer of left calf limited to breakdown of skin; I13.0 Hypertensive heart and chronic kidney disease with heart failure and stage 1 through stage 4 chronic kidney disease, or unspecified chronic kidney disease; E11.22 Type 2 diabetes mellitus with diabetic chronic kidney disease; N18.4 Chronic kidney disease, stage 4 (severe); I50.9 Heart failure, unspecified; E11.52 Type 2 diabetes mellitus with diabetic peripheral angiopathy with gangrene; I96 Gangrene, not elsewhere classified; E11.42 Type 2 diabetes mellitus with diabetic polyneuropathy; B35.3 Tinea pedis; G89.29 Other chronic pain; F32.9 Major depressive disorder, single episode, unspecified; J44.9 Chronic obstructive pulmonary disease, unspecified; I89.0 Lymphedema, not elsewhere classified; M19.90 Unspecified osteoarthritis, unspecified site; G47.33 Obstructive sleep apnea (adult) (pediatric); E03.9 Hypothyroidism, unspecified; E78.5 Hyperlipidemia, unspecified; I25.10 Atherosclerotic heart disease of native coronary artery without angina pectoris; E66.01 Morbid (severe) obesity due to excess calories; Z68.44 Body mass index [BMI] 60.0-69.9, adult; Z99.2 Dependence on renal dialysis; Z79.4 Long term (current) use of insulin; Z87.891 Personal history of nicotine dependence; Z90.710 Acquired absence of both cervix and uterus; Z90.49 Acquired absence of other specified parts of digestive tract | CPT/HCPCS: 99215 ==

== ENCOUNTER → 2018-08-21 | Outpatient (CLI) | payer BC, OTHER ==
[~2018-08-21] MED LIST changes: +ALBU2.5V8 INH; -PROAIR HFA8.5 GM INH
== END | disposition home or self-care (01) ==
LOC: PMGWOUND 12:05
PROVIDERS: ATTEND Emergency Medicine Undersea and Hyperbaric Medicine
DX: E11.622 Type 2 diabetes mellitus with other skin ulcer (principal); I87.313 Chronic venous hypertension (idiopathic) with ulcer of bilateral lower extremity; L97.212 Non-pressure chronic ulcer of right calf with fat layer exposed; L97.221 Non-pressure chronic ulcer of left calf limited to breakdown of skin; E11.52 Type 2 diabetes mellitus with diabetic peripheral angiopathy with gangrene; I96 Gangrene, not elsewhere classified; E11.42 Type 2 diabetes mellitus with diabetic polyneuropathy; I13.0 Hypertensive heart and chronic kidney disease with heart failure and stage 1 through stage 4 chronic kidney disease, or unspecified chronic kidney disease; E11.22 Type 2 diabetes mellitus with diabetic chronic kidney disease; N18.4 Chronic kidney disease, stage 4 (severe); I50.9 Heart failure, unspecified; B35.3 Tinea pedis; I89.0 Lymphedema, not elsewhere classified; J44.9 Chronic obstructive pulmonary disease, unspecified; E03.9 Hypothyroidism, unspecified; M19.90 Unspecified osteoarthritis, unspecified site; F41.9 Anxiety disorder, unspecified; G89.29 Other chronic pain; E78.5 Hyperlipidemia, unspecified; F32.9 Major depressive disorder, single episode, unspecified; G47.33 Obstructive sleep apnea (adult) (pediatric); I25.10 Atherosclerotic heart disease of native coronary artery without angina pectoris; E66.01 Morbid (severe) obesity due to excess calories; Z68.44 Body mass index [BMI] 60.0-69.9, adult; Z87.891 Personal history of nicotine dependence; Z79.4 Long term (current) use of insulin; Z99.2 Dependence on renal dialysis; Z90.710 Acquired absence of both cervix and uterus; Z90.49 Acquired absence of other specified parts of digestive tract
CPT/HCPCS: 29581

== ENCOUNTER → 2018-08-24 | Outpatient (CLI) | payer BC, OTHER ==
[~2018-08-24] MED LIST changes: -ALBU2.5V8 INH; +PROAIR HFA8.5 GM INH
== END | disposition home or self-care (01) ==
LOC: PMGWOUND 11:05
PROVIDERS: ATTEND Preventive Medicine Undersea and Hyperbaric Medicine
DX: E11.622 Type 2 diabetes mellitus with other skin ulcer (principal); I87.313 Chronic venous hypertension (idiopathic) with ulcer of bilateral lower extremity; L97.212 Non-pressure chronic ulcer of right calf with fat layer exposed; L97.221 Non-pressure chronic ulcer of left calf limited to breakdown of skin; E11.42 Type 2 diabetes mellitus with diabetic polyneuropathy; E11.52 Type 2 diabetes mellitus with diabetic peripheral angiopathy with gangrene; I96 Gangrene, not elsewhere classified; I13.0 Hypertensive heart and chronic kidney disease with heart failure and stage 1 through stage 4 chronic kidney disease, or unspecified chronic kidney disease; E11.22 Type 2 diabetes mellitus with diabetic chronic kidney disease; N18.4 Chronic kidney disease, stage 4 (severe); I50.9 Heart failure, unspecified; I89.0 Lymphedema, not elsewhere classified; B35.3 Tinea pedis; G89.29 Other chronic pain; J44.9 Chronic obstructive pulmonary disease, unspecified; E03.9 Hypothyroidism, unspecified; F41.9 Anxiety disorder, unspecified; E78.5 Hyperlipidemia, unspecified; G47.33 Obstructive sleep apnea (adult) (pediatric); M19.90 Unspecified osteoarthritis, unspecified site; I25.10 Atherosclerotic heart disease of native coronary artery without angina pectoris; E66.01 Morbid (severe) obesity due to excess calories; Z68.44 Body mass index [BMI] 60.0-69.9, adult; Z99.2 Dependence on renal dialysis; Z79.4 Long term (current) use of insulin; Z87.891 Personal history of nicotine dependence; Z90.710 Acquired absence of both cervix and uterus; Z90.49 Acquired absence of other specified parts of digestive tract
CPT/HCPCS: 99215

== ENCOUNTER → 2018-08-28 | Outpatient (CLI) | payer BC, OTHER | END | disposition home or self-care (01) | LOC: PMGWOUND 13:02 | PROVIDERS: ATTEND Emergency Medicine Undersea and Hyperbaric Medicine | DX: E11.622 Type 2 diabetes mellitus with other skin ulcer (principal); I87.313 Chronic venous hypertension (idiopathic) with ulcer of bilateral lower extremity; L97.212 Non-pressure chronic ulcer of right calf with fat layer exposed; L97.221 Non-pressure chronic ulcer of left calf limited to breakdown of skin; E11.42 Type 2 diabetes mellitus with diabetic polyneuropathy; E11.52 Type 2 diabetes mellitus with diabetic peripheral angiopathy with gangrene; I96 Gangrene, not elsewhere classified; I13.0 Hypertensive heart and chronic kidney disease with heart failure and stage 1 through stage 4 chronic kidney disease, or unspecified chronic kidney disease; E11.22 Type 2 diabetes mellitus with diabetic chronic kidney disease; N18.4 Chronic kidney disease, stage 4 (severe); I50.9 Heart failure, unspecified; I89.0 Lymphedema, not elsewhere classified; G89.29 Other chronic pain; F41.9 Anxiety disorder, unspecified; F32.9 Major depressive disorder, single episode, unspecified; J44.9 Chronic obstructive pulmonary disease, unspecified; E78.5 Hyperlipidemia, unspecified; G47.33 Obstructive sleep apnea (adult) (pediatric); E03.9 Hypothyroidism, unspecified; M19.90 Unspecified osteoarthritis, unspecified site; I25.10 Atherosclerotic heart disease of native coronary artery without angina pectoris; E66.01 Morbid (severe) obesity due to excess calories; Z68.44 Body mass index [BMI] 60.0-69.9, adult; Z99.2 Dependence on renal dialysis; Z79.4 Long term (current) use of insulin; Z87.891 Personal history of nicotine dependence; Z90.710 Acquired absence of both cervix and uterus; Z90.49 Acquired absence of other specified parts of digestive tract | CPT/HCPCS: 99215 ==

== ENCOUNTER → 2018-09-06 | Outpatient (CLI) | payer BC, OTHER ==
[~2018-09-06] MED LIST changes: +ALBU2.5V8 INH; -PROAIR HFA8.5 GM INH
== END | disposition home or self-care (01) ==
LOC: PMGWOUND 13:38
PROVIDERS: ATTEND Emergency Medicine Undersea and Hyperbaric Medicine
DX: E11.622 Type 2 diabetes mellitus with other skin ulcer (principal); L97.818 Non-pressure chronic ulcer of other part of right lower leg with other specified severity; L97.828 Non-pressure chronic ulcer of other part of left lower leg with other specified severity; E11.42 Type 2 diabetes mellitus with diabetic polyneuropathy; E11.52 Type 2 diabetes mellitus with diabetic peripheral angiopathy with gangrene; I96 Gangrene, not elsewhere classified; I13.0 Hypertensive heart and chronic kidney disease with heart failure and stage 1 through stage 4 chronic kidney disease, or unspecified chronic kidney disease; E11.22 Type 2 diabetes mellitus with diabetic chronic kidney disease; N18.4 Chronic kidney disease, stage 4 (severe); I50.9 Heart failure, unspecified; I89.0 Lymphedema, not elsewhere classified; F41.9 Anxiety disorder, unspecified; G89.29 Other chronic pain; E78.5 Hyperlipidemia, unspecified; E03.9 Hypothyroidism, unspecified; F32.9 Major depressive disorder, single episode, unspecified; G47.33 Obstructive sleep apnea (adult) (pediatric); M19.90 Unspecified osteoarthritis, unspecified site; J44.9 Chronic obstructive pulmonary disease, unspecified; I25.10 Atherosclerotic heart disease of native coronary artery without angina pectoris; E66.01 Morbid (severe) obesity due to excess calories; Z68.44 Body mass index [BMI] 60.0-69.9, adult; Z99.2 Dependence on renal dialysis; Z79.4 Long term (current) use of insulin; Z87.891 Personal history of nicotine dependence; Z90.710 Acquired absence of both cervix and uterus; Z90.49 Acquired absence of other specified parts of digestive tract
CPT/HCPCS: 99214; G0463

== ENCOUNTER → 2018-11-30 | Outpatient (CLI) | payer BC, OTHER ==
[~2018-11-30] MED LIST changes: -GABA600T2 PO; +GABA600T7 PO
== END | disposition home or self-care (01) ==
LOC: PMGWOUND 07:54
PROVIDERS: ATTEND Preventive Medicine Undersea and Hyperbaric Medicine
DX: E11.622 Type 2 diabetes mellitus with other skin ulcer (principal); I87.313 Chronic venous hypertension (idiopathic) with ulcer of bilateral lower extremity; L97.212 Non-pressure chronic ulcer of right calf with fat layer exposed; L97.221 Non-pressure chronic ulcer of left calf limited to breakdown of skin; E11.52 Type 2 diabetes mellitus with diabetic peripheral angiopathy with gangrene; I96 Gangrene, not elsewhere classified; E11.42 Type 2 diabetes mellitus with diabetic polyneuropathy; I13.0 Hypertensive heart and chronic kidney disease with heart failure and stage 1 through stage 4 chronic kidney disease, or unspecified chronic kidney disease; E11.22 Type 2 diabetes mellitus with diabetic chronic kidney disease; N18.4 Chronic kidney disease, stage 4 (severe); I50.9 Heart failure, unspecified; E03.9 Hypothyroidism, unspecified; I89.0 Lymphedema, not elsewhere classified; G89.29 Other chronic pain; G47.33 Obstructive sleep apnea (adult) (pediatric); E78.5 Hyperlipidemia, unspecified; M19.90 Unspecified osteoarthritis, unspecified site; J44.9 Chronic obstructive pulmonary disease, unspecified; I25.10 Atherosclerotic heart disease of native coronary artery without angina pectoris; F32.9 Major depressive disorder, single episode, unspecified; F41.9 Anxiety disorder, unspecified; E66.01 Morbid (severe) obesity due to excess calories; Z68.44 Body mass index [BMI] 60.0-69.9, adult; Z90.710 Acquired absence of both cervix and uterus; Z90.49 Acquired absence of other specified parts of digestive tract; Z79.4 Long term (current) use of insulin; Z99.2 Dependence on renal dialysis
CPT/HCPCS: 97597; 97598

== ENCOUNTER 2018-12-03 14:48 | Emergency (ER) | payer BC, OTHER ==
[~2018-12-03] VITALS: Ht 162.6 cm; Wt 157.9 kg
[2018-12-03] MEDS ORDERED: IV NORMAL SALINE 1000ML BAG 1,000 ML IV ONE (15:30)
[2018-12-03 16:09] LABS: BASO % 0 % (0-3); EOS # 0.2 x10^3/uL (0.0-0.7); EOS % 4 % (0-3); HEMATOCRIT 24.6 % (36.0-47.0); LYMPH # 0.8 x10^3/uL (1.0-4.8); LYMPH % 17 % (24-48); MEAN CORPUSCULAR HEMOGLOBIN 32 pg (25-35); MEAN CORPUSCULAR HGB CONC 33 g/dL (31-37); MEAN CORPUSCULAR VOLUME 97 fL (79-100); MONO # 0.3 x10^3/uL (0.0-1.1); MONO % 7 % (0-9); NEUT # 3.6 x10^3uL (1.8-7.7); NEUT % 73 % (31-73); PLATELET COUNT 263 x10^3/uL (140-400); RED BLOOD COUNT 2.53 x10^6/uL (3.50-5.40); RED CELL DISTRIBUTION WIDTH 14.7 % (11.5-14.5)
[2018-12-03 16:18] LABS: PROTHROMBIN TIME PATIENT 13.8 SEC (11.7-14.0)
--- NOTE | 2018-12-03 16:20 | EKG ---
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
[2018-12-03 16:25] LABS: CALCIUM 8.7 mg/dL (8.5-10.1); CREATININE 1.3 mg/dL (0.6-1.0); GFR 41.2; POTASSIUM 4.6 mmol/L (3.5-5.1)
--- NOTE | 2018-12-03 16:30 | RAD ---
EXAM: CT Head without IV contrast CLINICAL HISTORY: ALTERED MENTAL STATUS, HX ANEURYSM COMPARISON: None. TECHNIQUE: Routine CT of the head without contrast. Soft tissues and bone windows were reviewed. PQRS compliance statement - One or more of the following individualized dose reduction techniques were utilized for this study: 1. Automated exposure control 2. Adjustment of the mA and/or kV according to patient size 3. Use of iterative reconstruction technique FINDINGS: Metallic streak artifact from coiling limits evaluation of the basilar cisterns There is no evidence of hemorrhage, mass or extra-axial fluid collection. Leon-white differentiation is maintained with no evidence of edema. There is no mass effect or shift of the intracranial structures. The ventricles, basilar cisterns and cortical sulci are normal in size and configuration for the patients stated age. The cerebellum and brainstem are unremarkable. The calvarium demonstrates no evidence of fracture or focal lesion. There is normal aeration of the visualized paranasal sinuses and mastoid air cells. The visualized portions of the orbits are normal. IMPRESSION: No evidence for acute intracranial process. Electronically signed by: Alexy Shore MD (12/03/2018 4:27 PM) [facility]
[2018-12-03 16:31] LABS: ALBUMIN 2.9 g/dL (3.4-5.0); ALBUMIN/GLOBULIN RATIO 0.7 (1.0-1.7); MAGNESIUM 1.7 mg/dL (1.8-2.4); TOTAL BILIRUBIN 0.8 mg/dL (0.2-1.0); TOTAL PROTEIN 7.3 g/dL (6.4-8.2)
--- NOTE | 2018-12-03 16:36 | RAD ---
Portable chest, 12/03/2018: HISTORY: Altered mental status Comparison is made to a study from 09/06/2016. The heart is enlarged. The pulmonary vascularity has improved and is now within normal limits. There is a calcified granuloma in the left base. No acute infiltrate is seen. There is no evidence of pleural fluid. IMPRESSION: 1. Mild cardiomegaly. 2. No acute abnormality is detected. Electronically signed by: Abram Dinero MD (12/03/2018 4:33 PM) [facility]
[2018-12-03 17:23] VITALS: BP 129/60
--- NOTE | 2018-12-03 17:26 | PHYS DOC ---
Past Medical History Past Medical History: Anxiety, Arthritis, COPD, Depression, Hypertension, Other Additional Past Medical Histor: lymphedema, neuropathy,morbid obesity, chronic pain, stasis ulcer, insomnia Past Surgical History: Cholecystectomy, Tonsillectomy, Tubal ligation Additional Past Surgical Histo: brain aneurysm, unknown anal sx Alcohol Use: None Drug Use: None Adult General Chief Complaint Chief Complaint: WOUND CHECK [facility] HPI Patient is a 63 year old female with a history of hypertension, COPD, arthritis , depression, anxiety, who presents today from the wound clinic, patient states this send her to the ED to have a blood work checked. She states she has chronic lymphedema with wounds to bilateral lower extremities which she follows up with the wound clinic, she states her wounds have been weeping and they requested she gets checked to make sure her white count is not elevated and her hemoglobin is not too low. She states she has history of chronic anemia. Patient denies any fever. She states she is currently on Augmentin. She states her felt she was rumbling for the last 2 days. Patient states she is alert oriented and is not rumbling. Review of Systems Review of Systems Constitutional: Denies fever or chills [] Eyes: Denies change in visual acuity, redness, or eye pain [] HENT: Denies nasal congestion or sore throat [] Respiratory: Denies cough or shortness of breath [] Cardiovascular: No additional information not addressed in HPI [] GI: Denies abdominal pain, nausea, vomiting, bloody stools or diarrhea [] : Denies dysuria or hematuria [] Musculoskeletal: Denies back pain or joint pain [] Integument: Reports chronic bilateral lower extremity swelling and draining from chronic lymphedema Neurologic: Denies headache, focal weakness or sensory changes [] All other systems were reviewed and found to be within normal limits, except as documented in this note. Current Medications Current Medications Current Medications Medications (Trade) Dose Ordered Sig/Demarco Start Time Stop Time Status Last Admin Dose Admin Sodium Chloride 1,000 ml @ 1,000 mls/hr 1X ONCE 12/03/18 15:30 12/03/18 16:29 DC 12/03/18 15:30 1,000 MLS/HR Allergies Allergies Allergies Coded Allergies Type Severity Reaction Last Updated Verified aspirin Allergy Intermediate 12/03/18 No codeine Allergy Intermediate 04/27/18 Yes levofloxacin Allergy Intermediate 04/27/18 Yes piperacillin Allergy Intermediate hives, rash 04/27/18 Yes propoxyphene Allergy Intermediate 04/27/18 Yes sulfamethoxazole Allergy Intermediate 04/27/18 Yes tazobactam Allergy Intermediate hives, rash 04/27/18 Yes I S O L A T I O N *CONTACT* Allergy Unknown 04/27/18 Yes Physical Exam Physical Exam Constitutional: Well developed, well nourished, no acute distress, non-toxic appearance. [] HENT: Normocephalic, atraumatic, bilateral external ears normal, oropharynx moist, no oral exudates, nose normal. [] Eyes: PERRLA, EOMI, conjunctiva normal, no discharge. [] Neck: Normal range of motion, no tenderness, supple, no stridor. [] Cardiovascular:Heart rate regular rhythm, no murmur [] Lungs & Thorax: Bilateral breath sounds clear to auscultation [] Abdomen: Bowel sounds normal, soft, no tenderness, no masses, no pulsatile masses. [] Skin: Warm, dry, no erythema, no rash. [] Back: No tenderness, no CVA tenderness. [] Extremities: No tenderness, no cyanosis, no clubbing, ROM intact, bilateral lower extremities with chronic lymphedema, both lower extremities with dressings. Neurologic: Alert and oriented X 3, normal motor function, normal sensory function, no focal deficits noted. [] Psychologic: Affect normal, judgement normal, mood normal. [] Current Patient Data Vital Signs Vital Signs Date Time Temp Pulse Resp B/P (MAP) Pulse Ox O2 Delivery O2 Flow Rate FiO2 12/03/18 15:14 98.4 77 20 141/66 (91) 99 Room Air 98.4 Lab Values Laboratory Tests Test 12/03/18 15:50 White Blood Count 5.0 x10^3/uL (4.0-11.0) Red Blood Count 2.53 x10^6/uL (3.50-5.40) L Hemoglobin 8.0 g/dL (12.0-15.5) L Hematocrit 24.6 % (36.0-47.0) L Mean Corpuscular Volume 97 fL (79-100) Mean Corpuscular Hemoglobin 32 pg (25-35) Mean Corpuscular Hemoglobin Concent 33 g/dL (31-37) Red Cell Distribution Width 14.7 % (11.5-14.5) H Platelet Count 263 x10^3/uL (140-400) Neutrophils (%) (Auto) 73 % (31-73) Lymphocytes (%) (Auto) 17 % (24-48) L Monocytes (%) (Auto) 7 % (0-9) Eosinophils (%) (Auto) 4 % (0-3) H Basophils (%) (Auto) 0 % (0-3) Neutrophils # (Auto) 3.6 x10^3uL (1.8-7.7) Lymphocytes # (Auto) 0.8 x10^3/uL (1.0-4.8) L Monocytes # (Auto) 0.3 x10^3/uL (0.0-1.1) Eosinophils # (Auto) 0.2 x10^3/uL (0.0-0.7) Basophils # (Auto) 0.0 x10^3/uL (0.0-0.2) Prothrombin Time 13.8 SEC (11.7-14.0) Prothrombin Time INR 1.1 (0.8-1.1) Sodium Level 139 mmol/L (136-145) Potassium Level 4.6 mmol/L (3.5-5.1) Chloride Level 100 mmol/L (98-107) Carbon Dioxide Level 33 mmol/L (21-32) H Anion Gap 6 (6-14) Blood Urea Nitrogen 19 mg/dL (7-20) Creatinine 1.3 mg/dL (0.6-1.0) H Estimated GFR (Cockcroft-Gault) 41.2 BUN/Creatinine Ratio 15 (6-20) Glucose Level 113 mg/dL (70-99) H Calcium Level 8.7 mg/dL (8.5-10.1) Magnesium Level 1.7 mg/dL (1.8-2.4) L Total Bilirubin 0.8 mg/dL (0.2-1.0) Aspartate Amino Transferase (AST) 20 U/L (15-37) Alanine Aminotransferase (ALT) 15 U/L (14-59) Alkaline Phosphatase 83 U/L (46-116) Creatine Kinase 59 U/L (26-192) Creatine Kinase MB (Mass) 0.8 ng/mL (0.0-3.6) Creatine Kinase MB Relative Index 1.4 % (0-4) Troponin I Quantitative 0.045 ng/mL (0.000-0.055) C-Reactive Protein, Quantitative 60.0 mg/L (0-3.3) H EP-Sfh-C-Type Natriuretic Peptide 341 pg/mL (0-124) H Total Protein 7.3 g/dL (6.4-8.2) Albumin 2.9 g/dL (3.4-5.0) L Albumin/Globulin Ratio 0.7 (1.0-1.7) L Laboratory Tests 12/03/18 15:50 Laboratory Tests 12/03/18 15:50 EKG EKG [] Radiology/Procedures Radiology/Procedures [] Course & Med Decision Making Course & Med Decision Making Pertinent Labs and Imaging studies reviewed. (See chart for details) This is a 63-year-old female patient was sent to the ED from the wound clinic for blood work to make sure her white count is not elevated and her hemoglobin is not too low. Patient's was also concerned patient is rambling. Patient is alert and oriented 3. CBC with hemoglobin of 8.0, hematocrit 24.6, this is around patient's baseline. WBC is normal. CMP would not acute findings, CT of the head is negative, chest x -ray is negative. Requested urine from her, she states she is not going to be able to void in the ED because we do not have any dependents that can fit her. Patient is currently on Augmentin. She was discharged back to home, follow up with her PCP as well as wound clinic. Dragon Disclaimer Dragon Disclaimer This electronic medical record was generated, in whole or in part, using a voice recognition dictation system. Departure Departure Impression: Primary Impression: Chronic acquired lymphedema Additional Impression: Chronic anemia Disposition: HOME, SELF-CARE Condition: STABLE Referrals: ALYSIA KIM MD (PCP) follow up in the course of this week or next week Patient Instructions: Anemia, Nonspecific-Brief, Lymphedema Additional Instructions: You were evaluated in the emergency room for chronic lymphedema. Continue following up with the wound clinic as well as her primary care doctor, continue taking antibiotics until completed. Problem Qualifiers KAVITHAROZ CALLOWAY JOANIE Dec 03, 2018 17:26
== END 2018-12-03 18:00 | disposition home or self-care (01) ==
LOC: ER 14:48
DX: I89.0 Lymphedema, not elsewhere classified (principal); D64.9 Anemia, unspecified; R41.82 Altered mental status, unspecified; I10 Essential (primary) hypertension; G89.29 Other chronic pain; E66.01 Morbid (severe) obesity due to excess calories; Z68.43 Body mass index [BMI] 50.0-59.9, adult; J44.9 Chronic obstructive pulmonary disease, unspecified; Z88.2 Allergy status to sulfonamides; Z88.5 Allergy status to narcotic agent; Z88.6 Allergy status to analgesic agent; Z91.041 Radiographic dye allergy status; Z88.8 Allergy status to other drugs, medicaments and biological substances; Z88.1 Allergy status to other antibiotic agents
CPT/HCPCS: 36415; 70450; 71045; 80053; 82553; 83735; 83880; 84484; 85025; 85610; 85651; 86140; 93005; 96360; 99284; J7030

== ENCOUNTER → 2018-12-03 | Outpatient (CLI) | payer BC, OTHER | END | disposition home or self-care (01) | LOC: PMGWOUND 13:30 | PROVIDERS: ATTEND Emergency Medicine Undersea and Hyperbaric Medicine | DX: E11.622 Type 2 diabetes mellitus with other skin ulcer (principal); I87.313 Chronic venous hypertension (idiopathic) with ulcer of bilateral lower extremity; L97.212 Non-pressure chronic ulcer of right calf with fat layer exposed; L97.221 Non-pressure chronic ulcer of left calf limited to breakdown of skin; E11.52 Type 2 diabetes mellitus with diabetic peripheral angiopathy with gangrene; I96 Gangrene, not elsewhere classified; E11.42 Type 2 diabetes mellitus with diabetic polyneuropathy; I13.0 Hypertensive heart and chronic kidney disease with heart failure and stage 1 through stage 4 chronic kidney disease, or unspecified chronic kidney disease; E11.22 Type 2 diabetes mellitus with diabetic chronic kidney disease; N18.4 Chronic kidney disease, stage 4 (severe); I50.9 Heart failure, unspecified; G89.29 Other chronic pain; E78.5 Hyperlipidemia, unspecified; G47.33 Obstructive sleep apnea (adult) (pediatric); E03.9 Hypothyroidism, unspecified; I89.0 Lymphedema, not elsewhere classified; M19.90 Unspecified osteoarthritis, unspecified site; J44.9 Chronic obstructive pulmonary disease, unspecified; I25.10 Atherosclerotic heart disease of native coronary artery without angina pectoris; F41.9 Anxiety disorder, unspecified; F32.9 Major depressive disorder, single episode, unspecified; E66.01 Morbid (severe) obesity due to excess calories; Z68.44 Body mass index [BMI] 60.0-69.9, adult; Z90.710 Acquired absence of both cervix and uterus; Z99.2 Dependence on renal dialysis; Z79.4 Long term (current) use of insulin; Z87.891 Personal history of nicotine dependence; Z90.49 Acquired absence of other specified parts of digestive tract | CPT/HCPCS: 29581 ==

== ENCOUNTER → 2018-12-06 | Outpatient (CLI) | payer BC, OTHER ==
[2018-12-03 17:23] VITALS: BP 129/60
== END | disposition home or self-care (01) ==
LOC: PMGWOUND 09:28
PROVIDERS: ATTEND Emergency Medicine Undersea and Hyperbaric Medicine
DX: E11.622 Type 2 diabetes mellitus with other skin ulcer (principal); L97.212 Non-pressure chronic ulcer of right calf with fat layer exposed; L97.221 Non-pressure chronic ulcer of left calf limited to breakdown of skin; E11.42 Type 2 diabetes mellitus with diabetic polyneuropathy; E11.69 Type 2 diabetes mellitus with other specified complication; M86.9 Osteomyelitis, unspecified; E11.52 Type 2 diabetes mellitus with diabetic peripheral angiopathy with gangrene; I96 Gangrene, not elsewhere classified; I13.0 Hypertensive heart and chronic kidney disease with heart failure and stage 1 through stage 4 chronic kidney disease, or unspecified chronic kidney disease; E11.22 Type 2 diabetes mellitus with diabetic chronic kidney disease; N18.4 Chronic kidney disease, stage 4 (severe); I50.9 Heart failure, unspecified; G89.29 Other chronic pain; E03.9 Hypothyroidism, unspecified; E78.5 Hyperlipidemia, unspecified; G47.33 Obstructive sleep apnea (adult) (pediatric); I89.0 Lymphedema, not elsewhere classified; J44.9 Chronic obstructive pulmonary disease, unspecified; I25.10 Atherosclerotic heart disease of native coronary artery without angina pectoris; F32.9 Major depressive disorder, single episode, unspecified; F41.9 Anxiety disorder, unspecified; E66.01 Morbid (severe) obesity due to excess calories; Z68.44 Body mass index [BMI] 60.0-69.9, adult; Z99.2 Dependence on renal dialysis; Z90.710 Acquired absence of both cervix and uterus; Z90.49 Acquired absence of other specified parts of digestive tract; Z88.6 Allergy status to analgesic agent; Z88.5 Allergy status to narcotic agent; Z88.1 Allergy status to other antibiotic agents; Z88.2 Allergy status to sulfonamides; Z87.891 Personal history of nicotine dependence; Z88.8 Allergy status to other drugs, medicaments and biological substances
CPT/HCPCS: 29581

== ENCOUNTER 2020-10-06 15:02 | Inpatient (IN) | payer BC, OTHER ==
[~2020-10-06] VITALS: Ht 165.1 cm; Wt 152.1 kg
[~2020-10-06 15:02] MED LIST changes: +AMMO225L5 TOP; +AMOX1TAB11 PO; +GENT15CR6 TOP; -LISI-334 PO; +LISI10TA16 PO; +LISI20TA18 PO; +NYST60PO TOP; -PANT40TA3 PO; +PANT40TA77 PO; +POTA10TA12 PO
[2020-10-06 19:00] VITALS: BP 133/52
[2020-10-06] MEDS ORDERED: MEROPENEM 1 GM in IV NORMAL SALINE 100ML 100 ML IV ONE (19:00)
--- NOTE | 2020-10-06 22:34 | NUR ---
Call to Dr. Miranda regarding home medications and Patient request for pain medication. Home medication reviewed with Dr. Miranda and medication ordered. PRN pain medication changed to scheduled per Dr. Miranda.
[2020-10-06] MEDS ORDERED: oxyCODONE/APAP 10/325 1 TAB TABLET PO PRN (22:45)
[2020-10-06 23:04] VITALS: BP 141/33
[2020-10-06] MEDS: oxyCODONE/APAP 10/325 1 TAB TABLET PO SCH (23:17)
[2020-10-06] MEDS: ALPRAZolam 0.5 MG TABLET PO SCH (23:18)
[2020-10-06] MEDS: ATORVASTATIN CALCIUM 40 MG TABLET. PO SCH (23:18)
[2020-10-06] MEDS: GABAPENTIN 300 MG CAPSULE. PO SCH (23:18)
[2020-10-07 03:00] VITALS: BP 106/32
[2020-10-07] MEDS: oxyCODONE/APAP 10/325 1 TAB TABLET PO SCH ×4 (06:25→23:43)
[2020-10-07 07:00] VITALS: BP_SYST 101; BP_SYST 98; BP_DIAS 25; BP_DIAS 29
--- NOTE | 2020-10-07 08:54 | PDOC ---
Provider Note Date of Service: DATE: 10/07/20 TIME: 08:51 Provider Note [id number] Justifications for Admission Other Justification ALYSIA KIM MD Oct 07, 2020 08:54
[2020-10-07] MEDS ORDERED: LISINOPRIL 10 MG TABLET PO SCH (09:00)
[2020-10-07] MEDS ORDERED: MEROPENEM 1 GM in IV NORMAL SALINE 100ML 100 ML IV SCH (09:00)
--- NOTE | 2020-10-07 09:19 | HP ---
ADMIT DATE: 10/07/2020 CHIEF COMPLAINT: Leg infection. HISTORY OF PRESENT ILLNESS: A 65-year-old white female with chronic venous stasis ulcers to both legs and is managed by Wound Care Clinic. Culture recently grew out Serratia and was resistant to oral meds that were available, but sensitive to Rocephin and ciprofloxacin. SHE HAS AN ALLERGY TO LEVOFLOXACIN and she was given a gram of meropenem on admission and admitted. ID consult pending and she is sleeping at this time. PAST MEDICAL HISTORY: She has had coronary artery disease. Takes aspirin and lisinopril for this. No other specific medical problems known except for chronic morbid obesity and chronic nonmalignant pain. SOCIAL HISTORY: Nonsmoker, nondrinker, not physically active because of her weight, size and pain. . FAMILY HISTORY: Unremarkable. REVIEW OF SYSTEMS: No other complaints. OBJECTIVE: ENT: All within normal limits. NECK: No masses, nodes or bruits. LUNGS: Clear. CARDIOVASCULAR: Regular rate. No murmur. ABDOMEN: Obese, nontender. EXTREMITIES: Legs are wrapped with compressive wraps, not unwrapped at this time. Pedal pulses are adequate. NEUROLOGIC: Physiologic, nonfocal. ASSESSMENT: Chronic venous stasis ulcers with secondary infection with Serratia at this time. Coronary artery disease, status is stable and she has chronic nonmalignant pain. PLAN: Rocephin per culture on 09/29, so will be started, pending ID consult. ALYSIA KIM MD DR: KARIN/lidia JOB#: [id number] / [id number]
--- NOTE | 2020-10-07 09:27 | PDOC ---
Infectious Disease Note Vital Sign Vital Signs Vital Signs Date Time Temp Pulse Resp B/P (MAP) Pulse Ox O2 Delivery O2 Flow Rate FiO2 10/07/20 07:25 20 99 Nasal Cannula 3.0 10/07/20 07:00 101/29 (53) 10/07/20 07:00 98.9 81 98.9 Objective Assessment pt seen, consult dictated Plan Plan of Care / JOSHUA MOSELEY MD Oct 07, 2020 09:27
[2020-10-07 09:46] LABS: BASO % 0 % (0-3); EOS # 0.2 x10^3/uL (0.0-0.7); EOS % 3 % (0-3); HEMATOCRIT 27.7 % (36.0-47.0); HEMOGLOBIN 9.6 g/dL (12.0-15.5); LYMPH # 0.8 x10^3/uL (1.0-4.8); LYMPH % 16 % (24-48); MEAN CORPUSCULAR HEMOGLOBIN 34 pg (25-35); MEAN CORPUSCULAR HGB CONC 35 g/dL (31-37); MEAN CORPUSCULAR VOLUME 97 fL (79-100); MONO # 0.3 x10^3/uL (0.0-1.1); MONO % 6 % (0-9); NEUT # 3.8 x10^3/uL (1.8-7.7); NEUT % 74 % (31-73); PLATELET COUNT 170 x10^3/uL (140-400); RED BLOOD COUNT 2.85 x10^6/uL (3.50-5.40); RED CELL DISTRIBUTION WIDTH 12.7 % (11.5-14.5); WHITE BLOOD COUNT 5.2 x10^3/uL (4.0-11.0)
--- NOTE | 2020-10-07 09:53 | CONS ---
DATE OF CONSULTATION: 10/07/2020 REQUESTING PHYSICIAN: Caleb Miranda MD REASON FOR CONSULTATION: Infected leg ulcer. HISTORY OF PRESENT ILLNESS: This is a 65-year-old female with multiple medical problems who has had chronic venous insufficiency and ulcerations in both the legs, off and on gets better and then gets worse. The patient says this last Monday, it started looking bad on the right leg. She had a fever over the weekend and then she decided to be admitted if she started draining more from the leg. Denies any other symptoms like nausea, vomiting, diarrhea, chest pain, shortness of breath, abdominal pain, urinary symptoms. The patient had wound care culture done from her on was Serratia. PAST MEDICAL HISTORY: Positive for morbid obesity, coronary artery disease, hyperlipidemia, hypertension, COPD, sleep apnea, gastroesophageal reflux disease, history of depression, anxiety, peripheral neuropathy, venous insufficiency with stasis dermatitis and ulcerations. SOCIAL HISTORY: Negative for smoking. She quit smoking in 2014. Negative for alcohol use or drug use. ALLERGIES: SHE IS LISTED ALLERGIC TO LEVOFLOXACIN, PIPERACILLIN/TAZOBACTAM, SULFAMETHOXAZOLE. REVIEW OF SYSTEMS: As per HPI, all other systems reviewed are negative. PHYSICAL EXAMINATION: GENERAL: Alert, oriented female, not in distress. VITAL SIGNS: Stable, afebrile. HEENT: Both pupils are round and reacting. No conjunctival lesion, no lesion in the mouth. NECK: Supple, no JVP, no lymphadenopathy. LUNGS: Clear. HEART: S1, S2 regular. ABDOMEN: Soft, nontender, no organomegaly. She does have appears to be umbilical hernia. EXTREMITIES: Bilateral lower extremity edema present, venous insufficiency changes as well as ulcerations of both the legs. NEUROLOGIC: The patient is alert, awake and appropriate. No focal neurologic deficit. LABORATORY DATA: No lab work is done yet. Culture as I mentioned from the . IMPRESSION: 1. Bilateral lower extremity venous insufficiency, ulcerations with the right side is worse recently with a culture positive with Serratia. 2. Venous insufficiency. 3. Obesity. 4. Hypertension. 5. Coronary artery disease. RECOMMENDATIONS: Change Rocephin to meropenem, leg elevation. Local care. Supportive care. We will get CBC, chemistry and continue to follow. Thank you very much, Dr. Miranda, for giving me the opportunity to participate in this patient's care. JOSHUA MOSELEY MD DR: JAYY/lidia JOB#: [id number] / [id number]
[2020-10-07] MEDS ORDERED: cefTRIAXone IV Push 1 GM VIAL. IVP SCH (10:00)
[2020-10-07 10:04] LABS: ALBUMIN 2.9 g/dL (3.4-5.0); ALBUMIN/GLOBULIN RATIO 0.7 (1.0-1.7); CALCIUM 9.1 mg/dL (8.5-10.1); CREATININE 1.4 mg/dL (0.6-1.0); GFR 37.6; POTASSIUM 4.9 mmol/L (3.5-5.1); TOTAL BILIRUBIN 0.8 mg/dL (0.2-1.0); TOTAL PROTEIN 7.1 g/dL (6.4-8.2)
[2020-10-07] MEDS: buPROPion SR 150 MG TABLET.SA PO SCH (10:52)
[2020-10-07] MEDS: CHOLECALCIFEROL (VITAMIN D3) 1,000 UNIT TABLET PO SCH (10:52)
[2020-10-07] MEDS: GABAPENTIN 300 MG CAPSULE. PO SCH ×3 (10:53→21:19)
[2020-10-07] MEDS: VENLAFAXINE XR 37.5 MG CAP.ER.24H. PO SCH (10:53)
[2020-10-07] MEDS: ALPRAZolam 0.5 MG TABLET PO SCH ×3 (10:53→21:20)
[2020-10-07] MEDS: PANTOPRAZOLE 40 MG TABLET.DR. PO SCH (10:53)
[2020-10-07 11:00] VITALS: BP 117/30
[2020-10-07] MEDS: MEROPENEM 500 MG in IV NORMAL SALINE 50ML 50 ML IV SCH ×3 (12:17→22:43)
--- NOTE | 2020-10-07 14:25 | NUR ---
SW following for discharge planning. Spoke with RN and reviewed chart. Pt on 3l 02, regular diet, IV Meropenem. SW following.
--- NOTE | 2020-10-07 14:58 | NUR ---
/Wound/Ostomy Care Wound Type/Assessment: Pt seen per wound care consult. See wound assessment. Pt is well known to us from the wound clinic. Pt has chronic bilateral lower extremities venous wounds that had worsened and caused her to be admitted yesterday from the wound clinic. Dressings stuck to wounds and they had to be completely saturated with wash and water in order to remove them from lower legs, there was moderate amount of bleeding, but has improved from yesterday. Wounds are then cleansed, assessed, measured, and photographed. Treatment Recommendations/Plan: Recommendations for A&D ointment to lower legs, then xerofom gauze, ABD pads, and kerlix. Then apply medi-owner professional engineer bilaterally. change dressings every other day. Wound care will reassess on Monday. No dressing change needed unless dressing becomes wet. Education provided: Pt educated on dressing changes and elevation. Offloading surface/device: N/A Recommended Referrals/Tests: N/A Discharge Recommendations for dressings: Continue current treatment. Dressing change instructions left in room. No other wounds noted. Unable to assess backside as patient stated she has no wounds back there and will not get out of chair at this time. Call light in reach. Wound care will follow up with patient on Monday10/09/20
[2020-10-07 15:00] VITALS: BP 118/39
[2020-10-07 19:00] VITALS: BP 125/74
[2020-10-07] MEDS: LACTOBACILLUS RHAMNOSUS GG 1 CAPSULE. PO SCH (21:19)
[2020-10-07] MEDS: ATORVASTATIN CALCIUM 40 MG TABLET. PO SCH (21:19)
[2020-10-07 23:00] VITALS: BP 106/31
[2020-10-08 03:00] VITALS: BP 122/37
[2020-10-08] MEDS: MEROPENEM 500 MG in IV NORMAL SALINE 50ML 50 ML IV SCH ×3 (05:49→21:17)
[2020-10-08] MEDS: oxyCODONE/APAP 10/325 1 TAB TABLET PO SCH ×3 (05:49→18:25)
[2020-10-08 07:00] VITALS: BP 130/39
[2020-10-08] MEDS: PANTOPRAZOLE 40 MG TABLET.DR. PO SCH (07:15)
--- NOTE | 2020-10-08 08:55 | PDOC ---
Provider Note Date of Service: DATE: 10/08/20 TIME: 08:53 Provider Note sleeping deeply after perc, no temp, labs ok, culture noted- om mervin for serratia leg cellulitis, cont samemeds- off acei for now re hypotension, better Justifications for Admission Other Justification ALYSIA KIM MD Oct 08, 2020 08:55
[2020-10-08] MEDS: ALPRAZolam 0.5 MG TABLET PO SCH ×3 (09:12→21:17)
[2020-10-08] MEDS: buPROPion SR 150 MG TABLET.SA PO SCH (09:12)
[2020-10-08] MEDS: VENLAFAXINE XR 37.5 MG CAP.ER.24H. PO SCH (09:12)
[2020-10-08] MEDS: GABAPENTIN 300 MG CAPSULE. PO SCH ×3 (09:12→21:17)
[2020-10-08] MEDS: LACTOBACILLUS RHAMNOSUS GG 1 CAPSULE. PO SCH ×2 (09:12→21:17)
[2020-10-08] MEDS: CHOLECALCIFEROL (VITAMIN D3) 1,000 UNIT TABLET PO SCH (09:13)
--- NOTE | 2020-10-08 09:29 | PDOC ---
Infectious Disease Note Subjective Subjective pt is feeling better, though leaking trough the dressing ROS ROS no n/v/d/fever Vital Sign Vital Signs Vital Signs Date Time Temp Pulse Resp B/P (MAP) Pulse Ox O2 Delivery O2 Flow Rate FiO2 10/08/20 07:00 98.2 93 16 130/39 (69) 100 Nasal Cannula 3.0 98.2 Physical Exam PHYSICAL EXAM GENERAL: Alert, oriented female, not in distress. VITAL SIGNS: Stable, afebrile. HEENT: Both pupils are round and reacting. No conjunctival lesion, no lesion in the mouth. NECK: Supple, no JVP, no lymphadenopathy. LUNGS: Clear. HEART: S1, S2 regular. ABDOMEN: Soft, nontender, no organomegaly. She does have appears to be umbilical hernia. EXTREMITIES: Bilateral lower extremity edema present, venous insufficiency changes as well as ulcerations of both the legs. NEUROLOGIC: The patient is alert, awake and appropriate. No focal neurologic deficit. Labs Lab Laboratory Tests Test 10/07/20 09:35 White Blood Count 5.2 x10^3/uL (4.0-11.0) Red Blood Count 2.85 x10^6/uL (3.50-5.40) Hemoglobin 9.6 g/dL (12.0-15.5) Hematocrit 27.7 % (36.0-47.0) Mean Corpuscular Volume 97 fL (79-100) Mean Corpuscular Hemoglobin 34 pg (25-35) Mean Corpuscular Hemoglobin Concent 35 g/dL (31-37) Red Cell Distribution Width 12.7 % (11.5-14.5) Platelet Count 170 x10^3/uL (140-400) Neutrophils (%) (Auto) 74 % (31-73) Lymphocytes (%) (Auto) 16 % (24-48) Monocytes (%) (Auto) 6 % (0-9) Eosinophils (%) (Auto) 3 % (0-3) Basophils (%) (Auto) 0 % (0-3) Neutrophils # (Auto) 3.8 x10^3/uL (1.8-7.7) Lymphocytes # (Auto) 0.8 x10^3/uL (1.0-4.8) Monocytes # (Auto) 0.3 x10^3/uL (0.0-1.1) Eosinophils # (Auto) 0.2 x10^3/uL (0.0-0.7) Basophils # (Auto) 0.0 x10^3/uL (0.0-0.2) Sodium Level 140 mmol/L (136-145) Potassium Level 4.9 mmol/L (3.5-5.1) Chloride Level 104 mmol/L (98-107) Carbon Dioxide Level 31 mmol/L (21-32) Anion Gap 5 (6-14) Blood Urea Nitrogen 24 mg/dL (7-20) Creatinine 1.4 mg/dL (0.6-1.0) Estimated GFR (Cockcroft-Gault) 37.6 BUN/Creatinine Ratio 17 (6-20) Glucose Level 112 mg/dL (70-99) Calcium Level 9.1 mg/dL (8.5-10.1) Total Bilirubin 0.8 mg/dL (0.2-1.0) Aspartate Amino Transf (AST/SGOT) 21 U/L (15-37) Alanine Aminotransferase (ALT/SGPT) 29 U/L (14-59) Alkaline Phosphatase 117 U/L (46-116) Total Protein 7.1 g/dL (6.4-8.2) Albumin 2.9 g/dL (3.4-5.0) Albumin/Globulin Ratio 0.7 (1.0-1.7) Objective Assessment IMPRESSION: 1. Bilateral lower extremity venous insufficiency, ulcerations with the right side is worse recently with a culture positive with Serratia. 2. Venous insufficiency. 3. Obesity. 4. Hypertension. 5. Coronary artery disease. Plan Plan of Care cont meropenem leg elevation pt/ot JOSHUA MOSELEY MD Oct 08, 2020 09:29
[2020-10-08 11:00] VITALS: BP 110/50
[2020-10-08 15:00] VITALS: BP 100/40
--- NOTE | 2020-10-08 16:53 | NUR ---
SW following for discharge planning. Spoke with RN and reviewed chart. Pt from home with spouse. Pt currently on 3l 02, IV meropenem. Consult to wound care. SW following.
[2020-10-08 19:00] VITALS: BP 138/44
[2020-10-08] MEDS: ATORVASTATIN CALCIUM 40 MG TABLET. PO SCH (21:17)
--- NOTE | 2020-10-08 22:00 | NUR ---
While giving patient pm meds, Xanax 0.5mg tab had crumbled in package. I threw it out before before realizing i needed to waste it in [employer]. Therefore this waste was not witnessed. Another pill was pulled from [employer] and given to patient
[2020-10-08 23:00] VITALS: BP 121/25
[2020-10-09] MEDS: oxyCODONE/APAP 10/325 1 TAB TABLET PO SCH ×4 (00:21→17:25)
[2020-10-09 03:00] VITALS: BP 141/51
[2020-10-09] MEDS: MEROPENEM 500 MG in IV NORMAL SALINE 50ML 50 ML IV SCH ×3 (06:11→21:39)
[2020-10-09 07:00] VITALS: BP 127/39
--- NOTE | 2020-10-09 07:27 | PDOC ---
SUBJECTIVE Subjective Doing well, no new concerns. OBJECTIVE Objective Reviewed Vital Signs Vital Signs Date Time Temp Pulse Resp B/P (MAP) Pulse Ox O2 Delivery O2 Flow Rate FiO2 10/09/20 06:11 100 Nasal Cannula 3.0 10/09/20 03:00 98.5 84 16 141/51 (81) 100 98.5 10/09/20 01:21 100 Nasal Cannula 3.0 10/09/20 00:21 100 Nasal Cannula 3.0 10/08/20 23:00 97.8 79 18 121/25 (57) 100 Nasal Cannula 3.0 97.8 10/08/20 20:15 Nasal Cannula 3.0 10/08/20 19:27 100 Nasal Cannula 3.0 10/08/20 19:00 98.2 76 18 138/44 (75) 96 98.2 10/08/20 15:00 98.0 86 18 100/40 (60) 100 Nasal Cannula 3.0 98.0 10/08/20 11:00 98.4 98 18 110/50 (70) 98 Nasal Cannula 3.0 98.4 10/08/20 08:00 Nasal Cannula 3.0 I & O Intake and Output 10/09/20 07:00 Intake Total 600 ml Output Total 1050 ml Balance -450 ml Intake Oral 600 ml Output Urine Total 1050 ml # Voids 4 # Bowel Movements 3 PHYSICAL EXAM Physical Exam Alert, oriented RRR Decreased to auscultation d/t body habitus chronic venous stasis ulcers on legs bandaged ASSESSMENT/PLAN Assessment/Plan Chronic venous stasis ulcers with secondary infection with Serratia Coronary artery disease Chronic pain HTN Morbid Obesity HLD DANIEL Peripheral neuropathy ID following Continue present management Justifications for Admission Other Justification VALERIANO WAITE MD Oct 09, 2020 07:27
[2020-10-09] MEDS: ALPRAZolam 0.5 MG TABLET PO SCH ×3 (09:21→21:39)
[2020-10-09] MEDS: GABAPENTIN 300 MG CAPSULE. PO SCH ×3 (09:21→21:39)
[2020-10-09] MEDS: LACTOBACILLUS RHAMNOSUS GG 1 CAPSULE. PO SCH ×2 (09:21→21:39)
[2020-10-09] MEDS: buPROPion SR 150 MG TABLET.SA PO SCH (09:21)
[2020-10-09] MEDS: CHOLECALCIFEROL (VITAMIN D3) 1,000 UNIT TABLET PO SCH (09:21)
[2020-10-09] MEDS: VENLAFAXINE XR 37.5 MG CAP.ER.24H. PO SCH (09:22)
[2020-10-09] MEDS: PANTOPRAZOLE 40 MG TABLET.DR. PO SCH (09:22)
--- NOTE | 2020-10-09 09:45 | PDOC ---
Infectious Disease Note Subjective Subjective pt is feeling better, though leaking trough the dressing ROS ROS no n/v/d/ Vital Sign Vital Signs Vital Signs Date Time Temp Pulse Resp B/P (MAP) Pulse Ox O2 Delivery O2 Flow Rate FiO2 10/09/20 07:00 98.1 80 18 127/39 (68) 98 Nasal Cannula 3.0 98.1 Physical Exam PHYSICAL EXAM GENERAL: Alert, oriented female, not in distress. VITAL SIGNS: Stable, afebrile. HEENT: Both pupils are round and reacting. No conjunctival lesion, no lesion in the mouth. NECK: Supple, no JVP, no lymphadenopathy. LUNGS: Clear. HEART: S1, S2 regular. ABDOMEN: Soft, nontender, no organomegaly. She does have appears to be umbilical hernia. EXTREMITIES: Bilateral lower extremity edema present, venous insufficiency changes as well as ulcerations of both the legs. NEUROLOGIC: The patient is alert, awake and appropriate. No focal neurologic deficit. Objective Assessment IMPRESSION: 1. Bilateral lower extremity venous insufficiency, ulcerations with the right side is worse recently with a culture positive with Serratia. 2. Venous insufficiency. 3. Obesity. 4. Hypertension. 5. Coronary artery disease. Plan Plan of Care cont meropenem leg elevation pt/ot JOSHUA MOSELEY MD Oct 09, 2020 09:45
[2020-10-09 11:00] VITALS: BP 106/36
--- NOTE | 2020-10-09 14:13 | NUR ---
SW following for discharge planning. Spoke with RN and reviewed chart. Pt has home 02. SW spoke with Dr. Nash and pt will not likely need IV abx on discharge. Possible discharge home over the weekend. Discharge plan is home, self-care. No anticipated SW needs on discharge.
[2020-10-09 15:00] VITALS: BP 118/35
--- NOTE | 2020-10-09 17:10 | NUR ---
Wound Care Wound Type/Assessment: Follow up for management of BLE venous wounds. Legs are much less swollen and red today, although wound beds continue to be deep red nongranular tissue. Wound margins wrinkled, pale pink/purple, and friable. Dressing changes continue to be a source of great pain, although no significant bleeding occurred this time. No other open wounds noted on head to toe assessment. Treatment Recommendations/Plan: BLE venous ulcers: Apply A&D ointment to legs and cover with sheets of xeroform, ABDs, kerlix and tape. Tubigrip size G. Change on 10/11/20. Education provided: Pt encouraged to change position often to avoid new areas of skin breakdown. She is able to change position independently. Pt informed that her inpatient nurse would change her dressings on Monday and picture/measure them. Pt stated she would rather wait until the beginning of the week for wound care to change the dressings. Educated that her dressings should really be changed every other day to avoid drying out and sticking to the wounds, which is very painful, and encouraged her to allow the nurse to change on Monday to avoid stuck dressings. Offloading surface/device: Pt prefers to be up in recliner much of the time and is positioned with pillows for comfort. Recommended Referrals/Tests: NA Discharge Recommendations for dressings: As Above. Pt is knowledgeable about treatments and will be able to manage at home until next visit to the wound clinic.
[2020-10-09 19:00] VITALS: BP 125/30
[2020-10-09] MEDS: ATORVASTATIN CALCIUM 40 MG TABLET. PO SCH (21:39)
[2020-10-09 23:00] VITALS: BP 90/31
[2020-10-10] MEDS: oxyCODONE/APAP 10/325 1 TAB TABLET PO SCH ×4 (00:14→19:51)
[2020-10-10 03:00] VITALS: BP 132/41
[2020-10-10] MEDS: MEROPENEM 500 MG in IV NORMAL SALINE 50ML 50 ML IV SCH ×3 (06:26→21:19)
[2020-10-10 07:00] VITALS: BP 106/29
--- NOTE | 2020-10-10 08:29 | PDOC ---
Infectious Disease Note Subjective Subjective pt is feeling better, less tender. Dressings changed yesterday evening No F/C/S/N/V/dSOA/rash Vital Sign Vital Signs Vital Signs Date Time Temp Pulse Resp B/P (MAP) Pulse Ox O2 Delivery O2 Flow Rate FiO2 10/10/20 07:00 98.6 84 20 106/29 (54) 94 Nasal Cannula 3.0 98.6 Physical Exam PHYSICAL EXAM GENERAL: Alert, oriented female, not in distress. HEENT: Both pupils are round and reacting. No conjunctival lesion, no lesion in the mouth. NECK: Supple, no JVP, no lymphadenopathy. LUNGS: Clear. HEART: S1, S2 regular. ABDOMEN: Soft, nontender, no organomegaly. She does have appears to be umbilical hernia. obese EXTREMITIES: Bilateral lower extremity edema present, tubigrips. less tender NEUROLOGIC: The patient is alert, awake and appropriate. No focal neurologic deficit. Objective Assessment 1. Bilateral lower extremity venous insufficiency, ulcerations with the right side is worse recently with a culture positive with Serratia. 2. Venous insufficiency. 3. Obesity. 4. Hypertension. 5. Coronary artery disease. Plan Plan of Care Improving cont meropenem leg elevation pt/ot AFSANEH BOONE MD Oct 10, 2020 08:29
[2020-10-10] MEDS: buPROPion SR 150 MG TABLET.SA PO SCH (10:11)
[2020-10-10] MEDS: GABAPENTIN 300 MG CAPSULE. PO SCH ×3 (10:11→21:19)
[2020-10-10] MEDS: ALPRAZolam 0.5 MG TABLET PO SCH ×3 (10:11→21:19)
[2020-10-10] MEDS: LACTOBACILLUS RHAMNOSUS GG 1 CAPSULE. PO SCH ×2 (10:11→21:19)
[2020-10-10] MEDS: VENLAFAXINE XR 37.5 MG CAP.ER.24H. PO SCH (10:11)
[2020-10-10] MEDS: CHOLECALCIFEROL (VITAMIN D3) 1,000 UNIT TABLET PO SCH (10:12)
[2020-10-10] MEDS: PANTOPRAZOLE 40 MG TABLET.DR. PO SCH (10:12)
[2020-10-10 11:02] LABS: BASO % 1 % (0-3); EOS # 0.2 x10^3/uL (0.0-0.7); EOS % 3 % (0-3); HEMATOCRIT 26.9 % (36.0-47.0); HEMOGLOBIN 9.1 g/dL (12.0-15.5); LYMPH % 18 % (24-48); MEAN CORPUSCULAR HEMOGLOBIN 33 pg (25-35); MEAN CORPUSCULAR HGB CONC 34 g/dL (31-37); MEAN CORPUSCULAR VOLUME 98 fL (79-100); MONO # 0.2 x10^3/uL (0.0-1.1); MONO % 4 % (0-9); NEUT # 4.3 x10^3/uL (1.8-7.7); NEUT % 75 % (31-73); PLATELET COUNT 223 x10^3/uL (140-400); RED BLOOD COUNT 2.75 x10^6/uL (3.50-5.40); RED CELL DISTRIBUTION WIDTH 13.3 % (11.5-14.5); WHITE BLOOD COUNT 5.7 x10^3/uL (4.0-11.0)
[2020-10-10 11:07] LABS: CALCIUM 8.9 mg/dL (8.5-10.1); CREATININE 1.3 mg/dL (0.6-1.0); POTASSIUM 5.1 mmol/L (3.5-5.1)
[2020-10-10 11:16] VITALS: BP 118/55
--- NOTE | 2020-10-10 14:57 | PN ---
DATE: 10/10/2020 LOCATION: She is in room 532. SUBJECTIVE: The patient remains hospitalized for Serratia cellulitis of her lower extremities with oozing. She states her legs feel better and she is overall feeling much better. OBJECTIVE: VITAL SIGNS: Stable. She is afebrile. GENERAL: She is awake and alert. CHEST: Clear. HEART: Regular. ABDOMEN: Benign. EXTREMITIES: Legs are dressed. IMPRESSION: Chronic venous stasis ulcers with secondary infection with Serratia. ADDITIONAL DIAGNOSES: Morbid obesity, coronary artery disease, peripheral neuropathy. PLAN: Continue antibiotics per ID with transition possibly to p.o. at some point when they feel ready. DORON GARCIA MD DR: YURIDIA/lidia JOB#: [id number] / [id number]
[2020-10-10 15:20] VITALS: BP 115/48
[2020-10-10 19:00] VITALS: BP 125/43
[2020-10-10] MEDS: ATORVASTATIN CALCIUM 40 MG TABLET. PO SCH (21:19)
[2020-10-10 23:00] VITALS: BP 120/43
[2020-10-11] MEDS: oxyCODONE/APAP 10/325 1 TAB TABLET PO SCH ×4 (00:50→18:25)
[2020-10-11 03:06] VITALS: BP 142/42
[2020-10-11] MEDS: MEROPENEM 500 MG in IV NORMAL SALINE 50ML 50 ML IV SCH ×3 (06:06→21:29)
[2020-10-11 07:00] VITALS: BP 120/35
[2020-10-11] MEDS: GABAPENTIN 300 MG CAPSULE. PO SCH ×3 (09:31→21:30)
[2020-10-11] MEDS: buPROPion SR 150 MG TABLET.SA PO SCH (09:31)
[2020-10-11] MEDS: ALPRAZolam 0.5 MG TABLET PO SCH ×3 (09:31→21:30)
[2020-10-11] MEDS: CHOLECALCIFEROL (VITAMIN D3) 1,000 UNIT TABLET PO SCH (09:31)
[2020-10-11] MEDS: PANTOPRAZOLE 40 MG TABLET.DR. PO SCH (09:32)
[2020-10-11] MEDS: LACTOBACILLUS RHAMNOSUS GG 1 CAPSULE. PO SCH ×2 (09:32→21:30)
[2020-10-11] MEDS: VENLAFAXINE XR 37.5 MG CAP.ER.24H. PO SCH (09:32)
[2020-10-11 11:00] VITALS: BP 125/65
--- NOTE | 2020-10-11 11:33 | PN ---
DATE: 10/11/2020 DAILY PROGRESS NOTE LOCATION: Room 532 SUBJECTIVE: This 65-year-old white female remains hospitalized with Serratia cellulitis of her lower extremity with oozing. She continues to feel like her legs are improving as far as pain goes. OBJECTIVE: VITAL SIGNS: Stable. She is afebrile. CHEST: Clear. HEART: Regular. ABDOMEN: Benign. EXTREMITIES: Dressed but that is wet. Bandages are wet from oozing through. IMPRESSION: Chronic venous stasis ulcers with secondary infection with Serratia. ADDITIONAL DIAGNOSES: Morbid obesity, coronary artery disease, peripheral neuropathy. PLAN: Continue antibiotics per ID. Otherwise, supportive care. DORON GARCIA MD DR: YURIDIA/lidia JOB#: [id number] / [id number]
[2020-10-11 15:00] VITALS: BP 155/63
[2020-10-11 19:00] VITALS: BP 132/55
[2020-10-11] MEDS: ATORVASTATIN CALCIUM 40 MG TABLET. PO SCH (21:30)
[2020-10-11 23:00] VITALS: BP 124/37
[2020-10-12] MEDS: oxyCODONE/APAP 10/325 1 TAB TABLET PO SCH ×5 (00:33→23:54)
[2020-10-12 03:06] VITALS: BP 123/45
[2020-10-12] MEDS: MEROPENEM 500 MG in IV NORMAL SALINE 50ML 50 ML IV SCH (05:50)
[2020-10-12 07:00] VITALS: BP 132/43
--- NOTE | 2020-10-12 08:08 | PDOC ---
SUBJECTIVE Subjective No acute events overnight, improving slowly. OBJECTIVE Objective Reviewed. Vital Signs Vital Signs Date Time Temp Pulse Resp B/P (MAP) Pulse Ox O2 Delivery O2 Flow Rate FiO2 10/12/20 05:50 100 Nasal Cannula 3.0 10/12/20 03:06 97.6 73 18 123/45 (71) 100 Nasal Cannula 97.6 10/12/20 02:03 18 97 Nasal Cannula 3.0 10/12/20 00:33 18 97 Nasal Cannula 3.0 10/11/20 23:00 97.5 77 18 124/37 (66) 97 Nasal Cannula 97.5 10/11/20 20:26 Nasal Cannula 3.0 10/11/20 19:28 18 94 Nasal Cannula 3.0 10/11/20 19:00 97.6 82 18 132/55 (80) 100 Nasal Cannula 97.6 10/11/20 18:25 20 94 Nasal Cannula 3.0 10/11/20 15:00 98.5 73 16 155/63 (93) 99 Nasal Cannula 3.0 98.5 10/11/20 13:15 19 95 Nasal Cannula 3.0 10/11/20 12:09 19 94 Nasal Cannula 3.0 10/11/20 11:00 98.1 75 18 125/65 (85) 98 Nasal Cannula 3.0 98.1 I & O Intake and Output 10/12/20 07:00 Output Total 900 ml Balance -900 ml Output Urine Total 900 ml PHYSICAL EXAM Physical Exam Alert, oriented RRR Decreased to auscultation d/t body habitus chronic venous stasis ulcers on legs bandaged ASSESSMENT/PLAN Assessment/Plan Chronic venous stasis ulcers with secondary infection with Serratia Coronary artery disease Chronic pain HTN Morbid Obesity HLD DANIEL Peripheral neuropathy Abx per ID Improving slowly per photos from dressing change yesterday Justifications for Admission Other Justification TRUSTY,VALERIANO Wright MD Oct 12, 2020 08:08
[2020-10-12] MEDS: PANTOPRAZOLE 40 MG TABLET.DR. PO SCH (08:25)
[2020-10-12] MEDS: ALPRAZolam 0.5 MG TABLET PO SCH ×3 (08:26→21:25)
[2020-10-12] MEDS: LACTOBACILLUS RHAMNOSUS GG 1 CAPSULE. PO SCH ×2 (08:26→21:24)
[2020-10-12] MEDS: VENLAFAXINE XR 37.5 MG CAP.ER.24H. PO SCH (08:26)
[2020-10-12] MEDS: buPROPion SR 150 MG TABLET.SA PO SCH (08:26)
[2020-10-12] MEDS: CHOLECALCIFEROL (VITAMIN D3) 1,000 UNIT TABLET PO SCH (08:27)
[2020-10-12] MEDS: GABAPENTIN 300 MG CAPSULE. PO SCH ×3 (08:27→21:25)
--- NOTE | 2020-10-12 09:01 | PDOC ---
Infectious Disease Note Subjective Subjective pt is feeling better, less tender. Dressings changed yesterday evening No F/C/S/N/V/dSOA/rash ROS ROS No nausea vomiting diarrhea Vital Sign Vital Signs Vital Signs Date Time Temp Pulse Resp B/P (MAP) Pulse Ox O2 Delivery O2 Flow Rate FiO2 10/12/20 07:00 98.7 67 18 132/43 (72) 100 Nasal Cannula 3.0 98.7 Physical Exam PHYSICAL EXAM GENERAL: Alert, oriented female, not in distress. HEENT: Both pupils are round and reacting. No conjunctival lesion, no lesion in the mouth. NECK: Supple, no JVP, no lymphadenopathy. LUNGS: Clear. HEART: S1, S2 regular. ABDOMEN: Soft, nontender, no organomegaly. She does have appears to be umbilical hernia. obese EXTREMITIES: Bilateral lower extremity edema present, tubigrips. less tender NEUROLOGIC: The patient is alert, awake and appropriate. No focal neurologic deficit. Objective Assessment IMPRESSION: 1. Bilateral lower extremity venous insufficiency, ulcerations with the right side is worse recently with a culture positive with Serratia. 2. Venous insufficiency. 3. Obesity. 4. Hypertension. 5. Coronary artery disease. Plan Plan of Care The new pictures seen clean healthy ulcers Patient says she has never been allergic to anything that she knows of and she is surprised how did all this medication get into her allergy listing Patient is willing to try patient did have a Serratia culture positive sensitive to fluoroquinolone will try Cipro while she is here Leg elevation and continue the pressure dressings JOSHUA MOSELEY MD Oct 12, 2020 09:00
[2020-10-12] MEDS: CIPROFLOXACIN HCL 250 MG TABLET. PO SCH ×2 (10:28→21:25)
[2020-10-12 11:00] VITALS: BP 102/36
--- NOTE | 2020-10-12 11:46 | NUR ---
SW following for discharge planning. Spoke with RN and reviewed chart. Pt has home 02. Pt to discharge on oral medications per ID. Discharge plan remains home, self-care. No anticipated SW needs on discharge. SW following.
[2020-10-12 15:00] VITALS: BP 120/38
[2020-10-12 19:00] VITALS: BP 117/36
[2020-10-12] MEDS ORDERED: CIPROFLOXACIN HCL 250 MG TABLET. PO SCH (21:00)
[2020-10-12] MEDS: ATORVASTATIN CALCIUM 40 MG TABLET. PO SCH (21:25)
[2020-10-12 23:00] VITALS: BP 127/33
[2020-10-13 03:00] VITALS: BP 118/36
[2020-10-13] MEDS: oxyCODONE/APAP 10/325 1 TAB TABLET PO SCH ×3 (06:26→17:34)
[2020-10-13 07:00] VITALS: BP 108/37
--- NOTE | 2020-10-13 07:52 | PDOC ---
SUBJECTIVE Subjective Doing well. No new concerns. OBJECTIVE Objective Reviewed. Vital Signs Vital Signs Date Time Temp Pulse Resp B/P (MAP) Pulse Ox O2 Delivery O2 Flow Rate FiO2 10/13/20 06:26 20 Nasal Cannula 10/13/20 03:00 98.0 78 18 118/36 (63) 100 98.0 10/13/20 00:54 20 Nasal Cannula 10/12/20 23:54 18 Nasal Cannula 10/12/20 23:00 97.7 73 20 127/33 (64) 100 97.7 10/12/20 20:30 Nasal Cannula 3.0 10/12/20 19:06 18 Nasal Cannula 10/12/20 19:00 98.0 71 18 117/36 (63) 100 98.0 10/12/20 15:00 97.9 69 18 120/38 (65) 100 Room Air 3.0 97.9 10/12/20 11:00 98.2 69 18 102/36 (58) 100 98.2 10/12/20 08:00 Nasal Cannula 3.0 I & O Intake and Output 10/13/20 07:00 Intake Total 600 ml Output Total 1500 ml Balance -900 ml Intake Oral 600 ml Output Urine Total 1500 ml # Voids 1 PHYSICAL EXAM Physical Exam Alert, oriented RRR Decreased to auscultation d/t body habitus chronic venous stasis ulcers b/l LEs unwrapped on exam, appears improved from previous ASSESSMENT/PLAN Assessment/Plan Chronic venous stasis ulcers with secondary infection with Serratia Coronary artery disease Chronic pain HTN Morbid Obesity HLD DANIEL Peripheral neuropathy Abx per ID, trial cipro PO while inpt to monitor response. Pt not aware of hx of allergy as stated in chart. Improving slowly per photos from dressing changes Justifications for Admission Other Justification TRUSTY,VALERIANO Wright MD Oct 13, 2020 07:52
--- NOTE | 2020-10-13 08:57 | PDOC ---
Infectious Disease Note Subjective Subjective pt is feeling better, less tender. Dressings changed yesterday evening No F/C/S/N/V/dSOA/rash Vital Sign Vital Signs Vital Signs Date Time Temp Pulse Resp B/P (MAP) Pulse Ox O2 Delivery O2 Flow Rate FiO2 10/13/20 07:00 97.2 81 18 108/37 (60) 100 Room Air 97.2 10/12/20 20:30 3.0 Physical Exam PHYSICAL EXAM GENERAL: Alert, oriented female, not in distress. HEENT: Both pupils are round and reacting. No conjunctival lesion, no lesion in the mouth. NECK: Supple, no JVP, no lymphadenopathy. LUNGS: Clear. HEART: S1, S2 regular. ABDOMEN: Soft, nontender, no organomegaly. She does have appears to be umbilical hernia. obese EXTREMITIES: Bilateral lower extremity edema present, tubigrips. less tender NEUROLOGIC: The patient is alert, awake and appropriate. No focal neurologic deficit. Objective Assessment IMPRESSION: 1. Bilateral lower extremity venous insufficiency, ulcerations with the right side is worse recently with a culture positive with Serratia. 2. Venous insufficiency. 3. Obesity. 4. Hypertension. 5. Coronary artery disease. Plan Plan of Care The new pictures seen clean healthy ulcers Patient says she has never been allergic to anything that she knows of and she is surprised how did all this medication get into her allergy listing Patient is willing to try patient did have a Serratia culture positive sensitive to fluoroquinolone will try Cipro while she is here Leg elevation and continue the pressure dressings pt has tolerated cipro well, ok to d/c home JOSHUA MOSELEY MD Oct 13, 2020 08:57
--- NOTE | 2020-10-13 09:30 | NUR ---
Wound Care Wound Type/Assessment: Follow up for management of BLE venous wounds. Legs are much less swollen and red today, although wound beds continue to be deep red with tissue loss. Wound margins wrinkled, pale pink/purple, and friable. Dressing changes continue to be a source of great pain. No other open wounds noted on head to toe assessment. Treatment Recommendations/Plan: BLE venous ulcers: Apply A&D ointment to legs and cover with sheets of xeroform, ABDs, kerlix and tape. Tubigrip size G. Change on 10/15/20. Education provided: Pt educated on dressing changes and PU prevention. Offloading surface/device: Pt is able to move independently. Pt also has wheelchair cushion for when she is up in the chair. Recommended Referrals/Tests: NA Discharge Recommendations for dressings: Continue with current treatment. Dressing change instructions left in room. Pt is to follow up in the wound care clinic following discharge. Bed lowered and call light in reach.
[2020-10-13] MEDS: CIPROFLOXACIN HCL 250 MG TABLET. PO SCH ×2 (09:41→21:43)
[2020-10-13] MEDS: buPROPion SR 150 MG TABLET.SA PO SCH (09:41)
[2020-10-13] MEDS: ALPRAZolam 0.5 MG TABLET PO SCH ×3 (09:41→21:44)
[2020-10-13] MEDS: CHOLECALCIFEROL (VITAMIN D3) 1,000 UNIT TABLET PO SCH (09:42)
[2020-10-13] MEDS: LACTOBACILLUS RHAMNOSUS GG 1 CAPSULE. PO SCH ×2 (09:42→21:44)
[2020-10-13] MEDS: VENLAFAXINE XR 37.5 MG CAP.ER.24H. PO SCH (09:42)
[2020-10-13] MEDS: PANTOPRAZOLE 40 MG TABLET.DR. PO SCH (09:42)
[2020-10-13] MEDS: GABAPENTIN 300 MG CAPSULE. PO SCH ×3 (09:42→21:44)
[2020-10-13 11:00] VITALS: BP 105/39
--- NOTE | 2020-10-13 11:53 | PDOC ---
Progress Note-Wound Care SUBJECTIVE Patient currently hospitalized for lower extremity cellulitis complicating impressive venous insufficiency ulcerations of bilateral lower extremities. Right is noted to be worse than the left. Patient continues to experience significant pain particularly on the right. Increased drainage persists. She does not report increased shortness of breath or chest pain. Patient is well- known to the wound care center and most recently has experienced significant superficial tissue loss. OBJECTIVE Vital Signs Vital Signs Date Time Temp Pulse Resp B/P (MAP) Pulse Ox O2 Delivery O2 Flow Rate FiO2 10/12/20 07:00 98.7 67 18 132/43 (72) 100 Nasal Cannula 3.0 98.7 Vital Signs Date Time Temp Pulse Resp B/P (MAP) Pulse Ox O2 Delivery O2 Flow Rate FiO2 10/13/20 11:00 97.8 74 18 105/39 (61) 98 Room Air 97.8 10/12/20 20:30 3.0 Physical Exam: Patient's respirations nondistressed. She examined seated at the hospital bed. Moderate serosanguineous drainage persists. Particularly right lower extremity continues quite tender to the touch. ASSESSMENT Bilateral lower extremity venous insufficiency ulcerations complicated by cellulitis to the right lower extremity. ROS ROS: Patient denies significant change in bowel bladder habits, dyspnea or shortness of breath. She does have large joint arthralgias. Review of systems is largely negative except as noted above. WOUND Location of Modifier: Right Wound Location: Medial, Anterior, Lateral, Posterior Body Site: Leg Associated Signs/Symptoms: Swelling, Erythema Drainage Amount: Moderate Drainage Description: Serosanguineous Odor: None/Absent Surrounding Tissue Appearance: macerated, edematous Wound Description: skin Bone/Muscle/Tendon Exposed: No Length cm.: 16 Width cm.: 43 Wound Depth cm.: 0.2 Granulation % 100 Hypergranulation % 0 Fibrin % 0 Eschar % 0 Improvement: Better, Shallower, Diamond Saw Operator PLAN Dressings comprised of A&E ointment, Xeroform, ABD, Kerlix and MetaGrip were applied this morning after evaluation. FOLLOW-UP She will follow-up in 3 days in the wound care clinic for dressing change. Physical Exam - Wound #2 Wound Exam Location of Modifier: Left Wound Location: Medial, Anterior, Lateral, Posterior Body Site: Leg Associated Signs/Symptoms: Swelling, Pain, Drainage, Erythema Drainage Amount: Moderate Drainage Description: Serosanguineous Odor: None/Absent Surrounding Tissue Appearance: edematous Wound Description: skin, SQ Length cm.: 10 Width cm: 23 Wound Depth cm.: 0.2 Granulation % 100 Hypergranulation % 0 Fibrin % 0 Eschar % 0 Improvement: Better, Shallower, Diamond Saw Operator ERIK HIGHTOWER DO Oct 13, 2020 11:53
--- NOTE | 2020-10-13 13:09 | NUR ---
SW following for discharge planning. Spoke with RN and reviewed chart. Possible discharge home today, self-care. No further SW needs at this time.
[2020-10-13 15:00] VITALS: BP 130/43
[2020-10-13 19:00] VITALS: BP 144/46
[2020-10-13] MEDS: ATORVASTATIN CALCIUM 40 MG TABLET. PO SCH (21:43)
[2020-10-13 23:00] VITALS: BP 122/39
[2020-10-14] MEDS: oxyCODONE/APAP 10/325 1 TAB TABLET PO SCH ×4 (00:13→17:51)
[2020-10-14 03:00] VITALS: BP 114/40
[2020-10-14 07:00] VITALS: BP 109/37
--- NOTE | 2020-10-14 07:41 | PDOC3 ---
Discharge Summary Date of Admission: Oct 07, 2020 Date of Discharge: Oct 14, 2020 Follow-Up: 3-5 days Admitting Diagnosis comment: Chronic venous stasis ulcers with secondary infection with Serratia Coronary artery disease Chronic pain HTN Morbid Obesity HLD DANIEL Peripheral neuropathy FINAL DIAGNOSIS Chronic venous stasis ulcers with secondary infection with Serratia Coronary artery disease Chronic pain HTN Morbid Obesity HLD DANIEL Peripheral neuropathy Brief Hospital Course Ms. Lucas is a 65 year old female with multiple comorbidities who presented for cellulitis of b/l lower extremities with chronic venous stasis ulcerations. She is followed by wound care and a culture done recently showed Serratia. She was admitted for IV abx (Meropenem) due to multiple allergies listed on chart. She improved slowly as shown with dressing changes from wound care. Upon further discussion about her allergies, she denied knowing about any of these allergies and wished to try Cipro oral prior to discharge. She did well with Cipro and is ready for discharge home with follow up with wound care. We will adjust her allergy list to reflect this. All other home meds remain the same. CONDITION AT DISCHARGE: Improved, Stable Discharge Medications Active Reported Lisinopril 10 Mg Tablet 10 Mg PO DAILY Vitamin D3 (Cholecalciferol (Vitamin D3)) 1,000 Unit Tablet 1 Tab PO DAILY Venlafaxine Hcl Er (Venlafaxine Hcl) 75 Mg Cap.er.24h 1 Cap PO DAILY Protonix (Pantoprazole Sodium) 40 Mg Tablet.dr 40 Mg PO DAILY Atorvastatin Calcium 40 Mg Tablet 40 Mg PO HS Alprazolam 0.5 Mg Tablet 1 Tab PO TID Percocet 10-325 Mg Tablet (Oxycodone/Acetaminophen) 1 Each Tablet 2 Tab .ROUTE Q6HRS PRN Bupropion Hcl Sr (Bupropion Hcl) 150 Mg Tablet.er 450 Mg PO DAILY Temazepam 30 Mg Capsule 30 Mg PO HS PRN Gabapentin 600 Mg Tablet 2 Tab PO TID Cipro 500mg PO BID Vital Signs Vital Signs Date Time Temp Pulse Resp B/P (MAP) Pulse Ox O2 Delivery O2 Flow Rate FiO2 10/14/20 06:12 20 Nasal Cannula 10/14/20 03:00 98.3 75 114/40 (64) 99 3.0 98.3 Allergies Allergies Coded Allergies Type Severity Reaction Last Updated Verified aspirin Allergy Intermediate 04/10/19 Yes codeine Allergy Intermediate 04/27/18 Yes levofloxacin Allergy Intermediate 2/1/21 Yes piperacillin Allergy Intermediate hives, rash 04/27/18 Yes propoxyphene Allergy Intermediate 04/27/18 Yes sulfamethoxazole Allergy Intermediate 04/27/18 Yes tazobactam Allergy Intermediate hives, rash 04/27/18 Yes I S O L A T I O N *CONTACT* Allergy Unknown 04/27/18 Yes Disposition/Orders: D/C to Home Justicifation of Admission Dx: Justifications for Admission: Justification of Admission Dx: Yes Cellulitis: Cellulitis VALERIANO WAITE MD Oct 14, 2020 07:41
--- NOTE | 2020-10-14 08:43 | PDOC ---
SUBJECTIVE Subjective Upon discussing plan for discharge home, pt stated, "Well if you don't want me here" and that she was "worried about getting another fever and having to come straight back". I reminded her that she has been afebrile since admission and that she has been tolerating PO Cipro for 2 days now. OBJECTIVE Objective Reviewed. Vital Signs Vital Signs Date Time Temp Pulse Resp B/P (MAP) Pulse Ox O2 Delivery O2 Flow Rate FiO2 10/14/20 07:00 98.1 72 18 109/37 (61) 99 Nasal Cannula 3.0 98.1 10/14/20 06:12 20 Nasal Cannula 10/14/20 03:00 98.3 75 18 114/40 (64) 99 Nasal Cannula 3.0 98.3 10/14/20 01:13 20 Nasal Cannula 10/14/20 00:13 0 Nasal Cannula 10/13/20 23:00 98.2 72 22 122/39 (66) 100 Nasal Cannula 3.0 98.2 10/13/20 20:00 Nasal Cannula 3.0 10/13/20 19:00 98.1 73 22 144/46 (78) 97 Nasal Cannula 3.0 98.1 10/13/20 15:00 97.9 93 18 130/43 (72) 100 97.9 10/13/20 11:00 97.8 74 18 105/39 (61) 98 Room Air 97.8 I & O Intake and Output 10/14/20 07:00 Output Total 2250 ml Balance -2250 ml Output Urine Total 2250 ml # Voids 1 PHYSICAL EXAM Physical Exam Alert, oriented RRR Decreased to auscultation d/t body habitus chronic venous stasis ulcers b/l LEs unwrapped on exam, appears improved from previous ASSESSMENT/PLAN Assessment/Plan Chronic venous stasis ulcers with secondary infection with Serratia Coronary artery disease Chronic pain HTN Morbid Obesity HLD DANIEL Peripheral neuropathy Doing well with Cipro PO. Will clarify with ID how long to treat after discharge. Pt ready for discharge but resistant. Will call this afternoon to discuss with nursing about dc. Justifications for Admission Other Justification TRUSTY,VALERIANO Wright MD Oct 14, 2020 08:43
--- NOTE | 2020-10-14 10:27 | PDOC ---
Infectious Disease Note Subjective Subjective pt is feeling better, less tender. Dressings changed yesterday evening No F/C/S/N/V/dSOA/rash Vital Sign Vital Signs Vital Signs Date Time Temp Pulse Resp B/P (MAP) Pulse Ox O2 Delivery O2 Flow Rate FiO2 10/14/20 07:00 98.1 72 18 109/37 (61) 99 Nasal Cannula 3.0 98.1 Physical Exam PHYSICAL EXAM GENERAL: Alert, oriented female, not in distress. HEENT: Both pupils are round and reacting. No conjunctival lesion, no lesion in the mouth. NECK: Supple, no JVP, no lymphadenopathy. LUNGS: Clear. HEART: S1, S2 regular. ABDOMEN: Soft, nontender, no organomegaly. She does have appears to be umbilical hernia. obese EXTREMITIES: Bilateral lower extremity edema present, tubigrips. less tender NEUROLOGIC: The patient is alert, awake and appropriate. No focal neurologic deficit. Objective Assessment IMPRESSION: 1. Bilateral lower extremity venous insufficiency, ulcerations with the right side is worse recently with a culture positive with Serratia. 2. Venous insufficiency. 3. Obesity. 4. Hypertension. 5. Coronary artery disease. Plan Plan of Care The new pictures seen clean healthy ulcers Patient says she has never been allergic to anything that she knows of and she is surprised how did all this medication get into her allergy listing Patient is willing to try patient did have a Serratia culture positive sensitive to fluoroquinolone will try Cipro while she is here Leg elevation and continue the pressure dressings pt has tolerated cipro well, ok to d/c home JOSHUA MOSELEY MD Oct 14, 2020 10:27
[2020-10-14] MEDS: CHOLECALCIFEROL (VITAMIN D3) 1,000 UNIT TABLET PO SCH (10:35)
[2020-10-14] MEDS: LACTOBACILLUS RHAMNOSUS GG 1 CAPSULE. PO SCH (10:36)
[2020-10-14] MEDS: VENLAFAXINE XR 37.5 MG CAP.ER.24H. PO SCH (10:36)
[2020-10-14] MEDS: buPROPion SR 150 MG TABLET.SA PO SCH (10:36)
[2020-10-14] MEDS: PANTOPRAZOLE 40 MG TABLET.DR. PO SCH (10:36)
[2020-10-14] MEDS: CIPROFLOXACIN HCL 250 MG TABLET. PO SCH (10:36)
[2020-10-14] MEDS: ALPRAZolam 0.5 MG TABLET PO SCH ×2 (10:36→14:57)
[2020-10-14] MEDS: GABAPENTIN 300 MG CAPSULE. PO SCH ×2 (10:36→14:57)
[2020-10-14 10:51] VITALS: BP 128/38
--- NOTE | 2020-10-14 14:20 | NUR ---
SW following for discharge planning. Spoke with RN and reviewed chart. Pt to discharge home today, self-care. No further SW needs at this time.
[2020-10-14 15:00] VITALS: BP 136/50
[2020-10-14] MEDS ORDERED: CIPR500S2 PO ×2 (15:55→15:56)
--- NOTE | 2020-10-14 17:30 | NUR ---
Discharge instructions given to patient and her spouse at the bedside, questions and concerns answered, all personal belongings gathered and placed in bags for discharge per the patients' spouse, saline lock removed from patients' right wrist per staff nuclear weapons officer.
--- NOTE | 2020-10-14 18:55 | NUR ---
Patient leaves the unit per w/c and accompanied by cupola liner helper on the unit, emotional support given, follow up appointments encouraged, spoke with wound care nurses prior to patients' discharge and they informed this mortgage loan underwriter that they had changed her dressings on yesterday and there was no need to change them before discharge.
== END 2020-10-14 18:55 | disposition home or self-care (01) | DRG 872 ==
LOC: 5 NORTH 15:02
PROVIDERS: ADMIT Family Medicine; ATTEND Family Medicine
DX: A41.9 Sepsis, unspecified organism (principal); L03.116 Cellulitis of left lower limb; L97.919 Non-pressure chronic ulcer of unspecified part of right lower leg with unspecified severity; L97.929 Non-pressure chronic ulcer of unspecified part of left lower leg with unspecified severity; Z68.43 Body mass index [BMI] 50.0-59.9, adult; L03.115 Cellulitis of right lower limb; I87.2 Venous insufficiency (chronic) (peripheral); I10 Essential (primary) hypertension; I25.10 Atherosclerotic heart disease of native coronary artery without angina pectoris; G89.29 Other chronic pain; E66.01 Morbid (severe) obesity due to excess calories; E78.5 Hyperlipidemia, unspecified; G47.33 Obstructive sleep apnea (adult) (pediatric); G62.9 Polyneuropathy, unspecified; I83.009 Varicose veins of unspecified lower extremity with ulcer of unspecified site; K21.9 Gastro-esophageal reflux disease without esophagitis; J44.9 Chronic obstructive pulmonary disease, unspecified; F41.9 Anxiety disorder, unspecified; F32.9 Major depressive disorder, single episode, unspecified; Z79.82 Long term (current) use of aspirin; Z87.891 Personal history of nicotine dependence; Z88.2 Allergy status to sulfonamides; Z88.8 Allergy status to other drugs, medicaments and biological substances; Z88.6 Allergy status to analgesic agent; Z88.5 Allergy status to narcotic agent
CPT/HCPCS: 36415; 80048; 80053; 85025; 99215; J2185; G0378; G0463